=== PATIENT | female | born 1940 | race Caucasian/White ===

== ENCOUNTER 2019-11-23 10:54 | Outpatient (REF) | payer MEDICARE, SELFPAY ==
--- NOTE | 2019-11-23 | MM_ITS ---
EXAMINATION: MM SCREENING DIGITAL BREAST TOMOSYNTHESIS, BILATERAL CLINICAL INFORMATION: Screening. Asymptomatic. The lifetime risk of breast cancer based on the Tyrer-Cuzick Model is 2%. COMPARISON: Mammography: 02/26/2018, 12/31/2016, 11/07/2015 TECHNIQUE: Digital breast tomosynthesis is performed in both the craniocaudal and mediolateral oblique views along with computer-aided detection (CAD). Synthesized 2D images are generated from the tomosynthesis. Additional exaggerated right CC view is provided. FINDINGS: There are scattered areas of fibroglandular density (ACR BI-RADS breast composition Category b). There are no significant masses, abnormal calcifications, or other abnormalities. Parenchymal pattern is similar to prior studies. No developing density. The axilla and skin contours are unremarkable. IMPRESSION: No significant changes from prior studies. ASSESSMENT: BI-RADS 1: Negative RECOMMENDATION: Routine annual mammography screening. This patient's information was entered into a reminder system with a target due date for their next mammogram.
== END 2019-11-23 10:55 | disposition home or self-care (01) ==
LOC: HO.MAMMO 10:54
PROVIDERS: PCP Internal Medicine; Visit Provider Internal Medicine
DX: Z12.31 Encounter for screening mammogram for malignant neoplasm of breast (principal)
CPT/HCPCS: 77063; 77067

== ENCOUNTER 2020-03-23 12:46 | Outpatient (REF) | payer MEDICARE, SELFPAY ==
--- NOTE | ~2020-03-23 | XR_ITS ---
EXAMINATION: XR ANKLE, LEFT CLINICAL INFORMATION: Left ankle pain. COMPARISON: None TECHNIQUE: AP, lateral, and mortise views of the left ankle. FINDINGS: There is a nondisplaced medial malleolar fracture with sclerotic margin extending to the articular surface suggestive of subacute or old fracture. There is moderate medial malleolar soft tissue swelling. There is minimal lateral malleolar soft tissue swelling but no fracture seen laterally. There is a small calcaneal heel and retrocalcaneal enthesophyte. XR/XR ankle LT min 3V IMPRESSION: 1. Nondisplaced medial malleolar fracture with sclerotic margins extending to the articular surface suggestive of old fracture. 2. There is bimalleolar soft tissue swelling slightly greater on the medial side.
[2020-03-23 13:23] LABS: MANUAL DIFF FLAG NO
[2020-03-23 13:28] LABS: Basophils Percent Auto 0.5 % (0-2); Eosinophils Absolute Auto 0.3 X10*3/uL (0.0-0.4); Eosinophils Percent Auto 3.9 % (0-4); Hematocrit 33.9 % (37-47); Hemoglobin 11.1 g/dl (12.0-16.0); Imm Gran Abs Auto 0.01 X10*3/uL (0.00-0.03); Imm Gran Pct Auto 0.2 % (0.0-0.4); Lymphocytes Absolute Auto 2.6 X10*3/uL (1.2-4.9); Lymphocytes Percent Auto 40.5 % (20-40); Mean Corpuscular HGB Conc 32.7 g/dl (31.0-35.0); Mean Corpuscular Hemoglobin 29.3 pg (27.0-33.0); Mean Corpuscular Volume 89.4 fL (80-98); Mean Platelet Volume 10.7 fL (9.4-12.3); Monocytes Absolute Auto 0.8 X10*3/uL (0.1-1.2); Monocytes Percent Auto 12.2 % (2-11); Neutrophils Absolute Auto 2.7 X10*3/uL (2.0-8.3); Neutrophils Percent Auto 42.7 % (45-73); Platelet Count 232 X10*3/uL (160-400); Red Blood Count 3.79 X10*6/uL (4.20-5.50); Red Cell Distribution Width 13.1 % (11.0-16.0); White Blood Count 6.4 X10*3/uL (4.8-10.8)
[2020-03-23 13:53] LABS: Alanine Aminotransferase 8 U/L (0-31); Albumin Level 3.9 g/dL (3.5-5.0); Alkaline Phosphatase 68 U/L (39-117); Anion Gap 11 (12-20); Aspartate Amino Transferase 22 U/L (5-31); Bilirubin Total 0.4 mg/dL (0.0-1.0); Blood Urea Nitrogen 19 mg/dL (9-16); Calcium 9.3 mg/dL (8.4-10.2); Carbon Dioxide 30 mmol/L (22-29); Chloride 99 mmol/L (96-108); Estimated Glomerular Filt Rate 44; Glucose Random 146 mg/dL (60-115); Potassium 4.3 mmol/L (3.3-5.1); Sodium 136 mmol/L (135-145); Total Protein 6.9 g/dL (6.5-8.0)
[2020-03-23 14:15] LABS: Free T4 (Free Thyroxine) 1.22 ng/dL (0.71-1.85); Thyroid Stimulating Hormone 1.12 uIU/mL (0.32-4.0); Vitamin D 25-OH Total 29.8 ng/mL (>30)
== END 2020-03-23 12:47 | disposition home or self-care (01) ==
LOC: HO.LAB 12:46
PROVIDERS: PCP Internal Medicine; Visit Provider Internal Medicine
DX: I12.9 Hypertensive chronic kidney disease with stage 1 through stage 4 chronic kidney disease, or unspecified chronic kidney disease (principal); N18.9 Chronic kidney disease, unspecified; E03.9 Hypothyroidism, unspecified; M25.572 Pain in left ankle and joints of left foot
CPT/HCPCS: 36415; 73610; 80053; 82306; 84439; 84443; 85025

== ENCOUNTER 2020-04-19 14:02 | Outpatient (REF) | payer MEDICARE, SELFPAY ==
--- NOTE | ~2020-04-19 | XR_ITS ---
EXAMINATION: XR ANKLE, LEFT CLINICAL INFORMATION: Ankle pain. Possible osteomyelitis. COMPARISON: Radiographs left ankle 03/23/2020 TECHNIQUE: AP, lateral, and mortise views of the left ankle. FINDINGS: Medial soft tissue swelling is decreased from prior study 03/23/2020. There is no acute fracture or destructive process. No periostitis. No focal osseous lucency. There is no gas tracking in the soft tissues. Again, there is an oblique faint fracture line with osseous union base medial malleolus. The medial and posterior malleoli are unremarkable. The talar dome shows no osteochondral lesion. There is no joint narrowing. Subtalar joint unremarkable. Again, there are posterior and plantar calcaneal spurs and scattered dystrophic mineralization mid Achilles. XR/XR ankle LT min 3V IMPRESSION: 1. Medial soft tissue swelling decreased from prior exam 03/23/2020. No gas tracking in soft tissues. No bony destructive process or osteomyelitis. 2. Old versus subacute injury base medial malleolus, osseous union. 3. Posterior and plantar calcaneal spurs. Dystrophic mineralization Achilles stable.
[2020-04-19 14:50] LABS: MANUAL DIFF FLAG NO
[2020-04-19 14:56] LABS: Basophils Percent Auto 0.3 % (0-2); Eosinophils Absolute Auto 0.1 X10*3/uL (0.0-0.4); Eosinophils Percent Auto 0.8 % (0-4); Hematocrit 35.9 % (37-47); Hemoglobin 11.5 g/dl (12.0-16.0); Imm Gran Abs Auto 0.01 X10*3/uL (0.00-0.03); Imm Gran Pct Auto 0.2 % (0.0-0.4); Lymphocytes Absolute Auto 2.6 X10*3/uL (1.2-4.9); Lymphocytes Percent Auto 39.8 % (20-40); Mean Corpuscular Hemoglobin 28.4 pg (27.0-33.0); Mean Corpuscular Volume 88.6 fL (80-98); Mean Platelet Volume 10.4 fL (9.4-12.3); Monocytes Absolute Auto 0.7 X10*3/uL (0.1-1.2); Monocytes Percent Auto 10.7 % (2-11); Neutrophils Absolute Auto 3.2 X10*3/uL (2.0-8.3); Neutrophils Percent Auto 48.2 % (45-73); Platelet Count 219 X10*3/uL (160-400); Red Blood Count 4.05 X10*6/uL (4.20-5.50); Red Cell Distribution Width 14.2 % (11.0-16.0); White Blood Count 6.6 X10*3/uL (4.8-10.8)
[2020-04-19 15:22] LABS: C Reactive Protein 0.43 mg/dL (< or = 0.50)
== END 2020-04-19 14:03 | disposition home or self-care (01) ==
LOC: HO.LAB 14:02
PROVIDERS: PCP Internal Medicine; Visit Provider Internal Medicine
DX: S82.892A Other fracture of left lower leg, initial encounter for closed fracture (principal); X58.XXXA Exposure to other specified factors, initial encounter; Y93.9 Activity, unspecified; Y92.9 Unspecified place or not applicable; Y99.8 Other external cause status
CPT/HCPCS: 36415; 73610; 85025; 86140

== ENCOUNTER 2020-08-30 09:21 | Outpatient (REF) | payer MEDICARE, SELFPAY ==
[2020-08-30 10:14] LABS: MANUAL DIFF FLAG NO
[2020-08-30 10:23] LABS: Basophils Percent Auto 0.3 % (0-2); Eosinophils Absolute Auto 0.2 X10*3/uL (0.0-0.4); Hematocrit 34.3 % (37-47); Imm Gran Abs Auto 0.01 X10*3/uL (0.00-0.03); Imm Gran Pct Auto 0.2 % (0.0-0.4); Lymphocytes Absolute Auto 2.9 X10*3/uL (1.2-4.9); Lymphocytes Percent Auto 48.1 % (20-40); Mean Corpuscular HGB Conc 32.1 g/dl (31.0-35.0); Mean Corpuscular Hemoglobin 28.5 pg (27.0-33.0); Mean Corpuscular Volume 88.9 fL (80-98); Mean Platelet Volume 10.6 fL (9.4-12.3); Monocytes Absolute Auto 0.8 X10*3/uL (0.1-1.2); Monocytes Percent Auto 12.8 % (2-11); Neutrophils Absolute Auto 2.1 X10*3/uL (2.0-8.3); Neutrophils Percent Auto 34.6 % (45-73); Platelet Count 231 X10*3/uL (160-400); Red Blood Count 3.86 X10*6/uL (4.20-5.50); Red Cell Distribution Width 13.7 % (11.0-16.0); White Blood Count 5.9 X10*3/uL (4.8-10.8)
[2020-08-30 10:33] LABS: Estimated Average Glucose 123 mg/dL; Hemoglobin A1c % 5.9 %
[2020-08-30 10:34] LABS: Alanine Aminotransferase 7 U/L (0-31); Albumin Level 3.8 g/dL (3.5-5.0); Alkaline Phosphatase 51 U/L (39-117); Anion Gap 10 (12-20); Aspartate Amino Transferase 21 U/L (5-31); Bilirubin Total 0.7 mg/dL (0.0-1.0); Blood Urea Nitrogen 19 mg/dL (9-16); Calcium 9.5 mg/dL (8.4-10.2); Carbon Dioxide 28 mmol/L (22-29); Chloride 101 mmol/L (96-108); Estimated Glomerular Filt Rate 43; Glucose Random 128 mg/dL (60-115); Iron 78 mcg/dL (30-160); Percent Iron Saturation 27 % (15-50); Potassium 4.4 mmol/L (3.3-5.1); Sodium 135 mmol/L (135-145); Total Iron Binding Capacity 293 mcg/dL (228-428); Total Protein 6.6 g/dL (6.5-8.0); Unsaturated Iron Binding 215 ug/dL
[2020-08-30 10:55] LABS: Free T4 (Free Thyroxine) 1.23 ng/dL (0.71-1.85); Thyroid Stimulating Hormone 1.25 uIU/mL (0.32-4.0)
== END 2020-08-30 09:22 | disposition home or self-care (01) ==
LOC: HO.10HDL 09:21
PROVIDERS: Visit Provider Internal Medicine
DX: I12.9 Hypertensive chronic kidney disease with stage 1 through stage 4 chronic kidney disease, or unspecified chronic kidney disease (principal); N18.9 Chronic kidney disease, unspecified; E03.9 Hypothyroidism, unspecified; R73.03 Prediabetes; D64.9 Anemia, unspecified
CPT/HCPCS: 36415; 80053; 83036; 83540; 84439; 84443; 85025

== ENCOUNTER → 2020-11-30 12:41 | Outpatient (REF) | payer MEDICARE, SELFPAY ==
--- NOTE | 2020-11-30 13:00 | CA_ITS ---
Transthoracic Echocardiogram Patient (Last, First, Middle): Celsa Rios, Gender: Female Date of : 1940 Age: 80 Procedure Date: 11/30/2020 Procedure Type: Transthoracic Echocardiogram Location: OP Height: 160.02 cm Weight: 63.5 kg BSA: 1.66 m2 Heart Rate: bpm BP: 125 / 64 mmHg Ski Instructor: VH/CP Referring MD: Shiva Fierro MD Symptoms: MURMUR Study Quality: Fair ECG Rhythm: Sinus Conclusions: - The left ventricular systolic function is normal. The visually estimated ejection fraction is between 65-70%. - Evidence suggests grade II (moderate) diastolic dysfunction. - The left atrium is moderately dilated. - There is severe calcification of the aortic valve. There is moderate aortic valve stenosis. Findings Left Ventricle Normal left ventricular cavity size. There is normal left ventricular wall thickness. The left ventricular systolic function is normal. The visually estimated ejection fraction is between 65-70%. E/E prime ratio is >15, consistent with elevated filling pressures. Evidence suggests grade II (moderate) diastolic dysfunction. Right Ventricle Normal right ventricular cavity size. There is normal right ventricular systolic function. Atria The left atrium is moderately dilated. The right atrium is mildly dilated. Aortic Valve There is severe calcification of the aortic valve. There is moderate aortic valve stenosis. The peak aortic velocity is 3.05 m/s with a calculated peak gradient of 37 mmHg. The mean gradient is 21 mmHg. The aortic valve area is 1.18 cm2. There is mild aortic valve regurgitation. Mitral Valve There is mild anterior mitral leaflet thickening. There is mild mitral annular calcification. There is trace mitral valve regurgitation. There is no mitral valve stenosis. Pulmonic Valve The pulmonic valve was not well visualized. There is trace to mild pulmonic valve regurgitation. Tricuspid Valve Normal tricuspid valve structure. There is trace tricuspid valve regurgitation. The pulmonary artery systolic pressure is normal. Great Vessels The asc aorta is normal in size. Venous The inferior vena cava is normal in size and collapses greater than 50% with inspiration. Pericardium/Pleural There is no evidence of pericardial effusion. Prior Study Comparison Changes noted compared to prior study dated: 03/04/2019. Progression of aortic valve stenosis. Measurements 2D Linear Measurements IVSd: 1.07 0.6-0.9/0.6-1.0 cm LVIDd: 4.27 3.9-5.3/4.2-5.9 cm LVIDd Index: 2.57 2.4-3.2/2.2-3.1 cm/m2 LVIDs: 3.10 2.0-3.6 cm LVPWd: 0.94 0.7-1.1 cm Ao Root: 3.50 2.1-3.5 cm LA Diam: 3.70 2.7-3.8/3.0-4.0 cm LAIDs Index: 2.23 1.5-2.3 cm/m2 LV Mass: 176.00 67-162/88-224 g LV Mass Index: 106.02 43-95/49-115 g/m2 LVOT Diam: 2.00 3.0+(-)1.3 cm Mitral Valve MV Pk E: 1.30 MV PK A: 1.08 MV Decel Time: 263.00 E/A: 1.20 E'Lateral: 7.40 E'Medial: 5.00 E/E' Med: 26.00 E/E' Lat: 17.60 PHT: 77.00 MVA PHT: 2.86 Decel [place]: 4.96 Aortic Valve AoV Pk Luis: 3.05 AoV Mn Luis: 2.19 AoV VTI: 0.74 AoV Pk Grad: 37.00 Aov Mn Grad: 21.00 RITO Cont.VTI: 1.18 LVOT LVOT Pk Luis: 1.04 LVOT Mn Luis: 0.64 LVOT VTI: 0.28 LVOT Pk Grad: 4.00 LVOT Mn Grad: 2.00 LVOT Diam: 2.00 LVOT Area: 3.14 Diastolic Function MV Pk E: 1.30 MV Pk A: 1.08 E/A: 1.20 E'Medial: 5.00 E/E' Med: 26.00 E' Laterial: 7.40 E/E' Lat: 17.60 Right Ventricle TAPSE (mm): 26.00 TVS' Luis: 17.00 Tricuspid Valve TR Pk Luis: 1.83 TR Pk Grad: 13.00 Great Vessels Aorta Ao Root-2D: 3.50 2.0-3.7 cm Ao Asc: 3.20 2.1-3.4 cm Updated in Other Vendor System with Status of Final Fabian Osullivan MD electronically signed on 12/02/2020 12:13:46 PM with status of Final
== END ==
LOC: HO.CARD 12:41
PROVIDERS: Visit Provider Internal Medicine
DX: R01.1 Cardiac murmur, unspecified (principal)
CPT/HCPCS: 93306

== ENCOUNTER 2020-12-05 15:01 | Outpatient (REF) | payer MEDICARE, SELFPAY ==
--- NOTE | ~2020-12-05 | MM_ITS ---
EXAMINATION: MM SCREENING DIGITAL BREAST TOMOSYNTHESIS, BILATERAL CLINICAL INFORMATION: Screening. Asymptomatic. The lifetime risk of breast cancer based on the Tyrer-Cuzick Model is 2%. COMPARISON: Mammography: 11/23/2019, 02/26/2018, 12/31/2016, 11/07/2015 TECHNIQUE: Digital breast tomosynthesis is performed in both the craniocaudal and mediolateral oblique views along with computer-aided detection (CAD). Synthesized 2D images are generated from the tomosynthesis. Additional exaggerated right CC and right MLO views are provided. FINDINGS: There are scattered areas of fibroglandular density (ACR BI-RADS breast composition Category b). Parenchymal pattern is similar to prior exams. There are scattered stable minor benign asymmetries without developing density or interval mass or architectural abnormality. No abnormal calcifications. The skin contours are smooth. MM/MM tomosynthesis screening BI IMPRESSION: No mammographic evidence of malignancy. ASSESSMENT: BI-RADS 2: Benign RECOMMENDATION: Routine annual mammography screening. This patient's information was entered into a reminder system with a target due date for their next mammogram.
== END 2020-12-05 15:02 | disposition home or self-care (01) ==
LOC: HO.MAMMO 15:01
PROVIDERS: Visit Provider Internal Medicine
DX: Z12.31 Encounter for screening mammogram for malignant neoplasm of breast (principal)
CPT/HCPCS: 77063; 77067

== ENCOUNTER 2020-12-26 07:40 | Outpatient (REF) | payer MEDICARE, SELFPAY ==
[2020-12-26 10:21] LABS: MANUAL DIFF FLAG NO
[2020-12-26 10:25] LABS: Basophils Percent Auto 0.2 % (0-2); Eosinophils Percent Auto 0.2 % (0-4); Hematocrit 34.7 % (37.0-47.0); Hemoglobin 11.1 g/dl (12.0-16.0); Imm Gran Abs Auto 0.01 X10*3/uL (0.00-0.03); Imm Gran Pct Auto 0.2 % (0.0-0.4); Lymphocytes Absolute Auto 2.6 X10*3/uL (1.2-4.9); Lymphocytes Percent Auto 43.3 % (20-40); Mean Corpuscular Hemoglobin 28.1 pg (27.0-33.0); Mean Corpuscular Volume 87.8 fL (80.0-98.0); Monocytes Absolute Auto 0.5 X10*3/uL (0.1-1.2); Monocytes Percent Auto 7.6 % (2-11); Neutrophils Absolute Auto 2.9 x10*3/uL (2.0-8.3); Neutrophils Percent Auto 48.5 % (45-73); Platelet Count 242 X10*3/uL (160-400); Red Blood Count 3.95 X10*6/uL (4.20-5.50); Red Cell Distribution Width 14.2 % (11.0-16.0)
[2020-12-26 11:01] LABS: Estimated Average Glucose 120 mg/dL; Hemoglobin A1c % 5.8 %
[2020-12-26 11:23] LABS: Alanine Aminotransferase 9 U/L (0-31); Albumin Level 3.9 g/dL (3.5-5.0); Alkaline Phosphatase 56 U/L (39-117); Anion Gap 11 (12-20); Aspartate Amino Transferase 17 U/L (5-31); Bilirubin Total 0.5 mg/dL (0.0-1.0); Blood Urea Nitrogen 29 mg/dL (9-16); C Reactive Protein 0.11 mg/dL (< or = 0.50); Calcium 8.9 mg/dL (8.4-10.2); Carbon Dioxide 28 mmol/L (22-29); Chloride 105 mmol/L (96-108); Cholesterol 175 mg/dL; Estimated Glomerular Filt Rate 41; Glucose Fasting 91 mg/dL (60-99); HDL Cholesterol 63 mg/dL; LDL Cholesterol Calculated 95 mg/dl; Potassium 4.7 mmol/L (3.3-5.1); Sodium 139 mmol/L (135-145); Total Protein 6.8 g/dL (6.5-8.0); Triglycerides 88 mg/dL
[2020-12-28 13:22] LABS: Alpha Fetoprotein 7.2 ng/mL
== END 2020-12-26 07:41 | disposition home or self-care (01) ==
LOC: HO.10HDL 07:40
PROVIDERS: Visit Provider Internal Medicine
DX: I12.9 Hypertensive chronic kidney disease with stage 1 through stage 4 chronic kidney disease, or unspecified chronic kidney disease (principal); N18.9 Chronic kidney disease, unspecified; D64.9 Anemia, unspecified; R73.03 Prediabetes; D63.1 Anemia in chronic kidney disease
CPT/HCPCS: 36415; 80053; 80061; 82105; 83036; 85025; 86140

== ENCOUNTER → 2021-01-10 14:08 | Outpatient (BNVA) | payer MEDICARE, SELFPAY | PROVIDERS: PCP Internal Medicine; Referring Provider Internal Medicine; Visit Provider Internal Medicine | DX: I35.0 Nonrheumatic aortic (valve) stenosis (principal); I10 Essential (primary) hypertension; I51.89 Other ill-defined heart diseases | CPT/HCPCS: 93005; 99202 ==

== ENCOUNTER 2021-01-30 09:19 | Outpatient (REF) | payer MEDICARE, SELFPAY ==
[2021-01-30 11:28] LABS: Erythrocyte Sedimentation Rate 14 MM/HR (0-20)
== END 2021-01-30 09:20 | disposition home or self-care (01) ==
LOC: HO.10HDL 09:19
PROVIDERS: Visit Provider Specialist
DX: H53.2 Diplopia (principal)
CPT/HCPCS: 36415; 85652; 86140

== ENCOUNTER 2021-04-11 08:00 | Outpatient (REF) | payer MEDICARE, SELFPAY ==
[2021-04-11 10:04] LABS: MANUAL DIFF FLAG NO
[2021-04-11 10:14] LABS: Hematocrit 37.1 % (37.0-47.0); Imm Gran Abs Auto 0.02 X10*3/uL (0.00-0.03); Imm Gran Pct Auto 0.3 % (0.0-0.4); Lymphocytes Absolute Auto 1.9 X10*3/uL (1.2-4.9); Lymphocytes Percent Auto 32.3 % (20-40); Mean Corpuscular HGB Conc 32.3 g/dl (31.0-35.0); Mean Corpuscular Hemoglobin 28.7 pg (27.0-33.0); Mean Corpuscular Volume 88.8 fL (80.0-98.0); Mean Platelet Volume 11.1 fL (9.4-12.3); Monocytes Absolute Auto 0.2 X10*3/uL (0.1-1.2); Monocytes Percent Auto 4.1 % (2-11); Neutrophils Absolute Auto 3.7 x10*3/uL (2.0-8.3); Neutrophils Percent Auto 63.3 % (45-73); Platelet Count 252 X10*3/uL (160-400); Red Blood Count 4.18 X10*6/uL (4.20-5.50); Red Cell Distribution Width 14.6 % (11.0-16.0); White Blood Count 5.9 X10*3/uL (4.8-10.8)
[2021-04-11 10:24] LABS: Alanine Aminotransferase 6 U/L (0-31); Albumin Level 4.2 g/dL (3.5-5.0); Alkaline Phosphatase 60 U/L (39-117); Anion Gap 15 (12-20); Aspartate Amino Transferase 20 U/L (5-31); Bilirubin Total 0.5 mg/dL (0.0-1.0); Blood Urea Nitrogen 23 mg/dL (9-16); Calcium 10.3 mg/dL (8.4-10.2); Carbon Dioxide 26 mmol/L (22-29); Chloride 98 mmol/L (96-108); Estimated Glomerular Filt Rate 46; Glucose Fasting 137 mg/dL (60-99); Iron 55 mcg/dL (30-160); Potassium 4.8 mmol/L (3.3-5.1); Sodium 134 mmol/L (135-145); Total Protein 7.3 g/dL (6.5-8.0)
[2021-04-11 10:30] LABS: Percent Iron Saturation 17 % (15-50); Total Iron Binding Capacity 328 mcg/dL (228-428); Unsaturated Iron Binding 273 ug/dL
== END 2021-04-11 08:01 | disposition home or self-care (01) ==
LOC: HO.10HDL 08:00
PROVIDERS: Visit Provider Internal Medicine
DX: I12.9 Hypertensive chronic kidney disease with stage 1 through stage 4 chronic kidney disease, or unspecified chronic kidney disease (principal); N18.9 Chronic kidney disease, unspecified; D64.9 Anemia, unspecified; K21.9 Gastro-esophageal reflux disease without esophagitis
CPT/HCPCS: 36415; 80053; 83540; 85025; 86140

== ENCOUNTER 2021-06-05 14:22 | Outpatient (REF) | payer MEDICARE, SELFPAY ==
--- NOTE | ~2021-06-05 | US_ITS ---
EXAMINATION: US VENOUS ULTRASOUND WITH DOPPLER LOWER EXTREMITY, RIGHT CLINICAL INFORMATION: Pain COMPARISON: None TECHNIQUE: Ultrasound of the deep veins is performed from the hip to the calf with compression sonography and color and pulse Doppler assessment. Spectral analysis with color-flow imaging is performed. FINDINGS: There is normal venous compression and respiratory variation and augmented flow. The visualized common femoral vein, superficial femoral vein, profunda femoral vein, popliteal vein, and the trifurcation region shows no evidence of deep venous thrombosis. Loculated the fluid collection likely popliteal cysts 7.3 x 2.2 x 2.5 cm. If the patient's symptoms persist, followup ultrasound in 5 days 7 days might be of value to exclude proximal propagation from a non-visualized calf vein. US/US venous duplex LE RT IMPRESSION: No DVT demonstrated in the right lower extremity. Loculated fluid filled structure in the popliteal fossa probably Romero's cyst 7.3 cm.
== END 2021-06-05 14:23 | disposition home or self-care (01) ==
LOC: HO.US 14:22
PROVIDERS: PCP Internal Medicine; Visit Provider Internal Medicine
DX: R22.41 Localized swelling, mass and lump, right lower limb (principal)
CPT/HCPCS: 93971

== ENCOUNTER → 2021-06-28 13:47 | Outpatient (REF) | payer MEDICARE, SELFPAY ==
--- NOTE | 2021-06-28 13:51 | CA_ITS ---
Transthoracic Echocardiogram Patient (Last, First, Middle): Celsa Rios, Gender: Female Date of : 1940 Age: 81 Procedure Date: 06/28/2021 Procedure Type: Transthoracic Echocardiogram Location: OP Height: 157.48 cm Weight: 70.31 kg BSA: 1.72 m2 Heart Rate: 75 bpm BP: 180 / 70 mmHg Dormitory Supervisor: SB Referring MD: Fabian Osullivan MD Symptoms: I35.0 - Nonrheumatic aortic (valve) stenosis Study Quality: Technically Difficult due to patient co-operation ECG Rhythm: Sinus Conclusions: - The left ventricular systolic function is normal. The visually estimated ejection fraction is between 55-60%. - Evidence suggests grade II (moderate) diastolic dysfunction. - There is severe calcification of the aortic valve. There is moderate aortic valve stenosis. - There is moderate mitral annular calcification. There is mild mitral valve regurgitation. Findings Left Ventricle Normal left ventricular cavity size. There is normal left ventricular wall thickness. The left ventricular systolic function is normal. The visually estimated ejection fraction is between 55-60%. There is no evidence of regional wall motion abnormalities. E/E prime ratio is >15, consistent with elevated filling pressures. Evidence suggests grade II (moderate) diastolic dysfunction. Right Ventricle Normal right ventricular cavity size and systolic function. Atria Both atria are normal in size. Aortic Valve There is severe calcification of the aortic valve. There is moderate aortic valve stenosis. The mean gradient is 18 mmHg. The aortic valve area is 1.08 cm2. There is mild aortic valve regurgitation. Dimensionless index 0.38. Stroke volume index 44cc/m2. Mitral Valve There is moderate mitral annular calcification. There is mild mitral valve regurgitation. Mean gradient across the mitral valve 4 mm Hg at 71/Min; cannot exclude mild mitral stenosis. Pulmonic Valve The pulmonic valve is likely normal. Tricuspid Valve Normal tricuspid valve structure. There is trace tricuspid valve regurgitation. The pulmonary artery systolic pressure is normal. Great Vessels The aortic annulus, sinuses of valsalva, and asc aorta are normal in size. Venous The inferior vena cava was not well visualized. Pericardium/Pleural There is no evidence of pericardial effusion. Prior Study Comparison No significant change compared to prior study dated: 11/30/2020. Measurements 2D Linear Measurements IVSd: 0.94 0.6-0.9/0.6-1.0 cm LVIDd: 4.54 3.9-5.3/4.2-5.9 cm LVIDd Index: 2.64 2.4-3.2/2.2-3.1 cm/m2 LVIDs: 3.27 2.0-3.6 cm LVPWd: 0.77 0.7-1.1 cm LA Diam: 4.00 2.7-3.8/3.0-4.0 cm LAIDs Index: 2.33 1.5-2.3 cm/m2 LV Mass: 155.49 67-162/88-224 g LV Mass Index: 90.40 43-95/49-115 g/m2 LVOT Diam: 1.90 3.0+(-)1.3 cm 2D Systolic Function EF 4C: 47.10 >55% EF 2C: 47.50 >55% EF BiP: 46.20 >55% Mitral Valve MV VTI: 0.36 MV Pk Luis: 1.41 MV Mn Luis: 0.90 MV Pk Grad: 8.00 MV Mn Grad: 4.00 MV Pk E: 1.56 MV PK A: 1.04 MV Decel Time: 157.00 E/A: 1.50 E'Lateral: 7.62 E'Medial: 6.49 E/E' Med: 24.00 E/E' Lat: 20.50 PHT: 46.00 MVA PHT: 4.78 MVA Continuity: 2.09 Decel [place]: 9.92 Aortic Valve AoV Pk Luis: 2.72 AoV Mn Luis: 1.97 AoV VTI: 0.69 AoV Pk Grad: 30.00 Aov Mn Grad: 18.00 RITO Cont.VTI: 1.08 AI Pk Luis: 4.14 AI [place]: 3.10 LVOT LVOT Pk Luis: 1.01 LVOT Mn Luis: 0.69 LVOT VTI: 0.26 LVOT Pk Grad: 4.00 LVOT Mn Grad: 2.00 LVOT Diam: 1.90 LVOT Area: 2.84 Diastolic Function MV Pk E: 1.56 MV Pk A: 1.04 E/A: 1.50 E'Medial: 6.49 E/E' Med: 24.00 E' Laterial: 7.62 E/E' Lat: 20.50 Right Ventricle TAPSE (mm): 21.40 TVS' Luis: 13.10 Tricuspid Valve TR Pk Luis: 2.74 TR Pk Grad: 30.00 RA Press: 3.00 Great Vessels Aorta Sinus of Valsalva: 3.41 2.0-3.[address] [place]: 2.89 1.7-3.4 cm Ao Asc: 3.30 2.1-3.4 cm Pulmonary Valve PV Pk Luis: 0.90 Peak PV Grad: 3.00 Updated in Other Vendor System with Status of Final Fabian Osullivan MD electronically signed on 06/30/2021 12:26:01 PM with status of Final
== END ==
LOC: HO.CARD 13:47
PROVIDERS: PCP Internal Medicine; Visit Provider Internal Medicine
DX: I35.0 Nonrheumatic aortic (valve) stenosis (principal)
CPT/HCPCS: 93306

== ENCOUNTER → 2021-07-05 14:15 | Outpatient (BNVA) | payer MEDICARE, SELFPAY | PROVIDERS: PCP Internal Medicine; Referring Provider Internal Medicine; Visit Provider Internal Medicine | DX: I35.0 Nonrheumatic aortic (valve) stenosis (principal); I51.89 Other ill-defined heart diseases; I10 Essential (primary) hypertension | CPT/HCPCS: 99212 ==

== ENCOUNTER 2021-10-18 09:22 | Outpatient (REF) | payer MEDICARE, SELFPAY ==
[2021-10-18 10:19] LABS: MANUAL DIFF FLAG NO
[2021-10-18 10:27] LABS: Basophils Percent Auto 0.4 % (0-2); Eosinophils Absolute Auto 0.2 X10*3/uL (0.0-0.4); Eosinophils Percent Auto 4.8 % (0-4); Hematocrit 34.3 % (37.0-47.0); Hemoglobin 11.1 g/dl (12.0-16.0); Imm Gran Abs Auto 0.01 X10*3/uL (0.00-0.03); Imm Gran Pct Auto 0.2 % (0.0-0.4); Lymphocytes Absolute Auto 2.1 X10*3/uL (1.2-4.9); Mean Corpuscular HGB Conc 32.4 g/dl (31.0-35.0); Mean Corpuscular Hemoglobin 28.1 pg (27.0-33.0); Mean Corpuscular Volume 86.8 fL (80.0-98.0); Mean Platelet Volume 10.4 fL (9.4-12.3); Monocytes Absolute Auto 0.6 X10*3/uL (0.1-1.2); Monocytes Percent Auto 12.3 % (2-11); Neutrophils Absolute Auto 1.9 x10*3/uL (2.0-8.3); Neutrophils Percent Auto 39.3 % (45-73); Platelet Count 235 X10*3/uL (160-400); Red Blood Count 3.95 X10*6/uL (4.20-5.50); Red Cell Distribution Width 14.2 % (11.0-16.0); White Blood Count 4.8 X10*3/uL (4.8-10.8)
[2021-10-18 11:15] LABS: Anion Gap 14 (12-20); Blood Urea Nitrogen 20 mg/dL (9-16); C Reactive Protein 0.35 mg/dL (< or = 0.50); Calcium 9.3 mg/dL (8.4-10.2); Carbon Dioxide 28 mmol/L (22-29); Chloride 100 mmol/L (96-108); Estimated Glomerular Filt Rate 47; Glucose Random 83 mg/dL (60-115); Potassium 4.7 mmol/L (3.3-5.1); Sodium 137 mmol/L (135-145)
[2021-10-18 11:21] LABS: Free T4 (Free Thyroxine) 1.04 ng/dL (0.71-1.85); Thyroid Stimulating Hormone 3.87 uIU/mL (0.32-4.0)
[2021-10-18 11:31] LABS: Uric Acid 5.4 mg/dL (2.4-5.7)
[2021-10-18 12:22] LABS: Erythrocyte Sedimentation Rate 20 MM/HR (0-20)
== END 2021-10-18 09:23 | disposition home or self-care (01) ==
LOC: HO.10HDL 09:22
PROVIDERS: Visit Provider Internal Medicine
DX: E03.9 Hypothyroidism, unspecified (principal); R60.0 Localized edema; M54.2 Cervicalgia
CPT/HCPCS: 36415; 80048; 84439; 84443; 84550; 85025; 85652; 86140

== ENCOUNTER 2021-11-28 12:46 | Inpatient (IN) | payer MEDICARE, SELFPAY ==
--- NOTE | ~2021-11-28 | CT_ITS ---
EXAMINATION: NONCONTRAST HEAD CT NONCONTRAST CERVICAL SPINE CT INDICATION INFORMATION: Status post fall with pain COMPARISON: None TECHNIQUE: Separate noncontrast CT examinations of the head and cervical spine were performed. Coronal and sagittal images were created for each examination at the technologist workstation. This CT examination was performed using dose optimization techniques as appropriate, variously including the following: *Automated exposure control *Adjustment of mA and/or kV according to patient size (this includes techniques or standardized protocols for targeted exams where dose is matched to indication/reason for exam; i.e. extremities or head) *Use of iterative reconstruction technique DLP: 945 mGy-cm FINDINGS: HEAD: No intra or extra-axial fluid collection, hemorrhage, or mass. No ventriculomegaly. No midline shift or herniation. Basal cisterns are patent. Adams-white matter differentiation is maintained. No territorial encephalomalacia. Proportional prominence of the ventricles and sulcal spaces is consistent with mild volume loss. Patchy periventricular and deep white matter hypoattenuation is consistent with mild small vessel ischemic changes. No calvarial fracture or soft tissue abnormality. The mastoid air cells and visualized portions of the paranasal sinuses are well aerated. CERVICAL SPINE: Alignment: Normal. No subluxation. Vertebra: No acute fracture. No prevertebral soft tissue swelling. Degenerative disc disease: Mild to moderate diffuse multilevel cervical spondylosis with disc height loss, faint intervertebral disc calcifications, and small endplate osteophytes. Advanced multilevel bilateral facet arthrosis and bilateral uncovertebral spurring. Posterior disc protrusions/disc osteophyte complexes at several levels in the spine most pronounced at C3-C4. Other findings: Thyroid gland is atrophic or absent. Biapical pleural parenchymal thickening/scarring. No cervical lymphadenopathy. Carotid vascular calcifications. CT/CT cervical spine wo IV con IMPRESSION: 1. No intracranial hemorrhage or calvarial fracture. 2. No traumatic subluxation or acute cervical spine fracture.
--- NOTE | ~2021-11-28 | XR_ITS ---
EXAMINATION: XR HAND/WRIST, LEFT CLINICAL INFORMATION: Fall COMPARISON: None TECHNIQUE: 3 views of the left hand with additional focus view of the left wrist. FINDINGS: Osteopenia. There is an impacted, intra-articular distal radial metaphyseal fracture. Dorsal angulation and displacement of the distal fragment. The carpal rows remain aligned with degenerative changes at the first carpometacarpal joint. There appears to be disruption of the distal radioulnar joint with distal positioning of the ulna in relation to the radius. Suspect styloid fracture as well. Soft tissue swelling throughout. XR/XR hand wrist LT IMPRESSION: Impacted, intra-articular distal radial metaphyseal fracture with dorsal angulation and displacement of the distal fragment. Suspect ulnar styloid fracture with disruption of the distal radioulnar joint as well.
--- NOTE | ~2021-11-28 | CT_ITS ---
EXAMINATION: CT CHEST WITHOUT CONTRAST CT ABDOMEN AND PELVIS WITHOUT CONTRAST CLINICAL INFORMATION: Fall. Pain. COMPARISON: Pelvic radiograph 05/18/2021. TECHNIQUE: Multidetector volumetric imaging was performed through the chest, abdomen and pelvis without contrast. Sagittal and coronal reformatted images were obtained on the technologist's workstation. Axial MIP volume rendering provided. This CT examination was performed using dose optimization techniques as appropriate, variously including the following: *Automated exposure control *Adjustment of mA and/or kV according to patient size (this includes techniques or standardized protocols for targeted exams where dose is matched to indication/reason for exam; i.e. extremities or head) *Use of iterative reconstruction technique DLP: 501 mGy-cm. FINDINGS: CHEST: Lungs: The central airways are patent. No consolidation. Pleural thickening and subpleural reticulation at the lung bases. Minimal bibasilar atelectasis.. No pleural effusion or pneumothorax. There are no pulmonary parenchymal nodules. Mediastinum: The heart is of normal size. There is no pericardial effusion. Central vascular structures are unremarkable. No hilar or mediastinal lymphadenopathy. Coronary Artery Calcification: Present. Chest Wall/Axilla: No lymphadenopathy. No chest wall mass. ABDOMEN/PELVIS: Liver, Gallbladder, Biliary Tree: The liver is normal in size, shape, and attenuation. No focal hepatic lesion or biliary ductal dilatation is present. The gallbladder is unremarkable with no evidence of radiopaque gallstones, gallbladder wall thickening, or pericholecystic inflammatory changes. Pancreas: Unremarkable. Spleen: Unremarkable. Adrenal Glands: Unremarkable. Kidneys and Ureters: Low positioning of the right kidney likely secondary to crowding. No hydronephrosis or nephrolithiasis of either kidney. Bladder: Unremarkable. Gastrointestinal Tract: Moderate hiatal hernia. Normal caliber small bowel. No obstruction. Colonic diverticulosis without diverticulitis. No wall thickening. No free air. No significant free fluid. The appendix is not definitively seen. Abdominal Wall: No hernia is demonstrated. Lymphovascular Structures: Lymph nodes: Normal. Vascular: Normal caliber of the aorta with moderate to severe atherosclerotic calcifications. Pelvic Viscera: The uterus and adnexa are unremarkable. OSSEOUS STRUCTURES: Thoracic kyphosis with multilevel vertebral body mild height loss. This is not likely to be acute. There is also multilevel height loss throughout the lumbar spine with vacuum disc phenomenon. The posterior elements are intact with diffuse facet arthropathy. The sternum is intact. The ribs are intact. Diffuse osteopenia. There are fractures of the left superior and inferior pubic rami. Abnormal Contour of both femoral necks, likely associated with prior healed fractures. No definite acute femoral fracture. This configuration is unchanged from previous radiograph. CT/CT abdomen pelvis wo IV con IMPRESSION: 1. Fractures of the left superior and inferior pubic rami. 2. No additional acute traumatic finding of the chest, abdomen, or pelvis. 3. Moderate hiatal hernia. 4. Multilevel vertebral body compression deformities, likely chronic in nature.
--- NOTE | ~2021-11-28 | FL_ITS ---
EXAMINATION: XR FLUOROSCOPY WITH IMAGES CLINICAL INFORMATION: Left radius distal fracture COMPARISON: 11/28/2021 TECHNIQUE: Fluoroscopy performed by Dr. Josefina Torres. Fluoroscopy time: 34.96 seconds. Cumulative Dose: 0.8776 mGy. DAP: 0.0530 Gycm2. Images: 2. FINDINGS: There is K wire placement across the distal radial fracture with improved alignment from prior. There is impaction still noted. Ulnar styloid fracture noted. FL/FL guidance in OR IMPRESSION: K wire placement across the distal radial fracture with improved alignment. Please refer to operative report for further information.
--- NOTE | ~2021-11-28 | CT_ITS ---
EXAMINATION: CT ANGIOGRAM OF THE CHEST WITH AND WITHOUT CONTRAST (CT PULMONARY ANGIOGRAM FOR PE) CLINICAL INFORMATION: Reason for Exam hypoxia COMPARISON: Chest CT from 11/28/2021. TECHNIQUE: Prior to contrast administration, noncontrast localization images were obtained. Subsequently, multidetector volumetric imaging was performed from the thoracic inlet to below the diaphragms following the administration of 65 mL Omnipaque 350 intravenous contrast. No contrast reaction reported Sagittal, coronal, and MIP oblique sagittal reformatted images were obtained on the CT workstation, uploaded to PACS, and reviewed. This CT examination was performed using dose optimization techniques as appropriate, variously including the following: *Automated exposure control *Adjustment of mA and/or kV according to patient size (this includes techniques or standardized protocols for targeted exams where dose is matched to indication/reason for exam; i.e. extremities or head) *Use of iterative reconstruction technique Total exam dose-length product 375 mGy-cm FINDINGS: QUALITY OF STUDY/CONTRAST BOLUS: Satisfactory. PULMONARY ARTERIES: No central or segmental pulmonary emboli. THORACIC AORTA: No aneurysm or dissection. LUNG: The central airways are patent. Tiny right-sided pleural effusion is increased from prior. Bibasilar atelectasis. Bilateral apical pleural thickening. No pneumothorax. No new consolidation. MEDIASTINUM: Prominent heart size. No pericardial effusion. No hilar or mediastinal lymphadenopathy. No evidence of septal bowing or right heart strain. CHEST WALL/AXILLA: No axillary or internal mammary lymphadenopathy. OSSEOUS STRUCTURES: No acute or suspicious osseous abnormality. Thoracic kyphosis and scoliosis with multilevel degenerative change throughout the spine. Multilevel vertebral body height loss. UPPER ABDOMEN: Moderate hiatal hernia. Tortuous aorta. No acute abnormality. No reflux of contrast into the hepatic veins to suggest elevated right heart pressures. CT/CT angio chest PE protocol IMPRESSION: 1. No pulmonary embolism. 2. Tiny right-sided pleural effusion is increased from prior. Bibasilar atelectasis. No consolidation. VTE: negative.
--- NOTE | 2021-11-28 13:06 | ECG_ITS ---
Test Reason : fall Blood Pressure : / mmHG Vent. Rate : 077 BPM Atrial Rate : 077 BPM P-R Int : 152 ms QRS Dur : 074 ms QT Int : 384 ms P-R-T Axes : 079 -06 008 degrees QTc Int : 434 ms Normal sinus rhythm Nonspecific ST abnormality Possible RSR' or QR pattern in V1 suggests right ventricular conduction delay Abnormal ECG When compared with ECG of 20-FEB-2010 13:15, No significant change was found Referred By: Jessica Brannon Electronically Signed By:JAGDEEP KIMBROUGH MD
--- NOTE | 2021-11-28 13:08 | ED.FALL ---
HPI - Fall General Chief Complaint: Fall Stated Complaint: DIFF WALKING SINCE SATURDAY D/T LEG/BUTTOCK PAIN Time Seen by Provider: 11/28/21 13:00 Source: patient Mode of arrival: EMS Limitations: no limitations History of Present Illness HPI Narrative: 81 yo female with hx of dCHF, HTN, hypothyroidism, HTN, here with c/o fall on Saturday patient turned around too quick at home and fell landing on her buttocks/back and L wrist. Patient was on ground x 15 minutes, no head strike or LOC. Now states she is coming to get checked out because her buttocks hurt and she cannot walk at home. Not on thinners MD complaint: fall Onset (ago): day(s) (2) Fall from: standing Fall witnessed: yes, by family Place fall occurred: home Loss of consciousness: none Prolonged down time: no Symptoms prior to fall: other (turned too fast) Context: history of frequent falls Location of injury: other (L wrist, buttocks) Severity: moderate Quality: dull and aching Associated symptoms (after fall): other (L wrist pain, diff walking) Related Data Home Medications Medication Instructions Recorded Confirmed alendronate 70 mg tablet 70 mg PO QWEEK 01/10/21 07/05/21 atenolol 25 mg tablet 25 mg PO DAILY 01/10/21 07/05/21 levothyroxine 75 mcg tablet 75 mcg PO DAILY 01/10/21 07/05/21 lisinopril 5 mg tablet 5 mg PO DAILY 01/10/21 07/05/21 simvastatin 20 mg tablet 20 mg PO BEDTIME 01/10/21 07/05/21 Allergies Allergy/AdvReac Type Severity Reaction Status Date / Time No Known Allergies Allergy Verified 07/05/21 14:30 Review of Systems Review of Systems: Constitutional : No Fever, No Chills ENT/Mouth : No Ear Pain, No Hoarseness, No sore throat Eyes: No Eye Pain, No Swelling, No Redness, No Foreign Body Cardiovascular : No Chest Pain, No SOB, pos lower extremity edema Respiratory : No Cough, No Dyspnea Gastrointestinal : No Nausea, No Vomiting, No Diarrhea, No abdominal Pain Genitourinary : No Dysuria, No Hematuria Musculoskeletal : positive joint pain, No Myalgias, No Joint Swelling Skin : No Skin lacerations, No rash Neuro : No Weakness, No Numbness, No Loss of Consciousness, No Dizziness, No Headache, pos diff walking Psych : No Anxiety/Panic, No Depression Heme/Lymph: no easy bruising, no Lymphadenopathy Endocrine : No Polyuria, No Polydipsia All other systems reviewed and are negative FORMERLY [facility], [facility] Past Medical History Attestation statement: The following information was validated with the patient. Medical History Diastolic dysfunction Essential hypertension Hyperlipidemia Hypothyroidism Non-rheumatic aortic stenosis Surgical History No pertinent past surgical history Family History Family History Father No problems noted. Mother No problems noted. Social History Social History Alcohol intake: never Patient Tobacco Use Status: Never used Tobacco Use of substances other than those prescribed or required for medical reasons: No Advance Directives: No Physical Exam Vital Signs: Vital Signs: Last Vital Signs Temp 98.3 F 11/28/21 16:00 Pulse 83 11/28/21 16:00 Resp 16 11/28/21 16:00 BP 163/55 H 11/28/21 16:00 Pulse Ox 96 11/28/21 16:00 O2 Del Method 11/28/21 16:00 BMI result Body Mass Index 23.4 Appearance: Alert. Oriented X3. No acute distress. Eyes: Pupils equal, round and reactive to light. ENT: Pharynx normal. Neck: Normal inspection. Neck supple. CVS: Normal heart rate and rhythm. Pulses normal. Respiratory: No respiratory distress. Breath sounds normal. Chest wall: no ttp Back: no midline ttp Abdomen: Soft and non-tender. L buttock hematoma small noted Skin: Skin warm and dry. Normal skin color. Normal skin turgor. Extremities: 2+ bilateral pitting lower extremity edema. shiny erythematous bilateral venous stasis dermatitis, L wrist ttp and deformity NV intact, L little finger bruised and contused. Neuro: Oriented X 3. No motor deficit. No sensory deficit. Course Course Course Narrative: 48 hours post injury will splint did attempt to reduce, patient tolerated well distal NV intact orthopedics Dav aware - splint wrist as best you can will see in clinic this week, weight bearing as tolerated for pubic rami rash on legs has been present x months - CRP elevated but no fever no WBC count, BNP 600 leg edema which is chronic per patient, has nothing on CT chest is lung will refer to PT/CM Physician observation continued. Pending PT/CM. No indications for admission at this time. Patient resting comfortably, NAD, lungs clear, CV RRR, Abd nontender, Neuro intact Procedures Orthopedic Splinting/Casting Injury #1: Side: left Upper Extremity Injury Location: wrist Upper Extremity Immobilizer: sugar tong splint Additional Comments: distal NV intact MDM - Fall MDM Narrative Medical decision making narrative: 81 yo female with hx of dCHF, HTN, hypothyroidism, HTN, here with c/o fall on Saturday - patient describes a mechanical fall. At this time the pateint will need labs, CT scan of head/cspine/chest/abdomen/pelvis for trauma given age. She is NV intact distally can move legs and has sensation intact denies leg pain but states her buttocks hurt. Without back pain compressive myelopathy seems unlikely. Dispo per results and findings. Lab Data Result diagrams: 11/28/21 15:54 11/28/21 15:54 Labs: Lab Results 11/28/21 11/28/21 11/28/21 Range/Units 15:54 15:54 15:54 WBC 7.8 (4.8-10.8) X10*3/uL RBC 4.00 L (4.20-5.50) X10*6/uL Hgb 11.2 L (12.0-16.0) g/dl Hct 34.3 L (37.0-47.0) % MCV 85.8 (80.0-98.0) fL MCH 28.0 (27.0-33.0) pg MCHC 32.7 (31.0-35.0) g/dl RDW 14.6 (11.0-16.0) % Plt Count 348 D (160-400) X10*3/uL MPV 9.3 L (9.4-12.3) fL Immature Gran % (Auto) 0.5 H (0.0-0.4) % Neut % (Auto) 71.3 (45-73) % Lymph % (Auto) 17.1 L (20-40) % [place] % (Auto) 9.8 (2-11) % Eos % (Auto) 0.9 (0-4) % Baso % (Auto) 0.4 (0-2) % Lymph # (Auto) 1.3 (1.2-4.9) X10*3/uL [place] # (Auto) 0.8 (0.1-1.2) X10*3/uL Eos # (Auto) 0.1 (0.0-0.4) X10*3/uL Baso # (Auto) 0.0 (0.0-0.2) X10*3/uL Abs Immat Gran (auto) 0.04 H (0.00-0.03) X10*3/uL Absolute Neuts (auto) 5.5 (2.0-8.3) x10*3/uL Absolute Nucleated RBC 0.000 (0.0-0.012) X10*3/uL Nucleated RBC % (auto) 0.0 (0.0-0.2) /100WBC PT (10.0-13.1) SEC INR (0.9-1.1) Sodium 136 (135-145) mmol/L Potassium 4.9 (3.3-5.1) mmol/L Chloride 99 (96-108) mmol/L Carbon Dioxide 26 (22-29) mmol/L Anion Gap 16 (12-20) BUN 18 H (9-16) mg/dL Creatinine 1.05 (0.5-1.4) mg/dL Estim Creat Clear Calc 33.6 Estimated GFR 50 Random Glucose 100 (60-115) mg/dL Calcium 9.4 (8.4-10.2) mg/dL Magnesium 2.0 (1.6-2.6) mg/dL Total Bilirubin 1.0 (0.0-1.0) mg/dL Direct Bilirubin 0.4 (0.0-0.5) mg/dL AST 23 (5-31) U/L ALT 10 (0-31) U/L Alkaline Phosphatase 69 (39-117) U/L Total Creatine Kinase 113 (26-140) U/L Troponin I High Sens (<3.5-17.0) ng/L C-Reactive Protein 5.65 H (< or = 0.50) mg/dL B-Natriuretic Peptide 602 H (<100) pg/mL Total Protein 6.6 (6.5-8.0) g/dL Albumin 3.4 L (3.5-5.0) g/dL Lipase 9 (8-78) U/L Urine Color Urine Appearance Urine pH (5.0-9.0) Ur Specific [place] (1.005-1.025) Urine Protein (Neg-Trace) mg/dL Urine Glucose (UA) (Negative) mg/dL Urine Ketones (Negative) mg/dL Urine Blood (Negative) Urine Nitrite (Negative) Ur Leukocyte Esterase (Negative) COVID-19 (JENNIFER) (Negative) COVID-19 Clin Com 11/28/21 11/28/21 11/28/21 Range/Units 15:54 15:54 15:56 WBC (4.8-10.8) X10*3/uL RBC (4.20-5.50) X10*6/uL Hgb (12.0-16.0) g/dl Hct (37.0-47.0) % MCV (80.0-98.0) fL MCH (27.0-33.0) pg MCHC (31.0-35.0) g/dl RDW (11.0-16.0) % Plt Count (160-400) X10*3/uL MPV (9.4-12.3) fL Immature Gran % (Auto) (0.0-0.4) % Neut % (Auto) (45-73) % Lymph % (Auto) (20-40) % [place] % (Auto) (2-11) % Eos % (Auto) (0-4) % Baso % (Auto) (0-2) % Lymph # (Auto) (1.2-4.9) X10*3/uL [place] # (Auto) (0.1-1.2) X10*3/uL Eos # (Auto) (0.0-0.4) X10*3/uL Baso # (Auto) (0.0-0.2) X10*3/uL Abs Immat Gran (auto) (0.00-0.03) X10*3/uL Absolute Neuts (auto) (2.0-8.3) x10*3/uL Absolute Nucleated RBC (0.0-0.012) X10*3/uL Nucleated RBC % (auto) (0.0-0.2) /100WBC PT 11.9 (10.0-13.1) SEC INR 1.0 (0.9-1.1) Sodium (135-145) mmol/L Potassium (3.3-5.1) mmol/L Chloride (96-108) mmol/L Carbon Dioxide (22-29) mmol/L Anion Gap (12-20) BUN (9-16) mg/dL Creatinine (0.5-1.4) mg/dL Estim Creat Clear Calc Estimated GFR Random Glucose (60-115) mg/dL Calcium (8.4-10.2) mg/dL Magnesium (1.6-2.6) mg/dL Total Bilirubin (0.0-1.0) mg/dL Direct Bilirubin (0.0-0.5) mg/dL AST (5-31) U/L ALT (0-31) U/L Alkaline Phosphatase (39-117) U/L Total Creatine Kinase (26-140) U/L Troponin I High Sens 7.6 (<3.5-17.0) ng/L C-Reactive Protein (< or = 0.50) mg/dL B-Natriuretic Peptide (<100) pg/mL Total Protein (6.5-8.0) g/dL Albumin (3.5-5.0) g/dL Lipase (8-78) U/L Urine Color Urine Appearance Urine pH (5.0-9.0) Ur Specific [place] (1.005-1.025) Urine Protein (Neg-Trace) mg/dL Urine Glucose (UA) (Negative) mg/dL Urine Ketones (Negative) mg/dL Urine Blood (Negative) Urine Nitrite (Negative) Ur Leukocyte Esterase (Negative) COVID-19 (JENNIFER) Negative (Negative) COVID-19 Clin Com See Note 11/28/21 Range/Units 16:12 WBC (4.8-10.8) X10*3/uL RBC (4.20-5.50) X10*6/uL Hgb (12.0-16.0) g/dl Hct (37.0-47.0) % MCV (80.0-98.0) fL MCH (27.0-33.0) pg MCHC (31.0-35.0) g/dl RDW (11.0-16.0) % Plt Count (160-400) X10*3/uL MPV (9.4-12.3) fL Immature Gran % (Auto) (0.0-0.4) % Neut % (Auto) (45-73) % Lymph % (Auto) (20-40) % [place] % (Auto) (2-11) % Eos % (Auto) (0-4) % Baso % (Auto) (0-2) % Lymph # (Auto) (1.2-4.9) X10*3/uL [place] # (Auto) (0.1-1.2) X10*3/uL Eos # (Auto) (0.0-0.4) X10*3/uL Baso # (Auto) (0.0-0.2) X10*3/uL Abs Immat Gran (auto) (0.00-0.03) X10*3/uL Absolute Neuts (auto) (2.0-8.3) x10*3/uL Absolute Nucleated RBC (0.0-0.012) X10*3/uL Nucleated RBC % (auto) (0.0-0.2) /100WBC PT (10.0-13.1) SEC INR (0.9-1.1) Sodium (135-145) mmol/L Potassium (3.3-5.1) mmol/L Chloride (96-108) mmol/L Carbon Dioxide (22-29) mmol/L Anion Gap (12-20) BUN (9-16) mg/dL Creatinine (0.5-1.4) mg/dL Estim Creat Clear Calc Estimated GFR Random Glucose (60-115) mg/dL Calcium (8.4-10.2) mg/dL Magnesium (1.6-2.6) mg/dL Total Bilirubin (0.0-1.0) mg/dL Direct Bilirubin (0.0-0.5) mg/dL AST (5-31) U/L ALT (0-31) U/L Alkaline Phosphatase (39-117) U/L Total Creatine Kinase (26-140) U/L Troponin I High Sens (<3.5-17.0) ng/L C-Reactive Protein (< or = 0.50) mg/dL B-Natriuretic Peptide (<100) pg/mL Total Protein (6.5-8.0) g/dL Albumin (3.5-5.0) g/dL Lipase (8-78) U/L Urine Color Yellow Urine Appearance Clear Urine pH 7.5 (5.0-9.0) Ur Specific [place] <= 1.005 (1.005-1.025) Urine Protein Negative (Neg-Trace) mg/dL Urine Glucose (UA) Negative (Negative) mg/dL Urine Ketones Negative (Negative) mg/dL Urine Blood Negative (Negative) Urine Nitrite Negative (Negative) Ur Leukocyte Esterase Negative (Negative) COVID-19 (JENNIFER) (Negative) COVID-19 Clin Com ECG Data Attestation: I personally reviewed and interpreted this ECG as follows: ECG interpretation date: 11/28/21 ECG interpretation time: 14:04 Interpretation: Rate: 77 Rhythm: NSR [place]: left Normal P waves. Normal JESUS. Normal QRS complex. Poor R wave progression ST T wave : normal no YESI qTC: normal prior studies: no acute ischemia The study has been interpreted contemporaneously by me. . Discharge Plan Discharge Clinical Impression: Chronic venous stasis dermatitis Fracture of ulnar styloid Qualifiers: Encounter type: initial encounter Fracture type: closed Fracture alignment: displaced Laterality: left Qualified Code(s): S52.612A - Displaced fracture of left ulna styloid process, initial encounter for closed fracture Distal radial fracture Qualifiers: Encounter type: initial encounter Fracture type: closed Fracture morphology: unspecified fracture morphology Laterality: left Qualified Code(s): S52.502A - Unspecified fracture of the lower end of left radius, initial encounter for closed fracture Closed fracture of left inferior pubic ramus Qualifiers: Encounter type: initial encounter Qualified Code(s): S32.592A - Other specified fracture of left pubis, initial encounter for closed fracture Closed fracture of superior ramus of left pubis Qualifiers: Encounter type: initial encounter Qualified Code(s): S32.512A - Fracture of superior rim of left pubis, initial encounter for closed fracture Patient Disposition: Still a Patient Prescriptions: No Action levothyroxine 75 mcg tablet 75 mcg PO DAILY atenolol 25 mg tablet 25 mg PO DAILY lisinopril 5 mg tablet 5 mg PO DAILY simvastatin 20 mg tablet 20 mg PO BEDTIME alendronate 70 mg tablet 70 mg PO QWEEK
[2021-11-28 13:21] VITALS: BP 185/88; PULSE 91; O2SAT 98
[2021-11-28 13:23] VITALS: BP 185/72; PULSE 77; RESP 18; TEMP 36.7; O2SAT 98; BMI 23.4
--- NOTE | 2021-11-28 14:33 | PC.NURSE ---
per provider sugar tong splint was done for pt. provider approved and pt is comfortable
[2021-11-28 16:00] VITALS: BP 163/55; PULSE 83; RESP 16; TEMP 36.8; O2SAT 96
--- NOTE | 2021-11-28 16:04 | PC.NURSE ---
PATIENT WAS ASSISTED UNTO BEDPAN ,VOIDED A LARGE AMOUNT OF URINE ,KAVITHA CARE GIVEN ,PATIENT WAS CHANGE INTO HOSPITAL ATTIRE .
[2021-11-28 16:07] LABS: MANUAL DIFF FLAG NO
--- NOTE | 2021-11-28 16:07 | PC.NURSE ---
called pharmacy for missing med
[2021-11-28 16:11] LABS: Basophils Percent Auto 0.4 % (0-2); Eosinophils Absolute Auto 0.1 X10*3/uL (0.0-0.4); Eosinophils Percent Auto 0.9 % (0-4); Hematocrit 34.3 % (37.0-47.0); Hemoglobin 11.2 g/dl (12.0-16.0); Imm Gran Abs Auto 0.04 X10*3/uL (0.00-0.03); Imm Gran Pct Auto 0.5 % (0.0-0.4); Lymphocytes Absolute Auto 1.3 X10*3/uL (1.2-4.9); Lymphocytes Percent Auto 17.1 % (20-40); Mean Corpuscular HGB Conc 32.7 g/dl (31.0-35.0); Mean Corpuscular Volume 85.8 fL (80.0-98.0); Mean Platelet Volume 9.3 fL (9.4-12.3); Monocytes Absolute Auto 0.8 X10*3/uL (0.1-1.2); Monocytes Percent Auto 9.8 % (2-11); Neutrophils Absolute Auto 5.5 x10*3/uL (2.0-8.3); Neutrophils Percent Auto 71.3 % (45-73); Platelet Count 348 X10*3/uL (160-400); Red Cell Distribution Width 14.6 % (11.0-16.0); White Blood Count 7.8 X10*3/uL (4.8-10.8)
[2021-11-28 16:22] LABS: COVID-19 Test Negative (Negative)
[2021-11-28 16:22] LABS: Appearance Urine Clear; Color Urine Yellow; Glucose Urine UA Negative (Negative); Leukocyte Esterase Urine Negative (Negative); Nitrite Urine Negative (Negative); PH 7.5 (5.0-9.0); Specific Gravity - Urine <= 1.005 (1.005-1.025); Urine Blood Negative (Negative); Urine Ketones Negative (Negative); Urine Protein Negative (Neg-Trace)
[2021-11-28 16:23] LABS: Prothrombin Time 11.9 SEC (10.0-13.1)
[2021-11-28 16:24] LABS: Alanine Aminotransferase 10 U/L (0-31); Albumin Level 3.4 g/dL (3.5-5.0); Alkaline Phosphatase 69 U/L (39-117); Anion Gap 16 (12-20); Aspartate Amino Transferase 23 U/L (5-31); Bilirubin Direct 0.4 mg/dL (0.0-0.5); Blood Urea Nitrogen 18 mg/dL (9-16); C Reactive Protein 5.65 mg/dL (< or = 0.50); Calcium 9.4 mg/dL (8.4-10.2); Carbon Dioxide 26 mmol/L (22-29); Chloride 99 mmol/L (96-108); Creatinine Clr Calc Pharmacy 33.6; Estimated Glomerular Filt Rate 50; Glucose Random 100 mg/dL (60-115); Lipase 9 U/L (8-78); Potassium 4.9 mmol/L (3.3-5.1); Sodium 136 mmol/L (135-145); Total Protein 6.6 g/dL (6.5-8.0)
[2021-11-28 16:30] LABS: B Type Natriuretic Peptide 602 pg/mL (<100); Troponin-I High Sensitivity 7.6 ng/L (<3.5-17.0)
--- NOTE | 2021-11-28 16:46 | PC.NURSE ---
patient a&o, c/o ble pain 09/20, pt to be medicated with lotion when it arrives from pharmacy, vitals stable, call schaffer within reach, will continue to monitor
--- NOTE | 2021-11-28 17:27 | PC.NURSE ---
tori-son phone number [phone] son was updated and stated case management can call him anytime, they may leave a message and he will call back as soon as he can.
--- NOTE | 2021-11-28 18:03 | PHA.MEDREC ---
MED REC COMPLETE, NO ISSUES Pharmacy Consult ? Medication Reconciliation Pharmacy has completed the medication reconciliation.
--- NOTE | 2021-11-28 18:44 | PC.NURSE ---
PUREWICK IN PLACE ,PATIENT WANTED TO PUT HER NIGHTGOWN ON
--- NOTE | 2021-11-28 18:45 | PC.NURSE ---
called pharmacy again for missing lotion, they stated it will be promptly brought up.
--- NOTE | 2021-11-28 18:55 | PC.NURSE ---
pt wished to wait until she finished eating to have lotion applied to legs
--- NOTE | 2021-11-28 18:56 | MHC.CM.ED ---
CM met with patient at request of Dr. Brannon. Pt had fall on Saturday. Fx L wrist and L pubic ramus/inferior & Superior. Weight bearing allowed. Pt unable to. is currently hospitalized at [facility]. PT pending. Pt lives with . Uses a walker and has no services. Pt fully vax/boosted x1/Moderna. HCP reviewed, completed and signed. Copies given. Uploaded into [employer] and [facility] [employer]. HCP/, Dante ([phone]) and Jose (son) [phone]. Agreeable to STR. [facility] is first choice and Harry Kelli is second. 6 referrals placed in [place] only at patient request. Dr. Brannon enabled a face time phone call between patient and . Pt very appreciative to both Dr. Brannon and t/w for use of our phones. CM will follow for d/c needs.
[2021-11-28] MEDS: Betamethasone Dip Aug 0.05% Cr 15 GM TUBE 1 APPL TOPICAL (19:13)
--- NOTE | 2021-11-28 19:19 | PC.NURSE ---
lotion applied to patients legs, cast to lt arm + csm to LUE
--- NOTE | 2021-11-28 21:50 | PC.NURSE ---
PATIENT ATE 100 % OF DINNER ,DRANK 360 ML FLUIDS USE BEDPAN X2 VOIDED LARGE AMOUNT OF URINE BOTH TIMES ,PERWICK IN PLACE ,PATIENT WAS SET UP TO BRUSH HER TEETH .
[2021-11-28 21:58] VITALS: BP 126/56; PULSE 90; RESP 12; TEMP 37.4; O2SAT 90
[2021-11-28] MEDS: cephALEXin 500 MG CAPSULE PO (22:40)
[2021-11-28] MEDS: Melatonin 3 MG TABLET 6 MG PO (22:41)
--- NOTE | 2021-11-28 22:45 | PC.NURSE ---
pt a&ox3, vss, medicated per provider order, no new orders at this time.
[2021-11-29] VITALS (7 sets, daily range): BP systolic 103–148; BP diastolic 48–70; PULSE 72–122; RESP 14–19; TEMP 36.5–37.4; O2SAT 86–97
--- NOTE | 2021-11-29 00:28 | PC.NURSE ---
PT GIVEN KAVITHA CARE AND REPOSITIONED. A NEW PUREWICK WAS APPLIED AND WARM BLANKETS GIVEN TO PT. CALL SANTIAGO PLACED WITHIN REACH.
--- NOTE | 2021-11-29 05:48 | PC.NURSE ---
PT REPOSITIONED AND PUREWICK EMPTIED. KAVITHA CARE GIVEN AND NEW PUREWICK APPLIED. PT GIVEN WARM BLANKET AND CALL SANTIAGO
[2021-11-29 09:38] LABS: MANUAL DIFF FLAG NO
[2021-11-29 09:41] LABS: Basophils Percent Auto 0.3 % (0-2); Eosinophils Absolute Auto 0.1 X10*3/uL (0.0-0.4); Eosinophils Percent Auto 1.3 % (0-4); Hematocrit 29.7 % (37.0-47.0); Hemoglobin 9.6 g/dl (12.0-16.0); Imm Gran Abs Auto 0.05 X10*3/uL (0.00-0.03); Imm Gran Pct Auto 0.7 % (0.0-0.4); Lymphocytes Absolute Auto 1.1 X10*3/uL (1.2-4.9); Lymphocytes Percent Auto 14.2 % (20-40); Mean Corpuscular HGB Conc 32.3 g/dl (31.0-35.0); Mean Corpuscular Hemoglobin 28.1 pg (27.0-33.0); Mean Corpuscular Volume 86.8 fL (80.0-98.0); Mean Platelet Volume 9.3 fL (9.4-12.3); Monocytes Absolute Auto 0.7 X10*3/uL (0.1-1.2); Monocytes Percent Auto 9.7 % (2-11); Neutrophils Absolute Auto 5.5 x10*3/uL (2.0-8.3); Neutrophils Percent Auto 73.8 % (45-73); Platelet Count 296 X10*3/uL (160-400); Red Blood Count 3.42 X10*6/uL (4.20-5.50); Red Cell Distribution Width 14.9 % (11.0-16.0); White Blood Count 7.4 X10*3/uL (4.8-10.8)
[2021-11-29] MEDS: atenoloL 25 MG TABLET PO (09:47)
[2021-11-29] MEDS: cephALEXin 500 MG CAPSULE PO (09:47)
[2021-11-29] MEDS: Levothyroxine Sodium 75 MCG TABLET PO (09:47)
[2021-11-29] MEDS: Calcium + Vitamin D 250 MG TABLET 500 MG PO (09:47)
[2021-11-29] MEDS: lisinopriL 5 MG TABLET PO (09:47)
[2021-11-29 09:54] LABS: Lactic Acid 1.3 mmol/L (0.5-2.0)
[2021-11-29 10:02] LABS: B Type Natriuretic Peptide 848 pg/mL (<100)
[2021-11-29 10:10] LABS: Alanine Aminotransferase 8 U/L (0-31); Alkaline Phosphatase 63 U/L (39-117); Anion Gap 12 (12-20); Aspartate Amino Transferase 18 U/L (5-31); Bilirubin Total 0.8 mg/dL (0.0-1.0); Blood Urea Nitrogen 21 mg/dL (9-16); Calcium 8.5 mg/dL (8.4-10.2); Carbon Dioxide 28 mmol/L (22-29); Chloride 99 mmol/L (96-108); Creatinine Clr Calc Pharmacy 29.6; Estimated Glomerular Filt Rate 43; Glucose Random 167 mg/dL (60-115); Magnesium 1.8 mg/dL (1.6-2.6); Potassium 4.4 mmol/L (3.3-5.1); Sodium 135 mmol/L (135-145); Total Protein 5.8 g/dL (6.5-8.0)
[2021-11-29 10:11] LABS: Troponin-I High Sensitivity 60.4 ng/L (<3.5-17.0)
[2021-11-29 10:12] LABS: COVID-19 Test Negative (Negative); IDNOW Serial# 16C4AD1C
--- NOTE | 2021-11-29 10:13 | ECG_ITS ---
Test Reason : SOB Blood Pressure : / mmHG Vent. Rate : 077 BPM Atrial Rate : 077 BPM P-R Int : 152 ms QRS Dur : 076 ms QT Int : 378 ms P-R-T Axes : 065 002 010 degrees QTc Int : 427 ms Normal sinus rhythm Intra-ventricular conduction delay Otherwise normal ECG When compared with ECG of 28-NOV-2021 13:56, No significant change was found Referred By: Callie Pinon Electronically Signed By:JAGDEEP KIMBROUGH MD
--- NOTE | 2021-11-29 10:50 | MHC.CM.ED ---
Patient remains in ER. Per Callie RYAN, patient will be admitted due to hypoxia. [facility] is 1st choice and has been asked to follow patient. Continue to monitor for d/c needs.
[2021-11-29] MEDS: iohexoL 350 MG/ML 100 ML INFUS..BTL IV (10:52)
[2021-11-29] MEDS: Furosemide 40 MG/4 ML VIAL IVPUSH (12:31)
--- NOTE | 2021-11-29 14:18 | P.HPHOSP_ITS ---
History of Present Illness Date of Service: 11/29/21 <HUONG Townsend - Last Filed: 11/29/21 15:49> Attending physician on admission: Bon De Guzman <HUONG Townsend - Last Filed: 11/29/21 15:49> Chief Complaint: fall <HUONG Townsend - Last Filed: 11/29/21 15:49> 81-year-old female with history with history htn, hld, hypothyroidism, severe aortic stenosis, chronic venous stasis dermatitis, osteoporosis, and grade II diastolic dysfunction on echo 07/02 presented to the ED yesterday afternoon after sustaining an accidental fall after turning too quickly. She fell on her buttocks/back/left wrist. Denies head injury or LOC. Was on the ground for 15 minutes. She lives at home with her who has vascular dementia and Parkinsons and is currently admitted. She is not on any blood thinners. Head CT head cervical spine CT are without acute abnormality including hemorrhage, fracture, or subluxation. Chest CT shows chronic compression deformities, no acute abnormality. Abd/pelvis CT shows fractures of left superior and inferior pubic rami, no other acute intraabdominal abnormality. Xray hand/wrist showed impacted intra-articular distal radial metaphyseal fx with dorsal angulation and displacement distal fragment. She was placed in sugartong splint. BNP yesterday was 602, trop-I 7.6. EKG NSR no ST/T wave abnormality. Was also noted to have cellulitis LLE with purulent drainage. Started on doxy and keflex. Hematology studies unremarkable. Creat 1.05, BUN 18. This am developed hypoxia to 83% and was placed on 2L NC with improvement to 97% oximetry. CTA chest was negative for PE, but showed tiny right-sided pleural effusion. BNP increaesd to 848, trop-I 60.4. Denied sob, orthopnea, PND, palpitations, or chest pain. Given 40mg IV lasix. TO be admitted for CHF. <HUONG Townsend - Last Filed: 11/29/21 15:49> Review of Systems Review of Systems: General: No fevers, malaise, unintentional weight loss Cardiovascular: No chest pain, palpitations, or leg edema Respiratory: No shortness of breath, orthopnea, wheezing, cough GI: No abdominal pain, nausea, vomiting, diarrhea, constipation, melena, hemat ochezia : No dysuria, hematuria, increased frequency Neuro: No headaches, weakness, paresthesias Skin: +chronic venous stasis dermatitis with drainage <HUONG Townsend - Last Filed: 11/29/21 15:49> [facility] Medical History: Medical History Diastolic dysfunction Essential hypertension Hyperlipidemia Hypothyroidism Non-rheumatic aortic stenosis <HUONG Townsend - Last Filed: 11/29/21 15:49> Family History: Family History Father No problems noted. Mother No problems noted. <HUONG Townsend - Last Filed: 11/29/21 15:49> Surgical History: Surgical History No pertinent past surgical history <HUONG Townsend - Last Filed: 11/29/21 15:49> Social History: Social History Alcohol intake: never Patient Tobacco Use Status: Never used Tobacco Use of substances other than those prescribed or required for medical reasons: No Advance Directives: No <HUONG Townsend - Last Filed: 11/29/21 15:49> Meds Allergies/Adverse reactions: Allergies Allergy/AdvReac Type Severity Reaction Status Date / Time No Known Allergies Allergy Verified 07/05/21 14:30 <HUONG Townsend - Last Filed: 11/29/21 15:49> Active Medications: Current Medications Acetaminophen (Acetaminophen 325 Mg Tablet) 650 mg PO Q6H PRN PRN Reason: Pain, Mild (Pain Scale 1-3) Atenolol (Atenolol 25 Mg Tablet) 25 mg PO DAILY [facility]; Protocol Last Admin: 11/29/21 09:47 Dose: 25 mg Atorvastatin Calcium (Atorvastatin Calcium 10 Mg Tablet) 10 mg PO BEDTIME [facility] Calcium Carbonate/Cholecalciferol (Calcium + Vitamin D 250 Mg Tablet) 500 mg PO DAILY [facility] Last Admin: 11/29/21 09:47 Dose: 500 mg Cephalexin HCl (Cephalexin 500 Mg Capsule) 500 mg PO TID [facility] Last Admin: 11/29/21 09:47 Dose: 500 mg Levothyroxine Sodium (Levothyroxine Sodium 75 Mcg Tablet) 75 mcg PO DAILY@0600 [facility] Last Admin: 11/29/21 09:47 Dose: 75 mcg Lisinopril (Lisinopril 5 Mg Tablet) 5 mg PO DAILY [facility]; Protocol Last Admin: 11/29/21 09:47 Dose: 5 mg Melatonin (Melatonin 3 Mg Tablet) 6 mg PO BEDTIME [facility] Last Admin: 11/28/21 22:41 Dose: 6 mg Oxycodone HCl (Oxycodone Hcl Immed Release 5 Mg Tablet) 2.5 mg PO Q6H PRN PRN Reason: Pain, Moderate (Pain Scale 4-6 Pharmacy Consult (Consult Rx Perform Med Rec) 1 each MISCELLANE ONCE PRN PRN Reason: Consult order <HUONG Townsend - Last Filed: 11/29/21 15:49> Home medications: Home Medications Medication Instructions Recorded Confirmed Last Taken Type alendronate 70 mg tablet 70 mg PO PIÑA@0600 01/10/21 11/28/21 Unknown History atenolol 25 mg tablet 25 mg PO DAILY 01/10/21 11/28/21 11/28/21 History levothyroxine 75 mcg tablet 75 mcg PO DAILY 01/10/21 11/28/21 11/28/21 History lisinopril 5 mg tablet 5 mg PO DAILY 01/10/21 11/28/21 11/28/21 History simvastatin 20 mg tablet 20 mg PO BEDTIME 01/10/21 11/28/21 11/27/21 History calcium carbonate 500 mg-vitamin 2 tab PO DAILY 11/28/21 11/28/21 Unknown History D3 10 mcg (400 unit) tablet (Calcium 500 + D) <HUONG Townsend - Last Filed: 11/29/21 15:49> Physical Exam Vital Signs and Narrative: Vital Signs: Last Vital Signs Temp 98.6 F 11/29/21 05:45 Pulse 72 11/29/21 12:29 Resp 18 11/29/21 08:30 BP 132/58 L 11/29/21 12:29 Pulse Ox 95 11/29/21 08:37 O2 Del Method 11/29/21 08:37 O2 Flow Rate 2 11/29/21 08:37 BMI result Body Mass Index 23.4 <HUONG Townsend - Last Filed: 11/29/21 15:49> Constitutional - Awake and Alert, No apparent distress Eyes - PERRLA, EOMI Cardiovascular - S1S2, RRR, 1+ pitting edema BLE Respiratory - Bibasilar crackles. Normal lung expansion, Normal respiratory effort, No respiratory distress Gastrointestinal - NT / ND; +BS; No rebound or guarding Extremities - no calf tenderness bilaterally, 1+edema Skin - Warm/Dry. Erythematous thickened patches medial BLE, L>R. LLE with shallow skin ulcerations with scabbing and scant purulent drainage Neurological - Alert & oriented x3, CN II-XII in tact, 4/5 strength BUE and BLE Psychological - Appropriate affect <HUONG Townsend - Last Filed: 11/29/21 15:49> Results Labs CBC and Chem 7: : 11/29/21 09:27 11/29/21 09:27 <HUONG Townsend - Last Filed: 11/29/21 15:49> Labs: Laboratory Results - last 24 hr 11/28/21 11/28/21 11/28/21 15:54 15:54 15:54 MCV 85.8 MCH 28.0 MCHC 32.7 RDW 14.6 Plt Count 348 D MPV 9.3 L Immature Gran % (Auto) 0.5 H Neut % (Auto) 71.3 Lymph % (Auto) 17.1 L [place] % (Auto) 9.8 Eos % (Auto) 0.9 Baso % (Auto) 0.4 Lymph # (Auto) 1.3 [place] # (Auto) 0.8 Eos # (Auto) 0.1 Baso # (Auto) 0.0 Abs Immat Gran (auto) 0.04 H Absolute Neuts (auto) 5.5 Absolute Nucleated RBC 0.000 Nucleated RBC % (auto) 0.0 PT INR Anion Gap 16 Estim Creat Clear Calc 33.6 Estimated GFR 50 Random Glucose 100 Lactic Acid Calcium 9.4 Magnesium 2.0 Total Bilirubin 1.0 Direct Bilirubin 0.4 AST 23 ALT 10 Alkaline Phosphatase 69 Total Creatine Kinase 113 Troponin I High Sens C-Reactive Protein 5.65 H B-Natriuretic Peptide 602 H Total Protein 6.6 Albumin 3.4 L Lipase 9 Urine Color Urine Appearance Urine pH Ur Specific [place] Urine Protein Urine Glucose (UA) Urine Ketones Urine Blood Urine Nitrite Ur Leukocyte Esterase COVID-19 (JENNIFER) COVID-19 Clin Com Influenza Type A (FER) Influenza Type B (FER) Influenza A & B Note 11/28/21 11/28/21 11/28/21 15:54 15:54 15:56 MCV MCH MCHC RDW Plt Count MPV Immature Gran % (Auto) Neut % (Auto) Lymph % (Auto) [place] % (Auto) Eos % (Auto) Baso % (Auto) Lymph # (Auto) [place] # (Auto) Eos # (Auto) Baso # (Auto) Abs Immat Gran (auto) Absolute Neuts (auto) Absolute Nucleated RBC Nucleated RBC % (auto) PT 11.9 INR 1.0 Anion Gap Estim Creat Clear Calc Estimated GFR Random Glucose Lactic Acid Calcium Magnesium Total Bilirubin Direct Bilirubin AST ALT Alkaline Phosphatase Total Creatine Kinase Troponin I High Sens 7.6 C-Reactive Protein B-Natriuretic Peptide Total Protein Albumin Lipase Urine Color Urine Appearance Urine pH Ur Specific [place] Urine Protein Urine Glucose (UA) Urine Ketones Urine Blood Urine Nitrite Ur Leukocyte Esterase COVID-19 (JENNIFER) Negative COVID-19 Clin Com See Note Influenza Type A (FER) Influenza Type B (FER) Influenza A & B Note 11/28/21 11/29/21 11/29/21 16:12 09:27 09:27 MCV 86.8 MCH 28.1 MCHC 32.3 RDW 14.9 Plt Count 296 MPV 9.3 L Immature Gran % (Auto) 0.7 H Neut % (Auto) 73.8 H Lymph % (Auto) 14.2 L [place] % (Auto) 9.7 Eos % (Auto) 1.3 Baso % (Auto) 0.3 Lymph # (Auto) 1.1 L [place] # (Auto) 0.7 Eos # (Auto) 0.1 Baso # (Auto) 0.0 Abs Immat Gran (auto) 0.05 H Absolute Neuts (auto) 5.5 Absolute Nucleated RBC 0.000 Nucleated RBC % (auto) 0.0 PT INR Anion Gap 12 Estim Creat Clear Calc 29.6 Estimated GFR 43 Random Glucose 167 H Lactic Acid Calcium 8.5 D Magnesium 1.8 Total Bilirubin 0.8 Direct Bilirubin AST 18 ALT 8 Alkaline Phosphatase 63 Total Creatine Kinase Troponin I High Sens C-Reactive Protein B-Natriuretic Peptide Total Protein 5.8 L Albumin 3.0 L Lipase Urine Color Yellow Urine Appearance Clear Urine pH 7.5 Ur Specific [place] <= 1.005 Urine Protein Negative Urine Glucose (UA) Negative Urine Ketones Negative Urine Blood Negative Urine Nitrite Negative Ur Leukocyte Esterase Negative COVID-19 (JENNIFER) COVID-19 Clin Com Influenza Type A (FER) Influenza Type B (FER) Influenza A & B Note 11/29/21 11/29/21 11/29/21 09:27 09:27 09:27 MCV MCH MCHC RDW Plt Count MPV Immature Gran % (Auto) Neut % (Auto) Lymph % (Auto) [place] % (Auto) Eos % (Auto) Baso % (Auto) Lymph # (Auto) [place] # (Auto) Eos # (Auto) Baso # (Auto) Abs Immat Gran (auto) Absolute Neuts (auto) Absolute Nucleated RBC Nucleated RBC % (auto) PT INR Anion Gap Estim Creat Clear Calc Estimated GFR Random Glucose Lactic Acid 1.3 Calcium Magnesium Total Bilirubin Direct Bilirubin AST ALT Alkaline Phosphatase Total Creatine Kinase Troponin I High Sens C-Reactive Protein B-Natriuretic Peptide Total Protein Albumin Lipase Urine Color Urine Appearance Urine pH Ur Specific [place] Urine Protein Urine Glucose (UA) Urine Ketones Urine Blood Urine Nitrite Ur Leukocyte Esterase COVID-19 (JENNIFER) Negative COVID-19 Clin Com See Note Influenza Type A (FER) Cancelled Influenza Type B (FER) Cancelled Influenza A & B Note Cancelled 11/29/21 11/29/21 11/29/21 09:27 09:27 13:07 MCV MCH MCHC RDW Plt Count MPV Immature Gran % (Auto) Neut % (Auto) Lymph % (Auto) [place] % (Auto) Eos % (Auto) Baso % (Auto) Lymph # (Auto) [place] # (Auto) Eos # (Auto) Baso # (Auto) Abs Immat Gran (auto) Absolute Neuts (auto) Absolute Nucleated RBC Nucleated RBC % (auto) PT INR Anion Gap Estim Creat Clear Calc Estimated GFR Random Glucose Lactic Acid Calcium Magnesium Total Bilirubin Direct Bilirubin AST ALT Alkaline Phosphatase Total Creatine Kinase Troponin I High Sens 60.4 H* D 55.0 H* C-Reactive Protein B-Natriuretic Peptide 848 H Total Protein Albumin Lipase Urine Color Urine Appearance Urine pH Ur Specific [place] Urine Protein Urine Glucose (UA) Urine Ketones Urine Blood Urine Nitrite Ur Leukocyte Esterase COVID-19 (JENNIFER) COVID-19 Clin Com Influenza Type A (FER) Influenza Type B (FER) Influenza A & B Note <HUONG Townsend - Last Filed: 11/29/21 15:49> Imaging Radiologist's Impressions: Impressions Abdomen/Pelvis CT 11/28/21 15:06 IMPRESSION: 1. Fractures of the left superior and inferior pubic rami. 2. No additional acute traumatic finding of the chest, abdomen, or pelvis. 3. Moderate hiatal hernia. 4. Multilevel vertebral body compression deformities, likely chronic in nature. Cervical Spine CT 11/28/21 15:06 IMPRESSION: 1. No intracranial hemorrhage or calvarial fracture. 2. No traumatic subluxation or acute cervical spine fracture. Chest CT 11/28/21 15:06 IMPRESSION: 1. Fractures of the left superior and inferior pubic rami. 2. No additional acute traumatic finding of the chest, abdomen, or pelvis. 3. Moderate hiatal hernia. 4. Multilevel vertebral body compression deformities, likely chronic in nature. Head CT 11/28/21 15:06 IMPRESSION: 1. No intracranial hemorrhage or calvarial fracture. 2. No traumatic subluxation or acute cervical spine fracture. Chest CTA 11/29/21 10:50 IMPRESSION: 1. No pulmonary embolism. 2. Tiny right-sided pleural effusion is increased from prior. Bibasilar atelectasis. No consolidation. VTE: negative. <HUONG Townsend - Last Filed: 11/29/21 15:49> Assessment and Plan (1) Acute exacerbation of CHF (congestive heart failure): Status: Acute <HUONG Townsend Last Filed: 11/29/21 15:49> (2) Cellulitis: Status: Acute <HUONG Townsend Last Filed: 11/29/21 15:49> (3) Acute respiratory failure with hypoxia: Status: Acute <HUONG Townsend Last Filed: 11/29/21 15:49> (4) Fracture of ulnar styloid: Qualifiers: Encounter type: initial encounter Fracture alignment: displaced Fracture type: closed Laterality: left Qualified Code(s): S52.612A - Displaced fracture of left ulna styloid process, initial encounter for closed fracture <Ananya Tomer, PA - Last Filed: 11/29/21 15:49> Status: Acute <Ananya Tomer, PA - Last Filed: 11/29/21 15:49> (5) Distal radial fracture: Qualifiers: Encounter type: initial encounter Fracture morphology: unspecified fracture morphology Fracture type: closed Laterality: left Q ualified Code(s): S52.502A - Unspecified fracture of the lower end of left radius, initial encounter for closed fracture <Ananya Tomer, PA - Last Filed: 11/29/21 15:49> Status: Acute <Ananya Tomer, PA - Last Filed: 11/29/21 15:49> (6) Closed fracture of left inferior pubic ramus: Qualifiers: Encounter type: initial encounter Qualified Code(s): S32.592A - Other specified fracture of left pubis, initial encounter for closed fracture <Ananya Tomer, PA - Last Filed: 11/29/21 15:49> Status: Acute <Ananya Tomer, PA - Last Filed: 11/29/21 15:49> (7) Closed fracture of superior ramus of left pubis: Qualifiers: Encounter type: initial encounter Qualified Code(s): S32.512A - Fracture of superior rim of left pubis, initial encounter for closed fracture <Ananya Tomer, PA - Last Filed: 11/29/21 15:49> Status: Acute <Ananya Tomer, PA - Last Filed: 11/29/21 15:49> 81 year old female with history of htn, hld, grade II diastolic dysfunction, hypothyroidism, osteoporosis, osteoarthritis multiple sites, severe aortic stenosis, and chronic venous stasis dermatitis acute CHF with acute hypoxis repiratory failure. #Acute CHF- new onset -History grade II diastolic dysfunction echo 06/2021. -BNP 602 on arrival, increased to 848 today. CTA chest showed tiny righit-sided pleural effusion -Received 40mg lasix in ED. Continue 40mg IV lasix daily -Echocardiogram ordered -Cardiac diet -strict I&O -Daily weights -Follow BNP and BMP -Admit to telemetry #Acute hypoxemic respiratory failure secondary to acute CHF -Oxygen desat to 83% on RA this am -CTA chest negative for PE, shows tiny right sided pleural effusion -Oximetry stable at 97% on 2L O2 via NC. Cont supplemental O2 to maintain O2 sat >92% -Diuresis as above #elevated troponins- likely demand ischemia due to hypoxia/CHF. No anginal CP -Initial 7.0 yesterday, repeated today 60.4. Now trending down at 55 -EKG NSR without ST/Twave abnormality -ED discussed with cards who does not feel NSTEMI #Accidental fall with left distal radius, ulnar styloid, and left pubic ramus fractures -Stable fractures. Immobilization splint and sling in place LUE -Ortho consult placed -Pt eval -Pain management per pain scale #Cellulitis LLE with purulent drainage -Chronic venous stasis dermatitis bilaterally with shallow ulcerations LLE weeping purulent drainage -No leukocytosis. Hemodynamically stable. No sepsis -Blood cultures pending -Obtain wound culture if possible -Received keflex and doxy in ED. Iniate IV vanco d/t purulent drainage for MRSA coverage #HTN- controlled -Continue atenolol and lisinopril -Monitor BPs #HLD -Continue statin #Hypothyroidism -Continue levothyroxine #Osteoporosis -Takes alendronate on saturday. Administer if still admitted -Continue calcium/vit d #Severe aortic stenosis -asymptomatic -echo ordered DVT prophylaxis - dose adjusted lovenox Full code Pt requires inpt stay at least 2 midnights due to new onset CHF with acute hypoxic respiratory failure requiring supplemental O2, IV diuresis, and close monitoring of fluid status and vital signs to prevent further cardiopulmonary decompensation. <HUONG Townsend - Last Filed: 11/29/21 15:49> 81 year old female with history of htn, hld, grade II diastolic dysfunction, hypothyroidism, osteoporosis, osteoarthritis multiple sites, severe aortic stenosis, and chronic venous stasis dermatitis acute CHF with acute hypoxis repiratory failure. #Acute CHF- new onset -History grade II diastolic dysfunction echo 06/2021. -BNP 602 on arrival, increased to 848 today. CTA chest showed tiny righit-sided pleural effusion -Received 40mg lasix in ED. Continue 40mg IV lasix daily -Echocardiogram ordered -Cardiac diet -strict I&O -Daily weights -Follow BNP and BMP -Admit to telemetry #Acute hypoxemic respiratory failure secondary to acute CHF -Oxygen desat to 83% on RA this am -CTA chest negative for PE, shows tiny right sided pleural effusion -Oximetry stable at 97% on 2L O2 via NC. Cont supplemental O2 to maintain O2 sat >92% -Diuresis as above #elevated troponins- likely demand ischemia due to hypoxia/CHF. No anginal CP -Initial 7.0 yesterday, repeated today 60.4. Now trending down at 55 -EKG NSR without ST/Twave abnormality -ED discussed with cards who does not feel NSTEMI #Accidental fall with left distal radius, ulnar styloid, and left pubic ramus fractures -Stable fractures. Immobilization splint and sling in place LUE -Ortho consult placed -Pt eval -Pain management per pain scale #Cellulitis LLE with purulent drainage -Chronic venous stasis dermatitis bilaterally with shallow ulcerations LLE weeping purulent drainage -No leukocytosis. Hemodynamically stable. No sepsis -Blood cultures pending -Obtain wound culture if possible -Received keflex and doxy in ED. Iniate IV vanco d/t purulent drainage for MRSA coverage #HTN- controlled -Continue atenolol and lisinopril -Monitor BPs #HLD -Continue statin #Hypothyroidism -Continue levothyroxine #Osteoporosis -Takes alendronate on saturday. Administer if still admitted -Continue calcium/vit d #Severe aortic stenosis -asymptomatic -echo ordered DVT prophylaxis - dose adjusted lovenox Full code Pt requires inpt stay at least 2 midnights due to new onset CHF with acute hypoxic respiratory failure requiring supplemental O2, IV diuresis, and close monitoring of fluid status and vital signs to prevent further cardiopulmonary decompensation. Addendum to history and physical by mid-level provider, HUONG Jeff I interviewed and examined the patient. I discussed their presentation and management with the mid-level provider. I reviewed the history and physical and agree with the documentation, with the following additions and corrections: 81yo F with HTN, HLD, hypothyroidism, sev AoS, chronic venous stasis, chronic HFpEF who sustiained L superior + inferior pubic ramus fx's, distal L radius fx, and L ulnar styloid fx who was splinted and awaiting STR placement in the ED but developed hypoxia and found to be fluid overloaded; also had evidence of ce llulitis of LLE. L forearm splinted, distally neurovascularly intact. 1+ bilateral leg edema with erythema and warmth on LLE Plan admit to [facility], diuresis with IV furosemide, repeat TTE [hx gr 2 diastolic dysfunction 06/28/21], trend lytes + I/O Wean O2 as tolerate Low-grade Tn-I elevation peaked, likely due to CHF exac Ortho cosult/PT eval re fractures; will need STr Cellultis without sepsis. Give vancomycin for Gm+ coverage including MRSA. Not a diabetic and not immunosuppressed, so no Gm- or anearob coverage at this point. <Bon De Guzman MD - Last Filed: 11/29/21 17:07> Quality Stroke Does the patient have a stroke diagnosis?: No <HUONG Townsend - Last Filed: 11/29/21 15:49> VTE Prior VTE?: No <HUONG Townsend - Last Filed: 11/29/21 15:49> VTE Risk Level:: Medical - moderate - high <HUONG Townsend - Last Filed: 11/29/21 15:49> VTE Device Contraindication: Treatment Not Indicated <HUONG Townsend - Last Filed: 11/29/21 15:49> VTE Drug Contraindication: N/A - Med Ordered <HUONG Townsend - Last Filed: 11/29/21 15:49>
[2021-11-29] MEDS: Enoxaparin Sodium 30 MG/0.3 ML SYRINGE SUBCUT (15:15)
[2021-11-29] MEDS: 0.9 % Sodium Chloride Flush 3 ML SYRINGE IVFLUSH (15:15)
[2021-11-29] MEDS: oxyCODONE HCl Immed Release 5 MG TABLET 2.5 MG PO (18:42)
[2021-11-29] MEDS: Ampicillin Sodium/Sulbactam Na 3 GM in 0.9 % Sodium Chloride 100 ML IV (18:44)
[2021-11-29] MEDS: vancomycin HCL 1,250 MG in 0.9 % Sodium Chloride 250 ML 166.67 MG IV (19:53)
[2021-11-29] MEDS: Melatonin 3 MG TABLET 6 MG PO (21:59)
[2021-11-29] MEDS: Atorvastatin Calcium 10 MG TABLET PO (21:59)
[2021-11-30] VITALS (7 sets, daily range): BP systolic 107–138; BP diastolic 50–68; PULSE 69–88; RESP 17–20; TEMP 36.4–37; O2SAT 95–100
[2021-11-30] MEDS: Ampicillin Sodium/Sulbactam Na 3 GM in 0.9 % Sodium Chloride 100 ML IV ×2 (00:26→05:45)
[2021-11-30] MEDS: 0.9 % Sodium Chloride Flush 3 ML SYRINGE IVFLUSH ×4 (00:26→20:43)
[2021-11-30] MEDS: Levothyroxine Sodium 75 MCG TABLET PO (05:47)
[2021-11-30 06:34] LABS: Anion Gap 15 (12-20); Blood Urea Nitrogen 24 mg/dL (9-16); Calcium 8.5 mg/dL (8.4-10.2); Carbon Dioxide 30 mmol/L (22-29); Chloride 96 mmol/L (96-108); Creatinine Clr Calc Pharmacy 30.6; Estimated Glomerular Filt Rate 45; Glucose Random 93 mg/dL (60-115); Potassium 4.4 mmol/L (3.3-5.1); Sodium 137 mmol/L (135-145)
--- NOTE | 2021-11-30 07:00 | CA_ITS ---
Transthoracic Echocardiogram Patient (Last, First, Middle): Celsa Rios, Gender: Female Date of : 1940 Age: 81 Procedure Date: 11/30/2021 Procedure Type: Transthoracic Echocardiogram Location: [facility] [place] Height: 160.02 cm Weight: 59.88 kg BSA: 1.62 m2 Heart Rate: 77 bpm BP: 148 / 70 mmHg Help Desk Support: SB Referring MD: Ananya BORJA Symptoms: CHF Study Quality: Adequate ECG Rhythm: Sinus Conclusions: - Normal left ventricular cavity size. There is mildly increased left ventricular wall thickness. The left ventricular systolic function is hyperdynamic. The visually estimated ejection fraction is >70%. - Normal right ventricular cavity size and systolic function. - The left atrium is mildly dilated. The right atrium is normal in size. - There is moderate aortic valve stenosis. Findings Left Ventricle Normal left ventricular cavity size. There is mildly increased left ventricular wall thickness. The left ventricular systolic function is hyperdynamic. The visually estimated ejection fraction is >70%. There is no evidence of regional wall motion abnormalities. Diastolic function is indeterminate on the basis of available data. Right Ventricle Normal right ventricular cavity size and systolic function. Atria The left atrium is mildly dilated. The right atrium is normal in size. Aortic Valve There is a normal trileaflet aortic valve. There is severe calcification of the aortic valve. There is moderate thickening of the aortic valve. There is moderate aortic valve stenosis. There is mild aortic valve regurgitation. Mitral Valve There is severe mitral annular calcification. There is mild mitral valve regurgitation. There is no mitral valve stenosis. Pulmonic Valve The pulmonic valve is likely normal. Tricuspid Valve Normal tricuspid valve structure. There is mild to moderate tricuspid valve regurgitation. Indeterminate right atrial pressure. PASP = 42 + RAP Great Vessels The visualized portions of the pulmonary artery and branches are normal. Venous The inferior vena cava was not well visualized. Pericardium/Pleural There is no evidence of pericardial effusion. Prior Study Comparison Changes noted compared to prior study dated: 06/28/2021. LV function appears hyperdynamic. Measurements 2D Linear Measurements IVSd: 0.91 0.6-0.9/0.6-1.0 cm LVIDd: 4.35 3.9-5.3/4.2-5.9 cm LVIDd Index: 2.69 2.4-3.2/2.2-3.1 cm/m2 LVIDs: 3.04 2.0-3.6 cm LVPWd: 0.93 0.7-1.1 cm LA Diam: 3.80 2.7-3.8/3.0-4.0 cm LAIDs Index: 2.35 1.5-2.3 cm/m2 LV Mass: 160.46 67-162/88-224 g LV Mass Index: 99.05 43-95/49-115 g/m2 LVOT Diam: 1.90 3.0+(-)1.3 cm 2D Systolic Function EF 4C: 77.00 >55% EF 2C: 69.10 >55% EF BiP: 74.00 >55% Mitral Valve MV Pk E: 1.28 MV PK A: 1.28 MV Decel Time: 292.00 E/A: 1.00 E'Lateral: 6.31 E'Medial: 5.55 E/E' Med: 23.10 E/E' Lat: 20.30 PHT: 86.00 MVA PHT: 2.56 Decel [place]: 4.38 Aortic Valve AoV Pk Luis: 3.25 AoV Mn Luis: 2.34 AoV VTI: 0.68 AoV Pk Grad: 42.00 Aov Mn Grad: 25.00 RITO Cont.VTI: 1.03 LVOT LVOT Pk Luis: 1.23 LVOT Mn Luis: 0.93 LVOT VTI: 0.29 LVOT Pk Grad: 6.00 LVOT Mn Grad: 4.00 LVOT Diam: 1.90 LVOT Area: 2.84 Diastolic Function MV Pk E: 1.28 MV Pk A: 1.28 E/A: 1.00 E'Medial: 5.55 E/E' Med: 23.10 E' Laterial: 6.31 E/E' Lat: 20.30 Right Ventricle TAPSE (mm): 17.50 TVS' Luis: 17.20 Tricuspid Valve TR Pk Luis: 3.11 TR Pk Grad: 39.00 RA Press: 3.00 RVSP: 42.00 Great Vessels Aorta Sinus of Valsalva: 3.20 2.0-3.5 cm Ao Asc: 3.10 2.1-3.4 cm Pulmonary Valve PV Pk Luis: 0.98 Peak PV Grad: 4.00 Updated in Other Vendor System with Status of Final Hoang Pichardo MD electronically signed on 11/30/2021 8:57:46 PM with status of Final
[2021-11-30 07:39] LABS: B Type Natriuretic Peptide 675 pg/mL (<100)
--- NOTE | 2021-11-30 07:58 | HE.PHANOTE ---
AVIVA MOORE TODAY'S SCR WAS 1.15. CONTINUE THE CURRENT DOSING WHICH WILL YIELD SUSPECTED AUC 437 AND A TROUGH OF 13.9. TROUGH SCHEDULED FOR 12/01 @1600. YAZ
--- NOTE | 2021-11-30 08:41 | PM.CNOR ---
History of Present Illness HPI Consult date: 11/30/21 <Aarti Demarco PA-C - Last Filed: 11/30/21 09:05> Chief complaint: left distal radius fracture <Aarti Demarco PA-C - Last Filed: 11/30/21 09:05> Narrative: Ms. Rios is an 81 yo female with a PMH of CHF, HTN, hypothyroidism, HTN. She presented to the ED on 11/28/21 after sustaining a fall at home on 11/26/21. She lives at home with her husand whom she cares for. Walks without assistive devices. She was found to have a distal radius fracture and was placed in a sugartong splint. She was admitted to the medicine service for acute CHF exacerbation bilt LLE cellulitis with purulent discharge. Orthopedics was also consulted for futher evaluation and treatment of the fracture. <Aarti Demarco PA-C - Last Filed: 11/30/21 09:05> [facility] Past Medical History Medical History: Medical History Diastolic dysfunction Essential hypertension Hyperlipidemia Hypothyroidism Non-rheumatic aortic stenosis <Aarti Demarco PA-C - Last Filed: 11/30/21 09:05> Family History Family History: Family History Father No problems noted. Mother No problems noted. <Aarti Demarco PA-C - Last Filed: 11/30/21 09:05> Surgical History Surgical History: Surgical History No pertinent past surgical history <Aarti Demarco PA-C - Last Filed: 11/30/21 09:05> Social History Social History: Social History Household Members: Spouse Housing: House Do you presently have visiting nurse or other home services: No Alcohol intake: never Patient Tobacco Use Status: Never used Tobacco e-Cigarette/Vaping Use: Never Used <Aarti Demarco PA-C - Last Filed: 11/30/21 09:05> Meds Allergies/Adverse reactions: Allergies Allergy/AdvReac Type Severity Reaction Status Date / Time No Known Allergies Allergy Verified 07/05/21 14:30 <Aarti Demarco PA-C - Last Filed: 11/30/21 09:05> Active Medications: Current Medications Acetaminophen (Acetaminophen 325 Mg Tablet) 650 mg PO Q6H PRN PRN Reason: Pain, Mild (Pain Scale 1-3) Atenolol (Atenolol 25 Mg Tablet) 25 mg PO DAILY [facility]; Protocol Last Admin: 11/29/21 09:47 Dose: 25 mg Atorvastatin Calcium (Atorvastatin Calcium 10 Mg Tablet) 10 mg PO BEDTIME [facility] Last Admin: 11/29/21 21:59 Dose: 10 mg Calcium Carbonate/Cholecalciferol (Calcium + Vitamin D 250 Mg Tablet) 500 mg PO DAILY [facility] Last Admin: 11/29/21 09:47 Dose: 500 mg Docusate Sodium (Docusate Sodium 100 Mg Capsule) 100 mg PO DAILY PRN PRN Reason: Constipation Enoxaparin Sodium (Enoxaparin Sodium 30 Mg/0.3 Ml Syringe) 30 mg SUBCUT Q24H [facility] Last Admin: 11/29/21 15:15 Dose: 30 mg Furosemide (Furosemide 40 Mg/4 Ml Vial) 40 mg IVPUSH DAILY [facility]; Protocol Vancomycin HCl 750 mg/ Sodium (Chloride) 265 mls @ 265 mls/hr IV Q24H [facility] Levothyroxine Sodium (Levothyroxine Sodium 75 Mcg Tablet) 75 mcg PO DAILY@0600 [facility] Last Admin: 11/30/21 05:47 Dose: 75 mcg Lisinopril (Lisinopril 5 Mg Tablet) 5 mg PO DAILY [facility]; Protocol Last Admin: 11/29/21 09:47 Dose: 5 mg Melatonin (Melatonin 3 Mg Tablet) 6 mg PO BEDTIME [facility] Last Admin: 11/29/21 21:59 Dose: 6 mg Ondansetron HCl (Ondansetron Hcl 4 Mg/2 Ml Vial) 4 mg IVPUSH Q8H PRN PRN Reason: Nausea and Vomiting Oxycodone HCl (Oxycodone Hcl Immed Release 5 Mg Tablet) 2.5 mg PO Q6H PRN PRN Reason: Pain, Moderate (Pain Scale 4-6 Last Admin: 11/29/21 18:42 Dose: 2.5 mg Oxycodone HCl (Oxycodone Hcl Immed Release 5 Mg Tablet) 2.5 mg PO Q6H PRN PRN Reason: Pain, Moderate (Pain Scale 4-6 Oxycodone HCl (Oxycodone Hcl Immed Release 5 Mg Tablet) 5 mg PO Q6H PRN PRN Reason: Pain, Severe (Pain Scale 7-10) Pharmacy Consult (Consult Rx Perform Med Rec) 1 each MISCELLANE ONCE PRN PRN Reason: Consult order Pharmacy Consult (Consult Rx Vancomycin Dosing) 1 each MISCELLANE DAILY PRN PRN Reason: Consult order Sodium Chloride (0.9 % Sodium Chloride Flush 3 Ml Syringe) [facility] Last Admin: 11/30/21 00:26 Dose: 3 ml <Aarti Demarco PA-C - Last Filed: 11/30/21 09:05> Home medications: Home Medications Medication Instructions Recorded Confirmed Last Taken Type alendronate 70 mg tablet 70 mg PO PIÑA@0600 01/10/21 11/28/21 Unknown History atenolol 25 mg tablet 25 mg PO DAILY 01/10/21 11/28/21 11/28/21 History levothyroxine 75 mcg tablet 75 mcg PO DAILY 01/10/21 11/28/21 11/28/21 History lisinopril 5 mg tablet 5 mg PO DAILY 01/10/21 11/28/21 11/28/21 History simvastatin 20 mg tablet 20 mg PO BEDTIME 01/10/21 11/28/21 11/27/21 History calcium carbonate 500 mg-vitamin 2 tab PO DAILY 11/28/21 11/28/21 Unknown History D3 10 mcg (400 unit) tablet (Calcium 500 + D) <Aarti Demarco PA-C - Last Filed: 11/30/21 09:05> Physical Exam Vital Signs: Vital Signs: Last Vital Signs Temp 97.6 F 11/30/21 03:44 Pulse 69 11/30/21 07:49 Resp 20 11/30/21 07:49 BP 108/50 L 11/30/21 07:49 Pulse Ox 98 11/30/21 07:49 O2 Del Method 11/30/21 07:49 O2 Flow Rate 4 11/30/21 07:49 FiO2 99 11/29/21 19:12 BMI result Body Mass Index 23.4 <Aarti Chirinosreynaldo CLARA - Last Filed: 11/30/21 09:05> Const: General: cooperative and no acute distress <Aarti Chirinosreynaldo CLARA - Last Filed: 11/30/21 09:05> Orientation/consciousness: patient oriented x3 <Aarti Chirinoslburmariluz CLARA - Last Filed: 11/30/21 09:05> Resp: Effort & Inspection: normal respiratory effort and able to speak in complete sentences <Aarti Chirinoslburmariluz LCARA - Last Filed: 11/30/21 09:05> Cardio: Peripheral pulses: Peripheral pulses 2+ throughout <Aarti Chirinosreynaldo CLARA - Last Filed: 11/30/21 09:05> Skin: General skin exam: no rashes or lesions noted <Aarti Martines Dav CLARA - Last Filed: 11/30/21 09:05> Neuro: General: patient oriented x3 <Aarti Chirinoslburmariluz CLARA - Last Filed: 11/30/21 09:05> Extrem: Other: Left wrist skin intact. Able to fully flex and extend all digits with pain. Sensation intact. Capillary refill brisk. Radial pulse intact. <Aarti Chirinosreynaldo CLARA - Last Filed: 11/30/21 09:05> Results Labs Result Diagrams: : 12/04/21 06:48 12/05/21 05:24 <Aarti Martines Dav CLARA - Last Filed: 11/30/21 09:05> Labs: Abnormal lab results 11/29/21 11/29/21 11/29/21 Range/Units 09:27 09:27 09:27 RBC 3.42 L (4.20-5.50) X10*6/uL Hgb 9.6 L (12.0-16.0) g/dl Hct 29.7 L (37.0-47.0) % MPV 9.3 L (9.4-12.3) fL Immature Gran % (Auto) 0.7 H (0.0-0.4) % Neut % (Auto) 73.8 H (45-73) % Lymph % (Auto) 14.2 L (20-40) % Lymph # (Auto) 1.1 L (1.2-4.9) X10*3/uL Abs Immat Gran (auto) 0.05 H (0.00-0.03) X10*3/uL Carbon Dioxide (22-29) mmol/L BUN 21 H (9-16) mg/dL Random Glucose 167 H (60-115) mg/dL Troponin I High Sens 60.4 H* D (<3.5-17.0) ng/L B-Natriuretic Peptide (<100) pg/mL Total Protein 5.8 L (6.5-8.0) g/dL Albumin 3.0 L (3.5-5.0) g/dL 11/29/21 11/29/21 11/30/21 Range/Units 09:27 13:07 05:40 RBC (4.20-5.50) X10*6/uL Hgb (12.0-16.0) g/dl Hct (37.0-47.0) % MPV (9.4-12.3) fL Immature Gran % (Auto) (0.0-0.4) % Neut % (Auto) (45-73) % Lymph % (Auto) (20-40) % Lymph # (Auto) (1.2-4.9) X10*3/uL Abs Immat Gran (auto) (0.00-0.03) X10*3/uL Carbon Dioxide (22-29) mmol/L BUN (9-16) mg/dL Random Glucose (60-115) mg/dL Troponin I High Sens 55.0 H* (<3.5-17.0) ng/L B-Natriuretic Peptide 848 H 675 H (<100) pg/mL Total Protein (6.5-8.0) g/dL Albumin (3.5-5.0) g/dL 11/30/21 Range/Units 05:40 RBC (4.20-5.50) X10*6/uL Hgb (12.0-16.0) g/dl Hct (37.0-47.0) % MPV (9.4-12.3) fL Immature Gran % (Auto) (0.0-0.4) % Neut % (Auto) (45-73) % Lymph % (Auto) (20-40) % Lymph # (Auto) (1.2-4.9) X10*3/uL Abs Immat Gran (auto) (0.00-0.03) X10*3/uL Carbon Dioxide 30 H (22-29) mmol/L BUN 24 H (9-16) mg/dL Random Glucose (60-115) mg/dL Troponin I High Sens (<3.5-17.0) ng/L B-Natriuretic Peptide (<100) pg/mL Total Protein (6.5-8.0) g/dL Albumin (3.5-5.0) g/dL H & H 11/28/21 11/29/21 Range/Units 15:54 09:27 Hgb 11.2 L 9.6 L (12.0-16.0) g/dl Hct 34.3 L 29.7 L (37.0-47.0) % Coagulation 11/28/21 Range/Units 15:54 INR 1.0 (0.9-1.1) All other labs normal. <Aarti Demarco PA-C - Last Filed: 11/30/21 09:05> Assessment and Plan (1) Fracture of ulnar styloid: Qualifiers: Encounter type: initial encounter Fracture alignment: displaced Fracture type: closed Laterality: left Qualified Code(s): S52.612A - Displaced fracture of left ulna styloid process, initial encounter for closed fracture <Aarti Demarco PA-C - Last Filed: 11/30/21 09:05> Status: Acute <Aarti Demarco PA-C - Last Filed: 11/30/21 09:05> (2) Distal radial fracture: Qualifiers: Encounter type: initial encounter Fracture morphology: unspecified fracture morphology Fracture type: closed Laterality: left Qualified Code(s): S52.502A - Unspecified fracture of the lower end of left radius, initial encounter for closed fracture <Aarti Demarco PA-C - Last Filed: 11/30/21 09:05> Status: Acute <Aarti Demarco PA-C - Last Filed: 11/30/21 09:05> I discussed the case with Dr. Torres and explained the extent of the injury to the patient and options available which include surgical intervention. I explained the procedure in detail along with the length of recovery and rehab course. I explained the risk, benefits and alternatives. Risk including, but not limited to infection, blood clots, bleeding, non union or malunion and nerve/tissue damage to surrounding areas. I answered all their questions and with their understanding they have consented to move forward with Operative Fixation of left wrist for an open vs. closed reduction internal fixation. The patient will need cardiology clearance as well as medicine clearance. Consult placed to cardiology. <Aarti Demarco PA-C - Last Filed: 11/30/21 09:05> (3) Closed fracture of left inferior pubic ramus: Qualifiers: Encounter type: initial encounter Qualified Code(s): S32.592A - Other specified fracture of left pubis, initial encounter for closed fracture <Aarti Demarco PA-C - Last Filed: 11/30/21 09:05> Status: Acute <Aarti Demarco PA-C - Last Filed: 11/30/21 09:05> -WBAT with walker <Aarti Demarco PA-C - Last Filed: 11/30/21 09:05> Assessment and plan: 1. Left distal radius fracture I reviewed the x-rays and and discussed the patient with Aarti. I was involved in formulating the plan to take her to surgery for an open reduction internal fixation of her left distal radius fracture. <Josefina Torres MD - Last Filed: 12/05/21 10:04> Procedures Date of Service Date of Service: 11/30/21 <Aarti Demarco PA-C - Last Filed: 11/30/21 09:05>
[2021-11-30] MEDS: Calcium + Vitamin D 250 MG TABLET 500 MG PO (09:23)
[2021-11-30] MEDS: Furosemide 40 MG/4 ML VIAL IVPUSH (09:23)
[2021-11-30] MEDS: atenoloL 25 MG TABLET PO (09:23)
[2021-11-30] MEDS: lisinopriL 5 MG TABLET PO (09:23)
[2021-11-30] MEDS: oxyCODONE HCl Immed Release 5 MG TABLET PO (09:24)
--- NOTE | 2021-11-30 10:58 | HO.PM.IMPN ---
Subjective Subjective Date of Service: 11/30/21 Interval History: LLE redness improving dyspnea improving LUE splinted, pain controlled Review of Systems Review of Systems: Yes all other systems are reviewed and are negative Physical Exam Vital Signs: Vital Signs: Last Vital Signs Temp 97.6 F 11/30/21 03:44 Pulse 69 11/30/21 07:49 Resp 20 11/30/21 07:49 BP 108/50 L 11/30/21 07:49 Pulse Ox 98 11/30/21 07:49 O2 Del Method 11/30/21 07:49 O2 Flow Rate 4 11/30/21 07:49 FiO2 99 11/29/21 19:12 BMI result Body Mass Index 23.4 Gen: in no acute distress HEENT: sclera anicteric, moist mucus membranes Neck: supple Lungs: diminished bilaterally Heart: regular rate and rhythm, no murmurs Abd: soft, non-tender, non-distended Ext: no edema, redness and scabbing LLE improved, LUE splinted and distally N/V intact Skin: warm/well-perfused Neuro: alert and oriented x3, no focal findings Psych: appropriate affect Objective Data Active Medications Acetaminophen (Acetaminophen 325 Mg Tablet) 650 mg PO Q6H PRN PRN Reason: Pain, Mild (Pain Scale 1-3) Atenolol (Atenolol 25 Mg Tablet) 25 mg PO DAILY [facility]; Protocol Last Admin: 11/30/21 09:23 Dose: 25 mg Documented By: NAMITA Atorvastatin Calcium (Atorvastatin Calcium 10 Mg Tablet) 10 mg PO BEDTIME [facility] Last Admin: 11/29/21 21:59 Dose: 10 mg Documented By: GILBERT Calcium Carbonate/Cholecalciferol (Calcium + Vitamin D 250 Mg Tablet) 500 mg PO DAILY [facility] Last Admin: 11/30/21 09:23 Dose: 500 mg Documented By: NAMITA Docusate Sodium (Docusate Sodium 100 Mg Capsule) 100 mg PO DAILY PRN PRN Reason: Constipation Enoxaparin Sodium (Enoxaparin Sodium 30 Mg/0.3 Ml Syringe) 30 mg SUBCUT Q24H [facility] Last Admin: 11/29/21 15:15 Dose: 30 mg Documented By: JOSE ENRIQUE Furosemide (Furosemide 40 Mg/4 Ml Vial) 40 mg IVPUSH DAILY [facility]; Protocol Last Admin: 11/30/21 09:23 Dose: 40 mg Documented By: NAMITA Vancomycin HCl 750 mg/ Sodium (Chloride) 265 mls @ 265 mls/hr IV Q24H [facility] Levothyroxine Sodium (Levothyroxine Sodium 75 Mcg Tablet) 75 mcg PO DAILY@0600 [facility] Last Admin: 11/30/21 05:47 Dose: 75 mcg Documented By: CONCEPCIÓN Lisinopril (Lisinopril 5 Mg Tablet) 5 mg PO DAILY [facility]; Protocol Last Admin: 11/30/21 09:23 Dose: 5 mg Documented By: NAMITA Melatonin (Melatonin 3 Mg Tablet) 6 mg PO BEDTIME [facility] Last Admin: 11/29/21 21:59 Dose: 6 mg Documented By: GILBERT Ondansetron HCl (Ondansetron Hcl 4 Mg/2 Ml Vial) 4 mg IVPUSH Q8H PRN PRN Reason: Nausea and Vomiting Oxycodone HCl (Oxycodone Hcl Immed Release 5 Mg Tablet) 2.5 mg PO Q6H PRN PRN Reason: Pain, Moderate (Pain Scale 4-6 Last Admin: 11/29/21 18:42 Dose: 2.5 mg Documented By: LYNNE Oxycodone HCl (Oxycodone Hcl Immed Release 5 Mg Tablet) 2.5 mg PO Q6H PRN PRN Reason: Pain, Moderate (Pain Scale 4-6 Oxycodone HCl (Oxycodone Hcl Immed Release 5 Mg Tablet) 5 mg PO Q6H PRN PRN Reason: Pain, Severe (Pain Scale 7-10) Last Admin: 11/30/21 09:24 Dose: 5 mg Documented By: NAMITA Pharmacy Consult (Consult Rx Perform Med Rec) 1 each MISCELLANE ONCE PRN PRN Reason: Consult order Pharmacy Consult (Consult Rx Vancomycin Dosing) 1 each MISCELLANE DAILY PRN PRN Reason: Consult order Sodium Chloride (0.9 % Sodium Chloride Flush 3 Ml Syringe) 3 ml IVFLUSH QSHIFT [facility] Last Admin: 11/30/21 09:23 Dose: 3 ml Documented By: NAMITA Triamcinolone Acetonide (Triamcinolone Acet 0.1 % Oint 15 Gm Tube) 1 appl TOPICAL BID [facility] Labs CBC & Chem 7: 11/29/21 09:27 11/30/21 05:40 Labs: Laboratory Results - last 24 hr 11/29/21 11/30/21 11/30/21 13:07 05:40 05:40 Anion Gap 15 Estim Creat Clear Calc 30.6 Estimated GFR 45 Random Glucose 93 Calcium 8.5 Troponin I High Sens 55.0 H* B-Natriuretic Peptide 675 H Assessment and Plan (1) Acute exacerbation of CHF (congestive heart failure): Status: Acute (2) Acute respiratory failure with hypoxia: Status: Acute (3) Cellulitis: Status: Acute (4) Fracture of ulnar styloid: Status: Acute (5) Distal radial fracture: Status: Acute (6) Closed fracture of left inferior pubic ramus: Status: Acute (7) Closed fracture of superior ramus of left pubis: Status: Acute Plan d#2 81yo F with severe aortic stenosis, HFpEF [grade 2 diastolic dysfunction], HTN, HLD< hypothyroidism, osteoporosis, chronic venous stasis dermatitis presenting after mechanical fall and found to have left superior + inferior pubic rami fractures as well as fractures of left distal radius and ulnar styolid admitted with hypoxia due to CHF # acute/chronic HFpEF # sev aortic stenosis - continue IV diuresis, TTE ordered, monitor lytes + I/Os, consult Cardiology [also preop for ORIF] - Tn-I mild elevation, likely due to CHF, not ACS - continue atenolol + lisinopril # acute hypoxic respiratory failure - wean O2 as tolerated # cellulitis - vancomycin d#2 # left distal radius + ulnar styloid fracture - Ortho consulted, plan ORIF, needs preop Cardiology evaluation # HTN - atenolol + lisinopril # HLD - statin # hypothyroidism - LT4 # osteoporosis - Ca/vit D/bisphosphonate # VTE ppx: LMWH In my clinical judgment, the patient requires continued hospitalization for the following reasons: IV diuresis, oxygen, ORIF Quality Stroke Does the patient have a stroke diagnosis?: No VTE Prior VTE?: No VTE Risk Level:: Medical - moderate - high VTE Device Contraindication: Treatment Not Indicated VTE Drug Contraindication: N/A - Med Ordered
--- NOTE | 2021-11-30 11:34 | MHC.CM.PN ---
Female 81 DX s/p fall Ramus + wrist FX She lives w ( [place] [facility] 11/29) she is independent. PT rec STR. Referrals updated. [facility]. [facility] are following. DP STR via BLS.
--- NOTE | 2021-11-30 12:32 | P.CONCA_ITS ---
History of Present Illness History of Present Illness Date of Service: 11/30/21 Requesting physician: Bon De Guzman Chief complaint: Preop cardiovascular assessment, Narrative: 81-year-old female who is presenting with mechanical fall and ulnar fracture for which she will require surgery. There is also documentation that she had hypoxia and shortness of breath and was noticed to be in congestive heart failure. She was on IV Lasix. Currently she is feeling better. Denies any chest discomfort shortness of breath. She has history of moderate aortic valve stenosis by echocardiography in June 2021. She did not have syncope or dizziness. She said she turned and lost balance and fell. High sensitivity troponin levels were 60 and 55. BNP Levels were 848 and 675. [facility] Past Medical History Medical History Diastolic dysfunction Essential hypertension Hyperlipidemia Hypothyroidism Non-rheumatic aortic stenosis Family History Family History Father No problems noted. Mother No problems noted. Surgical History Surgical History No pertinent past surgical history Social History Social History Household Members: Spouse Housing: House Do you presently have visiting nurse or other home services: No Alcohol intake: never Patient Tobacco Use Status: Never used Tobacco e-Cigarette/Vaping Use: Never Used Use of substances other than those prescribed or required for medical reasons: No Currently Displaying Signs/Symptoms of Drug Intoxication Withdrawal: No Have you been hit, kicked, punched, or otherwise hurt by someone within the past year? If so, by whom?: No Do you feel safe in your current relationship?: Yes Is there a partner from a previous relationship who is making you feel unsafe now?: No Are you made to feel afraid or neglected: No [facility] Practices: Gnosticism Advance Directives: No Advance Directives Information Provided: Yes (Declined) Advance Directives on File: No Do you have thoughts of harming others: None Do you have a plan to hurt others: No Plan Recently lost weight without trying: No Eating poorly because of decreased appetite: No Nutrition Risks: No Nutritional Risk Patient : No : No Poor oral hygiene: No Meds Allergies Allergy/AdvReac Type Severity Reaction Status Date / Time No Known Allergies Allergy Verified 07/05/21 14:30 Active Medications: Current Medications Acetaminophen (Acetaminophen 325 Mg Tablet) 650 mg PO Q6H PRN PRN Reason: Pain, Mild (Pain Scale 1-3) Atenolol (Atenolol 25 Mg Tablet) 25 mg PO DAILY [facility]; Protocol Last Admin: 11/30/21 09:23 Dose: 25 mg Atorvastatin Calcium (Atorvastatin Calcium 10 Mg Tablet) 10 mg PO BEDTIME [facility] Last Admin: 11/29/21 21:59 Dose: 10 mg Calcium Carbonate/Cholecalciferol (Calcium + Vitamin D 250 Mg Tablet) 500 mg PO DAILY [facility] Last Admin: 11/30/21 09:23 Dose: 500 mg Docusate Sodium (Docusate Sodium 100 Mg Capsule) 100 mg PO DAILY PRN PRN Reason: Constipation Enoxaparin Sodium (Enoxaparin Sodium 30 Mg/0.3 Ml Syringe) 30 mg SUBCUT Q24H [facility] Last Admin: 11/29/21 15:15 Dose: 30 mg Furosemide (Furosemide 40 Mg/4 Ml Vial) 40 mg IVPUSH DAILY [facility]; Protocol Last Admin: 11/30/21 09:23 Dose: 40 mg Vancomycin HCl 750 mg/ Sodium (Chloride) 265 mls @ 265 mls/hr IV Q24H [facility] Levothyroxine Sodium (Levothyroxine Sodium 75 Mcg Tablet) 75 mcg PO DAILY@0600 [facility] Last Admin: 11/30/21 05:47 Dose: 75 mcg Lisinopril (Lisinopril 5 Mg Tablet) 5 mg PO DAILY [facility]; Protocol Last Admin: 11/30/21 09:23 Dose: 5 mg Melatonin (Melatonin 3 Mg Tablet) 6 mg PO BEDTIME [facility] Last Admin: 11/29/21 21:59 Dose: 6 mg Ondansetron HCl (Ondansetron Hcl 4 Mg/2 Ml Vial) 4 mg IVPUSH Q8H PRN PRN Reason: Nausea and Vomiting Oxycodone HCl (Oxycodone Hcl Immed Release 5 Mg Tablet) 2.5 mg PO Q6H PRN PRN Reason: Pain, Moderate (Pain Scale 4-6 Last Admin: 11/29/21 18:42 Dose: 2.5 mg Oxycodone HCl (Oxycodone Hcl Immed Release 5 Mg Tablet) 2.5 mg PO Q6H PRN PRN Reason: Pain, Moderate (Pain Scale 4-6 Oxycodone HCl (Oxycodone Hcl Immed Release 5 Mg Tablet) 5 mg PO Q6H PRN PRN Reason: Pain, Severe (Pain Scale 7-10) Last Admin: 11/30/21 09:24 Dose: 5 mg Pharmacy Consult (Consult Rx Perform Med Rec) 1 each MISCELLANE ONCE PRN PRN Reason: Consult order Pharmacy Consult (Consult Rx Vancomycin Dosing) 1 each MISCELLANE DAILY PRN PRN Reason: Consult order Sodium Chloride (0.9 % Sodium Chloride Flush 3 Ml Syringe) 3 ml IVFLUSH QSHIFT [facility] Last Admin: 11/30/21 09:23 Dose: 3 ml Triamcinolone Acetonide (Triamcinolone Acet 0.1 % Oint 15 Gm Tube) 1 appl TOPICAL BID [facility] Home Medications Medication Instructions Recorded Confirmed Last Taken Type alendronate 70 mg tablet 70 mg PO PIÑA@0600 01/10/21 11/28/21 Unknown History atenolol 25 mg tablet 25 mg PO DAILY 01/10/21 11/28/21 11/28/21 History levothyroxine 75 mcg tablet 75 mcg PO DAILY 01/10/21 11/28/21 11/28/21 History lisinopril 5 mg tablet 5 mg PO DAILY 01/10/21 11/28/21 11/28/21 History simvastatin 20 mg tablet 20 mg PO BEDTIME 01/10/21 11/28/21 11/27/21 History calcium carbonate 500 mg-vitamin 2 tab PO DAILY 11/28/21 11/28/21 Unknown History D3 10 mcg (400 unit) tablet (Calcium 500 + D) Physical Exam Vital Signs: Vital Signs: Last Vital Signs Temp 97.7 F 11/30/21 11:29 Pulse 72 11/30/21 11:29 Resp 20 11/30/21 11:29 BP 107/54 L 11/30/21 11:29 Pulse Ox 98 11/30/21 11:29 O2 Del Method 11/30/21 11:29 O2 Flow Rate 4 11/30/21 11:29 FiO2 99 11/29/21 19:12 BMI result Body Mass Index 23.4 GENERAL APPEARANCE: in no acute distress, pleasant. NECK: no carotid bruit, no obvious jugular venous distention. SKIN: no suspicious lesions, warm and dry. HEART: ejection systolic murmur aortic area with feeble 2nd heart sound, regular rate and rhythm. LUNGS: clear to auscultation bilaterally. ABDOMEN: soft, nontender. EXTREMITIES: no edema. left hand currently in crepe bandage. PERIPHERAL PULSES: equal. NEUROLOGIC: No gross deficits, AAO X 3 Objective Labs and Meds Result diagrams: 11/29/21 09:27 11/30/21 05:40 Lab results: Laboratory Results - last 24 hr 11/29/21 11/30/21 11/30/21 13:07 05:40 05:40 Sodium 137 Potassium 4.4 Chloride 96 Carbon Dioxide 30 H Anion Gap 15 BUN 24 H Creatinine 1.15 Estim Creat Clear Calc 30.6 Estimated GFR 45 Random Glucose 93 Calcium 8.5 Troponin I High Sens 55.0 H* B-Natriuretic Peptide 675 H Assessment and Plan (1) Acute exacerbation of CHF (congestive heart failure): Status: Acute (2) Fracture of ulnar styloid: Qualifiers: Encounter type: initial encounter Fracture alignment: displaced Fracture type: closed Laterality: left Qualified Code(s): S52.612A - Displaced fracture of left ulna styloid process, initial encounter for closed fracture Status: Acute (3) Preop cardiovascular exam: Status: Acute Plan 81-year-old female with background of moderate aortic valve stenosis and hypertension presenting with mechanical fall and ulnar styloid fracture. She will need surgery for that. She will also noticed to be hypoxic and clinically in heart failure. She was given for same I would. She is currently on 40 mg IV Lasix. Clinically looks euvolemic to me. can potentially be changed to oral diuretics. Denies chest pain or any significant shortness of breath currently. She had repeat echocardiography which he will review. Overall she appears intermediate risk for perioperative complications. We will follow along with you. Thank you for allowing me to participate in the care of your patient. Please feel free to contact me if you have any questions. Procedures Date of Service Date of Service: 11/30/21
[2021-11-30] MEDS: Enoxaparin Sodium 30 MG/0.3 ML SYRINGE SUBCUT (13:40)
[2021-11-30] MEDS: vancomycin HCL 750 MG in 0.9 % Sodium Chloride 250 ML 265 MG IV (17:24)
[2021-11-30] MEDS: Melatonin 3 MG TABLET 6 MG PO (20:42)
[2021-11-30] MEDS: Triamcinolone Acet 0.1 % Oint 15 GM TUBE 1 APPL TOPICAL (20:42)
[2021-11-30] MEDS: Atorvastatin Calcium 10 MG TABLET PO (20:42)
[2021-11-30] MEDS: Acetaminophen 325 MG TABLET 650 MG PO (20:42)
[2021-12-01 04:00] VITALS: BP 111/67; PULSE 68; RESP 20; TEMP 36.8; O2SAT 98
[2021-12-01] MEDS: Levothyroxine Sodium 75 MCG TABLET PO (05:27)
[2021-12-01] MEDS: oxyCODONE HCl Immed Release 5 MG TABLET PO (05:27)
[2021-12-01 06:55] LABS: Hematocrit 29.2 % (37.0-47.0); Hemoglobin 9.6 g/dl (12.0-16.0); Mean Corpuscular HGB Conc 32.9 g/dl (31.0-35.0); Mean Corpuscular Hemoglobin 28.4 pg (27.0-33.0); Mean Corpuscular Volume 86.4 fL (80.0-98.0); Platelet Count 307 X10*3/uL (160-400); Red Blood Count 3.38 X10*6/uL (4.20-5.50); Red Cell Distribution Width 14.4 % (11.0-16.0); White Blood Count 6.4 X10*3/uL (4.8-10.8)
[2021-12-01 07:11] LABS: B Type Natriuretic Peptide 486 pg/mL (<100)
[2021-12-01 07:29] LABS: Anion Gap 14 (12-20); Blood Urea Nitrogen 20 mg/dL (9-16); Calcium 8.4 mg/dL (8.4-10.2); Carbon Dioxide 31 mmol/L (22-29); Chloride 92 mmol/L (96-108); Creatinine Clr Calc Pharmacy 32.6; Estimated Glomerular Filt Rate 48; Glucose Random 89 mg/dL (60-115); Magnesium 1.8 mg/dL (1.6-2.6); Potassium 4.1 mmol/L (3.3-5.1); Sodium 133 mmol/L (135-145)
--- NOTE | 2021-12-01 07:39 | HE.PHANOTE ---
RE Vanco SCr stable. Continue current dose. Level due 12/01 @1600. [place]
[2021-12-01 07:42] VITALS: BP 125/75; PULSE 75; RESP 18; TEMP 36.9; O2SAT 97
[2021-12-01] MEDS: 0.9 % Sodium Chloride Flush 3 ML SYRINGE IVFLUSH ×3 (09:00→21:22)
[2021-12-01] MEDS: lisinopriL 5 MG TABLET PO (09:01)
[2021-12-01] MEDS: Triamcinolone Acet 0.1 % Oint 15 GM TUBE 1 APPL TOPICAL ×2 (09:01→21:29)
[2021-12-01] MEDS: atenoloL 25 MG TABLET PO (09:01)
[2021-12-01] MEDS: Calcium + Vitamin D 250 MG TABLET 500 MG PO (09:01)
[2021-12-01] MEDS: Furosemide 40 MG/4 ML VIAL IVPUSH (09:02)
[2021-12-01] MEDS: Docusate Sodium 100 MG CAPSULE PO (09:14)
[2021-12-01 11:55] VITALS: BP 125/75; PULSE 75; O2SAT 97
[2021-12-01 12:00] VITALS: BP 130/65; PULSE 70; RESP 16; TEMP 35.9; O2SAT 97
--- NOTE | 2021-12-01 12:03 | HO.PM.IMPN ---
Subjective Subjective Date of Service: 12/01/21 Interval History: LLE redness improving Denies dyspnea LUE splinted, pain controlled Review of Systems Review of Systems: Yes all other systems are reviewed and are negative Physical Exam Vital Signs: Vital Signs: Last Vital Signs Temp 98.5 F 12/01/21 07:42 Pulse 75 12/01/21 11:55 Resp 18 12/01/21 07:42 BP 125/75 12/01/21 11:55 Pulse Ox 97 12/01/21 11:55 O2 Del Method 12/01/21 07:42 O2 Flow Rate 4 12/01/21 07:42 FiO2 99 11/29/21 19:12 BMI result Body Mass Index 23.4 Constitutional - Awake and Alert, No apparent distress Eyes - PERRLA, EOMI Cardiovascular - S1S2, RRR, No edema Respiratory - Normal lung expansion, Normal respiratory effort, No respiratory distress, CTA bilaterally Gastrointestinal - NT / ND; +BS; No rebound or guarding Extremities - no calf tenderness bilaterally, no swelling. LUE in splint Skin - Warm/Dry. Scant erythema b/l medial lower legs shallow scabbed ulcerations without drainage Neurological - Alert & oriented x3, No focal deficit Psychological - Appropriate affect Objective Data Active Medications Acetaminophen (Acetaminophen 325 Mg Tablet) 650 mg PO Q6H PRN PRN Reason: Pain, Mild (Pain Scale 1-3) Last Admin: 11/30/21 20:42 Dose: 650 mg Documented By: ANGE Atenolol (Atenolol 25 Mg Tablet) 25 mg PO DAILY [facility]; Protocol Last Admin: 12/01/21 09:01 Dose: 25 mg Documented By: BARB Atorvastatin Calcium (Atorvastatin Calcium 10 Mg Tablet) 10 mg PO BEDTIME [facility] Last Admin: 11/30/21 20:42 Dose: 10 mg Documented By: ANGE Calcium Carbonate/Cholecalciferol (Calcium + Vitamin D 250 Mg Tablet) 500 mg PO DAILY [facility] Last Admin: 12/01/21 09:01 Dose: 500 mg Documented By: BARB Docusate Sodium (Docusate Sodium 100 Mg Capsule) 100 mg PO DAILY PRN PRN Reason: Constipation Last Admin: 12/01/21 09:14 Dose: 100 mg Documented By: BARB Enoxaparin Sodium (Enoxaparin Sodium 30 Mg/0.3 Ml Syringe) 30 mg SUBCUT Q24H [facility] Last Admin: 11/30/21 13:40 Dose: 30 mg Documented By: NAMITA Furosemide (Furosemide 40 Mg/4 Ml Vial) 40 mg IVPUSH DAILY [facility]; Protocol Last Admin: 12/01/21 09:02 Dose: 40 mg Documented By: BARB Vancomycin HCl 750 mg/ Sodium (Chloride) 265 mls @ 265 mls/hr IV Q24H [facility] Last Infusion: 11/30/21 18:43 Dose: 0 mls/hr Documented By: NAMITA Levothyroxine Sodium (Levothyroxine Sodium 75 Mcg Tablet) 75 mcg PO DAILY@0600 [facility] Last Admin: 12/01/21 05:27 Dose: 75 mcg Documented By: TONA Lisinopril (Lisinopril 5 Mg Tablet) 5 mg PO DAILY [facility]; Protocol Last Admin: 12/01/21 09:01 Dose: 5 mg Documented By: BARB Melatonin (Melatonin 3 Mg Tablet) 6 mg PO BEDTIME [facility] Last Admin: 11/30/21 20:42 Dose: 6 mg Documented By: ANGE Ondansetron HCl (Ondansetron Hcl 4 Mg/2 Ml Vial) 4 mg IVPUSH Q8H PRN PRN Reason: Nausea and Vomiting Oxycodone HCl (Oxycodone Hcl Immed Release 5 Mg Tablet) 2.5 mg PO Q6H PRN PRN Reason: Pain, Moderate (Pain Scale 4-6 Last Admin: 11/29/21 18:42 Dose: 2.5 mg Documented By: LYNNE Oxycodone HCl (Oxycodone Hcl Immed Release 5 Mg Tablet) 2.5 mg PO Q6H PRN PRN Reason: Pain, Moderate (Pain Scale 4-6 Oxycodone HCl (Oxycodone Hcl Immed Release 5 Mg Tablet) 5 mg PO Q6H PRN PRN Reason: Pain, Severe (Pain Scale 7-10) Last Admin: 12/01/21 05:27 Dose: 5 mg Documented By: TONA Pharmacy Consult (Consult Rx Perform Med Rec) 1 each MISCELLANE ONCE PRN PRN Reason: Consult order Pharmacy Consult (Consult Rx Vancomycin Dosing) 1 each MISCELLANE DAILY PRN PRN Reason: Consult order Sodium Chloride (0.9 % Sodium Chloride Flush 3 Ml Syringe) 3 ml IVFLUSH QSHIFT [facility] Last Admin: 12/01/21 09:00 Dose: 3 ml Documented By: BARB Triamcinolone Acetonide (Triamcinolone Acet 0.1 % Oint 15 Gm Tube) 1 appl TOPICAL BID [facility] Last Admin: 12/01/21 09:01 Dose: 1 appl Documented By: BARB Labs CBC & Chem 7: 12/01/21 05:39 12/01/21 05:39 Labs: Laboratory Results - last 24 hr 12/01/21 12/01/21 12/01/21 05:39 05:39 05:39 MCV 86.4 MCH 28.4 MCHC 32.9 RDW 14.4 Plt Count 307 MPV 10.0 Absolute Nucleated RBC 0.000 Nucleated RBC % (auto) 0.0 Anion Gap 14 Estim Creat Clear Calc 32.6 Estimated GFR 48 Random Glucose 89 Calcium 8.4 Magnesium 1.8 B-Natriuretic Peptide 486 H Microbiology Microbiology Results: Microbiology 11/29/21 09:27 Blood Culture - Preliminary Blood - Venous No growth after 48 hours. 11/29/21 09:27 Blood Culture - Preliminary Blood - Venous No growth after 48 hours. Assessment and Plan (1) Acute exacerbation of CHF (congestive heart failure): Status: Acute (2) Acute respiratory failure with hypoxia: Status: Acute (3) Cellulitis: Status: Acute (4) Fracture of ulnar styloid: Status: Acute (5) Distal radial fracture: Status: Acute (6) Closed fracture of left inferior pubic ramus: Status: Acute (7) Closed fracture of superior ramus of left pubis: Status: Acute Plan 81yo F with severe aortic stenosis, HFpEF [grade 2 diastolic dysfunction], HTN, HLD< hypothyroidism, osteoporosis, chronic venous stasis dermatitis presenting after mechanical fall and found to have left superior + inferior pubic rami fractures as well as fractures of left distal radius and ulnar styolid admitted with hypoxia due to CHF # acute/chronic HFpEF- improving # sev aortic stenosis - continue IV diuresis, monitor lytes + I/Os -Cardiology will continue following with plan to change to PO diuretics -Echo 11/30 showing hyperdynamic systolic fx with EF >70%, moderate aortic stenosis, diastolic fx indeterminate, no regional wall abnormality. - Tn-I mild elevation, likely due to CHF, not ACS - continue atenolol + lisinopril -I&O -735 in 24 hr # acute hypoxic respiratory failure secondary to CHF - wean O2 as tolerated # cellulitis- improving - vancomycin d#3 # left distal radius + ulnar styloid fracture - Ortho consulted, plan ORIF, needs preop Cardiology evaluation -ORIF scheduled for Saturday # HTN - atenolol + lisinopril # HLD - statin # hypothyroidism - LT4 # osteoporosis - Ca/vit D/bisphosphonate # VTE ppx: LMWH In my clinical judgment, the patient requires continued hospitalization for the following reasons: IV diuresis, oxygen, ORIF Quality Stroke Does the patient have a stroke diagnosis?: No VTE Prior VTE?: No VTE Risk Level:: Medical - moderate - high VTE Device Contraindication: Treatment Not Indicated VTE Drug Contraindication: N/A - Med Ordered
--- NOTE | 2021-12-01 13:33 | MHC.CM.PN ---
per rounds pt going to or today and is not ready for dc
[2021-12-01] MEDS: Enoxaparin Sodium 30 MG/0.3 ML SYRINGE SUBCUT (15:19)
[2021-12-01 16:00] VITALS: BP 135/66; PULSE 65; RESP 18; TEMP 35.6; O2SAT 100
[2021-12-01 16:50] LABS: Vancomycin Random 13.1 mcg/mL (15-20)
[2021-12-01] MEDS: vancomycin HCL 750 MG in 0.9 % Sodium Chloride 250 ML 265 MG IV (17:32)
[2021-12-01 19:14] VITALS: BP 122/56; PULSE 71; RESP 17; TEMP 37; O2SAT 99
[2021-12-01] MEDS: Melatonin 3 MG TABLET 6 MG PO (21:22)
[2021-12-01] MEDS: Atorvastatin Calcium 10 MG TABLET PO (21:22)
[2021-12-02] VITALS (7 sets, daily range): BP systolic 108–132; BP diastolic 49–63; PULSE 66–72; RESP 13–20; TEMP 36.6–37.9; O2SAT 94–99
[2021-12-02] MEDS: Levothyroxine Sodium 75 MCG TABLET PO (05:16)
[2021-12-02 08:03] LABS: Creatinine Clr Calc Pharmacy 31.5; Estimated Glomerular Filt Rate 46
--- NOTE | 2021-12-02 09:00 | P.PNIM_ITS ---
Subjective Subjective Date of Service: 12/02/21 Interval History: Seen in follow-up for CHF exacerbation and left wrist fracture and cellulitis of the left lower extremity Redness improving left lower extremity, left upper extremity splinted and reports pain is controlled but does report tightness from the splint. She is reporting left-sided chest pain which she states has been present for several days and has not worsened that is exacerbated by blowing her nose or taking a deep breath. Denies any chest pressure, shortness of breath, orthopnea. Physical Exam Vital Signs: Vital Signs: Last Vital Signs Temp 99.6 F 12/02/21 08:00 Pulse 68 12/02/21 08:00 Resp 20 12/02/21 08:00 BP 112/57 L 12/02/21 08:00 Pulse Ox 97 12/02/21 08:00 O2 Del Method 12/02/21 08:00 O2 Flow Rate 4 12/02/21 05:23 FiO2 99 11/29/21 19:12 BMI result Body Mass Index 23.4 Constitutional - Awake and Alert, No apparent distress Eyes - PERRLA, EOMI Cardiovascular - S1S2, RRR, No edema Respiratory - Normal lung expansion, Normal respiratory effort, No respiratory distress, CTA bilaterally Chest: No reproducible tenderness to palpation or visible ecchymosis Gastrointestinal - NT / ND; +BS; No rebound or guarding Extremities - no calf tenderness bilaterally, no swelling Skin - Warm/Dry, Scant erythema b/l medial lower legs shallow scabbed ulcerations without drainage Neurological - Alert & oriented x3, No motor or sensory defecate Psychological - Appropriate affect Objective Data Active Medications Acetaminophen (Acetaminophen 325 Mg Tablet) 650 mg PO Q6H PRN PRN Reason: Pain, Mild (Pain Scale 1-3) Last Admin: 11/30/21 20:42 Dose: 650 mg Documented By: ANGE Atenolol (Atenolol 25 Mg Tablet) 25 mg PO DAILY [facility]; Protocol Last Admin: 12/01/21 09:01 Dose: 25 mg Documented By: BARB Atorvastatin Calcium (Atorvastatin Calcium 10 Mg Tablet) 10 mg PO BEDTIME [facility] Last Admin: 12/01/21 21:22 Dose: 10 mg Documented By: MEEK Calcium Carbonate/Cholecalciferol (Calcium + Vitamin D 250 Mg Tablet) 500 mg PO DAILY [facility] Last Admin: 12/01/21 09:01 Dose: 500 mg Documented By: BARB Docusate Sodium (Docusate Sodium 100 Mg Capsule) 100 mg PO DAILY PRN PRN Reason: Constipation Last Admin: 12/01/21 09:14 Dose: 100 mg Documented By: BARB Enoxaparin Sodium (Enoxaparin Sodium 30 Mg/0.3 Ml Syringe) 30 mg SUBCUT Q24H [facility] Last Admin: 12/01/21 15:19 Dose: 30 mg Documented By: BARB Furosemide (Furosemide 40 Mg/4 Ml Vial) 40 mg IVPUSH DAILY [facility]; Protocol Last Admin: 12/01/21 09:02 Dose: 40 mg Documented By: BARB Vancomycin HCl 750 mg/ Sodium (Chloride) 265 mls @ 265 mls/hr IV Q24H [facility] Last Infusion: 12/01/21 18:44 Dose: 0 mls/hr Documented By: BARB Levothyroxine Sodium (Levothyroxine Sodium 75 Mcg Tablet) 75 mcg PO DAILY@0600 [facility] Last Admin: 12/02/21 05:16 Dose: 75 mcg Documented By: MEEK Lisinopril (Lisinopril 5 Mg Tablet) 5 mg PO DAILY [facility]; Protocol Last Admin: 12/01/21 09:01 Dose: 5 mg Documented By: BARB Melatonin (Melatonin 3 Mg Tablet) 6 mg PO BEDTIME [facility] Last Admin: 12/01/21 21:22 Dose: 6 mg Documented By: MEEK Ondansetron HCl (Ondansetron Hcl 4 Mg/2 Ml Vial) 4 mg IVPUSH Q8H PRN PRN Reason: Nausea and Vomiting Oxycodone HCl (Oxycodone Hcl Immed Release 5 Mg Tablet) 2.5 mg PO Q6H PRN PRN Reason: Pain, Moderate (Pain Scale 4-6 Last Admin: 11/29/21 18:42 Dose: 2.5 mg Documented By: LYNNE Oxycodone HCl (Oxycodone Hcl Immed Release 5 Mg Tablet) 2.5 mg PO Q6H PRN PRN Reason: Pain, Moderate (Pain Scale 4-6 Oxycodone HCl (Oxycodone Hcl Immed Release 5 Mg Tablet) 5 mg PO Q6H PRN PRN Reason: Pain, Severe (Pain Scale 7-10) Last Admin: 12/01/21 05:27 Dose: 5 mg Documented By: TONA Pharmacy Consult (Consult Rx Perform Med Rec) 1 each MISCELLANE ONCE PRN PRN Reason: Consult order Pharmacy Consult (Consult Rx Vancomycin Dosing) 1 each MISCELLANE DAILY PRN PRN Reason: Consult order Sodium Chloride (0.9 % Sodium Chloride Flush 3 Ml Syringe) 3 ml IVFLUSH QSHIFT [facility] Last Admin: 12/01/21 21:22 Dose: 3 ml Documented By: MEEK Triamcinolone Acetonide (Triamcinolone Acet 0.1 % Oint 15 Gm Tube) 1 appl TOPICAL BID [facility] Last Admin: 12/01/21 21:29 Dose: 1 appl Documented By: MEEK Labs CBC & Chem 7: 12/01/21 05:39 12/02/21 06:05 Labs: Laboratory Results - last 24 hr 12/01/21 12/02/21 15:46 06:05 Estim Creat Clear Calc 31.5 Estimated GFR 46 Random Vancomycin 13.1 L Microbiology Microbiology Results: Microbiology 11/29/21 09:27 Blood Culture - Preliminary Blood - Venous No growth after 48 hours. 11/29/21 09:27 Blood Culture - Preliminary Blood - Venous No growth after 48 hours. Assessment and Plan (1) Acute exacerbation of CHF (congestive heart failure): Status: Acute (2) Acute respiratory failure with hypoxia: Status: Acute (3) Cellulitis: Status: Acute (4) Fracture of ulnar styloid: Status: Acute (5) Distal radial fracture: Status: Acute (6) Closed fracture of left inferior pubic ramus: Status: Acute (7) Closed fracture of superior ramus of left pubis: Status: Acute Plan 81yo F with severe aortic stenosis, HFpEF [grade 2 diastolic dysfunction], HTN, HLD< hypothyroidism, osteoporosis, chronic venous stasis dermatitis presenting after mechanical fall and found to have left superior + inferior pubic rami fractures as well as fractures of left distal radius and ulnar styolid admitted with hypoxia due to CHF # acute/chronic HFpEF- appears euvolemic, clinically resolved # moderate aortic stenosis-no lightheadedness - continue IV diuresis, monitor lytes + I/Os -Cardiology will continue following with plan to change to PO diuretics -Echo 11/30 showing hyperdynamic systolic fx with EF >70%, moderate aortic stenosis, diastolic fx indeterminate, no regional wall abnormality. - Tn-I mild elevation, likely due to CHF, not ACS - continue atenolol + lisinopril -I&O -1415 in 24 hr # atypical chest pain -reporting left-sided chest pain which seems pleuritic in nature but is not reproducible to palpation -EKG and troponin ordered. Low suspicion for ACS -likely musculoskeletal secondary to fall # acute hypoxic respiratory failure secondary to CHF - wean O2 as tolerated # cellulitis- improving - vancomycin d#4 # left distal radius + ulnar styloid fracture - Ortho consulted, plan ORIF, needs preop Cardiology evaluation -ORIF scheduled for Saturday # HTN - atenolol + lisinopril # HLD - statin # hypothyroidism - LT4 # osteoporosis - Ca/vit D/bisphosphonate # VTE ppx: LMWH In my clinical judgment, the patient requires continued hospitalization for the following reasons: IV diuresis, oxygen, ORIF Quality Stroke Does the patient have a stroke diagnosis?: No VTE Prior VTE?: No VTE Risk Level:: Medical - moderate - high VTE Device Contraindication: Treatment Not Indicated VTE Drug Contraindication: N/A - Med Ordered
--- NOTE | 2021-12-02 09:22 | ECG_ITS ---
Test Reason : chest pain Blood Pressure : / mmHG Vent. Rate : 072 BPM Atrial Rate : 072 BPM P-R Int : 162 ms QRS Dur : 080 ms QT Int : 396 ms P-R-T Axes : 044 -07 -09 degrees QTc Int : 433 ms Normal sinus rhythm Nonspecific ST abnormality Abnormal ECG When compared with ECG of 29-NOV-2021 10:18, No significant change was found Referred By: Ananya Jeff Electronically Signed By:JAGDEEP KIMBROUGH MD
[2021-12-02] MEDS: atenoloL 25 MG TABLET PO (09:45)
[2021-12-02] MEDS: lisinopriL 5 MG TABLET PO (09:45)
[2021-12-02] MEDS: Triamcinolone Acet 0.1 % Oint 15 GM TUBE 1 APPL TOPICAL ×2 (09:45→23:12)
[2021-12-02] MEDS: Calcium + Vitamin D 250 MG TABLET 500 MG PO (09:45)
[2021-12-02] MEDS: Furosemide 40 MG/4 ML VIAL IVPUSH (09:45)
[2021-12-02] MEDS: 0.9 % Sodium Chloride Flush 3 ML SYRINGE IVFLUSH ×3 (09:45→23:12)
[2021-12-02 10:45] LABS: Troponin-I High Sensitivity 10.5 ng/L (<3.5-17.0)
[2021-12-02] MEDS: Enoxaparin Sodium 30 MG/0.3 ML SYRINGE SUBCUT (15:57)
[2021-12-02 16:28] LABS: Vancomycin Trough 15.8 mcg/mL (10.0-20.0)
[2021-12-02] MEDS: vancomycin HCL 500 MG in 0.9 % Sodium Chloride 100 ML 110 MG IV (18:50)
[2021-12-02] MEDS: Atorvastatin Calcium 10 MG TABLET PO (23:11)
[2021-12-02] MEDS: Melatonin 3 MG TABLET 6 MG PO (23:11)
[2021-12-03 04:00] VITALS: BP 115/67; PULSE 65; RESP 14; TEMP 36.9; O2SAT 94
[2021-12-03] MEDS: Levothyroxine Sodium 75 MCG TABLET PO (06:45)
[2021-12-03 07:45] LABS: Creatinine Clr Calc Pharmacy 33.8; Estimated Glomerular Filt Rate 51
[2021-12-03 08:00] VITALS: BP 143/48; PULSE 62; RESP 18; TEMP 36.9; O2SAT 96
[2021-12-03] MEDS: lisinopriL 5 MG TABLET PO (09:19)
[2021-12-03] MEDS: Calcium + Vitamin D 250 MG TABLET 500 MG PO (09:19)
[2021-12-03] MEDS: 0.9 % Sodium Chloride Flush 3 ML SYRINGE IVFLUSH ×3 (09:19→21:32)
[2021-12-03] MEDS: Triamcinolone Acet 0.1 % Oint 15 GM TUBE 1 APPL TOPICAL ×2 (09:20→21:37)
[2021-12-03] MEDS: Furosemide 40 MG/4 ML VIAL IVPUSH (09:20)
[2021-12-03] MEDS: atenoloL 25 MG TABLET PO (09:20)
--- NOTE | 2021-12-03 11:14 | P.PNIM_ITS ---
Subjective Subjective Date of Service: 12/03/21 Interval History: No significant nursing events overnight. Patient maintaining normal oxygen saturation on room air. Not in respiratory distress. Left lower extremity cellulitis improving. Review of Systems All 13 review of systems are negative except as noted in HPI Physical Exam Vital Signs: Vital Signs: Last Vital Signs Temp 98.4 F 12/03/21 08:00 Pulse 62 12/03/21 08:00 Resp 18 12/03/21 08:00 BP 143/48 H 12/03/21 08:00 Pulse Ox 96 12/03/21 08:00 O2 Del Method 12/03/21 08:00 O2 Flow Rate 2 12/03/21 04:00 FiO2 95 12/02/21 19:27 BMI result Body Mass Index 23.4 Elderly female lying in bed in no distress Neck supple, no JVD Regular rate and rhythm, S1-S2 heard Regular breath sounds bilaterally, no wheezing or crackles appreciated Abdomen soft nontender, no guarding, no rigidity Patient is awake, alert and oriented to self, place, time and person ; no focal motor deficit Skin: Left foot with shallow scabbed ulceration without drainage, scant erythema Psych: Normal mood No pedal edema Objective Data Active Medications Acetaminophen (Acetaminophen 325 Mg Tablet) 650 mg PO Q6H PRN PRN Reason: Pain, Mild (Pain Scale 1-3) Last Admin: 11/30/21 20:42 Dose: 650 mg Documented By: ANGE Atenolol (Atenolol 25 Mg Tablet) 25 mg PO DAILY COUNT INCLUDES THE [facility]; Protocol Last Admin: 12/03/21 09:20 Dose: 25 mg Documented By: NELLIE Atorvastatin Calcium (Atorvastatin Calcium 10 Mg Tablet) 10 mg PO BEDTIME COUNT INCLUDES THE [facility] Last Admin: 12/02/21 23:11 Dose: 10 mg Documented By: ELIZABETH Calcium Carbonate/Cholecalciferol (Calcium + Vitamin D 250 Mg Tablet) 500 mg PO DAILY COUNT INCLUDES THE [facility] Last Admin: 12/03/21 09:19 Dose: 500 mg Documented By: NELLIE Docusate Sodium (Docusate Sodium 100 Mg Capsule) 100 mg PO DAILY PRN PRN Reason: Constipation Last Admin: 12/01/21 09:14 Dose: 100 mg Documented By: BARB Enoxaparin Sodium (Enoxaparin Sodium 30 Mg/0.3 Ml Syringe) 30 mg SUBCUT Q24H COUNT INCLUDES THE [facility] Last Admin: 12/02/21 15:57 Dose: 30 mg Documented By: CK Furosemide (Furosemide 40 Mg/4 Ml Vial) 40 mg IVPUSH DAILY COUNT INCLUDES THE [facility]; Protocol Last Admin: 12/03/21 09:20 Dose: 40 mg Documented By: NELLIE Vancomycin HCl 500 mg/ Sodium (Chloride) 110 mls @ 110 mls/hr IV Q24H COUNT INCLUDES THE [facility] Last Infusion: 12/02/21 20:07 Dose: 0 mls/hr Documented By: DEE Levothyroxine Sodium (Levothyroxine Sodium 75 Mcg Tablet) 75 mcg PO DAILY@0600 COUNT INCLUDES THE [facility] Last Admin: 12/03/21 06:45 Dose: 75 mcg Documented By: LAURA Lisinopril (Lisinopril 5 Mg Tablet) 5 mg PO DAILY COUNT INCLUDES THE [facility]; Protocol Last Admin: 12/03/21 09:19 Dose: 5 mg Documented By: NELLIE Melatonin (Melatonin 3 Mg Tablet) 6 mg PO BEDTIME COUNT INCLUDES THE [facility] Last Admin: 12/02/21 23:11 Dose: 6 mg Documented By: ELIZABETH Ondansetron HCl (Ondansetron Hcl 4 Mg/2 Ml Vial) 4 mg IVPUSH Q8H PRN PRN Reason: Nausea and Vomiting Oxycodone HCl (Oxycodone Hcl Immed Release 5 Mg Tablet) 2.5 mg PO Q6H PRN PRN Reason: Pain, Moderate (Pain Scale 4-6 Last Admin: 11/29/21 18:42 Dose: 2.5 mg Documented By: LYNNE Oxycodone HCl (Oxycodone Hcl Immed Release 5 Mg Tablet) 2.5 mg PO Q6H PRN PRN Reason: Pain, Moderate (Pain Scale 4-6 Oxycodone HCl (Oxycodone Hcl Immed Release 5 Mg Tablet) 5 mg PO Q6H PRN PRN Reason: Pain, Severe (Pain Scale 7-10) Last Admin: 12/01/21 05:27 Dose: 5 mg Documented By: TONA Pharmacy Consult (Consult Rx Perform Med Rec) 1 each MISCELLANE ONCE PRN PRN Reason: Consult order Pharmacy Consult (Consult Rx Vancomycin Dosing) 1 each MISCELLANE DAILY PRN PRN Reason: Consult order Sodium Chloride (0.9 % Sodium Chloride Flush 3 Ml Syringe) 3 ml IVFLUSH QSHIFT COUNT INCLUDES THE [facility] Last Admin: 12/03/21 09:19 Dose: 3 ml Documented By: NELLIE Triamcinolone Acetonide (Triamcinolone Acet 0.1 % Oint 15 Gm Tube) 1 appl TOPICAL BID COUNT INCLUDES THE [facility] Last Admin: 12/03/21 09:20 Dose: 1 appl Documented By: NLELIE Labs CBC & Chem 7: 12/01/21 05:39 12/03/21 06:54 Labs: Laboratory Results - last 24 hr 12/02/21 12/03/21 15:57 06:54 Estim Creat Clear Calc 33.8 Estimated GFR 51 Vancomycin Trough 15.8 Assessment and Plan (1) Acute exacerbation of CHF (congestive heart failure): Status: Acute (2) Acute respiratory failure with hypoxia: Status: Acute (3) Distal radial fracture: Status: Acute (4) Essential hypertension: Status: Acute Plan 81yo F with severe aortic stenosis, HFpEF [grade 2 diastolic dysfunction], HTN, HLD< hypothyroidism, osteoporosis, chronic venous stasis dermatitis presenting after mechanical fall and found to have left superior + inferior pubic rami fractures as well as fractures of left distal radius and ulnar styolid admitted with hypoxia due to CHF # acute on chronic HFpEF- clinically resolved # moderate aortic stenosis-no lightheadedness - Will switch IV to PO lasix -Echo 11/30 showing hyperdynamic systolic fx with EF >70%, moderate aortic stenosis, diastolic fx indeterminate, no regional wall abnormality. - Tn-I mild elevation, likely demand, no concern for ACS - continue atenolol + lisinopril # acute hypoxic respiratory failure secondary to CHF - wean O2 as tolerated # cellulitis- improving - vancomycin d#5 # left distal radius + ulnar styloid fracture - Ortho consulted, plan ORIF, needs preop Cardiology evaluation -ORIF scheduled for Saturday,12/04 # HTN - atenolol + lisinopril # HLD - statin # hypothyroidism - LT4 # osteoporosis - Ca/vit D/bisphosphonate # VTE ppx: Hold LMWH in anticipation of surgery tomorrow In my clinical judgment, the patient requires continued hospitalization for the following reasons: ORIF Quality Stroke Does the patient have a stroke diagnosis?: No VTE Prior VTE?: No VTE Risk Level:: Medical - moderate - high VTE Device Contraindication: Treatment Not Indicated VTE Drug Contraindication: Treatment Not Indicated
[2021-12-03 11:21] VITALS: BP 134/57; PULSE 63; RESP 20; TEMP 37.5; O2SAT 97
--- NOTE | 2021-12-03 12:59 | PM.PNCARD ---
Subjective Subjective Date of Service: 12/03/21 Interval history: Seen and examined at bedside. Clinically stable. Waiting for surgery tomorrow. Physical Exam Vital Signs: Last Vital Signs Temp 99.5 F 12/03/21 11:21 Pulse 63 12/03/21 11:21 Resp 20 12/03/21 11:21 BP 134/57 L 12/03/21 11:21 Pulse Ox 97 12/03/21 11:21 O2 Del Method 12/03/21 11:21 O2 Flow Rate 2 12/03/21 04:00 FiO2 95 12/02/21 19:27 BMI result Body Mass Index 23.4 GENERAL APPEARANCE: in no acute distress, pleasant. NECK: no carotid bruit, no obvious jugular venous distention. SKIN: no suspicious lesions, warm and dry. HEART: ejection systolic murmur aortic area with feeble 2nd heart sound, regular rate and rhythm. LUNGS: clear to auscultation bilaterally. ABDOMEN: soft, nontender. EXTREMITIES: no edema. left hand currently in crepe bandage. PERIPHERAL PULSES: equal. NEUROLOGIC: No gross deficits, AAO X 3 Objective Labs and Meds Result diagrams: 12/01/21 05:39 12/03/21 06:54 Lab results: Laboratory Results - last 24 hr 12/02/21 12/03/21 15:57 06:54 Creatinine 1.04 Estim Creat Clear Calc 33.8 Estimated GFR 51 Vancomycin Trough 15.8 Progress Note: A&P Assessment and plan (1) Preop cardiovascular exam: Status: Acute (2) Acute exacerbation of CHF (congestive heart failure): Status: Acute Plan 81-year-old female with fracture of the ulnar styloid and distal radius. She needs surgery. She has moderate aortic valve stenosis. She had clinical heart failure on which in and has improved and is euvolemic right now. Has been transitioned to p.o. diuretics. Can proceed with surgery with intermediate risk for perioperative cardiovascular complications. If there is any changes status then please reach out to us. Signing off for now. Thank you for allowing me to participate in the care of your patient. Please feel free to contact me if you have any questions. Time Spent With Patient Time: Total time spent is greater than 50% in coordination of care (as documented) at patient's floor/unit and/or counseling patient: Progress Note: Quality Stroke Does the patient have a stroke diagnosis?: No Procedures Date of Service Date of Service: 12/03/21
[2021-12-03 15:30] VITALS: BP 142/66; PULSE 65; RESP 19; TEMP 37.4
[2021-12-03] MEDS: vancomycin HCL 500 MG in 0.9 % Sodium Chloride 100 ML 110 MG IV (17:53)
[2021-12-03] MEDS: oxyCODONE HCl Immed Release 5 MG TABLET PO (21:32)
[2021-12-03] MEDS: Atorvastatin Calcium 10 MG TABLET PO (21:32)
[2021-12-03] MEDS: Melatonin 3 MG TABLET 6 MG PO (21:32)
[2021-12-04] VITALS (13 sets, daily range): BP systolic 101–154; BP diastolic 41–65; PULSE 61–77; RESP 16–20; TEMP 35.8–37.3; O2SAT 93–99
[2021-12-04 07:07] LABS: MANUAL DIFF FLAG NO
[2021-12-04 07:24] LABS: Basophils Percent Auto 0.4 % (0-2); Eosinophils Absolute Auto 0.3 X10*3/uL (0.0-0.4); Hematocrit 33.5 % (37.0-47.0); Hemoglobin 10.8 g/dl (12.0-16.0); Imm Gran Abs Auto 0.04 X10*3/uL (0.00-0.03); Imm Gran Pct Auto 0.6 % (0.0-0.4); Lymphocytes Absolute Auto 2.8 X10*3/uL (1.2-4.9); Lymphocytes Percent Auto 39.3 % (20-40); Mean Corpuscular HGB Conc 32.2 g/dl (31.0-35.0); Mean Corpuscular Hemoglobin 27.8 pg (27.0-33.0); Mean Corpuscular Volume 86.3 fL (80.0-98.0); Mean Platelet Volume 9.7 fL (9.4-12.3); Neutrophils Absolute Auto 2.9 x10*3/uL (2.0-8.3); Neutrophils Percent Auto 41.7 % (45-73); Platelet Count 369 X10*3/uL (160-400); Red Blood Count 3.88 X10*6/uL (4.20-5.50); Red Cell Distribution Width 14.4 % (11.0-16.0)
[2021-12-04 07:46] LABS: Anion Gap 16 (12-20); Blood Urea Nitrogen 27 mg/dL (9-16); Calcium 8.9 mg/dL (8.4-10.2); Carbon Dioxide 30 mmol/L (22-29); Chloride 90 mmol/L (96-108); Estimated Glomerular Filt Rate 41; Glucose Random 89 mg/dL (60-115); Potassium 4.3 mmol/L (3.3-5.1); Sodium 132 mmol/L (135-145)
[2021-12-04] MEDS: 0.9 % Sodium Chloride Flush 3 ML SYRINGE IVFLUSH ×3 (07:49→21:52)
[2021-12-04] MEDS: Triamcinolone Acet 0.1 % Oint 15 GM TUBE 1 APPL TOPICAL (07:49)
[2021-12-04 07:50] LABS: Creatinine Clr Calc Pharmacy 28.9; Estimated Glomerular Filt Rate 42
--- NOTE | 2021-12-04 11:02 | P.PNIM_ITS ---
Subjective Subjective Date of Service: 12/04/21 Interval History: Seen in follow-up for left distal radius No pain. She is planned for surgery today. no signs or symptoms of heart failu re Review of Systems no hip pain no sob Physical Exam Vital Signs: Vital Signs: Last Vital Signs Temp 97.6 F 12/04/21 08:00 Pulse 66 12/04/21 08:00 Resp 18 12/04/21 08:00 BP 104/52 L 12/04/21 08:00 Pulse Ox 96 12/04/21 08:00 O2 Del Method 12/04/21 08:00 O2 Flow Rate 2 12/03/21 04:00 FiO2 94 12/03/21 15:30 BMI result Body Mass Index 23.4 Objective Data Active Medications Acetaminophen (Acetaminophen 325 Mg Tablet) 650 mg PO Q6H PRN PRN Reason: Pain, Mild (Pain Scale 1-3) Last Admin: 11/30/21 20:42 Dose: 650 mg Documented By: ANGE Atenolol (Atenolol 25 Mg Tablet) 25 mg PO DAILY [facility]; Protocol Last Admin: 12/04/21 09:01 Dose: Not Given Documented By: MOE Non-Admin Reason: NPO Atorvastatin Calcium (Atorvastatin Calcium 10 Mg Tablet) 10 mg PO BEDTIME DELMAR Last Admin: 12/03/21 21:32 Dose: 10 mg Documented By: ANGE Calcium Carbonate/Cholecalciferol (Calcium + Vitamin D 250 Mg Tablet) 500 mg PO DAILY DELMAR Last Admin: 12/04/21 09:01 Dose: Not Given Documented By: MOE Non-Admin Reason: NPO Docusate Sodium (Docusate Sodium 100 Mg Capsule) 100 mg PO DAILY PRN PRN Reason: Constipation Last Admin: 12/01/21 09:14 Dose: 100 mg Documented By: BARB Furosemide (Furosemide 40 Mg Tablet) 40 mg PO DAILY [facility]; Protocol Last Admin: 12/04/21 09:01 Dose: Not Given Documented By: MOE Non-Admin Reason: NPO Vancomycin HCl 500 mg/ Sodium (Chloride) 110 mls @ 110 mls/hr IV Q24H [facility] Last Infusion: 12/03/21 20:10 Dose: 0 mls/hr Documented By: ANGE Levothyroxine Sodium (Levothyroxine Sodium 75 Mcg Tablet) 75 mcg PO DAILY@0600 [facility] Last Admin: 12/04/21 05:55 Dose: Not Given Documented By: ANGE Non-Admin Reason: NPO Lisinopril (Lisinopril 5 Mg Tablet) 5 mg PO DAILY [facility]; Protocol Last Admin: 12/04/21 09:01 Dose: Not Given Documented By: MOE Non-Admin Reason: NPO Melatonin (Melatonin 3 Mg Tablet) 6 mg PO BEDTIME [facility] Last Admin: 12/03/21 21:32 Dose: 6 mg Documented By: ANGE Ondansetron HCl (Ondansetron Hcl 4 Mg/2 Ml Vial) 4 mg IVPUSH Q8H PRN PRN Reason: Nausea and Vomiting Oxycodone HCl (Oxycodone Hcl Immed Release 5 Mg Tablet) 2.5 mg PO Q6H PRN PRN Reason: Pain, Moderate (Pain Scale 4-6 Oxycodone HCl (Oxycodone Hcl Immed Release 5 Mg Tablet) 5 mg PO Q6H PRN PRN Reason: Pain, Severe (Pain Scale 7-10) Last Admin: 12/03/21 21:32 Dose: 5 mg Documented By: ANGE Pharmacy Consult (Consult Rx Perform Med Rec) 1 each MISCELLANE ONCE PRN PRN Reason: Consult order Pharmacy Consult (Consult Rx Vancomycin Dosing) 1 each MISCELLANE DAILY PRN PRN Reason: Consult order Sodium Chloride (0.9 % Sodium Chloride Flush 3 Ml Syringe) 3 ml IVFLUSH QSHIFT [facility] Last Admin: 12/04/21 07:49 Dose: 3 ml Documented By: MOE Triamcinolone Acetonide (Triamcinolone Acet 0.1 % Oint 15 Gm Tube) 1 appl TOPICAL BID [facility] Last Admin: 12/04/21 07:49 Dose: 1 appl Documented By: MOE Labs CBC & Chem 7: 12/04/21 06:48 12/04/21 06:48 Labs: Laboratory Results - last 24 hr 12/04/21 12/04/21 12/04/21 06:48 06:48 06:48 MCV 86.3 MCH 27.8 MCHC 32.2 RDW 14.4 Plt Count 369 MPV 9.7 Immature Gran % (Auto) 0.6 H Neut % (Auto) 41.7 L Lymph % (Auto) 39.3 [place] % (Auto) 14.0 H Eos % (Auto) 4.0 Baso % (Auto) 0.4 Lymph # (Auto) 2.8 [place] # (Auto) 1.0 Eos # (Auto) 0.3 Baso # (Auto) 0.0 Abs Immat Gran (auto) 0.04 H Absolute Neuts (auto) 2.9 Absolute Nucleated RBC 0.000 Nucleated RBC % (auto) 0.0 Anion Gap 16 Estim Creat Clear Calc 28.9 28.0 Estimated GFR 42 41 Random Glucose 89 Calcium 8.9 Assessment and Plan (1) Acute exacerbation of CHF (congestive heart failure): Status: Acute (2) Acute respiratory failure with hypoxia: Status: Acute (3) Distal radial fracture: Status: Acute (4) Essential hypertension: Status: Acute Plan 81yo F with severe aortic stenosis, HFpEF [grade 2 diastolic dysfunction], HTN, HLD< hypothyroidism, osteoporosis, chronic venous stasis dermatitis presenting after mechanical fall and found to have left superior + inferior pubic rami fractures as well as fractures of left distal radius and ulnar styolid admitted with hypoxia due to CHF # acute on chronic HFpEF- clinically resolved # moderate aortic stenosis-no lightheadedness - PO lasix -Echo 11/30 showing hyperdynamic systolic fx with EF >70%, moderate aortic stenosis, diastolic fx indeterminate, no regional wall abnormality. - Tn-I mild elevation, likely demand, no concern for ACS - continue atenolol + lisinopril -Can proceed with surgery with intermediate risk for perioperative cardiovascular complications.? # acute hypoxic respiratory failure secondary to CHF--euvolemic -off o2 # cellulitis- improving - vancomycin d#6, DC Vanco # left distal radius + ulnar styloid fracture - Ortho consulted, plan ORIF, needs preop Cardiology evaluation -ORIF scheduled for Saturday,12/04 # HTN - atenolol + lisinopril # HLD - statin # hypothyroidism - LT4 # osteoporosis - Ca/vit D/bisphosphonate # VTE ppx: Hold LMWH in anticipation of surgery today In my clinical judgment, the patient requires continued hospitalization for the following reasons: ORIF Quality Stroke Does the patient have a stroke diagnosis?: No VTE Prior VTE?: No VTE Risk Level:: Medical - moderate - high VTE Device Contraindication: Treatment Not Indicated VTE Drug Contraindication: Treatment Not Indicated
[2021-12-04 16:44] LABS: Vancomycin Random 14.3 mcg/mL (15-20)
--- NOTE | 2021-12-04 17:44 | P.OP_ITS ---
Operative Note Operative Note Date of Service: 12/04/21 Narrative: Operative Note Narrative: Preop diagnosis: 1. Left Distal radius fracture Postop diagnosis: Same Procedure: 1. Left Distal radius fracture open reduction internal fixation Surgeon: Josefina Torres MD Anesthesia: General anesthesia plus regional block Findings: Very distal distal radius fracture Implants: 0.062 K-wires x3 Tourniquet time: 44 minutes EBL: 5.0 ml Specimen: None Drains: None Complications: None Disposition: Brought to the recovery room in stable condition Plan: admit back to floor. Nonweightbearing left upper extremity Follow-up in 10-14 days for wound check, suture removal and postop radiographs The patient will be placed in either a short-arm cast Encouraged no lifting of anything heavier than a cell phone. Please encourage active and passive range of motion of the digits. Follow-up at 4-5 weeks postop for repeat radiographs. anticipate K-wire removal at this time. Indications: The patient is a 81 year old woman with a displaced left distal radius fracture . The risks and benefits of operative treatment, including but not limited to risk of damage to blood vessels, nerves, tendons, infection, recurrence, persistent pain or numbness, incomplete resolution of preoperative symptoms, or need for further surgery were discussed with the patient and they wished to proceed with surgery. Procedure: Once consent was obtained patient was brought back to the operating suite and placed in the operating table in a supine position. A regional block was performed by the anesthesia team. Perioperative antibiotics and anesthesia was administered by the anesthesia team. A tourniquet was applied to the proximal aspect of the left upper extremity and the limb was prepped and draped in a standard surgical fashion. The limb was elevated exsanguinated with Esmarch bandage and the tourniquet inflated to 250 mm of mercury for a total tourniquet time of [ ] minutes. The FluoroScan was used throughout the case to assess our reduction, and facilitate implant placement. A gentle closed reduction was 1st performed on the patient's left distal radius fracture. Was assessed radiographically before proceeding with the reduction internal fixation. I then made an 8 cm longitudinal incision over the distal aspect of the flexor carpi radialis tendon. The incision was made through the skin to the subcutaneous tissue using a 15. Blade. Then carefully dissected down to flexor carpi radialis tendon she tenotomy scissors. The FCR tendon sheath was then incised longitudinally using tenotomy scissors under direct visualization. The FCR tendon was then retracted ulnarly. I then made a longitudinal incision in the volar forearm fascia through the floor of FCR tendon sheath using tenotomy scissors under direct visualization. I identified the interval between the radial artery and the flexor tendons. This interval was developed further with my index finger, releasing some of the muscular fibers of the flexor pollicis longus. A dull weatlander retractor was then placed. I then created an ulnarly based flap of the pronator quadratus by releasing the radial and distal edges using a 15. Blade. A Martinez elevator was used to elevate the pronator quadratus from the volar surface of the distal radius. This then revealed to us our distal radius fracture. An open reduction was then performed on our distal radius fracture. At this point I felt that the fracture line was so distal, that a volar locking plate would likely not be the best choice. I then placed 20.062 K-wires through the radial styloid advancing retrograde and obliquely across the fracture site and into the ulnar cortex of the radial shaft. I then placed a 3rd 0.062 K-wire through the dorsal ulnar aspect of the distal radius at the lunate facet angling obliquely and retrograde across the fracture site and exiting at the volar radial aspect of the radial shaft. I was satisfied with our reduction and placement of these implants. Final radiographs were then obtained. The DRUJ was assessed and found to be stable on exam. I was satisfied with our reduction and placement of all implants. At this point the wound was irrigated with normal saline. The tourniquet was then deflated and hemostasis was obtained with a brief period of local pressure and bipolar monopolar electrocautery. The subcutaneous layer was then r eapproximated using some 4-0 Vicryl suture, and the skin edges were reapproximated using some 5 0 Prolene suture. The wound was then infiltrated with some 1% lidocaine with epinephrine postop pain control. A sterile dressing and a short Volar splint allowing for active flexion and extension of the digits was applied. The patient appears to have tolerated the procedure well and with no complications. All digits were well vascularized conclusion of the case.
--- NOTE | 2021-12-04 17:48 | HE.PHANOTE ---
VANCOMYCIN DOSING Patients level came back this afternoon at 14.3 mg/L. Patient is shy of goal. Patients Scr is up today at 1.26 from 1.04 yesterday. Patients Crcl is 28 ml/min, using caution with frequency of doses due to poor clearance. Patients predicted AUC if dose was left at Q24h would be 384 mg/L/hr, dose must be changed to reach goal. Changed frequency from 24H to 18H. Predicted AUC now 499 mg/L/hr. Pharmacy will monitor renal function daily. PAtients next level will be drawn at 12/06 @0600. Dosing was pushed back by 2 hours today to allow level to be drawn during pharmacy hours.
--- NOTE | 2021-12-04 17:58 | MHC.SHP ---
Pre-Procedural Eval Section A Date of Service: 12/04/21 The patient is an INPATIENT: Yes Changes since office visit: No Cold of Flu in the past 2 weeks, No New Medical Problems, No Changes in Medication and No Patient answered all questions The History & Physical has been completed within 30 days and I have reviewed it.: No Section B Chief Complaint: left distal radius fracture Allergies: Allergies Allergy/AdvReac Type Severity Reaction Status Date / Time No Known Allergies Allergy Verified 07/05/21 14:30 Exam Exam Comment: the patient is in a left sugar-tong splint. Sensation intact to the tips of all digits on the left and she is rather easily bring her fingers closed towards a fist and back into extension she is comfortable at the bedside. Cap refill brisk radiographs three views of the left wrist show a left distal radius fracture with about 50 degrees of dorsal tilt on the lateral view, as well as significant shortening Plan assessment and plan: 1. Left displaced distal radius fracture The risks and benefits of operative treatment were discussed with the patient and the patient wishes to proceed with surgery. These risks include, but are not limited to risk of damage to blood vessels, nerves, tendons, infection, recurrence, incomplete relief of preoperative symptoms, persistent pain, possible need for further surgery and the risks associated with regional blocks and anesthesia. The plan is to take the patient to the operating room today for the following procedures: 1. left distal radius fracture open reduction internal fixation All of the preoperative paperwork including the consent was filled out today. All the patient's questions were answered. I have reviewed the history and physical and performed a pertinent physical examination on my patient. No changes have occurred unless specified.
--- NOTE | 2021-12-04 18:08 | HO.ANESPROP2 ---
HPI - Anesthesia Eval Consult details Narrative: left radius fracture PMFSH Active Problems Active Problems: All Active Problems (Updated 12/01/21 @ 12:05 by HUONG Townsend) Preop cardiovascular exam (Acute) Acute exacerbation of CHF (congestive heart failure) (Acute) Acute respiratory failure with hypoxia (Acute Unknown) Cellulitis (Acute) Fracture of ulnar styloid (Acute) Distal radial fracture (Acute) Closed fracture of left inferior pubic ramus (Acute) Closed fracture of superior ramus of left pubis (Acute) Chronic venous stasis dermatitis (Acute) Essential hypertension (Acute) Past Medical History Medical History Diastolic dysfunction Essential hypertension Hyperlipidemia Hypothyroidism Non-rheumatic aortic stenosis Family History Family History Father No problems noted. Mother No problems noted. Family history of problems with anesthesia: No Surgical History Surgical History No pertinent past surgical history History of Problems with Anesthesia: No Social History Social History Household Members: Spouse Housing: House Do you presently have visiting nurse or other home services: No Alcohol intake: never Patient Tobacco Use Status: Never used Tobacco e-Cigarette/Vaping Use: Never Used Meds Allergies Allergy/AdvReac Type Severity Reaction Status Date / Time No Known Allergies Allergy Verified 07/05/21 14:30 Active Medications: Current Medications Acetaminophen (Acetaminophen 325 Mg Tablet) 650 mg PO Q6H PRN PRN Reason: Pain, Mild (Pain Scale 1-3) Last Admin: 11/30/21 20:42 Dose: 650 mg Atenolol (Atenolol 25 Mg Tablet) 25 mg PO DAILY [facility]; Protocol Last Admin: 12/04/21 09:01 Dose: Not Given Atorvastatin Calcium (Atorvastatin Calcium 10 Mg Tablet) 10 mg PO BEDTIME [facility] Last Admin: 12/03/21 21:32 Dose: 10 mg Calcium Carbonate/Cholecalciferol (Calcium + Vitamin D 250 Mg Tablet) 500 mg PO DAILY [facility] Last Admin: 12/04/21 09:01 Dose: Not Given Docusate Sodium (Docusate Sodium 100 Mg Capsule) 100 mg PO DAILY PRN PRN Reason: Constipation Last Admin: 12/01/21 09:14 Dose: 100 mg Furosemide (Furosemide 40 Mg Tablet) 40 mg PO DAILY [facility]; Protocol Last Admin: 12/04/21 09:01 Dose: Not Given Vancomycin HCl 500 mg/ Sodium (Chloride) 110 mls @ 110 mls/hr IV Q18H [facility] Levothyroxine Sodium (Levothyroxine Sodium 75 Mcg Tablet) 75 mcg PO DAILY@0600 [facility] Last Admin: 12/04/21 05:55 Dose: Not Given Lisinopril (Lisinopril 5 Mg Tablet) 5 mg PO DAILY [facility]; Protocol Last Admin: 12/04/21 09:01 Dose: Not Given Melatonin (Melatonin 3 Mg Tablet) 6 mg PO BEDTIME [facility] Last Admin: 12/03/21 21:32 Dose: 6 mg Ondansetron HCl (Ondansetron Hcl 4 Mg/2 Ml Vial) 4 mg IVPUSH Q8H PRN PRN Reason: Nausea and Vomiting Pharmacy Consult (Consult Rx Perform Med Rec) 1 each MISCELLANE ONCE PRN PRN Reason: Consult order Pharmacy Consult (Consult Rx Vancomycin Dosing) 1 each MISCELLANE DAILY PRN PRN Reason: Consult order Sodium Chloride (0.9 % Sodium Chloride Flush 3 Ml Syringe) 3 ml IVFLUSH QSHIFT [facility] Last Admin: 12/04/21 17:29 Dose: 3 ml Triamcinolone Acetonide (Triamcinolone Acet 0.1 % Oint 15 Gm Tube) 1 appl TOPICAL BID [facility] Last Admin: 12/04/21 07:49 Dose: 1 appl Home Medications Medication Instructions Recorded Confirmed Last Taken Type alendronate 70 mg tablet 70 mg PO PIÑA@0600 01/10/21 11/28/21 Unknown History atenolol 25 mg tablet 25 mg PO DAILY 01/10/21 11/28/21 11/28/21 History levothyroxine 75 mcg tablet 75 mcg PO DAILY 01/10/21 11/28/21 11/28/21 History lisinopril 5 mg tablet 5 mg PO DAILY 01/10/21 11/28/21 11/28/21 History simvastatin 20 mg tablet 20 mg PO BEDTIME 01/10/21 11/28/21 11/27/21 History calcium carbonate 500 mg-vitamin 2 tab PO DAILY 11/28/21 11/28/21 Unknown History D3 10 mcg (400 unit) tablet (Calcium 500 + D) Exam Exam Date and Time: December 04, 2021 180 Height,Weight and Vital Signs: Height 5 ft 3 in Weight 60 kg Last Vital Signs Temp 97.7 F 12/04/21 18:04 Pulse 77 12/04/21 18:04 Resp 20 12/04/21 18:04 BP 153/54 H 12/04/21 18:04 Pulse Ox 99 12/04/21 18:04 O2 Del Method 12/04/21 18:04 O2 Flow Rate 2 12/03/21 04:00 FiO2 94 12/03/21 15:30 Pertinent Lab Results Pertinent Lab Results: Laboratory Tests 11/28/21 11/28/21 11/28/21 15:54 15:54 15:54 WBC 7.8 RBC 4.00 L Hgb 11.2 L Hct 34.3 L MCV 85.8 MCH 28.0 MCHC 32.7 RDW 14.6 Plt Count 348 D MPV 9.3 L Immature Gran % (Auto) 0.5 H Neut % (Auto) 71.3 Lymph % (Auto) 17.1 L [place] % (Auto) 9.8 Eos % (Auto) 0.9 Baso % (Auto) 0.4 Lymph # (Auto) 1.3 [place] # (Auto) 0.8 Eos # (Auto) 0.1 Baso # (Auto) 0.0 Abs Immat Gran (auto) 0.04 H Absolute Neuts (auto) 5.5 Absolute Nucleated RBC 0.000 Nucleated RBC % (auto) 0.0 PT INR Sodium 136 Potassium 4.9 Chloride 99 Carbon Dioxide 26 Anion Gap 16 BUN 18 H Creatinine 1.05 Estim Creat Clear Calc 33.6 Estimated GFR 50 Random Glucose 100 Lactic Acid Calcium 9.4 Magnesium 2.0 Total Bilirubin 1.0 Direct Bilirubin 0.4 AST 23 ALT 10 Alkaline Phosphatase 69 Total Creatine Kinase 113 Troponin I High Sens C-Reactive Protein 5.65 H B-Natriuretic Peptide 602 H Total Protein 6.6 Albumin 3.4 L Lipase 9 Urine Color Urine Appearance Urine pH Ur Specific [place] Urine Protein Urine Glucose (UA) Urine Ketones Urine Blood Urine Nitrite Ur Leukocyte Esterase Vancomycin Trough Random Vancomycin COVID-19 (JENNIFER) COVID-19 Clin Com Influenza Type A (FER) Influenza Type B (FER) Influenza A & B Note 11/28/21 11/28/2111/28/22 15:54 15:54 15:56 WBC RBC Hgb Hct MCV MCH MCHC RDW Plt Count MPV Immature Gran % (Auto) Neut % (Auto) Lymph % (Auto) [place] % (Auto) Eos % (Auto) Baso % (Auto) Lymph # (Auto) [place] # (Auto) Eos # (Auto) Baso # (Auto) Abs Immat Gran (auto) Absolute Neuts (auto) Absolute Nucleated RBC Nucleated RBC % (auto) PT 11.9 INR 1.0 Sodium Potassium Chloride Carbon Dioxide Anion Gap BUN Creatinine Estim Creat Clear Calc Estimated GFR Random Glucose Lactic Acid Calcium Magnesium Total Bilirubin Direct Bilirubin AST ALT Alkaline Phosphatase Total Creatine Kinase Troponin I High Sens 7.6 C-Reactive Protein B-Natriuretic Peptide Total Protein Albumin Lipase Urine Color Urine Appearance Urine pH Ur Specific [place] Urine Protein Urine Glucose (UA) Urine Ketones Urine Blood Urine Nitrite Ur Leukocyte Esterase Vancomycin Trough Random Vancomycin COVID-19 (JENNIFER) Negative COVID-19 Clin Com See Note Influenza Type A (FER) Influenza Type B (FER) Influenza A & B Note 11/28/21 11/29/21 11/29/21 16:12 09:27 09:27 WBC 7.4 RBC 3.42 L Hgb 9.6 L Hct 29.7 L MCV 86.8 MCH 28.1 MCHC 32.3 RDW 14.9 Plt Count 296 MPV 9.3 L Immature Gran % (Auto) 0.7 H Neut % (Auto) 73.8 H Lymph % (Auto) 14.2 L [place] % (Auto) 9.7 Eos % (Auto) 1.3 Baso % (Auto) 0.3 Lymph # (Auto) 1.1 L [place] # (Auto) 0.7 Eos # (Auto) 0.1 Baso # (Auto) 0.0 Abs Immat Gran (auto) 0.05 H Absolute Neuts (auto) 5.5 Absolute Nucleated RBC 0.000 Nucleated RBC % (auto) 0.0 PT INR Sodium 135 Potassium 4.4 Chloride 99 Carbon Dioxide 28 Anion Gap 12 BUN 21 H Creatinine 1.19 Estim Creat Clear Calc 29.6 Estimated GFR 43 Random Glucose 167 H Lactic Acid Calcium 8.5 D Magnesium 1.8 Total Bilirubin 0.8 Direct Bilirubin AST 18 ALT 8 Alkaline Phosphatase 63 Total Creatine Kinase Troponin I High Sens C-Reactive Protein B-Natriuretic Peptide Total Protein 5.8 L Albumin 3.0 L Lipase Urine Color Yellow Urine Appearance Clear Urine pH 7.5 Ur Specific [place] <= 1.005 Urine Protein Negative Urine Glucose (UA) Negative Urine Ketones Negative Urine Blood Negative Urine Nitrite Negative Ur Leukocyte Esterase Negative Vancomycin Trough Random Vancomycin COVID-19 (JENNIFER) COVID-19 Clin Com Influenza Type A (FER) Influenza Type B (FER) Influenza A & B Note 11/29/21 11/29/21 11/29/21 09:27 09:27 09:27 WBC RBC Hgb Hct MCV MCH MCHC RDW Plt Count MPV Immature Gran % (Auto) Neut % (Auto) Lymph % (Auto) [place] % (Auto) Eos % (Auto) Baso % (Auto) Lymph # (Auto) [place] # (Auto) Eos # (Auto) Baso # (Auto) Abs Immat Gran (auto) Absolute Neuts (auto) Absolute Nucleated RBC Nucleated RBC % (auto) PT INR Sodium Potassium Chloride Carbon Dioxide Anion Gap BUN Creatinine Estim Creat Clear Calc Estimated GFR Random Glucose Lactic Acid 1.3 Calcium Magnesium Total Bilirubin Direct Bilirubin AST ALT Alkaline Phosphatase Total Creatine Kinase Troponin I High Sens C-Reactive Protein B-Natriuretic Peptide Total Protein Albumin Lipase Urine Color Urine Appearance Urine pH Ur Specific [place] Urine Protein Urine Glucose (UA) Urine Ketones Urine Blood Urine Nitrite Ur Leukocyte Esterase Vancomycin Trough Random Vancomycin COVID-19 (JENNIFER) Negative COVID-19 Clin Com See Note Influenza Type A (FER) Cancelled Influenza Type B (FER) Cancelled Influenza A & B Note Cancelled 11/29/21 11/29/21 11/29/21 09:27 09:27 13:07 WBC RBC Hgb Hct MCV MCH MCHC RDW Plt Count MPV Immature Gran % (Auto) Neut % (Auto) Lymph % (Auto) [place] % (Auto) Eos % (Auto) Baso % (Auto) Lymph # (Auto) [place] # (Auto) Eos # (Auto) Baso # (Auto) Abs Immat Gran (auto) Absolute Neuts (auto) Absolute Nucleated RBC Nucleated RBC % (auto) PT INR Sodium Potassium Chloride Carbon Dioxide Anion Gap BUN Creatinine Estim Creat Clear Calc Estimated GFR Random Glucose Lactic Acid Calcium Magnesium Total Bilirubin Direct Bilirubin AST ALT Alkaline Phosphatase Total Creatine Kinase Troponin I High Sens 60.4 H* D 55.0 H* C-Reactive Protein B-Natriuretic Peptide 848 H Total Protein Albumin Lipase Urine Color Urine Appearance Urine pH Ur Specific [place] Urine Protein Urine Glucose (UA) Urine Ketones Urine Blood Urine Nitrite Ur Leukocyte Esterase Vancomycin Trough Random Vancomycin COVID-19 (JENNIFER) COVID-19 Clin Com Influenza Type A (FER) Influenza Type B (FER) Influenza A & B Note 11/30/21 11/30/21 12/01/21 05:40 05:40 05:39 WBC 6.4 RBC 3.38 L Hgb 9.6 L Hct 29.2 L MCV 86.4 MCH 28.4 MCHC 32.9 RDW 14.4 Plt Count 307 MPV 10.0 Immature Gran % (Auto) Neut % (Auto) Lymph % (Auto) [place] % (Auto) Eos % (Auto) Baso % (Auto) Lymph # (Auto) [place] # (Auto) Eos # (Auto) Baso # (Auto) Abs Immat Gran (auto) Absolute Neuts (auto) Absolute Nucleated RBC 0.000 Nucleated RBC % (auto) 0.0 PT INR Sodium 137 Potassium 4.4 Chloride 96 Carbon Dioxide 30 H Anion Gap 15 BUN 24 H Creatinine 1.15 Estim Creat Clear Calc 30.6 Estimated GFR 45 Random Glucose 93 Lactic Acid Calcium 8.5 Magnesium Total Bilirubin Direct Bilirubin AST ALT Alkaline Phosphatase Total Creatine Kinase Troponin I High Sens C-Reactive Protein B-Natriuretic Peptide 675 H Total Protein Albumin Lipase Urine Color Urine Appearance Urine pH Ur Specific [place] Urine Protein Urine Glucose (UA) Urine Ketones Urine Blood Urine Nitrite Ur Leukocyte Esterase Vancomycin Trough Random Vancomycin COVID-19 (JENNIFER) COVID-19 Clin Com Influenza Type A (FER) Influenza Type B (FER) Influenza A & B Note 12/01/21 12/01/21 12/01/21 05:39 05:39 15:46 WBC RBC Hgb Hct MCV MCH MCHC RDW Plt Count MPV Immature Gran % (Auto) Neut % (Auto) Lymph % (Auto) [place] % (Auto) Eos % (Auto) Baso % (Auto) Lymph # (Auto) [place] # (Auto) Eos # (Auto) Baso # (Auto) Abs Immat Gran (auto) Absolute Neuts (auto) Absolute Nucleated RBC Nucleated RBC % (auto) PT INR Sodium 133 L Potassium 4.1 Chloride 92 L Carbon Dioxide 31 H Anion Gap 14 BUN 20 H Creatinine 1.08 Estim Creat Clear Calc 32.6 Estimated GFR 48 Random Glucose 89 Lactic Acid Calcium 8.4 Magnesium 1.8 Total Bilirubin Direct Bilirubin AST ALT Alkaline Phosphatase Total Creatine Kinase Troponin I High Sens C-Reactive Protein B-Natriuretic Peptide 486 H Total Protein Albumin Lipase Urine Color Urine Appearance Urine pH Ur Specific [place] Urine Protein Urine Glucose (UA) Urine Ketones Urine Blood Urine Nitrite Ur Leukocyte Esterase Vancomycin Trough Random Vancomycin 13.1 L COVID-19 (JENNIFER) COVID-19 Clin Com Influenza Type A (FER) Influenza Type B (FER) Influenza A & B Note 12/02/21 12/02/21 12/02/21 06:05 09:31 15:57 WBC RBC Hgb Hct MCV MCH MCHC RDW Plt Count MPV Immature Gran % (Auto) Neut % (Auto) Lymph % (Auto) [place] % (Auto) Eos % (Auto) Baso % (Auto) Lymph # (Auto) [place] # (Auto) Eos # (Auto) Baso # (Auto) Abs Immat Gran (auto) Absolute Neuts (auto) Absolute Nucleated RBC Nucleated RBC % (auto) PT INR Sodium Potassium Chloride Carbon Dioxide Anion Gap BUN Creatinine 1.12 Estim Creat Clear Calc 31.5 Estimated GFR 46 Random Glucose Lactic Acid Calcium Magnesium Total Bilirubin Direct Bilirubin AST ALT Alkaline Phosphatase Total Creatine Kinase Troponin I High Sens 10.5 D C-Reactive Protein B-Natriuretic Peptide Total Protein Albumin Lipase Urine Color Urine Appearance Urine pH Ur Specific [place] Urine Protein Urine Glucose (UA) Urine Ketones Urine Blood Urine Nitrite Ur Leukocyte Esterase Vancomycin Trough 15.8 Random Vancomycin COVID-19 (JENNIFER) COVID-19 Clin Com Influenza Type A (FER) Influenza Type B (FER) Influenza A & B Note 12/03/21 12/04/21 12/04/21 06:54 06:48 06:48 WBC 7.0 RBC 3.88 L Hgb 10.8 L Hct 33.5 L MCV 86.3 MCH 27.8 MCHC 32.2 RDW 14.4 Plt Count 369 MPV 9.7 Immature Gran % (Auto) 0.6 H Neut % (Auto) 41.7 L Lymph % (Auto) 39.3 [place] % (Auto) 14.0 H Eos % (Auto) 4.0 Baso % (Auto) 0.4 Lymph # (Auto) 2.8 [place] # (Auto) 1.0 Eos # (Auto) 0.3 Baso # (Auto) 0.0 Abs Immat Gran (auto) 0.04 H Absolute Neuts (auto) 2.9 Absolute Nucleated RBC 0.000 Nucleated RBC % (auto) 0.0 PT INR Sodium Potassium Chloride Carbon Dioxide Anion Gap BUN Creatinine 1.04 1.22 Estim Creat Clear Calc 33.8 28.9 Estimated GFR 51 42 Random Glucose Lactic Acid Calcium Magnesium Total Bilirubin Direct Bilirubin AST ALT Alkaline Phosphatase Total Creatine Kinase Troponin I High Sens C-Reactive Protein B-Natriuretic Peptide Total Protein Albumin Lipase Urine Color Urine Appearance Urine pH Ur Specific [place] Urine Protein Urine Glucose (UA) Urine Ketones Urine Blood Urine Nitrite Ur Leukocyte Esterase Vancomycin Trough Random Vancomycin COVID-19 (JENNIFER) COVID-19 Clin Com Influenza Type A (FER) Influenza Type B (FER) Influenza A & B Note 12/04/21 12/04/21 06:48 16:05 WBC RBC Hgb Hct MCV MCH MCHC RDW Plt Count MPV Immature Gran % (Auto) Neut % (Auto) Lymph % (Auto) [place] % (Auto) Eos % (Auto) Baso % (Auto) Lymph # (Auto) [place] # (Auto) Eos # (Auto) Baso # (Auto) Abs Immat Gran (auto) Absolute Neuts (auto) Absolute Nucleated RBC Nucleated RBC % (auto) PT INR Sodium 132 L Potassium 4.3 Chloride 90 L Carbon Dioxide 30 H Anion Gap 16 BUN 27 H Creatinine 1.26 Estim Creat Clear Calc 28.0 Estimated GFR 41 Random Glucose 89 Lactic Acid Calcium 8.9 Magnesium Total Bilirubin Direct Bilirubin AST ALT Alkaline Phosphatase Total Creatine Kinase Troponin I High Sens C-Reactive Protein B-Natriuretic Peptide Total Protein Albumin Lipase Urine Color Urine Appearance Urine pH Ur Specific [place] Urine Protein Urine Glucose (UA) Urine Ketones Urine Blood Urine Nitrite Ur Leukocyte Esterase Vancomycin Trough Random Vancomycin 14.3 L COVID-19 (JENNIFER) COVID-19 Clin Com Influenza Type A (FER) Influenza Type B (FER) Influenza A & B Note Airway Mallampati Class: II TM Dist: >3cm Loose/Missing/Broken Teeth: No Heart: RRR Lungs: CTA Assessment and Plan Assessment Anesthesia Assessment: Anesthesia Plan Discussed and Chart Reviewed Final Anesthetic Review Family History of Problems with Anesthesia: No History of Problems with Anesthesia: No NPO: Yes ASA Class: III Final Preanesthetic Review: No Changes in Pt Med Stat, Meds/Allgs Chart Reviewed, Consent Obtained/Reviewed and Anes Risks/Benef Reviewed Patient Risk: Intermediate Procedure Risk: Intermediate Anesthetic Plan Anesthetic Plan: MAC: and Regional Block Disposition: Standard PACU
[2021-12-04] MEDS: ceFAZolin Sodium/Dextrose,Iso 2 GM/50 ML PIGGYBACK IV (19:17)
[2021-12-04] MEDS: vancomycin HCL 500 MG in 0.9 % Sodium Chloride 100 ML 110 MG IV (21:51)
[2021-12-04] MEDS: Atorvastatin Calcium 10 MG TABLET PO (21:52)
[2021-12-04] MEDS: Melatonin 3 MG TABLET 6 MG PO (21:52)
--- NOTE | 2021-12-04 23:42 | PC.NURSE ---
Received patient from [facility] at approx 2114. Patient in good spirits. Vitals stable. Denies pain. Patient left hand warm, dressing intact on left arm, arm in sling. Patient reports not being able to feel anything in left arm - from nerve block (per [facility]). Patient repositioned in bed, linens changed. Purewick put back in place.
[2021-12-05] MEDS: HYDROcodone Bit/Acetam 5/325 TABLET 2 TAB PO ×3 (00:57→22:12)
[2021-12-05 03:50] VITALS: BP 141/52; PULSE 74; RESP 16; TEMP 37.2; O2SAT 96
[2021-12-05] MEDS: Levothyroxine Sodium 75 MCG TABLET PO (06:12)
[2021-12-05 06:20] LABS: Creatinine Clr Calc Pharmacy 31.5; Estimated Glomerular Filt Rate 46
[2021-12-05 07:15] VITALS: BP 105/49; PULSE 69; RESP 18; TEMP 36.6; O2SAT 98
[2021-12-05] MEDS: lisinopriL 5 MG TABLET PO (08:18)
[2021-12-05] MEDS: atenoloL 25 MG TABLET PO (08:19)
[2021-12-05] MEDS: Furosemide 40 MG TABLET PO (08:19)
[2021-12-05] MEDS: Calcium + Vitamin D 250 MG TABLET 500 MG PO (08:19)
[2021-12-05] MEDS: Docusate Sodium 100 MG CAPSULE PO (10:32)
[2021-12-05] MEDS: 0.9 % Sodium Chloride Flush 3 ML SYRINGE IVFLUSH ×3 (10:34→23:49)
[2021-12-05] MEDS: Triamcinolone Acet 0.1 % Oint 15 GM TUBE 1 APPL TOPICAL ×2 (10:34→22:14)
--- NOTE | 2021-12-05 11:18 | HO.PM.IMPN ---
Subjective Subjective Date of Service: 12/05/21 Interval History: Seen in follow-up for left distal radius No pain. had surgery yesterday, has some pain but control with med Review of Systems no hip pain no sob Physical Exam Vital Signs: Vital Signs: Last Vital Signs Temp 98 F 12/05/21 07:15 Pulse 69 12/05/21 07:15 Resp 18 12/05/21 07:15 BP 105/49 L 12/05/21 07:15 Pulse Ox 98 12/05/21 07:15 O2 Del Method 12/05/21 07:15 O2 Flow Rate 2 12/03/21 04:00 FiO2 94 12/03/21 15:30 BMI result Body Mass Index 23.4 Objective Data Active Medications Acetaminophen (Acetaminophen 325 Mg Tablet) 650 mg PO Q6H PRN PRN Reason: Pain, Mild (Pain Scale 1-3) Last Admin: 11/30/21 20:42 Dose: 650 mg Documented By: ANGE Hydrocodone Bitart/Acetaminophen (Hydrocodone Bit/Acetam 5/325 Tablet) 2 tab PO Q6H PRN PRN Reason: Pain, Moderate (Pain Scale 4-6 Last Admin: 12/05/21 10:32 Dose: 2 tab Documented By: RICHELLE Atenolol (Atenolol 25 Mg Tablet) 25 mg PO DAILY [facility]; Protocol Last Admin: 12/05/21 08:19 Dose: 25 mg Documented By: REBECCA Atorvastatin Calcium (Atorvastatin Calcium 10 Mg Tablet) 10 mg PO BEDTIME [facility] Last Admin: 12/04/21 21:52 Dose: 10 mg Documented By: BRYON Calcium Carbonate/Cholecalciferol (Calcium + Vitamin D 250 Mg Tablet) 500 mg PO DAILY [facility] Last Admin: 12/05/21 08:19 Dose: 500 mg Documented By: REBECCA Docusate Sodium (Docusate Sodium 100 Mg Capsule) 100 mg PO DAILY PRN PRN Reason: Constipation Last Admin: 12/05/21 10:32 Dose: 100 mg Documented By: RICHELLE Furosemide (Furosemide 40 Mg Tablet) 40 mg PO DAILY [facility]; Protocol Last Admin: 12/05/21 08:19 Dose: 40 mg Documented By: REBECCA Vancomycin HCl 500 mg/ Sodium (Chloride) 110 mls @ 110 mls/hr IV Q18H [facility] Last Infusion: 12/04/21 23:09 Dose: 0 mls/hr Documented By: BRYON Levothyroxine Sodium (Levothyroxine Sodium 75 Mcg Tablet) 75 mcg PO DAILY@0600 [facility] Last Admin: 12/05/21 06:12 Dose: 75 mcg Documented By: KOTA Lisinopril (Lisinopril 5 Mg Tablet) 5 mg PO DAILY [facility]; Protocol Last Admin: 12/05/21 08:18 Dose: 5 mg Documented By: REBECCA Magnesium Hydroxide (Milk Of Magnesia 30 Ml Oral.Susp) 30 ml PO DAILY PRN PRN Reason: Constipation Melatonin (Melatonin 3 Mg Tablet) 6 mg PO BEDTIME [facility] Last Admin: 12/04/21 21:52 Dose: 6 mg Documented By: BRYON Ondansetron HCl (Ondansetron Hcl 4 Mg/2 Ml Vial) 4 mg IVPUSH Q8H PRN PRN Reason: Nausea and Vomiting Pharmacy Consult (Consult Rx Perform Med Rec) 1 each MISCELLANE ONCE PRN PRN Reason: Consult order Pharmacy Consult (Consult Rx Vancomycin Dosing) 1 each MISCELLANE DAILY PRN PRN Reason: Consult order Polyethylene Glycol (Polyethylene Glycol 3350 17 Gm Powd.Pack) 17 gm PO DAILY PRN PRN Reason: Constipation Sodium Biphosphate/Sodium Phosphate (Sodium Phosphate,[place]-Dibasic 133 Ml Enema) 133 ml VT ONCE PRN PRN Reason: Constipation Sodium Chloride (0.9 % Sodium Chloride Flush 3 Ml Syringe) 3 ml IVFLUSH QSHIFT [facility] Last Admin: 12/05/21 10:34 Dose: 3 ml Documented By: RICHELLE Triamcinolone Acetonide (Triamcinolone Acet 0.1 % Oint 15 Gm Tube) 1 appl TOPICAL BID [facility] Last Admin: 12/05/21 10:34 Dose: 1 appl Documented By: RICHELLE Labs CBC & Chem 7: 12/04/21 06:48 12/05/21 05:24 Labs: Laboratory Results - last 24 hr 12/04/21 12/05/21 16:05 05:24 Estim Creat Clear Calc 31.5 Estimated GFR 46 Random Vancomycin 14.3 L Microbiology Microbiology Results: Microbiology 11/29/21 09:27 Blood Culture - Final Blood - Venous No growth after 5 days. 11/29/21 09:27 Blood Culture - Final Blood - Venous No growth after 5 days. Assessment and Plan (1) Acute exacerbation of CHF (congestive heart failure): Status: Acute (2) Acute respiratory failure with hypoxia: Status: Acute (3) Distal radial fracture: Status: Acute (4) Essential hypertension: Status: Acute Plan 81yo F with severe aortic stenosis, HFpEF [grade 2 diastolic dysfunction], HTN, HLD< hypothyroidism, osteoporosis, chronic venous stasis dermatitis presenting after mechanical fall and found to have left superior + inferior pubic rami fractures as well as fractures of left distal radius and ulnar styolid admitted with hypoxia due to CHF # acute on chronic HFpEF- clinically resolved # moderate aortic stenosis-no lightheadedness - PO lasix -Echo 11/30 showing hyperdynamic systolic fx with EF >70%, moderate aortic stenosis, diastolic fx indeterminate, no regional wall abnormality. - Tn-I mild elevation, likely demand, no concern for ACS - continue atenolol + lisinopril # acute hypoxic respiratory failure secondary to CHF--euvolemic -off o2 # cellulitis- improving - vancomycin d#6, DC Vanco # left distal radius + ulnar styloid fracture - Ortho consulted, s/p ORIF on 12/04 -post op instruction by surgery # HTN - atenolol + lisinopril # HLD - statin # hypothyroidism - LT4 # osteoporosis - Ca/vit D/bisphosphonate # VTE ppx: Hold LMWH in anticipation of surgery today need for admission: post op care Quality Stroke Does the patient have a stroke diagnosis?: No VTE Prior VTE?: No VTE Risk Level:: Medical - moderate - high VTE Device Contraindication: Treatment Not Indicated VTE Drug Contraindication: Treatment Not Indicated
[2021-12-05 11:20] VITALS: BP 111/52; PULSE 72; RESP 17; TEMP 36.6; O2SAT 97
[2021-12-05] MEDS: polyethylene glycoL 3350 17 GM POWD.PACK PO (13:59)
[2021-12-05] MEDS: vancomycin HCL 500 MG in 0.9 % Sodium Chloride 100 ML 110 MG IV (13:59)
[2021-12-05 15:54] VITALS: BP 129/59; PULSE 64; RESP 17; TEMP 36.1; O2SAT 97
[2021-12-05 18:44] VITALS: BP 115/58; PULSE 73; RESP 17; TEMP 36.2; O2SAT 96
[2021-12-05] MEDS: Melatonin 3 MG TABLET 6 MG PO (22:13)
[2021-12-05] MEDS: Atorvastatin Calcium 10 MG TABLET PO (22:13)
[2021-12-05 23:44] VITALS: BP 94/50; PULSE 66; RESP 18; TEMP 36.5; O2SAT 96
[2021-12-06 03:45] VITALS: BP 106/53; PULSE 67; RESP 20; TEMP 37.1; O2SAT 93
[2021-12-06] MEDS: Levothyroxine Sodium 75 MCG TABLET PO (06:13)
[2021-12-06 06:15] LABS: Creatinine Clr Calc Pharmacy 31.7; Estimated Glomerular Filt Rate 47
--- NOTE | 2021-12-06 06:49 | HE.PHANOTE ---
RE: vanco Changing dose to 750 mg Q24H with predicted AUC 497mg/L; next level to be drawn after two doses 12/08/21 @1200. Will continue to monitor renal and adjust as necessary
[2021-12-06 07:27] VITALS: BP 116/60; PULSE 64; RESP 20; TEMP 36.8; O2SAT 96
[2021-12-06] MEDS: atenoloL 25 MG TABLET PO (08:45)
[2021-12-06] MEDS: Furosemide 40 MG TABLET PO (08:45)
[2021-12-06] MEDS: Calcium + Vitamin D 250 MG TABLET 500 MG PO (08:45)
[2021-12-06] MEDS: Acetaminophen 325 MG TABLET 650 MG PO (08:45)
[2021-12-06] MEDS: Milk of Magnesia 30 ML ORAL.SUSP PO (08:53)
[2021-12-06] MEDS: 0.9 % Sodium Chloride Flush 3 ML SYRINGE IVFLUSH (10:04)
[2021-12-06] MEDS: lisinopriL 5 MG TABLET PO (10:04)
[2021-12-06 11:16] VITALS: BP 109/52; PULSE 68; RESP 18; TEMP 36.8; O2SAT 94
--- NOTE | 2021-12-06 11:50 | P.DS_ITS ---
DS: Providers Provider Date of Service: 12/06/21 Date of admission: 11/29/21 14:09 Primary care physician: Shiva Fierro MD Consults: 11/29/21 15:07 Consult to Orthopedics Routine Consulting Provider: Juli Thakur Reason for consultation: distal radius and ulnar styloid fx, left pubic rami fx 11/30/21 09:05 Consult to Cardiology Stat Consulting Provider: [facility] Cardiovascular Services Reason for consultation: CHF, grade II diastolic dysfunction, severe . Pending planning wrist surg DS: Diagnosis Discharge Diagnosis (1) Acute exacerbation of CHF (congestive heart failure): Status: Acute (2) Acute respiratory failure with hypoxia: Status: Acute (3) Distal radial fracture: Status: Acute (4) Essential hypertension: Status: Acute DS: Summary Hospital Course Hospital Course: Admission HPI 81-year-old female with history with history htn, hld, hypothyroidism, severe aortic stenosis, chronic venous stasis dermatitis, osteoporosis, and grade II diastolic dysfunction on echo 07/02 presented to the ED yesterday afternoon after sustaining an accidental fall after turning too quickly. She fell on her buttocks/back/left wrist. Denies head injury or LOC. Was on the ground for 15 minutes. She lives at home with her who has vascular dementia and Parkinsons and is currently admitted. She is not on any blood thinners. Head CT head cervical spine CT are without acute abnormality including hemorrhage, fracture, or subluxation. Chest CT shows chronic compression deformities, no acute abnormality. Abd/pelvis CT shows fractures of left superior and inferior pubic rami, no other acute intraabdominal abnormality. Xray hand/wrist showed impacted intra-articular distal radial metaphyseal fx with dorsal angulation and displacement distal fragment. She was placed in sugartong splint. BNP yesterday was 602, trop-I 7.6. EKG NSR no ST/T wave abnormality. Was also noted to have cellulitis LLE with purulent drainage. Started on doxy and keflex. Hematology studies unremarkable. Creat 1.05, BUN 18. This am developed hypoxia to 83% and was placed on 2L NC with improvement to 97% oximetry. CTA chest was negative for PE, but showed tiny right-sided pleural effusion. BNP increaesd to 848, trop-I 60.4. Denied sob, orthopnea, PND, palpitations, or chest pain. Given 40mg IV lasix. TO be admitted for CHF.? Hospital course: She presented with an accidental fall and found to have acute hypoxic respiratory failure due to Heart failure, pelvic fracture and, left distal radius + ulnar styloid fracture, and Cellulitis of LLE with purulent drainage Problems: # Acute on chronic HFpEF- Initially treated with IV Lasix and is clinically resolved and patient is maintainace oral Lasix -Echo 11/30 showing hyperdynamic systolic fx with EF >70%, moderate aortic stenosis, diastolic fx indeterminate, no regional wall abnormality. - Tn-I mild elevation, likely demand, no concern for ACS - continue atenolol + lisinopril # moderate aortic stenosis-Stable -Chronic venous stasis dermatitis bilaterally with shallow ulcerations LLE weeping purulent drainage -No leukocytosis. Hemodynamically stable. No sepsis. Blood cultures have been negative. -Received keflex and doxy in ED.Treated in the hospital with IV vanco due to purulent drainage for MRSA coverage and has been treated for total of 7 days, will treat with Oral Doxy for 3 more days # acute hypoxic respiratory failure secondary to CHF--resolved once once heart failure was treated # left distal radius + ulnar styloid fracture - Ortho consulted,? s/p ORIF on 12/04 -post op instruction by surgery # HTN - atenolol + lisinopril # HLD - statin # hypothyroidism - LT4 # osteoporosis - Ca/vit D/bisphosphonate #constipation--given bowel regimen Time Spent with Patient Time attestation: Total time spent providing and/or coordinating discharge services: Discharge coordination time: Greater than 30 minutes Quality: Safe Use of Opioids Does Pt have an Active Cancer Diagnosis on the Problem List?: No Quality: Stroke Does the patient have a stroke diagnosis?: No Physical Exam Vital Signs: Vital Signs: Last Vital Signs Temp 98.3 F 12/06/21 11:16 Pulse 68 12/06/21 11:16 Resp 18 12/06/21 11:16 BP 109/52 L 12/06/21 11:16 Pulse Ox 94 12/06/21 11:16 O2 Del Method 12/06/21 11:16 O2 Flow Rate 2 12/03/21 04:00 FiO2 94 12/03/21 15:30 BMI result Body Mass Index 23.4 DS: Data Data Completed and Pending Labs on day of discharge: Laboratory Results - last 24 hr 12/06/21 12/06/21 05:30 05:30 Creatinine 1.11 Estim Creat Clear Calc 31.7 Estimated GFR 47 Random Vancomycin 14.0 L Discharge Plan Discharge Anticipated Discharge Date/Time: 12/06/21 13:39 Patient Disposition: Xfer SNF Discharge Diagnosis: CHF, radial fracture, pelvic fracture Referrals: Shiva Fierro MD [Primary Care Provider] - 1 Week Josefina Torres MD [Physician] - 1 Week (12/19/21 12:15 [facility] Josefina Torres MD PO LT distal Radius Fc ORIFvs.CRIF 12/04AR) Discharge Medications: New furosemide 40 mg Tablet 40 mg PO DAILY Qty: 30 0RF Protocol: Hold for SBP< HOLD for SBP < : 90 polyethylene glycol 3350 17 gram Powder In Packet 17 g PO DAILY PRN (Reason: Constipation) Qty: 30 0RF hydrocodone-acetaminophen 5-325 mg Tablet 2 tab PO Q6H PRN (Reason: Pain, Moderate (Pain Scale 4-6) Qty: 16 0RF Rx Instructions: Partial Fill upon patient request. melatonin 3 mg Tablet 6 mg PO BEDTIME PRN (Reason: sleep) Qty: 30 0RF magnesium hydroxide [Milk of Magnesia] 400 mg/5 mL Suspension 30 ml PO DAILY PRN (Reason: Constipation) Qty: 100 0RF docusate sodium 100 mg Capsule 100 mg PO DAILY PRN (Reason: Constipation) Qty: 30 0RF doxycycline hyclate 100 mg tablet 100 mg PO BID 3 Days Qty: 6 0RF Continued calcium carbonate-vitamin D3 [Calcium 500 + D] 500 mg-10 mcg (400 unit) Tablet 2 tab PO DAILY levothyroxine 75 mcg tablet 75 mcg PO DAILY atenolol 25 mg tablet 25 mg PO DAILY lisinopril 5 mg tablet 5 mg PO DAILY simvastatin 20 mg tablet 20 mg PO BEDTIME alendronate 70 mg tablet 70 mg PO PIÑA@0600 Discharge Orders: Discharge Order (Routine); Ordered 12/06/21 Ordered By: Hardeep Wallis Diet: Advance to usual diet Activity on Discharge: As tolerated Stand Alone Forms: Patient Portal Discharge page Care Plan Goals: Full recovery from broken bones Health Concerns: chf Plan of Treatment: Keep left wrist splint clean dry and intact No weight bearing or lifting with left wrist F/u with ORthoepdics 12/19 @ 12:15 Assessment: See above
--- NOTE | 2021-12-06 12:13 | PM.PNORT ---
Subjective Subjective Date of Service: 12/06/21 Interval history: POD 2 Percutaneus pinning left distal radius no overnight events resting in bed with splint on Physical Exam Vital Signs: Vital Signs: Last Vital Signs Temp 98.3 F 12/06/21 11:16 Pulse 68 12/06/21 11:16 Resp 18 12/06/21 11:16 BP 109/52 L 12/06/21 11:16 Pulse Ox 94 12/06/21 11:16 O2 Del Method 12/06/21 11:16 O2 Flow Rate 2 12/03/21 04:00 FiO2 94 12/03/21 15:30 BMI result Body Mass Index 23.4 Extrem: Other: .Left wrist splint clean dry and intact, she is able to move all digits, pulses and sensation intact. Procedures Date of Service Date of Service: 12/06/21 Progress Note: A&P Assessment and plan (1) Distal radial fracture: Status: Acute (2) Fracture of ulnar styloid: Status: Acute Assessment and Plan: continue splint -elevate and no lifting with left arm. f/u 12/[address] Lopez at 12:15 Time Spent With Patient Time: Total time spent is greater than 50% in coordination of care (as documented) at patient's floor/unit and/or counseling patient: Quality Stroke Does the patient have a stroke diagnosis?: No VTE Prior VTE?: No VTE Risk Level:: Medical - moderate - high VTE Device Contraindication: Treatment Not Indicated VTE Drug Contraindication: Treatment Not Indicated
[2021-12-06 13:04] LABS: COVID-19 Test Negative (Negative); IDNOW Serial# 16C4AD1C
--- NOTE | 2021-12-06 14:09 | MHC.CM.PN ---
Addendum entered by Christina Fontenot 12/06/21 14:49: PT MEDICALLY CLEARED FOR DC TO [facility] Original Note: IMM DELIVERED PER MD ROUNDS, PT TO DC TODAY TO [facility] FOR [facility]. PT IS IN AGREEMENT WITH THE PLAN. BLS BOOKED FOR 3: 30 PM WITH DEL. RN AWARE.
== END 2021-12-06 15:43 | disposition skilled nursing facility (03) | DRG 981 ==
LOC: HO.ED 11-29 12:11 → HO.EDOVER 11-29 14:23 → HO.IMC 11-29 15:37
PROVIDERS: Family Medicine; Nurse Practitioner Family; Orthopaedic Surgery; Student in an Organized Health Care Education/Training Program; Admitting Provider Physician Assistant; Emergency Provider Emergency Medicine; PCP Internal Medicine; Visit Provider Internal Medicine
PROC: 0PSJ04Z Reposition Left Radius with Internal Fixation Device, Open Approach (ICD-10-PCS; principal; 2021-12-04 16:30)
DX: I11.0 Hypertensive heart disease with heart failure (principal); I50.33 Acute on chronic diastolic (congestive) heart failure; J96.01 Acute respiratory failure with hypoxia; S52.612A Displaced fracture of left ulna styloid process, initial encounter for closed fracture; S32.512A Fracture of superior rim of left pubis, initial encounter for closed fracture; L03.116 Cellulitis of left lower limb; I87.332 Chronic venous hypertension (idiopathic) with ulcer and inflammation of left lower extremity; S52.502A Unspecified fracture of the lower end of left radius, initial encounter for closed fracture; E03.9 Hypothyroidism, unspecified; M81.0 Age-related osteoporosis without current pathological fracture; I35.0 Nonrheumatic aortic (valve) stenosis; L97.529 Non-pressure chronic ulcer of other part of left foot with unspecified severity; W19.XXXA Unspecified fall, initial encounter; E78.5 Hyperlipidemia, unspecified; Z20.822 Contact with and (suspected) exposure to COVID-19; Z79.83 Long term (current) use of bisphosphonates; Z79.899 Other long term (current) drug therapy
CPT/HCPCS: 36415; 70450; 71250; 71275; 72125; 73110; 73130; 74176; 80048; 80053; 80076; 80202; 81003; 82550; 82565; 83605; 83690; 83735; 83880; 84484; 85025; 85027; 85610; 86140; 87040; 87635; 93005; 93306; 97110; 97162; 97530; 99285; J0295; J0690; J1650; J1940; J2795; J3370; Q9967

== ENCOUNTER 2021-12-18 10:48 | Outpatient (REF) | payer OTHER, MEDICARE, SELFPAY ==
--- NOTE | ~2021-12-18 | XR_ITS ---
EXAMINATION: XR WRIST, LEFT CLINICAL INFORMATION: Left wrist pain. COMPARISON: Left wrist radiographs dated 11/28/2021. TECHNIQUE: PA, lateral, and oblique views of the left wrist. FINDINGS: The patient is status post distal radial ORIF with [address] showing overall good anatomic alignment without hardware abnormality. There is mild positive ulnar variance with widening of the distal radial ulnar joint. Mildly displaced ulnar styloid fracture. Mild widening of the scapholunate joint space. The carpal bones are otherwise normally aligned. Moderate first carpal metacarpal degenerative joint changes. Mild soft tissue swelling. XR/XR wrist LT min 3V IMPRESSION: 1. Overall good anatomic alignment without hardware abnormality. 2. Mildly displaced ulnar styloid fracture. 3. Mild widening of the distal radial ulnar joint and scapholunate joint space likely sequelae of this injury. 4. Moderate first carpometacarpal osteoarthritis.
== END 2021-12-18 10:49 | disposition home or self-care (01) ==
LOC: HO.HOSX 10:48
PROVIDERS: Visit Provider Orthopaedic Surgery
DX: M25.532 Pain in left wrist (principal)
CPT/HCPCS: 73110

== ENCOUNTER → 2021-12-19 12:20 | Outpatient (BNVA) | payer MEDICARE, SELFPAY | PROVIDERS: PCP Internal Medicine; Visit Provider Orthopaedic Surgery | DX: S52.502D Unspecified fracture of the lower end of left radius, subsequent encounter for closed fracture with routine healing (principal) | CPT/HCPCS: 99212 ==

== ENCOUNTER 2022-01-08 11:13 | Outpatient (REF) | payer MEDICARE, SELFPAY ==
--- NOTE | ~2022-01-08 | XR_ITS ---
EXAMINATION: XR WRIST, LEFT CLINICAL INFORMATION: Pain in left wrist COMPARISON: 12/19/2021 TECHNIQUE: PA, lateral, and oblique views of the left wrist. FINDINGS: There is stable alignment in the 3 K wires across the comminuted, displaced and impacted distal radius fracture. There is evidence of bony healing. Stable alignment in the ulnar styloid fracture. There is mild positive ulnar variance again noted at the distal radial ulnar joint. Similar widening of the scapholunate interval. Moderate to severe degenerative change at the first carpometacarpal joint. XR/XR wrist LT min 3V IMPRESSION: 1. Stable alignment of the comminuted, impacted and displaced distal radius fracture. There is evidence of bony healing. 2. Stable alignment of the ulnar styloid fracture. 3. Stable widening of the scapholunate interval.
== END 2022-01-08 11:14 | disposition home or self-care (01) ==
LOC: HO.HOSX 11:13
PROVIDERS: Visit Provider Orthopaedic Surgery
DX: M25.532 Pain in left wrist (principal)
CPT/HCPCS: 73110; 99212

== ENCOUNTER → 2022-01-09 14:34 | Outpatient (BNVA) | payer MEDICARE, SELFPAY | PROVIDERS: PCP Internal Medicine; Visit Provider Orthopaedic Surgery | DX: S52.502D Unspecified fracture of the lower end of left radius, subsequent encounter for closed fracture with routine healing (principal) | CPT/HCPCS: 99212 ==

== ENCOUNTER 2022-02-07 14:15 | Outpatient (REF) | payer MEDICARE, SELFPAY ==
[2022-02-07 16:04] LABS: MANUAL DIFF FLAG NO
[2022-02-07 17:02] LABS: Basophils Percent Auto 0.4 % (0-2); Eosinophils Absolute Auto 0.2 X10*3/uL (0.0-0.4); Eosinophils Percent Auto 2.4 % (0-4); Hematocrit 31.9 % (37.0-47.0); Hemoglobin 10.4 g/dl (12.0-16.0); Imm Gran Abs Auto 0.01 X10*3/uL (0.00-0.03); Imm Gran Pct Auto 0.1 % (0.0-0.4); Lymphocytes Absolute Auto 3.4 X10*3/uL (1.2-4.9); Lymphocytes Percent Auto 51.3 % (20-40); Mean Corpuscular HGB Conc 32.6 g/dl (31.0-35.0); Mean Corpuscular Hemoglobin 28.4 pg (27.0-33.0); Mean Corpuscular Volume 87.2 fL (80.0-98.0); Mean Platelet Volume 10.2 fL (9.4-12.3); Monocytes Absolute Auto 0.7 X10*3/uL (0.1-1.2); Monocytes Percent Auto 10.6 % (2-11); Neutrophils Absolute Auto 2.3 x10*3/uL (2.0-8.3); Neutrophils Percent Auto 35.2 % (45-73); Platelet Count 253 X10*3/uL (160-400); Red Blood Count 3.66 X10*6/uL (4.20-5.50); Red Cell Distribution Width 14.8 % (11.0-16.0); White Blood Count 6.7 X10*3/uL (4.8-10.8)
[2022-02-07 17:57] LABS: Alanine Aminotransferase 6 U/L (0-31); Albumin Level 3.8 g/dL (3.5-5.0); Alkaline Phosphatase 88 U/L (39-117); Anion Gap 12 (12-20); Aspartate Amino Transferase 20 U/L (5-31); Bilirubin Total 0.4 mg/dL (0.0-1.0); Blood Urea Nitrogen 20 mg/dL (9-16); Calcium 9.2 mg/dL (8.4-10.2); Carbon Dioxide 30 mmol/L (22-29); Chloride 96 mmol/L (96-108); Estimated Glomerular Filt Rate 48; Glucose Random 81 mg/dL (60-115); Iron 52 mcg/dL (30-160); Percent Iron Saturation 20 % (15-50); Potassium 4.8 mmol/L (3.3-5.1); Sodium 133 mmol/L (135-145); Thyroid Stimulating Hormone 1.79 uIU/mL (0.32-4.0); Total Iron Binding Capacity 256 mcg/dL (228-428); Total Protein 7.1 g/dL (6.5-8.0); Unsaturated Iron Binding 204 ug/dL; Vitamin D 25-OH Total 28.9 ng/mL (>30)
== END 2022-02-07 14:16 | disposition home or self-care (01) ==
LOC: HO.LAB 14:15
PROVIDERS: PCP Internal Medicine; Visit Provider Internal Medicine
DX: I13.0 Hypertensive heart and chronic kidney disease with heart failure and stage 1 through stage 4 chronic kidney disease, or unspecified chronic kidney disease (principal); I50.9 Heart failure, unspecified; N18.9 Chronic kidney disease, unspecified; D64.9 Anemia, unspecified; E03.9 Hypothyroidism, unspecified; S52.502D Unspecified fracture of the lower end of left radius, subsequent encounter for closed fracture with routine healing; R20.0 Anesthesia of skin
CPT/HCPCS: 36415; 80053; 82306; 83540; 84439; 84443; 85025; 99212

== ENCOUNTER → 2022-05-21 14:00 | Outpatient (REF) | payer MEDICARE, SELFPAY ==
--- NOTE | 2022-05-21 14:04 | CA_ITS ---
Transthoracic Echocardiogram Patient (Last, First, Middle): Celsa Rios, Gender: Female Date of : 1940 Age: 82 Procedure Date: 05/21/2022 Procedure Type: Transthoracic Echocardiogram Location: OP Height: 160.02 cm Weight: 58.97 kg BSA: 1.61 m2 Heart Rate: 69 bpm BP: 180 / 78 mmHg Bosom Presser: SB Referring MD: Fabian Osullivan MD Transport Coordinator: Guille Pereira MD Symptoms: I35.0 - Nonrheumatic aortic (valve) stenosis Study Quality: Adequate ECG Rhythm: Sinus Conclusions: - 1. Normal LV systolic function with pseudonormal filling pattern 2. Mildly dilated left atrium 3. Moderate to severe aortic stenosis been mean gradient of 24 mm of Hg 4. Moderate mitral calcification with mild mitral regurgitation 5. Normal RV systolic pressure 6. No gross pericardial effusion Findings Left Ventricle Normal left ventricular size, thickness, and systolic function. The visually estimated ejection fraction is between 65-70%. Spectral Doppler is indicative of a pseudonormal filling pattern. There is mild septal asymmetric hypertrophy. Right Ventricle Normal right ventricular cavity size and systolic function. Atria The left atrium is mildly dilated. There is no evidence of interatrial shunt. The right atrium is normal in size. Aortic Valve There is moderate calcification of the aortic valve. There is moderate thickening of the aortic valve. There is moderate to severe aortic valve stenosis. The peak aortic gradient is 38 mmHg.The mean gradient is 24 mmHg. The aortic valve area is 0.89 cm2. There is no aortic valve regurgitation. Mitral Valve There is moderate anterior and posterior mitral leaflet thickening. There is moderate mitral annular calcification. There is mild mitral valve regurgitation. There is no mitral valve stenosis. Pulmonic Valve The pulmonic valve was not well visualized. Tricuspid Valve Likely normal tricuspid valve structure and function. There is mild tricuspid valve regurgitation. The right ventricular systolic pressure is normal. The right ventricular systolic pressure is 25 mmHg. Normal right atrial pressure. There is no evidence of pulmonary hypertension. Great Vessels All visible segments of the aorta are normal in size. The pulmonary artery was not well visualized. Venous The inferior vena cava is normal in size and collapses greater than 50% with inspiration. Pericardium/Pleural There is no evidence of pericardial effusion. Prior Study Comparison Changes noted compared to prior study dated: 11/30/2021. aortic stenosis is worse Measurements 2D Linear Measurements IVSd: 1.23 0.6-0.9/0.6-1.0 cm LVIDd: 4.72 3.9-5.3/4.2-5.9 cm LVIDd Index: 2.93 2.4-3.2/2.2-3.1 cm/m2 LVIDs: 3.33 2.0-3.6 cm LVPWd: 0.81 0.7-1.1 cm LA Diam: 4.10 2.7-3.8/3.0-4.0 cm LAIDs Index: 2.55 1.5-2.3 cm/m2 LV Mass: 211.77 67-162/88-224 g LV Mass Index: 131.53 43-95/49-115 g/m2 LVOT Diam: 2.00 3.0+(-)1.3 cm 2D Systolic Function EF 4C: 61.50 >55% EF 2C: 75.50 >55% EF BiP: 68.80 >55% Mitral Valve MV Pk E: 1.24 MV PK A: 1.00 MV Decel Time: 203.00 E/A: 1.20 E'Lateral: 6.39 E'Medial: 6.25 E/E' Med: 19.80 E/E' Lat: 19.40 PHT: 59.00 MVA PHT: 3.73 Decel [place]: 6.13 Aortic Valve AoV Pk Luis: 3.10 AoV Mn Luis: 2.31 AoV VTI: 0.81 AoV Pk Grad: 38.00 Aov Mn Grad: 24.00 RITO Cont.VTI: 0.89 AI Pk Luis: 4.05 AI [place]: 3.40 LVOT LVOT Pk Luis: 0.89 LVOT Mn Luis: 0.63 LVOT VTI: 0.23 LVOT Pk Grad: 3.00 LVOT Mn Grad: 2.00 LVOT Diam: 2.00 LVOT Area: 3.14 Diastolic Function MV Pk E: 1.24 MV Pk A: 1.00 E/A: 1.20 E'Medial: 6.25 E/E' Med: 19.80 E' Laterial: 6.39 E/E' Lat: 19.40 Right Ventricle TAPSE (mm): 21.70 TVS' Luis: 17.00 Tricuspid Valve TR Pk Luis: 2.33 TR Pk Grad: 22.00 RA Press: 3.00 RVSP: 25.00 Great Vessels Aorta Sinus of Valsalva: 3.20 2.0-3.5 cm Ao Asc: 3.40 2.1-3.4 cm Pulmonary Valve PV Pk Luis: 1.12 Peak PV Grad: 5.00 Updated in Other Vendor System with Status of Final Guille Pereira MD electronically signed on 05/22/2022 12:21:14 PM with status of Final
== END ==
LOC: HO.CARD 14:00
PROVIDERS: PCP Internal Medicine; Visit Provider Internal Medicine
DX: I35.0 Nonrheumatic aortic (valve) stenosis (principal)
CPT/HCPCS: 93306

== ENCOUNTER 2022-06-05 09:04 | Outpatient (REF) | payer MEDICARE, SELFPAY ==
[2022-06-05 10:42] LABS: MANUAL DIFF FLAG NO
[2022-06-05 10:49] LABS: Basophils Percent Auto 0.5 % (0-2); Eosinophils Absolute Auto 0.1 X10*3/uL (0.0-0.4); Eosinophils Percent Auto 2.3 % (0-4); Hematocrit 34.9 % (37.0-47.0); Hemoglobin 11.4 g/dl (12.0-16.0); Imm Gran Abs Auto 0.01 X10*3/uL (0.00-0.03); Imm Gran Pct Auto 0.2 % (0.0-0.4); Lymphocytes Absolute Auto 3.1 X10*3/uL (1.2-4.9); Lymphocytes Percent Auto 50.7 % (20-40); Mean Corpuscular HGB Conc 32.7 g/dl (31.0-35.0); Mean Corpuscular Hemoglobin 28.6 pg (27.0-33.0); Mean Corpuscular Volume 87.7 fL (80.0-98.0); Mean Platelet Volume 10.3 fL (9.4-12.3); Monocytes Absolute Auto 0.7 X10*3/uL (0.1-1.2); Monocytes Percent Auto 11.5 % (2-11); Neutrophils Absolute Auto 2.1 x10*3/uL (2.0-8.3); Neutrophils Percent Auto 34.8 % (45-73); Platelet Count 214 X10*3/uL (160-400); Red Blood Count 3.98 X10*6/uL (4.20-5.50); Red Cell Distribution Width 15.6 % (11.0-16.0); White Blood Count 6.1 X10*3/uL (4.8-10.8)
[2022-06-05 12:27] LABS: Alanine Aminotransferase 9 U/L (0-31); Albumin Level 3.8 g/dL (3.5-5.0); Alkaline Phosphatase 61 U/L (39-117); Anion Gap 12 (12-20); Aspartate Amino Transferase 21 U/L (5-31); Bilirubin Total 0.7 mg/dL (0.0-1.0); Blood Urea Nitrogen 24 mg/dL (9-16); Calcium 9.5 mg/dL (8.4-10.2); Carbon Dioxide 30 mmol/L (22-29); Chloride 98 mmol/L (96-108); Estimated Glomerular Filt Rate 53; Glucose Random 85 mg/dL (60-115); Sodium 135 mmol/L (135-145); Total Protein 6.3 g/dL (6.5-8.0)
[2022-06-05 12:53] LABS: Free T4 (Free Thyroxine) 1.27 ng/dL (0.71-1.85); Thyroid Stimulating Hormone 1.55 uIU/mL (0.32-4.0)
== END 2022-06-05 09:05 | disposition home or self-care (01) ==
LOC: HO.10HDL 09:04
PROVIDERS: Visit Provider Internal Medicine
DX: D64.9 Anemia, unspecified (principal); I12.9 Hypertensive chronic kidney disease with stage 1 through stage 4 chronic kidney disease, or unspecified chronic kidney disease; N18.9 Chronic kidney disease, unspecified; E03.9 Hypothyroidism, unspecified
CPT/HCPCS: 36415; 80053; 84439; 84443; 85025

== ENCOUNTER → 2022-06-13 13:23 | Outpatient (BNVA) | payer MEDICARE, SELFPAY | PROVIDERS: PCP Internal Medicine; Referring Provider Internal Medicine; Visit Provider Internal Medicine | DX: I35.0 Nonrheumatic aortic (valve) stenosis (principal); I10 Essential (primary) hypertension; I51.89 Other ill-defined heart diseases | CPT/HCPCS: 99212 ==

== ENCOUNTER 2022-10-02 08:02 | Outpatient (REF) | payer MEDICARE, SELFPAY ==
[2022-10-02 10:44] LABS: MANUAL DIFF FLAG NO
[2022-10-02 10:50] LABS: Basophils Percent Auto 0.4 % (0-2); Eosinophils Absolute Auto 0.3 X10*3/uL (0.0-0.4); Hematocrit 33.5 % (37.0-47.0); Imm Gran Abs Auto 0.01 X10*3/uL (0.00-0.03); Imm Gran Pct Auto 0.1 % (0.0-0.4); Lymphocytes Absolute Auto 3.3 X10*3/uL (1.2-4.9); Mean Corpuscular HGB Conc 32.8 g/dl (31.0-35.0); Mean Corpuscular Hemoglobin 28.8 pg (27.0-33.0); Mean Corpuscular Volume 87.7 fL (80.0-98.0); Mean Platelet Volume 10.5 fL (9.4-12.3); Monocytes Absolute Auto 0.9 X10*3/uL (0.1-1.2); Neutrophils Absolute Auto 3.2 x10*3/uL (2.0-8.3); Neutrophils Percent Auto 41.5 % (45-73); Platelet Count 227 X10*3/uL (160-400); Red Blood Count 3.82 X10*6/uL (4.20-5.50); Red Cell Distribution Width 14.5 % (11.0-16.0); White Blood Count 7.8 X10*3/uL (4.8-10.8)
[2022-10-02 11:14] LABS: Alanine Aminotransferase 8 U/L (0-31); Albumin Level 3.9 g/dL (3.5-5.0); Alkaline Phosphatase 58 U/L (39-117); Anion Gap 11 (12-20); Aspartate Amino Transferase 21 U/L (5-31); Bilirubin Total 0.5 mg/dL (0.0-1.0); Blood Urea Nitrogen 17 mg/dL (9-16); Calcium 9.7 mg/dL (8.4-10.2); Carbon Dioxide 28 mmol/L (22-29); Chloride 98 mmol/L (96-108); Cholesterol 155 mg/dL (<200); Estimated Glomerular Filt Rate 53; Glucose Random 89 mg/dL (60-115); Potassium 4.1 mmol/L (3.3-5.1); Sodium 133 mmol/L (135-145); Total Protein 7.2 g/dL (6.5-8.0)
[2022-10-02 11:21] LABS: Free T4 (Free Thyroxine) 1.06 ng/dL (0.71-1.85); Thyroid Stimulating Hormone 2.59 uIU/mL (0.32-4.0)
== END 2022-10-02 08:03 | disposition home or self-care (01) ==
LOC: HO.10HDL 08:02
PROVIDERS: Visit Provider Internal Medicine
DX: E03.9 Hypothyroidism, unspecified (principal); I48.91 Unspecified atrial fibrillation; D64.9 Anemia, unspecified; I13.0 Hypertensive heart and chronic kidney disease with heart failure and stage 1 through stage 4 chronic kidney disease, or unspecified chronic kidney disease; N18.9 Chronic kidney disease, unspecified; I50.9 Heart failure, unspecified
CPT/HCPCS: 36415; 80053; 82465; 84439; 84443; 85025

== ENCOUNTER → 2022-12-12 13:54 | Outpatient (REF) | payer MEDICARE, SELFPAY ==
--- NOTE | 2022-12-12 13:58 | CA_ITS ---
Transthoracic Echocardiogram Patient (Last, First, Middle): Cesla Rios, Gender: Female Date of : 1940 Age: 82 Procedure Date: 12/12/2022 Procedure Type: Transthoracic Echocardiogram Location: OP Height: 160.02 cm Weight: 58.06 kg BSA: 1.60 m2 Heart Rate: 74 bpm BP: 182 / 78 mmHg Drug Abuse Counselor: KATHLEEN Referring MD: Fabian Osullivan MD Horticultural Agent: Guille Pereira MD Symptoms: I35.0 - Nonrheumatic aortic (valve) stenosis Study Quality: Adequate ECG Rhythm: Sinus Conclusions: - 1. Normal LV ejection fraction of 60-65% with grade 2 diastolic dysfunction 2. Mildly dilated left atrium 3. Moderate to severe aortic stenosis next 4. No gross pericardial effusion Findings Procedure Information The study quality is limited by the patients inability to tolerate the test. Left Ventricle Normal left ventricular size, thickness, and systolic function. The visually estimated ejection fraction is between 60-65%. Spectral Doppler is indicative of a pseudonormal filling pattern. E/E prime ratio is >15, consistent with elevated filling pressures. Evidence suggests grade II (moderate) diastolic dysfunction. Right Ventricle Normal right ventricular cavity size and systolic function. Atria The left atrium is mildly dilated. There is no evidence of interatrial shunt. The right atrium is likely dilated. Aortic Valve There is moderate calcification of the aortic valve. There is moderate thickening of the aortic valve. There is moderate to severe aortic valve stenosis. The peak aortic gradient is 36 mmHg.The mean gradient is 20 mmHg. There is trace (trivial) aortic valve regurgitation. Mitral Valve There is mild anterior and severe posterior mitral leaflet thickening. There is severe mitral annular calcification. Pulmonic Valve The pulmonic valve is likely normal. There is trace pulmonic valve regurgitation. Tricuspid Valve Likely normal tricuspid valve structure and function. Tricuspid regurgitation envelope is inadequate for calculation of right ventricular systolic pressure. Normal right atrial pressure. Great Vessels The pulmonary artery was not well visualized. There is no dilatation of the ascending aorta. Venous The inferior vena cava is normal in size and collapses greater than 50% with inspiration. Pericardium/Pleural There is no evidence of pericardial effusion. Prior Study Comparison No significant change compared to prior study dated: 05/21/2022. Measurements 2D Linear Measurements IVSd: 1.14 0.6-0.9/0.6-1.0 cm LVIDd: 4.49 3.9-5.3/4.2-5.9 cm LVIDd Index: 2.81 2.4-3.2/2.2-3.1 cm/m2 LVIDs: 3.16 2.0-3.6 cm LVPWd: 0.65 0.7-1.1 cm LA Diam: 4.00 2.7-3.8/3.0-4.0 cm LAIDs Index: 2.50 1.5-2.3 cm/m2 LV Mass: 163.44 67-162/88-224 g LV Mass Index: 102.15 43-95/49-115 g/m2 LVOT Diam: 2.00 3.0+(-)1.3 cm 2D Systolic Function EF 4C: 62.40 >55% EF 2C: 58.10 >55% EF BiP: 61.50 >55% Mitral Valve MV VTI: 0.38 MV Pk Luis: 1.29 MV Mn Luis: 0.86 MV Pk Grad: 7.00 MV Mn Grad: 3.00 MV Pk E: 1.40 MV PK A: 1.02 MV Decel Time: 163.00 E/A: 1.40 E'Lateral: 7.94 E'Medial: 6.96 E/E' Med: 20.10 E/E' Lat: 17.60 PHT: 48.00 MVA PHT: 4.58 MVA Continuity: 1.98 Decel [place]: 8.56 Aortic Valve AoV Pk Luis: 3.00 AoV Mn Luis: 2.11 AoV VTI: 0.67 AoV Pk Grad: 36.00 Aov Mn Grad: 20.00 RITO Cont.VTI: 0.99 AI Pk Luis: 4.04 AI [place]: 2.42 LVOT LVOT Pk Luis: 0.95 LVOT Mn Luis: 0.70 LVOT VTI: 0.24 LVOT Pk Grad: 4.00 LVOT Mn Grad: 2.00 LVOT Diam: 2.00 LVOT Area: 3.14 Diastolic Function MV Pk E: 1.40 MV Pk A: 1.02 E/A: 1.40 E'Medial: 6.96 E/E' Med: 20.10 E' Laterial: 7.94 E/E' Lat: 17.60 Right Ventricle TAPSE (mm): 18.40 TVS' Luis: 16.50 Tricuspid Valve RA Press: 3.00 Great Vessels Aorta Sinus of Valsalva: 3.10 2.0-3.5 cm Ao Asc: 3.40 2.1-3.4 cm Pulmonary Valve PV Pk Luis: 0.96 Peak PV Grad: 4.00 Updated in Other Vendor System with Status of Final Guille Pereira MD electronically signed on 12/12/2022 3:41:43 PM with status of Final
== END ==
LOC: HO.CARD 13:54
PROVIDERS: PCP Internal Medicine; Visit Provider Internal Medicine
DX: I35.0 Nonrheumatic aortic (valve) stenosis (principal)
CPT/HCPCS: 93306

== ENCOUNTER → 2022-12-12 13:58 | Outpatient (BNV) | payer MEDICARE, SELFPAY | PROVIDERS: PCP Internal Medicine; Visit Provider Internal Medicine Cardiovascular Disease | DX: I35.0 Nonrheumatic aortic (valve) stenosis (principal) | CPT/HCPCS: 93306 ==

== ENCOUNTER 2022-12-25 14:06 | Outpatient (AMB) | payer MEDICARE, SELFPAY ==
[2022-12-25 14:14] VITALS: BP 180/70; PULSE 78; BMI 22.5
--- NOTE | 2022-12-25 14:14 | A.OFFVIS_ITS ---
Intake Vital Signs 12/25/22 14:14 Height 5 ft 3 in Weight 126 lb 15.78 oz BMI 22.5 BP 180/70 H Blood Pressure Location Lt brachial Position Sitting Pulse 78 Pulse Source Pulse Oximeter Intake Visit Reasons: 6 mth f/up s/p echo Intake Note: 6 month follow up Strapping Machine Tender Required: No Accompanied by: Self / Same As Patient Allergies No Known Allergies Allergy (Verified 12/25/22 14:18) Medication List - Last Reconciled 12/25/22 by Fabian Osullivan MD alendronate 70 mg PO PIÑA@0600 atenolol 25 mg PO DAILY calcium carbonate-vitamin D3 500 mg-10 mcg (400 unit) (Calcium 500 + D) 2 tabs PO DAILY doxycycline hyclate 100 mg PO BID furosemide 20 mg PO DAILY levothyroxine 75 mcg PO DAILY simvastatin 20 mg PO BEDTIME HPI HPI Comments History of Present Illness Details Celsa returns for follow-up regarding aortic stenosis. No clear complaints like angina or shortness of breath or syncopal episodes. Blood pressure seems to be on the higher side today as well as last visit. However, when I questioned her she states that she gets very anxious coming here and that is the reason. Apparently when she goes to her PCP's office it is much lower and hence she states it is all from anxiety only. [facility] Medical History (Updated 12/25/22 @ 14:57 by Fabian Osullivan MD) Essential hypertension Preop cardiovascular exam Chronic venous stasis dermatitis Closed fracture of left inferior pubic ramus Hypothyroidism Hyperlipidemia Diastolic dysfunction Non-rheumatic aortic stenosis Surgical History History of surgery on left wrist Family History Father No problems noted. Mother No problems noted. Social History Household Members: Spouse Housing: House Do you presently have visiting nurse or other home services: No Alcohol intake: never Patient Tobacco Use Status: Never used Tobacco e-Cigarette/Vaping Use: Never Used Current occupational status: retired Current occupation: right hand dominant Review of Systems Const Denies weakness ENT Denies dizziness Card Denies chest pain, Denies chest pain with activity, Denies syncope, Denies rapid heart rate, Denies pedal edema, Denies edema, Denies leg edema, Denies lightheadedness, Denies palpitations, Denies dyspnea, Denies dyspnea on exertion and Denies orthopnea Resp Denies cough, Denies dyspnea and Denies dyspnea on exertion GI Denies hematochezia and Denies change in stool character Musc Denies abnormal gait, Denies muscle cramps, Denies muscle weakness, Denies numbness, Denies radiating pain into limb and Denies tingling Neuro Denies abnormal gait, Denies dizziness, Denies syncope, Denies numbness, Denies tingling and Denies weakness Endo Denies palpitations Physical Exam Vital Signs: Last Vital Signs Pulse 78 12/25/22 14:14 BP 180/70 H 12/25/22 14:14 BMI result Body Mass Index 22.5 Const General: comfortable and no acute distress Orientation/consciousness: patient oriented x3 HEENT Other: Unremarkable Head: Yes normal to inspection Neck Neck: Yes normal visual inspection Chest Chest palpation & inspection: normal inspection of the chest Resp Auscultation: clear to auscultation bilaterally Cardio Palpation: normal PMI Heart sounds: S1 normal heart sound present, S2 normal heart sound present, no gallops, Murmur heart sound present systolic III/ and at the right sternal border and no rubs GI Palpation (GI): Soft to palpation Back/Spine/Pelvis Other: unremarkable Skin General skin exam: no rashes or lesions noted Neuro General: patient oriented x3 Extrem General: Yes normal to inspection Psych Mental Status: mental status grossly normal Assessment & Plan Assessment & Plan (1) Non-rheumatic aortic stenosis: Code(s): I35.0 - Nonrheumatic aortic (valve) stenosis Plan: Most recent echocardiogram report as well as images reviewed. Preserved LVEF. Reported to have moderate to severe aortic stenosis but upon my review seems to be rather moderate. Any case, no indication for intervention at this time. Will continue to follow. (2) Essential hypertension: Code(s): I10 - Essential (primary) hypertension Plan: Blood pressure is high today as well as from last time. However, patient strongly believes that resolved because of anxiety coming to our office. She states she has an upcoming PCP appointment. Will request them to follow-up. Listed to be on atenolol. Plan Total time spent including review of data, counseling, documentation, coordination of care-32 minutes. Orders: Orders CA echo transthoracic complete 6 Months I35.0 - Nonrheumatic aortic (valve) stenosis Medications: Changed From doxycycline hyclate 100 mg PO BID 3 days 6 tabs 0RF To doxycycline hyclate 100 mg PO BID Coding Level of Care Code Est Pt Level 4 (11298) Diagnoses Non-rheumatic aortic stenosis I35.0 Essential hypertension I10
== END 2022-12-25 14:29 | disposition home or self-care (01) ==
PROVIDERS: Visit Provider Internal Medicine
DX: I35.0 Nonrheumatic aortic (valve) stenosis (principal); I10 Essential (primary) hypertension
CPT/HCPCS: 99214

== ENCOUNTER → 2022-12-25 14:06 | Outpatient (BNVA) | payer MEDICARE, SELFPAY | PROVIDERS: Visit Provider Internal Medicine | DX: I35.0 Nonrheumatic aortic (valve) stenosis (principal); I10 Essential (primary) hypertension | CPT/HCPCS: 99212 ==

== ENCOUNTER 2023-04-02 08:05 | Outpatient (REF) | payer MEDICARE, SELFPAY ==
[2023-04-02 10:51] LABS: MANUAL DIFF FLAG NO
[2023-04-02 11:03] LABS: Basophils Percent Auto 0.4 % (0-2); Eosinophils Absolute Auto 0.2 X10*3/uL (0.0-0.4); Eosinophils Percent Auto 2.5 % (0-4); Hematocrit 34.3 % (37.0-47.0); Hemoglobin 11.2 g/dl (12.0-16.0); Imm Gran Abs Auto 0.02 X10*3/uL (0.00-0.03); Imm Gran Pct Auto 0.3 % (0.0-0.4); Lymphocytes Absolute Auto 3.3 X10*3/uL (1.2-4.9); Mean Corpuscular HGB Conc 32.7 g/dl (31.0-35.0); Mean Corpuscular Hemoglobin 28.9 pg (27.0-33.0); Mean Corpuscular Volume 88.4 fL (80.0-98.0); Mean Platelet Volume 10.1 fL (9.4-12.3); Monocytes Absolute Auto 0.9 X10*3/uL (0.1-1.2); Monocytes Percent Auto 12.3 % (2-11); Neutrophils Absolute Auto 2.8 x10*3/uL (2.0-8.3); Neutrophils Percent Auto 38.5 % (45-73); Platelet Count 237 X10*3/uL (160-400); Red Blood Count 3.88 X10*6/uL (4.20-5.50); Red Cell Distribution Width 14.3 % (11.0-16.0); White Blood Count 7.2 X10*3/uL (4.8-10.8)
[2023-04-02 11:14] LABS: Alanine Aminotransferase 7 U/L (0-31); Albumin Level 3.7 g/dL (3.5-5.0); Alkaline Phosphatase 49 U/L (39-117); Anion Gap 11 (12-20); Aspartate Amino Transferase 20 U/L (5-31); Bilirubin Total 0.5 mg/dL (0.0-1.0); Blood Urea Nitrogen 16 mg/dL (9-16); Calcium 9.3 mg/dL (8.4-10.2); Carbon Dioxide 30 mmol/L (22-29); Chloride 98 mmol/L (96-108); Estimated Glomerular Filt Rate 53; Glucose Random 87 mg/dL (60-115); Iron 75 mcg/dL (30-160); Percent Iron Saturation 30 % (15-50); Potassium 4.4 mmol/L (3.3-5.1); Sodium 135 mmol/L (135-145); Total Iron Binding Capacity 251 mcg/dL (228-428); Total Protein 6.7 g/dL (6.5-8.0); Unsaturated Iron Binding 176 ug/dL
[2023-04-02 11:29] LABS: Thyroid Stimulating Hormone 1.19 uIU/mL (0.32-4.0); Vitamin D 25-OH Total 26.9 ng/mL (>30)
== END 2023-04-02 08:06 | disposition home or self-care (01) ==
LOC: HO.10HDL 08:05
PROVIDERS: Visit Provider Internal Medicine
DX: E03.9 Hypothyroidism, unspecified (principal); I12.9 Hypertensive chronic kidney disease with stage 1 through stage 4 chronic kidney disease, or unspecified chronic kidney disease; N18.9 Chronic kidney disease, unspecified; D64.9 Anemia, unspecified; E55.9 Vitamin D deficiency, unspecified
CPT/HCPCS: 36415; 80053; 82306; 83540; 84439; 84443; 85025

== ENCOUNTER 2023-04-22 | Outpatient (REF) | payer MEDICARE, SELFPAY ==
--- NOTE | ~2023-04-22 | US_ITS ---
EXAMINATION: US VENOUS ULTRASOUND WITH DOPPLER LOWER EXTREMITY, LEFT CLINICAL INFORMATION: Edema. Pain. COMPARISON: None available. TECHNIQUE: Ultrasound of the deep veins is performed from the hip to the calf with compression sonography and color and pulse Doppler assessment. Spectral analysis with color-flow imaging is performed. FINDINGS: There is normal venous compression and respiratory variation and augmented flow. The visualized common femoral vein, superficial femoral vein, profunda femoral vein, popliteal vein, and the trifurcation region shows no evidence of deep venous thrombosis. The peroneal vein is not visualized. There is no significant popliteal fossa cyst. If the patient's symptoms persist, followup ultrasound in 5 days 7 days might be of value to exclude proximal propagation from a non-visualized calf vein. US/US venous duplex LE IMPRESSION: No DVT demonstrated in the left lower extremity. Please note, the left peroneal vein is not visualized.
== END 2023-04-22 00:01 | disposition home or self-care (01) ==
LOC: HO.US
PROVIDERS: PCP Internal Medicine; Visit Provider Internal Medicine
DX: R22.42 Localized swelling, mass and lump, left lower limb (principal)
CPT/HCPCS: 93971

== ENCOUNTER 2023-06-26 10:26 | Outpatient (AMB) | payer MEDICARE, SELFPAY ==
--- NOTE | 2023-06-26 10:28 | MHC.OFFVIS ---
Vital Signs 06/26/23 10:36 Height 5 ft 3 in Weight 128 lb BMI 22.7 BP 176/76 H Blood Pressure Location Rt brachial Position Sitting Pulse 72 Intake Visit Reasons: (L) Leg Cellulitis Intake Note: Patient referred by PCP Dr. Fierro for non healing ulcer on lt lower ant leg. Patient c/o: ulcer started with 3dark spots. Abx just faxed. They are due to pick rx after appointment. 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 Patient is not the best historian and is unclear how long she has had these symptoms. She was evaluated by her medical doctor who referred her to surgical clinic as well as prescribed antibiotics which were not picked up yet by the patient nor her son. Chart was reviewed and patient evaluated [facility] Medical History Essential hypertension Preop cardiovascular exam Chronic venous stasis dermatitis Closed fracture of left inferior pubic ramus Hypothyroidism Hyperlipidemia Diastolic dysfunction Non-rheumatic aortic stenosis Surgical History History of surgery on left wrist Family History Father No problems noted. Mother No problems noted. Social History Household Members: Spouse Housing: House Do you presently have visiting nurse or other home services: No Alcohol intake: never Patient Tobacco Use Status: Never used Tobacco e-Cigarette/Vaping Use: Never Used Current occupational status: retired Current occupation: right hand dominant Physical Exam Vital Signs: Last Vital Signs Pulse 72 06/26/23 10:36 BP 176/76 H 06/26/23 10:36 BMI result Body Mass Index 22.7 Skin Other: Patient has moderate edema and cellulitic changes involving the left lower extremity. She has a longitudinal wound measuring approximately 5 cm by 1/2 cm along the anterior lateral distal bass area. No evidence of any fluctuance or abscess. Wound was re-dressed Assessment & Plan Assessment & Plan (1) Cellulitis of left leg: Code(s): L03.116 - Cellulitis of left lower limb Category: Surgical Plan The patient and her son have been strongly encouraged to have the patient elevate her extremities much as possible. 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 Patient will be referred to the wound care center for further interventions. All questions answered. Patient otherwise follow-up with me p.r.n... Orders: Referrals Wound Care Referral [id number] - Unspecified open wound, left lower leg, initial encounter Coding Level of Care Code New Pt Level 4 (87554) Diagnoses Cellulitis of left leg L03.116
[2023-06-26 10:36] VITALS: BP 176/76; PULSE 72; BMI 22.7
== END 2023-06-26 11:02 | disposition home or self-care (01) ==
PROVIDERS: PCP Internal Medicine; Referring Provider Internal Medicine; Visit Provider Surgery
DX: L03.116 Cellulitis of left lower limb (principal)
CPT/HCPCS: 99204

== ENCOUNTER → 2023-06-26 10:26 | Outpatient (BNVA) | payer MEDICARE, SELFPAY | PROVIDERS: PCP Internal Medicine; Referring Provider Internal Medicine; Visit Provider Surgery | DX: L03.116 Cellulitis of left lower limb (principal) | CPT/HCPCS: 99202 ==

== ENCOUNTER 2023-06-28 09:36 | Outpatient (REF) | payer MEDICARE, SELFPAY ==
[2023-06-28 10:56] LABS: MANUAL DIFF FLAG NO
[2023-06-28 11:13] LABS: Basophils Percent Auto 0.5 % (0-2); Eosinophils Absolute Auto 0.3 X10*3/uL (0.0-0.4); Hematocrit 29.9 % (37.0-47.0); Hemoglobin 9.9 g/dl (12.0-16.0); Imm Gran Abs Auto 0.11 X10*3/uL (0.00-0.03); Imm Gran Pct Auto 1.8 % (0.0-0.4); Lymphocytes Absolute Auto 2.4 X10*3/uL (1.2-4.9); Lymphocytes Percent Auto 37.8 % (20-40); Mean Corpuscular HGB Conc 33.1 g/dl (31.0-35.0); Mean Corpuscular Hemoglobin 28.4 pg (27.0-33.0); Mean Corpuscular Volume 85.9 fL (80.0-98.0); Mean Platelet Volume 9.3 fL (9.4-12.3); Monocytes Absolute Auto 0.8 X10*3/uL (0.1-1.2); Monocytes Percent Auto 13.3 % (2-11); Neutrophils Absolute Auto 2.7 x10*3/uL (2.0-8.3); Neutrophils Percent Auto 42.6 % (45-73); Platelet Count 392 X10*3/uL (160-400); Red Blood Count 3.48 X10*6/uL (4.20-5.50); Red Cell Distribution Width 14.4 % (11.0-16.0); White Blood Count 6.3 X10*3/uL (4.8-10.8)
[2023-06-28 11:29] LABS: Anion Gap 15 (12-20); Blood Urea Nitrogen 20 mg/dL (9-16); Calcium 9.8 mg/dL (8.4-10.2); Carbon Dioxide 27 mmol/L (22-29); Chloride 95 mmol/L (96-108); Estimated Glomerular Filt Rate 44; Glucose Random 93 mg/dL (60-115); Potassium 4.3 mmol/L (3.3-5.1); Sodium 133 mmol/L (135-145)
== END 2023-06-28 09:37 | disposition home or self-care (01) ==
LOC: HO.10HDL 09:36
PROVIDERS: Visit Provider Internal Medicine
DX: I12.9 Hypertensive chronic kidney disease with stage 1 through stage 4 chronic kidney disease, or unspecified chronic kidney disease (principal); N18.9 Chronic kidney disease, unspecified; D63.1 Anemia in chronic kidney disease; R60.9 Edema, unspecified
CPT/HCPCS: 36415; 80048; 85025

== ENCOUNTER → 2023-08-07 13:57 | Outpatient (REF) | payer MEDICARE, SELFPAY ==
--- NOTE | 2023-08-07 14:03 | CA_ITS ---
Transthoracic Echocardiogram Patient (Last, First, Middle): Celsa Rios, Gender: Female Date of : 1940 Age: 83 Procedure Date: 08/07/2023 Procedure Type: Transthoracic Echocardiogram Location: OP Height: 160.02 cm Weight: 58.51 kg BSA: 1.61 m2 Heart Rate: bpm BP: 134 / 80 mmHg Enrober Tender: BANDAR Referring MD: Fabian Osullivan MD Test Engine Evaluator: Guille Pereira MD Symptoms: I35.0 - Nonrheumatic aortic (valve) stenosis Study Quality: Adequate ECG Rhythm: Sinus Conclusions: - 1. Normal LV ejection fraction 60 65% with pseudonormal filling pattern 2. Moderately dilated left atrium 3. Moderate to severe aortic stenosis with valve area in the severe range with dimensionless index of 0.32 4. No gross pericardial effusion Findings Left Ventricle Normal left ventricular size, thickness, and systolic function. The visually estimated ejection fraction is between 60-65%. Spectral Doppler is indicative of a pseudonormal filling pattern. There is mild septal asymmetric hypertrophy. Right Ventricle Normal right ventricular cavity size and systolic function. Atria The left atrium is moderately dilated. Interatrial shunt cannot be excluded. The right atrium is likely dilated. Aortic Valve There is moderate calcification of the aortic valve. There is moderate thickening of the aortic valve. There is moderate to severe aortic valve stenosis. The peak aortic gradient is 39 mmHg.The mean gradient is 22 mmHg. The aortic valve area is 0.91 cm2. There is mild aortic valve regurgitation. Dimensionless index is 0.32, suggestive of more moderate aortic stenosis. Mitral Valve There is mild anterior and severe posterior mitral leaflet thickening. There is severe mitral annular calcification. There is mild mitral valve regurgitation. There is no mitral valve stenosis. Pulmonic Valve The pulmonic valve was not well visualized. Tricuspid Valve Likely normal tricuspid valve structure and function. Tricuspid regurgitation envelope is inadequate for calculation of right ventricular systolic pressure. Normal right atrial pressure. Great Vessels The aorta was not well visualized. The pulmonary artery was not well visualized. Venous The inferior vena cava is normal in size and collapses greater than 50% with inspiration. Pericardium/Pleural There is no evidence of pericardial effusion. Prior Study Comparison No significant change compared to prior study dated: 12/12/2022. Measurements 2D Linear Measurements IVSd: 1.33 0.6-0.9/0.6-1.0 cm LVIDd: 4.32 3.9-5.3/4.2-5.9 cm LVIDd Index: 2.68 2.4-3.2/2.2-3.1 cm/m2 LVIDs: 3.02 2.0-3.6 cm LVPWd: 1.03 0.7-1.1 cm LA Diam: 3.80 2.7-3.8/3.0-4.0 cm LAIDs Index: 2.36 1.5-2.3 cm/m2 LV Mass: 226.15 67-162/88-224 g LV Mass Index: 140.47 43-95/49-115 g/m2 LVOT Diam: 1.90 3.0+(-)1.3 cm 2D Systolic Function EF 4C: 62.40 >55% EF 2C: 65.80 >55% EF BiP: 64.60 >55% Mitral Valve MV VTI: 0.48 MV Pk Luis: 1.26 MV Mn Luis: 0.84 MV Pk Grad: 6.00 MV Mn Grad: 3.00 MV Pk E: 1.21 MV PK A: 1.00 MV Decel Time: 315.00 E/A: 1.20 E'Lateral: 7.07 E'Medial: 5.22 E/E' Med: 23.20 E/E' Lat: 17.10 PHT: 92.00 MVA PHT: 2.39 MVA Continuity: 1.58 Decel [place]: 3.82 Aortic Valve AoV Pk Luis: 3.11 AoV Mn Luis: 2.18 AoV VTI: 0.83 AoV Pk Grad: 39.00 Aov Mn Grad: 22.00 RITO Cont.VTI: 0.91 LVOT LVOT Pk Luis: 1.00 LVOT Mn Luis: 0.68 LVOT VTI: 0.27 LVOT Pk Grad: 4.00 LVOT Mn Grad: 2.00 LVOT Diam: 1.90 LVOT Area: 2.84 Diastolic Function MV Pk E: 1.21 MV Pk A: 1.00 E/A: 1.20 E'Medial: 5.22 E/E' Med: 23.20 E' Laterial: 7.07 E/E' Lat: 17.10 Right Ventricle TAPSE (mm): 21.70 TVS' Luis: 16.30 Tricuspid Valve RA Press: 3.00 Great Vessels Aorta Sinus of Valsalva: 3.77 2.0-3.[address] [place]: 2.43 1.7-3.4 cm Updated in Other Vendor System with Status of Final Guille Pereira MD electronically signed on 08/07/2023 4:48:56 PM with status of Final
== END ==
LOC: HO.CARD 13:57
PROVIDERS: PCP Internal Medicine; Visit Provider Internal Medicine
DX: I35.0 Nonrheumatic aortic (valve) stenosis (principal)
CPT/HCPCS: 93306

== ENCOUNTER → 2023-08-07 14:03 | Outpatient (BNV) | payer MEDICARE, SELFPAY | PROVIDERS: PCP Internal Medicine; Visit Provider Internal Medicine Cardiovascular Disease | DX: I35.2 Nonrheumatic aortic (valve) stenosis with insufficiency (principal); I34.81 Nonrheumatic mitral (valve) annulus calcification; I34.0 Nonrheumatic mitral (valve) insufficiency | CPT/HCPCS: 93306 ==

== ENCOUNTER 2023-08-28 13:56 | Outpatient (AMB) | payer MEDICARE, SELFPAY ==
[2023-08-28 14:01] VITALS: BP 140/60; PULSE 72; BMI 22.8
--- NOTE | 2023-08-28 14:01 | MHC.OFFVIS ---
Vital Signs 08/28/23 14:01 08/28/23 14:26 Height 5 ft 3 in Weight 129 lb BMI 22.8 BP 140/60 H 130/58 L Blood Pressure Location Lt brachial Lt brachial Position Sitting Sitting Pulse 72 Pulse Source Monitor Intake Visit Reasons: 6 mth f/up BP Allergies No Known Allergies Allergy (Verified 06/26/23 10:34) HPI Comments Details: 83-year-old female presents today for a follow-up with her son. On last visit an echocardiogram was ordered and her blood pressure was elevated. She reports she has been doing well overall. She is grieving the loss of her . She keeps busy with a lot of house work and going to the wound clinic for a leg wound. [facility] Medical History Essential hypertension Preop cardiovascular exam Chronic venous stasis dermatitis Closed fracture of left inferior pubic ramus Hypothyroidism Hyperlipidemia Diastolic dysfunction Non-rheumatic aortic stenosis Surgical History History of surgery on left wrist Family History Father No problems noted. Mother No problems noted. Social History Household Members: Spouse Housing: House Do you presently have visiting nurse or other home services: No Alcohol intake: never Patient Tobacco Use Status: Never used Tobacco e-Cigarette/Vaping Use: Never Used Current occupational status: retired Current occupation: right hand dominant Review of Systems Const Denies weakness ENT Denies dizziness Card Denies chest pain, Denies chest pain with activity, Denies syncope, Denies rapid heart rate, Denies pedal edema, Denies edema, Denies leg edema, Denies lightheadedness, Denies palpitations, Denies dyspnea, Denies dyspnea on exertion and Denies orthopnea Resp Denies cough, Denies dyspnea and Denies dyspnea on exertion GI Denies hematochezia and Denies change in stool character Musc Denies abnormal gait, Denies muscle cramps, Denies muscle weakness, Denies numbness, Denies radiating pain into limb and Denies tingling Neuro Denies abnormal gait, Denies dizziness, Denies syncope, Denies numbness, Denies tingling and Denies weakness Endo Denies palpitations Physical Exam Vital Signs: Last Vital Signs Pulse 72 08/28/23 14:01 BP 130/58 L 08/28/23 14:26 BMI result Body Mass Index 22.8 Office Procedures EKG Details: EKG today. Normal Sinus Rhythm. Rate 71 bpm. [place] 176 ms. QRS 78 ms. QTc 430ms. [id number], Complete Results Reviewed Results Reviewed: Conclusions: - 1. Normal LV ejection fraction 60 65% with pseudonormal filling pattern 2. Moderately dilated left atrium 3. Moderate to severe aortic stenosis with valve area in the severe range with dimensionless index of 0.32 4. No gross pericardial effusion Assessment & Plan Assessment & Plan (1) Essential hypertension: Code(s): I10 - Essential (primary) hypertension Category: Medical Plan: Blood pressure much improved since last visit. Monitor blood pressures at home. On atenolol. (2) Non-rheumatic aortic stenosis: Code(s): I35.0 - Nonrheumatic aortic (valve) stenosis Category: Medical Plan: Moderate to severe aortic stenosis. Reviewed cardinal signs of . Report if any occur. No current symptoms. Orders: Orders CA Echo Limited 5 Months I35.0 - Nonrheumatic aortic (valve) stenosis Coding Level of Care Code Est Pt Level 3 (53860) Diagnoses Essential hypertension I10 Non-rheumatic aortic stenosis I35.0 CPT Codes EKG - CPT: 71199-[id number], Complete ([id number])
[2023-08-28 14:26] VITALS: BP 130/58
== END 2023-08-28 14:49 | disposition home or self-care (01) ==
PROVIDERS: PCP Internal Medicine; Visit Provider Nurse Practitioner
DX: I10 Essential (primary) hypertension (principal)
CPT/HCPCS: 93010; 99213

== ENCOUNTER → 2023-08-28 13:56 | Outpatient (BNVA) | payer MEDICARE, SELFPAY | PROVIDERS: PCP Internal Medicine; Visit Provider Nurse Practitioner | DX: I10 Essential (primary) hypertension (principal); I35.0 Nonrheumatic aortic (valve) stenosis | CPT/HCPCS: 93005; 99212 ==

== ENCOUNTER 2023-12-25 10:14 | Outpatient (REF) | payer MEDICARE, SELFPAY ==
[2023-12-25 10:46] LABS: MANUAL DIFF FLAG NO
[2023-12-25 11:01] LABS: Basophils Percent Auto 0.5 % (0-2); Eosinophils Absolute Auto 0.6 X10*3/uL (0.0-0.4); Hematocrit 33.2 % (37.0-47.0); Hemoglobin 10.6 g/dl (12.0-16.0); Imm Gran Abs Auto 0.03 X10*3/uL (0.00-0.03); Imm Gran Pct Auto 0.4 % (0.0-0.4); Lymphocytes Absolute Auto 2.8 X10*3/uL (1.2-4.9); Lymphocytes Percent Auto 35.4 % (20-40); Mean Corpuscular HGB Conc 31.9 g/dl (31.0-35.0); Mean Corpuscular Hemoglobin 27.7 pg (27.0-33.0); Mean Corpuscular Volume 86.7 fL (80.0-98.0); Monocytes Absolute Auto 0.9 X10*3/uL (0.1-1.2); Monocytes Percent Auto 11.5 % (2-11); Neutrophils Absolute Auto 3.5 x10*3/uL (2.0-8.3); Neutrophils Percent Auto 44.2 % (45-73); Platelet Count 273 X10*3/uL (160-400); Red Blood Count 3.83 X10*6/uL (4.20-5.50); Red Cell Distribution Width 14.4 % (11.0-16.0); White Blood Count 7.9 X10*3/uL (4.8-10.8)
[2023-12-25 11:43] LABS: Alanine Aminotransferase 10 U/L (0-31); Albumin Level 3.6 g/dL (3.5-5.0); Alkaline Phosphatase 56 U/L (39-117); Anion Gap 14 (12-20); Aspartate Amino Transferase 31 U/L (5-31); Bilirubin Total 0.5 mg/dL (0.0-1.0); Blood Urea Nitrogen 38 mg/dL (9-16); C Reactive Protein 1.76 mg/dL (< or = 0.50); Calcium 9.3 mg/dL (8.4-10.2); Carbon Dioxide 27 mmol/L (22-29); Chloride 99 mmol/L (96-108); Estimated Glomerular Filt Rate 26; Glucose Random 91 mg/dL (60-115); Potassium 4.4 mmol/L (3.3-5.1); Sodium 136 mmol/L (135-145); Total Protein 8.1 g/dL (6.5-8.0)
[2023-12-25 12:04] LABS: Free T4 (Free Thyroxine) 1.16 ng/dL (0.71-1.85); Thyroid Stimulating Hormone 9.05 uIU/mL (0.32-4.0)
== END 2023-12-25 10:15 | disposition home or self-care (01) ==
LOC: HO.10HDL 10:14
PROVIDERS: Visit Provider Internal Medicine
DX: I10 Essential (primary) hypertension (principal); D64.9 Anemia, unspecified; E03.9 Hypothyroidism, unspecified; R21 Rash and other nonspecific skin eruption; N18.9 Chronic kidney disease, unspecified; M81.0 Age-related osteoporosis without current pathological fracture
CPT/HCPCS: 36415; 80053; 82306; 84439; 84443; 85025; 86140

== ENCOUNTER → 2024-02-25 12:56 | Outpatient (REF) | payer MEDICARE, SELFPAY ==
--- NOTE | 2024-02-25 13:01 | CA_ITS ---
Transthoracic Echocardiogram Patient (Last, First, Middle): Celsa Rios, Gender: Female Date of : 1940 Age: 84 Procedure Date: 02/25/2024 Procedure Type: Transthoracic Echocardiogram Location: OP Height: 160.02 cm Weight: 56.7 kg BSA: 1.58 m2 Heart Rate: bpm BP: 130 / 70 mmHg Commercial Lending Assistant: TO Referring MD: Tari Harkins SANDBLASTER STONEMaisha Symptoms: I35.0 - Nonrheumatic aortic (valve) stenosis Study Quality: Adequate ECG Rhythm: Sinus Conclusions: - The left ventricular systolic function is normal. The calculated ejection fraction is 59% by biplane method. - Evidence suggests grade II (moderate) diastolic dysfunction. - There is moderate to severe aortic valve stenosis (vs early severe). - There is moderate mitral annular calcification. Findings Left Ventricle Normal left ventricular cavity size. The left ventricular systolic function is normal. The calculated ejection fraction is 59% by biplane method. There is no evidence of regional wall motion abnormalities. Evidence suggests grade II (moderate) diastolic dysfunction. There is mild septal asymmetric hypertrophy. Right Ventricle Normal right ventricular cavity size and systolic function. Atria Moderate biatrial enlargement. Aortic Valve There is moderate calcification of the aortic valve. There is moderate to severe aortic valve stenosis. The peak aortic velocity is 3.14 m/s with a calculated peak gradient of 39 mmHg. The mean gradient is 26 mmHg. The aortic valve area is 0.77 cm2. There is mild aortic valve regurgitation. Dimensionless index 0.24. Stroke volume index 44ml/m2. Mitral Valve There is moderate mitral annular calcification. There is mild mitral valve regurgitation. Possible mild calcific mitral stenosis. Pulmonic Valve There is trace pulmonic valve regurgitation. Tricuspid Valve There is trace tricuspid valve regurgitation. There is no evidence of pulmonary hypertension. Great Vessels The asc aorta is normal in size. Venous The inferior vena cava is mildly dilated and collapses greater than 50% with inspiration. Pericardium/Pleural There is no evidence of pericardial effusion. Prior Study Comparison Changes noted compared to prior study dated: 08/07/2023. Slight progression of aortic stenosis. Measurements 2D Linear Measurements IVSd: 1.22 0.6-0.9/0.6-1.0 cm LVIDd: 4.26 3.9-5.3/4.2-5.9 cm LVIDd Index: 2.70 2.4-3.2/2.2-3.1 cm/m2 LVIDs: 3.17 2.0-3.6 cm LVPWd: 0.82 0.7-1.1 cm LA Diam: 3.70 2.7-3.8/3.0-4.0 cm LAIDs Index: 2.34 1.5-2.3 cm/m2 LV Mass: 180.02 67-162/88-224 g LV Mass Index: 113.94 43-95/49-115 g/m2 LVOT Diam: 1.90 3.0+(-)1.3 cm 2D Systolic Function EF 4C: 60.70 >55% EF 2C: 56.70 >55% EF BiP: 59.10 >55% Mitral Valve MV VTI: 0.37 MV Pk Luis: 1.42 MV Mn Luis: 0.76 MV Pk Grad: 8.00 MV Mn Grad: 3.00 MV Pk E: 1.14 MV PK A: 0.96 MV Decel Time: 272.00 E/A: 1.20 E'Lateral: 4.90 E'Medial: 4.13 E/E' Med: 27.60 E/E' Lat: 23.30 PHT: 80.00 MVA PHT: 2.75 MVA Continuity: 1.86 Decel [place]: 4.20 Aortic Valve AoV Pk Luis: 3.14 AoV Mn Luis: 2.43 AoV VTI: 0.89 AoV Pk Grad: 39.00 Aov Mn Grad: 26.00 RITO Cont.VTI: 0.77 AI Pk Luis: 3.90 AI [place]: 2.18 LVOT LVOT Pk Luis: 0.74 LVOT Mn Luis: 0.53 LVOT VTI: 0.24 LVOT Pk Grad: 2.00 LVOT Mn Grad: 1.00 LVOT Diam: 1.90 LVOT Area: 2.84 Diastolic Function MV Pk E: 1.14 MV Pk A: 0.96 E/A: 1.20 E'Medial: 4.13 E/E' Med: 27.60 E' Laterial: 4.90 E/E' Lat: 23.30 Right Ventricle TAPSE (mm): 21.10 TVS' Luis: 11.40 Tricuspid Valve RA Press: 8.00 Great Vessels Aorta Sinus of Valsalva: 3.57 2.0-3.5 cm Ao Asc: 3.30 2.1-3.4 cm Updated in Other Vendor System with Status of Final Fabian Osullivan MD electronically signed on 02/25/2024 4:21:12 PM with status of Final
--- OUTSIDE RECORDS SUMMARY | 2024-02-25 15:13 | XMS_ITS ---
Author Organization [facility] Address [address] [place] [address] Care Team Providers Care Pharmacist Apprentice Name Role Phone Shiva Fierro MD Primary Care Provider Shannan Hyatt Unavailable [phone] REASON FOR VISIT Looking for a sooner apt Encounters Encounter Location Date Provider Diagnosis [facility] [address] [place] [address] 09/24/2023 Shannan Morales Plan Of Treatment No Information Progress Notes * Sixto GUOB:1940 (83 yo F)Acc No.[id number]:09/24/2023 Patient:?Celsa Guo :1940???Age:83 Y???Sex:Female Address:[address] [place] [address] * true * Date:? Generated for Eh jimenez/[facility]inai/eTransmitting on:?02/25/2024 03:12 PM EST
--- OUTSIDE RECORDS SUMMARY | 2024-02-25 15:13 | XMS_ITS ---
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 Medications Medication SIG (Take, Route, Frequency, Duration) Notes Start Date End Date Status Calcium 02/14/2023 Active Simvastatin 20 MG TAKE 1 TABLET BY PETE TH EVERY DAY Oral for 90 Days Active Furosemide 20 MG TAKE 1 TABLET BY PETE TH EVERY DAY Oral for 90 Days Active Alendronate Sodium 70 MG TAKE 1 TABLET B Y MOUTH ONE TIME PER WEEK Oral for 84 Days Active Levothyroxine Sodium 75 MCG Oral for 90 Days Active Atenolol 25 MG TAKE 1 TABLET BY PETE TH EVERY DAY Oral for 90 Days Active Social History Tobacco Use: Social History Observation Description Date Details (start date - stop date) Never Smoker NA - NA Tobacco Use/Smoking Question Answer Notes Are you a: nonsmoker Additional Findings: Tobacco Non-User Current no n-smoker Tobacco use other than smoking: Question Answer Notes Are you an other tobacco user? No Problems Problem Type SNOMED Code ICD Code Onset Dates Problem Status W/U Status Risk Notes Problem 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[place] arteries of extremities, bilateral legs (I70.203) Active confirmed Vital Signs Height 5 ft 3 in in 09/25/2023 Weight 129 lbs 09/25/2023 BMI 22.85 kg/m2 09/25/2023 Blood pressure systolic 136 mm Hg 09/25/19 24 Blood pressure diastolic 70 mm Hg 024 Procedures Procedure Date Ordered Date Performed Result Body Sit e 78446-JHPY SKIN LESIONS, 2 TO 4 09/25/2023 N/A Encounters Encounter Location Date Provider Diagnosis [facility] [place] [address] [place] [address] 09/25/2023 Pj Chowdary Tinea unguium B35.1 ; Pain in right toe(s) M79.674 ; Pain in left toe(s) M79.675 ; Ingrown nail L60.0 and 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[place] arteries of extremities, bilateral legs I70.203 Assessments Encounter Date Diagnosis (ICD Code) Assessment Notes Treatment Notes Treatment Clinical Notes Section Notes 09/25/2023 Tinea unguium (ICD-10 - B35.1) 09/25/2023 Pain in right toe(s) (ICD-10 - M79.674) 09/25/2023 Pain in left toe(s) (ICD-10 - M79.675) 09/25/2023 Ingrown nail (ICD-10 - L60.0) 09/25/2023 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[place] arteries of extremities, bilateral legs (ICD-10 - I70.203) Plan Of Treatment Pending Test Test Name Order Date 48317-WLLI SKIN LESIONS, 2 TO 4 09/25/19 24 Next Appt Details Follow Up: prn, Reason: Procedure Notes * Category Sub-Category Detail Notes Debride Nail 6-10 Nail debridement Nail debridem ent performed extensively to reduce/remove overall nail length and girth, subungual debris, and necrotic tissue, by manual and electrical means with use of a nail nipper and/or dremel, to more viable healthy nail plate or bed tissue 6-10. Silver nitrate used for any petechial bleeding as necessary. Patient chooses, no pharmaceutical tx (99294) Keratoma Treatment Parring or Cutting o f Benign Hyperkeratotic Lesion(s) 82770 ( 2-4 Lesions ) - The Benign hyperkeratotic lesions, as described above were pared, and/or cut utilizing a sterile 15 blade, tissue nippers, and/or dremel, Q8 Progress Notes * Aram GUO:1940 (83 yo F)Acc No.[id number]:09/25/2023 Progress Note Patient:?Celsa Guo Provider:?Pj Chowdary DPM :1940???Age:83 Y???Sex:Female D ate:09/25/2023 Address:[address] [place], [place] [address]Annette [facility] Pcp:Shiva Fierro MD Subjective: * Chief Complaints: * ???Pcp-08/04 Painful nail(s) aggrevated by shoes and causing difficulty standing/walking. * HPI: ???Painful Nails:?Pt States Last PCP Visit:?Date:?07/26/2023 ?Misc:?pt being seen weekly at [facility] for left leg ulcer.?Ingrown toenail:?Location:?Great toe , Right foot.?Duration:?worse since saturday--4 days.?Onset/Cause:?unknown.?Course:?intermittent, worse.?Aggravated by:?any pressure.?Treatments:?self treatment.? * ROS:?General/Constitutional:?Nausea?denies.?Vomiting?denies.?Hunger Thirst?denies.?Loss appetite?denies.?Chills?denies.?Fatigue?denies.?Fever?denies.?Night Sweats?denies.?Unexplained weight loss?denies.?Unexplained weight gain?denies.?HEENTM:?Dentures?denies.?Dizziness?denies.?Glasses/contacts?admits.?Retinopathy?de nies.?Blurred/double vision?denies.?TMJ?denies.?Discharge/drainage?denies.?Implants?denies.?Sore throat?denies.?Dental implants?denies.?Hard of hearing ?denies.?Difficulty chewing/swallowing/speaking?denies.?Nose bleeds?denies.?Sore mouth?denies.?Respiratory:?On Oxygen?denies.?Pneumonia/pleurisy?denies.?Bronchitis?denies.?Emphysema?denies.?C oughing?denies.?Cough blood?denies.?Shortness of breath?denies.?Wheezing?denies.?Cardiovascular:?Pacemaker?denies.?MVP?denies.?WPW?denies.?CHF?denies.?Heart attack?denies.?Septal defect?denies.?Rapid beat?denies.?Chest pain ?denies.?Atrial Fib.?denies.?Murmur/Palpitations?denies.?Gastrointestinal:?Hemorrhoids?denies.?Stomach/Abdominal pain?denies.?Dark blood stool?denies.?Irritable bowel ?denies.?Constipation?denies.?Diarrhea?denies.?Hematology:?Swelling?denies.?Clots?denies.?Varicose Veins?admits.?Bruising?denies.?Bleeding problem?denies.?Genitourinary:?Blood urine?denies.?Frequent/Painfu/urination/bladder control?denies.?Kidney stones?denies.?Infection (UTI)?denies.?Nephropathy?denies.?sex trans dis (STD)?denies.?Prostate?denies.?Musculoskeletal:?Hammertoes?denies.?Bunions?denies.?Back Pain?denies.?Muscle Cramps/ Resting?denies.?Muscle cramps / walking?denies.?Generalized aches and pains?admits.?Weakness?denies.?Integ.:?Douglas?denies.?Scars?denies.?Corns/calluses?denies.?Ingrown nails?admits.?Painful nails?denies.?Open Sores?denies.?Rashes?denies.?Neurologic:?Difficulty sleeping?denies.?Brain disorder?denies.?Numbness?denies.?Balance trouble?denies.?Confusion?denies.?Fainting/blackouts?denies.?Tingling?denies.?Tr emors?denies.? * Medical History:? * Surgical History:?broken wri st left hand 11/2021 * Hospitalization/Major Diagno stic Procedure:?Denies Past Hospitalization * Family History:?Mother: dece ased.?Father: .? * Social History:?Tobacco Use:?Tobacco Use/Smoking?Are you a:?nonsmoker ?Additional Findings: Tobacco Non-User?Current non-smoker ?Tobacco use other than smoking?Are you an other tobacco user??No ???Miscellaneous:?Caffeine: yes. ?Children: yes, 2. ?Marital status: . * Medications:?TakingLevothyro xine Sodium 75 MCG Tablet Oral Atenolol 25 MG Tablet TAKE 1 TABLET BY MOUTH EVERY DAY Oral Calcium Simvastatin 20 MG Tablet TAKE 1 TABLET BY MOUTH EVERY DAY Oral Furosemide 20 MG Tablet TAKE 1 TABLET BY MOUTH EVERY DAY Oral Alendronate Sodium 70 MG Tablet TAKE 1 TABLET BY MOUTH ONE TIME PER WEEK Oral Medication List reviewed and reconciled with the patientTaking Levothyroxine Sodium 75 MCG Tablet Oral Taking Atenolol 25 MG Tablet TAKE 1 TABLET BY MOUTH EVERY DAY Oral Taking Calcium Taking Simvastatin 20 MG Tablet TAKE 1 TABLET BY MOUTH EVERY DAY Oral Taking Furosemide 20 MG Tablet TAKE 1 TABLET BY MOUTH EVERY DAY Oral Taking Alendronate Sodium 70 MG Tablet TAKE 1 TABLET BY MOUTH ONE TIME PER WEEK Oral Medication List reviewed and reconciled with the patient * Allergies:?N.K.D.A.yes[Aller gies Verified] Objective: * Vitals:?Ht: 5 ft 3 in, Wt: 1 29, BMI: 22.85, Shoe size: 10W, BP: 136/70 mm Hg, Ht-cm: 160.02 cm, Wt-k.51 kg. * Examination: ???Nails: ?NAILS are:?Elongated, overgrown, dystrophic, lytic, greater than 3mm thick, discolored and friable with crumbly malodorous subungual debris, with pain on palpation , 1-5 B/L.?General Examination: ?GENERAL APPEARANCE:?Reveals a pleasant, alert, well-nourished, well- developed, well hydrated individual, who demonstrates proper attention to hygiene/body habitus, and is in no acute distress, Pt serves as own?historian for office visit today.?ORIENTED:?person, place, and time.?Neurological: ?SENSORY:?Neurological exam reveals intact sensorium, pain sensation normal, vibration sensation intact, pinprick sensation is normal in the lower extremities, Pt denies, anesthesia, burning, paresthesia, tingling, B/L.?DEEP TENDON REFLEXES:?Achilles, 2/4, B/L.?Vascular: ?DP PULSES:? 0/4, LEFT, 1/4, RIGHT.?PT PULSES:? 0/4, B/L.?HAIR GROWTH/TEXTURE/ELASTICITY/TURGOR:? decreased, B/L.?EDEMA:? 2/4, B/L, Foot, Ankle(s), Leg(s).?Dermatologic: ?SKIN FINDINGS:? Skin exam reveals Keratotic lesion(s) located at, Dorsal, T2, T3.?Orthopedic: ?MUSCLE STRENGTH:?5/5 all groups in a symmetrical fashion , B/L.?Ingrown Nail: ?INSPECTION:?Reveals nail incurvation, pain on palpation, groove hypertrophy , Lateral nail border , T5, Medial nail border, T5.? Assessment: * Assessment: 1.?Tinea unguium - B35.1 (Pr imary)?2.?Pain in right toe(s) - M79.674?3.?Pain in left toe(s) - M79.675?4.?Ingrown nail - L60.0, Chronic problem, Stable (1=3,2=4) 5.?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[place] arteries of extremities, bilateral legs - I70.203? Plan: * Treatment: * Procedures:?Debride Nail 6-10:?Nail debridement?Nail debridement performed extensively to reduce/remove overall nail length and girth, subungual debris, and necrotic tissue, by manual and electrical means with use of a nail nipper and/or dremel, to more viable healthy nail plate or bed tissue 6-10. Silver nitrate used for any petechial bleeding as necessary. Patient chooses, no pharmaceutical tx (97234).?Keratoma Treatment:?Parring or Cutting of Benign Hyperkeratotic Lesion(s)?94459 ( 2-4 Lesions ) - The Benign hyperkeratotic lesions, as described above were pared, and/or cut utilizing a sterile 15 blade, tissue nippers, and/or dremel, Q8.? * Procedure Codes:?94465 DEBRI DE NAIL, 6 OR MORE, Modifiers: XS 00172 TRIM SKIN LESIONS, 2 TO 4, Modifiers: Q8 * Preventive Medicine:? ??Counseling:?Discussion:?-13: Office or other outpatient visit for the evaluation and management of an established patient, which required a medically appropriate history and/or examination and LOW level of DECISION MAKING for: 1 STABLE ACUTE UNCOMPLICATED PROBLEM, 2 OR MORE MINOR PROBLEMS, OR 1 STABLE CHRONIC PROBLEM, THAT POSE(S) A LOW RISK FOR MORBIDITY/MORTALITY. The visit on the day of the encounter encompassed interpreting the data and educating the patient as to the nature of their condition, treatment options available according to their individual PMH, meds, allergies, and overall health/living conditions, as well as any potential risks or complications that may occur from a failure to adhere to, and participate in, the recommended course of therapy. The discussion included a complete verbal, and/or written explanation of the examination results, any x-rays taken, the proposed diagnosis, and outline of the treatment plan. A schedule for future care needs was also explained. The patient verbalized an understanding of the instructions at this time and agreed to be an active participant in their treatment. If the patient should think of any questions or concerns after the visit, I have encouraged the patient to call the office--pt to apply abx ointment t5 nail daily and call prn na.? * Follow Up:?prn * Images: * Sign off status: Completed true * Provider:?Pj Chowdary DPM Date:? 024 Generated for Eh jimenez/Sinai/eTransmitting on:?02/25/2024 03:12 PM EST History and Physical Notes * HPI (History of Present Illness) Category Sub-Category Detail Notes Category Not es Ingrown toenail Duration: worse since saturday--4 day s Location: Great toe , Right fo ot Treatments: self treatment Aggravated by: any pressure Onset/Cause: unknown Course: intermittent, worse Painful Nails Misc: pt being seen weekly at [facility] for left leg ulcer Pt States Last PCP Visit: Date:: 07/26/2023 Examination Category Sub-Category Detail Notes Category Not es Ingrown Nail INSPECTION: Reveals nail inc urvation, pain on palpation, groove hypertrophy , Lateral nail border , T5, Medial nail border, T5 Neurological SENSORY: Neurological exa m reveals intact sensorium, pain sensation normal, vibration sensation intact, pinprick sensation is normal in the lower extremities, Pt denies, anesthesia, burning, paresthesia, tingling, B/L DEEP TENDON REFLEXES: Achilles, 2/4, B/L Dermatologic SKIN FINDINGS: Skin exam reveal s Keratotic lesion(s) located at, Dorsal, T2, T3 Orthopedic MUSCLE STRENGTH: 5/5 all groups in a symm etrical fashion , B/L General Examination GENERAL APPEARANCE: Reveals a pleasant, alert, well- nourished, well-developed, well hydrated individual, who demonstrates proper attention to hygiene/body habitus, and is in no acute distress, Pt serves as own historian for office visit today ORIENTED: person, place, and t dena Vascular DP PULSES (B): 0/4, LEFT, 1/4, RIGHT PT PULSES (B): 0/4, B/L TROPHIC CONDITION-TEXTURE/EL ASTICITY/TURGOR/HAIR GROWTH (B): decreased, B/L EDEMA (C): 2/4, B/L, Foot, Ankl e(s), Leg(s) Nails NAILS are: Elongated, overg rown, dystrophic, lytic, greater than 3mm thick, discolored and friable with crumbly malodorous subungual debris, with pain on palpation , 1-5 B/L
--- OUTSIDE RECORDS SUMMARY | 2024-02-25 15:13 | XMS_ITS | Patient Health Record ---
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 Name Role Phone Shiva Fierro MD Primary Care Provider Shannan Hyatt Unavailable [phone] ChowdaryPj Unavailable [phone] Allergies No Known Allergies Reason For Referral No Information Medications Medication SIG (Take, Route, Frequency, Duration) Notes Start Date End Date Status Atenolol 25 MG TAKE 1 TABLET BY PETE TH EVERY DAY Oral for 90 Days Active Calcium 02/14/2023 Active Simvastatin 20 MG TAKE 1 TABLET BY PETE TH EVERY DAY Oral for 90 Days Active Furosemide 20 MG TAKE 1 TABLET BY PETE TH EVERY DAY Oral for 90 Days Active Alendronate Sodium 70 MG TAKE 1 TABLET B Y MOUTH ONE TIME PER WEEK Oral for 84 Days Active Levothyroxine Sodium 75 MCG Oral for 90 Days Active Social History Tobacco Use: Social History Observation Description Date Details (start date - stop date) Never Smoker NA - NA Tobacco Use/Smoking Question Answer Notes Are you a: nonsmoker Additional Findings: Tobacco Non-User Current no n-smoker Alcohol Screen Question Answer Notes Did you have a drink containing alcohol in the p ast year? No Points 0 Interpretation Negative Tobacco use other than smoking: Question Answer Notes Are you an other tobacco user? No Problems Problem Type SNOMED Code ICD Code Onset Dates Problem Status W/U Status Risk Notes Problem 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[place] arteries of extremities, bilateral legs (I70.203) Active confirmed Vital Signs Blood pressure diastolic 70 mm Hg 09/25/2023 Height 5 ft 3 in in 09/25/2023 Blood pressure systolic 136 mm Hg 09/25/2023 Weight 129 lbs 09/25/2023 BMI 22.85 kg/m2 09/25/2023 Procedures Procedure Date Ordered Date Performed Result Body Sit e 03289-UPTE SKIN LESIONS, 2 TO 4 09/25/2023 N/A Encounters Encounter Location Date Provider Diagnosis [address] [address] 03/20/2023 Shannan Morales Tinea unguium B35.1 ; Pain in right toe(s) M79.674 ; Pain in left toe(s) M79.675 and Ingrown nail L60.[address] [address] 09/25/2023 Pj Chowdary Tinea unguium B35.1 ; Pain in right toe(s) M79.674 ; Pain in left toe(s) M79.675 ; Ingrown nail L60.0 and 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[place] arteries of extremities, bilateral legs I70.[address] [address] 06/05/2023 Shannan Morales [address] [address] 09/24/2023 Shannan Morales Assessments Encounter Date Diagnosis (ICD Code) Assessment Notes Treatment Notes Treatment Clinical Notes Section Notes 03/20/2023 Tinea unguium (ICD-10 - B35.1) 03/20/2023 Pain in right toe(s) (ICD-10 - M79.674) 09/25/2023 Tinea unguium (ICD-10 - B35.1) 09/25/2023 Pain in right toe(s) (ICD-10 - M79.674) 03/20/2023 Pain in left toe(s) (ICD-10 - M79.675) 09/25/2023 Pain in left toe(s) (ICD-10 - M79.675) 03/20/2023 Ingrown nail (ICD-10 - L60.0) 09/25/2023 Ingrown nail (ICD-10 - L60.0) 09/25/2023 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[place] arteries of extremities, bilateral legs (ICD-10 - I70.203) Plan Of Treatment Pending Test Test Name Order Date 92672-GOEO SKIN LESIONS, 2 TO 4 09/25/19 24 Insurance Providers Payer Name Payer Address Payer Phone Subscriber Number Group Number Insured Name Patient Relationship to Insured Coverage Start Date Coverage End Date Medicare National [employer] [address] [place] [address] [id number] Celsa Rios Self - patient is the insured [employer] [address] [place] [address] [id number] Celsa Rios Self - patient is the insured Medical (General) History Medical History History ICD Code Arthritis Back,Hip,and Knee pain Broken bones Cataracts Heart disease High blood pressure Osteoporosis thyroid Joint implants/screws Surgical History Surgery Date(Month/Year) broken wrist left hand 11/2021
--- OUTSIDE RECORDS SUMMARY | 2024-02-25 15:13 | XMS_ITS ---
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 * Medical History:? Objective: * Vitals:? Assessment: Plan: * Treatment: * Images: * The named appointment provid er may or may not be the originator of this progress note, and it is not deemed complete until electronically signed by the appointment provider. Sign off status: Pending * Provider:?Shannan Morales DPM Date:? Generated for Eh jimenez/Sinai/eTransmitting on:?02/25/2024 03:12 PM EST
== END ==
LOC: HO.CARD 12:56
PROVIDERS: PCP Internal Medicine; Visit Provider Internal Medicine
DX: I35.0 Nonrheumatic aortic (valve) stenosis (principal)
CPT/HCPCS: 93306

== ENCOUNTER → 2024-02-25 13:01 | Outpatient (BNV) | payer MEDICARE, SELFPAY | PROVIDERS: PCP Internal Medicine; Visit Provider Internal Medicine | DX: I42.2 Other hypertrophic cardiomyopathy (principal); I35.2 Nonrheumatic aortic (valve) stenosis with insufficiency; I34.2 Nonrheumatic mitral (valve) stenosis; I34.1 Nonrheumatic mitral (valve) prolapse | CPT/HCPCS: 93306 ==

== ENCOUNTER 2024-02-26 14:26 | Outpatient (AMB) | payer MEDICARE, SELFPAY ==
[2024-02-26 14:28] VITALS: BP 196/64; PULSE 78
--- NOTE | 2024-02-26 14:28 | MHC.OFFVIS ---
Vital Signs 02/26/24 14:28 Height 5 ft 3 in BMI Reason not done Patient refused/unable BP 196/64 H Blood Pressure Location Rt brachial Position Sitting Pulse 78 Pulse Source Pulse Oximeter Intake Visit Reasons: 6m follow up Allergies No Known Allergies Allergy (Verified 06/26/23 10:34) Medication List - Last Reconciled 02/26/24 by Fabian Osullivan MD alendronate 70 mg PO PIÑA@0600 atenolol 25 mg PO DAILY calcium carbonate-vitamin D3 500 mg-10 mcg (400 unit) (Calcium 500 + D) 2 tabs PO DAILY doxycycline hyclate 100 mg PO BID furosemide 20 mg PO DAILY levothyroxine 75 mcg PO DAILY simvastatin 20 mg PO BEDTIME HPI Comments Details: Celsa returns for follow-up regarding aortic stenosis. Overall, she states she feels fine. No cardiac symptoms. Blood pressure is running high but she blames it on coming here. Apparently when the visiting nurse checks her blood pressure at home it is much lower. [facility] Medical History Essential hypertension Preop cardiovascular exam Chronic venous stasis dermatitis Closed fracture of left inferior pubic ramus Hypothyroidism Hyperlipidemia Diastolic dysfunction Non-rheumatic aortic stenosis Surgical History History of surgery on left wrist Family History Father No problems noted. Mother No problems noted. Social History Household Members: Spouse Housing: House Do you presently have visiting nurse or other home services: No Alcohol intake: never Patient Tobacco Use Status: Never used Tobacco e-Cigarette/Vaping Use: Never Used Current occupational status: retired Current occupation: right hand dominant Review of Systems Const Denies weakness ENT Denies dizziness Card Denies chest pain, Denies chest pain with activity, Denies syncope, Denies rapid heart rate, Denies pedal edema, Denies edema, Denies leg edema, Denies lightheadedness, Denies palpitations, Denies dyspnea, Denies dyspnea on exertion and Denies orthopnea Resp Denies cough, Denies dyspnea and Denies dyspnea on exertion GI Denies hematochezia and Denies change in stool character Musc Denies abnormal gait, Denies muscle cramps, Denies muscle weakness, Denies numbness, Denies radiating pain into limb and Denies tingling Neuro Denies abnormal gait, Denies dizziness, Denies syncope, Denies numbness, Denies tingling and Denies weakness Endo Denies palpitations Physical Exam Vital Signs: Last Vital Signs Pulse 78 02/26/24 14:28 BP 196/64 H 02/26/24 14:28 Const General: comfortable and no acute distress Orientation/consciousness: patient oriented x3 HEENT Other: Unremarkable Head: Yes normal to inspection Neck Neck: Yes normal visual inspection Chest Chest palpation & inspection: normal inspection of the chest Resp Auscultation: clear to auscultation bilaterally Cardio Palpation: normal PMI Heart sounds: S1 normal heart sound present, S2 normal heart sound present, no gallops, Murmur heart sound present systolic III/ and at the right sternal border and no rubs GI Palpation (GI): Soft to palpation Back/Spine/Pelvis Other: unremarkable Skin General skin exam: no rashes or lesions noted Neuro General: patient oriented x3 Extrem General: Yes normal to inspection Psych Mental Status: mental status grossly normal Assessment & Plan Assessment & Plan (1) Non-rheumatic aortic stenosis: Code(s): I35.0 - Nonrheumatic aortic (valve) stenosis Category: Medical Plan: In the recent echocardiogram, thought to be moderate to severe versus early severe aortic stenosis. Findings discussed with patient. Also discussed with son. Essentially patient states that she does not care anymore and she would rather . Not entirely clear if she means what she states. We will recheck in about 6 months' time. In the interim, advised her to contact us with any concerns like chest pain or shortness of breath. (2) Essential hypertension: Code(s): I10 - Essential (primary) hypertension Category: Medical Plan: Blood pressure is high. We checked this twice today and it is still high. Patient's son states that she received a script for amlodipine from her PCP but never opened it. I strongly advised him to start that and also get the visiting nurse to recheck the blood pressure next few days and contact us. Again patient states that she just does not care about her blood pressure or her life. Orders: Orders CA echo transthoracic complete 6 Months I35.0 - Nonrheumatic aortic (valve) stenosis Coding Level of Care Code Est Pt Level 4 (75844) Diagnoses Non-rheumatic aortic stenosis I35.0 Essential hypertension I10
--- OUTSIDE RECORDS SUMMARY | 2024-02-26 17:05 | XMS_ITS | Clinical Summary ---
Author Organization Unknown Care Team Providers Care Senior Sales Operations Manager Name Role Phone KAYLAN DUTTON, NAM Unavailable Unavailable RAJAN PT, ORI Unavailable Unavailable KAITLYN WHEEL ASSEMBLER, CHI Unavailable Unavailable SHAWN RN, NORBERTO Unavailable Unavailab ana HENRIQUEZ LPN, KOBE Unavailable Unavail able Payers Payer Name Policy Type Policy Number Effective Date Expira tion Date MEDICARE.NGS.PDGM [id number] Problems Condition Name Condition Details Condition Category Status Onset Date Resolution Date Last Treatment Date Treating Clinician Comments VENOUS INSUFFICIENC Y (CHRONIC) (PERIPHERAL) Active 08-20 00:00: 00 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 Active 2023-02 00:00: 00 CELLULITIS OF LEFT LOWER LIMB Active 2023-02 00:00: 00 HYPERTENSIVE CHRONIC KIDNEY DISEASE W STG 1-4/UNSP CHR KDNY Active 06-25 00:00: 00 CHRONIC KIDNEY DISEASE, STAGE 3A Active 06-25 00:00: 00 ANEMIA IN CHRONIC KIDNEY DISEASE Active 06-25 00:00: 00 NONRHEUMATIC AORTIC (VALVE) STENOSIS Active 06-25 00:00: 00 PURE HYPERCHOLEST EROLEMIA, UNSPECIFIED Active 06-25 00:00: 00 AGE-RELATED OSTEOPOROSIS W/O CURRENT PATHOLOGICAL FRACTURE Active 06-25 00:00: 00 CORRECTION (CURRENT) USE OF BISPHOSPHONA ISHA Active 06-26 00:00: 00 Allergies, Adverse Reactions, Alerts Allergy Name Allergy Type Status Severity Reaction(s) Onset Date Inactive Date Treating Clinician Comments NO KNOWN ALLERGIES Propensity to adverse reactions Active 06-26 07:52: 05 Medications Ordered Medication Name Filled Medication Name Start Date Stop Date Current Medication? Ordering Clinician Indication Dosage Frequency Signature (SIG) Comments Components doxycycline hyclate 100 mg capsule 06-23 00:00: 00 07-03 23:59 :00 No [id number] CELLULITIS LEFT LOWER LEG 1 capsule 2 TIMES DAILY 1 capsule 2 TIMES DAILY (route: oral) Med Classific ation: Anti-Infe ctive Agents simvastatin 20 mg tablet 06-21 00:00: 00 Yes [id number] HIGH CHOLESTEROL 1 tablet BEDTIME 1 tablet BEDTIME (route: oral) Med Classific ation: Cardiovas cular Therapy Agents meloxicam 7.5 mg tablet 17 00:00: 00 06-25 00:00 :00 No [id number] Per instruc tions EVERY DAY Per instructio ns EVERY DAY (route: oral) Med Classific ation: Analgesic , Anti-infl ammatory or Antipyret ic alendronate 70 mg tablet 06-25 00:00: 00 Yes [id number] OSTEOPOROSI S 1 tablet WEEKLY 1 tablet WEEKLY (route: oral) Med Classific ation: Endocrine atenolol 25 mg tablet 06-25 00:00: 00 Yes [id number] HIGH BLOOD PRESSURE 1 tablet DAILY 1 tablet DAILY (route: oral) Med Classific ation: Cardiovas cular Therapy Agents cefuroxime axetil 250 mg tablet 06-25 00:00: 00 08-20 23:59 :00 No [id number] INFECTION 1 tablet 2 TIMES DAILY 1 tablet 2 TIMES DAILY (route: oral) Med Classific ation: Anti-Infe ctive Agents furosemide 20 mg tablet 06-25 00:00: 00 Yes [id number] EDEMA/LEG SWELLING 1 tablet DAILY 1 tablet DAILY (route: oral) Med Classific ation: Cardiovas cular Therapy Agents levothyroxi ne 75 mcg tablet 06-25 00:00: 00 Yes [id number] LOW THYROID 1 tablet DAILY 1 tablet DAILY (route: oral) Med Classific ation: Endocrine doxycycline hyclate 100 mg capsule 14 00:00: 00 08-30 23:59 :00 No [id number] RIGHT LOWER LEG CELLULITUS 1 capsule 2 TIMES DAILY 1 capsule 2 TIMES DAILY (route: oral) Med Classific ation: Anti-Infe ctive Agents cefuroxime axetil 250 mg tablet 09-04 00:00: 00 09-14 23:59 :00 No [id number] wound infection 1 tablet 2 TIMES DAILY 1 tablet 2 TIMES DAILY (route: oral) Med Classific ation: Anti-Infe ctive Agents ammonium lactate 12 % lotion 2023-02 1- 00:00: 00 Yes [id number] WEEPING SKIN Per instruc tions 2 TIMES DAILY Per instructio ns 2 TIMES DAILY (route: topical) Med Classific ation: Dermatolo gical doxycycline hyclate 100 mg capsule 2023-02 2 00:00: 00 02-16 23:59 :00 No [id number] CELLULITIS 100 mg 2 TIMES DAILY 100 mg 2 TIMES DAILY (route: oral) Med Classific ation: Anti-Infe ctive Agents Vital Signs Vital Name Observation Time Observation Value Commen ts Temperature 2024-02-24 14:50:00.000 97.7 [degF] Pulse 2024-02-24 14:50:00.000 67 /min O2 Saturation (%) 2024-02-24 14:50:00.000 99 % Respirations 2024-02-24 14:50:00.000 16 /min Systolic Blood Pressure 2024-02-24 14:50:00.000 142 mm [Hg] Diastolic Blood Pressure 2024-02-24 14:50:00.000 68 mm [Hg] Plan of Treatment Planned Activity Planned Date Details Comments Future Scheduled Test RN TO OBSE RVE, ASSESS, EVALUATE, AND DEVELOP AN INDIVIDUALIZED PLAN OF CARE. AGENCY MAY ACCEPT ORDERS FROM CONSULTING PHYSICIANS . RN TO OBSERVE AND ASSESS, EDGE TRIMMING MACHINE OPERATOR/PLANT AND MAINTENANCE TECHNICIAN TO OBSERVE FOR RISK FOR FALLS AND INSTRUCT IN FALL PREVENTION, HOME SAFETY, MEDICATION MANAGEMENT, INFECTION PREVENTION, AND NUTRITION MANAGEMENT. RN/EDGE TRIMMING MACHINE OPERATOR/PLANT AND MAINTENANCE TECHNICIAN NURSE MAY PERFORM O2 SATURATION LEVEL ON ADMISSION AND PRN FOR RN TO ASSESS/EDGE TRIMMING MACHINE OPERATOR TO OBSERVE PATIENT, WITH NOTIFICATION TO THE PHYSICIAN IF SATURATION IS 90% IN THE ABSENCE OF MORE SPECIFIC PARAMETERS FROM THE PHYSICIAN. AGENCY MAY PERFORM A RESUMPTION OF CARE VISIT FOLLOWING ANY HOSPITAL ADMISSION. RN/EDGE TRIMMING MACHINE OPERATOR/PLANT AND MAINTENANCE TECHNICIAN TO MONITOR CO-MORBID CONDITIONS LISTED ON THE PLAN OF CARE AND ANY NEW CONDITIONS THAT PRESENT THEMSELVES DURING THIS EPISODE TO IDENTIFY CHANGES AND INTERVENE TO MINIMIZE COMPLICATIONS. [code = RN TO OBSERVE, ASSESS, EVALUATE, AND DEVELOP AN INDIVIDUALIZED PLAN OF CARE. AGENCY MAY ACCEPT ORDERS FROM CONSULTING PHYSICIANS . RN TO OBSERVE AND ASSESS, EDGE TRIMMING MACHINE OPERATOR/PLANT AND MAINTENANCE TECHNICIAN TO OBSERVE FOR RISK FOR FALLS AND INSTRUCT IN FALL PREVENTION, HOME SAFETY, MEDICATION MANAGEMENT, INFECTION PREVENTION, AND NUTRITION MANAGEMENT. RN/EDGE TRIMMING MACHINE OPERATOR/PLANT AND MAINTENANCE TECHNICIAN NURSE MAY PERFORM O2 SATURATION LEVEL ON ADMISSION AND PRN FOR RN TO ASSESS/EDGE TRIMMING MACHINE OPERATOR TO OBSERVE PATIENT, WITH NOTIFICATION TO THE PHYSICIAN IF SATURATION IS 90% IN THE ABSENCE OF MORE SPECIFIC PARAMETERS FROM THE PHYSICIAN. AGENCY MAY PERFORM A RESUMPTION OF CARE VISIT FOLLOWING ANY HOSPITAL ADMISSION. RN/EDGE TRIMMING MACHINE OPERATOR/PLANT AND MAINTENANCE TECHNICIAN TO MONITOR CO-MORBID CONDITIONS LISTED ON THE PLAN OF CARE AND ANY NEW CONDITIONS THAT PRESENT THEMSELVES DURING THIS EPISODE TO IDENTIFY CHANGES AND INTERVENE TO MINIMIZE COMPLICATIONS.] Future Scheduled Test RISK FOR H OSPITALIZATION; RN TO ASSESS/TEACH, PLANT AND MAINTENANCE TECHNICIAN/EDGE TRIMMING MACHINE OPERATOR TO OBSERVE/TEACH PATIENT/CAREGIVER ON RISK FOR HOSPITALIZATION/EMERGENCY ROOM VISITS, TEACH SIGNS AND SYMPTOMS THAT PUT PATIENT AT RISK, WHEN TO NOTIFY NURSE/PHYSICIAN OF COMPLICATIONS/DECLINE, AND WHEN TO CALL 911. [code = RISK FOR HOSPITALIZATION; RN TO ASSESS/TEACH, PLANT AND MAINTENANCE TECHNICIAN/EDGE TRIMMING MACHINE OPERATOR TO OBSERVE/TEACH PATIENT/CAREGIVER ON RISK FOR HOSPITALIZATION/EMERGENCY ROOM VISITS, TEACH SIGNS AND SYMPTOMS THAT PUT PATIENT AT RISK, WHEN TO NOTIFY NURSE/PHYSICIAN OF COMPLICATIONS/DECLINE, AND WHEN TO CALL 911.] Future Scheduled Test MEDICATION MANAGEMENT; RN/EDGE TRIMMING MACHINE OPERATOR/PLANT AND MAINTENANCE TECHNICIAN TO REVIEW MEDICATIONS FOR INTERACTIONS, EFFECTIVENESS OF DRUG THERAPY, AND SIGNS/SYMPTOMS OF ADVERSE REACTIONS. MAY INSTRUCT AND REINFORCE MEDICATION TEACHING RELATED TO THE USE OF MEDICATIONS, DOSAGE, FREQUENCY, PURPOSE, SIDE EFFECTS, AND TO REPORT COMPLICATIONS. [code = MEDICATION MANAGEMENT; RN/EDGE TRIMMING MACHINE OPERATOR/PLANT AND MAINTENANCE TECHNICIAN TO REVIEW MEDICATIONS FOR INTERACTIONS, EFFECTIVENESS OF DRUG THERAPY, AND SIGNS/SYMPTOMS OF ADVERSE REACTIONS. MAY INSTRUCT AND REINFORCE MEDICATION TEACHING RELATED TO THE USE OF MEDICATIONS, DOSAGE, FREQUENCY, PURPOSE, SIDE EFFECTS, AND TO REPORT COMPLICATIONS.] Future Scheduled Test CARDIOVASC ULAR SYSTEM; RN TO ASSESS/TEACH, EDGE TRIMMING MACHINE OPERATOR/PLANT AND MAINTENANCE TECHNICIAN TO OBSERVE/TEACH RELATED TO ALTERED CARDIOVASCULAR STATUS TO MINIMIZE COMPLICATIONS AND REDUCE HOSPITALIZATION. [code = CARDIOVASCULAR SYSTEM; RN TO ASSESS/TEACH, EDGE TRIMMING MACHINE OPERATOR/PLANT AND MAINTENANCE TECHNICIAN TO OBSERVE/TEACH RELATED TO ALTERED CARDIOVASCULAR STATUS TO MINIMIZE COMPLICATIONS AND REDUCE HOSPITALIZATION.] Future Scheduled Test HYPERTENSI ON MANAGEMENT; RN TO ASSESS AND TEACH, EDGE TRIMMING MACHINE OPERATOR/PLANT AND MAINTENANCE TECHNICIAN TO OBSERVE AND TEACH WARNING SIGNS AND SYMPTOMS TO AVOID HOSPITALIZATION. [code = HYPERTENSION MANAGEMENT; RN TO ASSESS AND TEACH, EDGE TRIMMING MACHINE OPERATOR/PLANT AND MAINTENANCE TECHNICIAN TO OBSERVE AND TEACH WARNING SIGNS AND SYMPTOMS TO AVOID HOSPITALIZATION.] Future Scheduled Test SKIN INTEG RITY RN TO ASSESS AND TEACH, EDGE TRIMMING MACHINE OPERATOR/PLANT AND MAINTENANCE TECHNICIAN TO OBSERVE AND TEACH INTEGUMENTARY STATUS TO IDENTIFY CHANGES AND INTERVENE TO MINIMIZE COMPLICATIONS. PROVIDE SKILLED TEACHING OF GENERAL WOUND AND SKIN CARE AND PREVENTION RELATED TO ACTUAL ALTERED SKIN INTEGRITY [code = SKIN INTEGRITY RN TO ASSESS AND TEACH, EDGE TRIMMING MACHINE OPERATOR/PLANT AND MAINTENANCE TECHNICIAN TO OBSERVE AND TEACH INTEGUMENTARY STATUS TO IDENTIFY CHANGES AND INTERVENE TO MINIMIZE COMPLICATIONS. PROVIDE SKILLED TEACHING OF GENERAL WOUND AND SKIN CARE AND PREVENTION RELATED TO ACTUAL ALTERED SKIN INTEGRITY ] Future Scheduled Test RN TO ASSE SS, EDGE TRIMMING MACHINE OPERATOR/PLANT AND MAINTENANCE TECHNICIAN TO OBSERVE LOWER EXTREMITY VENOUS STASIS ULCER(S) AND INTERVENE TO MINIMIZE COMPLICATIONS. PROVIDE SKILLED TEACHING TO PATIENT/CAREGIVER RELATED TO ALTERED SKIN INTEGRITY. REPORT SIGNIFICANT CHANGES IN STATUS TO PHYSICIAN FOR EARLY INTERVENTION [code = RN TO ASSESS, EDGE TRIMMING MACHINE OPERATOR/PLANT AND MAINTENANCE TECHNICIAN TO OBSERVE LOWER EXTREMITY VENOUS STASIS ULCER(S) AND INTERVENE TO MINIMIZE COMPLICATIONS. PROVIDE SKILLED TEACHING TO PATIENT/CAREGIVER RELATED TO ALTERED SKIN INTEGRITY. REPORT SIGNIFICANT CHANGES IN STATUS TO PHYSICIAN FOR EARLY INTERVENTION] Future Scheduled Test RN TO ASSE SS AND TEACH, EDGE TRIMMING MACHINE OPERATOR/PLANT AND MAINTENANCE TECHNICIAN TO OBSERVE AND TEACH, TREAT AND EDUCATE ON CELLULITIS SIGNS, SYMPTOMS, AND SELF-CARE MANAGEMENT. [code = RN TO ASSESS AND TEACH, EDGE TRIMMING MACHINE OPERATOR/PLANT AND MAINTENANCE TECHNICIAN TO OBSERVE AND TEACH, TREAT AND EDUCATE ON CELLULITIS SIGNS, SYMPTOMS, AND SELF-CARE MANAGEMENT.] Future Scheduled Test RN/EDGE TRIMMING MACHINE OPERATOR/PLANT AND MAINTENANCE TECHNICIAN TO PERFORM/TEACH VENOUS STASIS ULCER CARE TO LEFT LOWER LEG AREA: CLEANSE WITH NORMAL SALINE, APPLY XEROFORM, COVER WITH ACEWRAP CHANGE DRESSING 3X WEEKLY AND PRN FOR SOILAGE OR DISPLACEMENT SON/DAUGHTER TO PERFORM DRESSING CHANGE IN NURSING ABSENCE RN/EDGE TRIMMING MACHINE OPERATOR/PLANT AND MAINTENANCE TECHNICIAN TO PERFORM/TEACH VENOUS STASIS ULCER CARE TO RIGHT ANKLE AND FOOT AREA: CLEANSE WITH NORMAL SALINE, APPLY XEROFORM, COVER WITH DONALD WRAP CHANGE DRESSING 3X WEEKLY AND PRN FOR SOILAGE OR DISPLACEMENT SON/DAUGHTER TO PERFORM DRESSING CHANGE IN NURSING ABSENCE [code = RN/EDGE TRIMMING MACHINE OPERATOR/PLANT AND MAINTENANCE TECHNICIAN TO PERFORM/TEACH VENOUS STASIS ULCER CARE TO LEFT LOWER LEG AREA: CLEANSE WITH NORMAL SALINE, APPLY XEROFORM, COVER WITH ACEWRAP CHANGE DRESSING 3X WEEKLY AND PRN FOR SOILAGE OR DISPLACEMENT SON/DAUGHTER TO PERFORM DRESSING CHANGE IN NURSING ABSENCE RN/EDGE TRIMMING MACHINE OPERATOR/PLANT AND MAINTENANCE TECHNICIAN TO PERFORM/TEACH VENOUS STASIS ULCER CARE TO RIGHT ANKLE AND FOOT AREA: CLEANSE WITH NORMAL SALINE, APPLY XEROFORM, COVER WITH DONALD WRAP CHANGE DRESSING 3X WEEKLY AND PRN FOR SOILAGE OR DISPLACEMENT SON/DAUGHTER TO PERFORM DRESSING CHANGE IN NURSING ABSENCE] Future Scheduled Test PAIN MANAG EMENT; RN TO ASSESS AND TEACH, PLANT AND MAINTENANCE TECHNICIAN/EDGE TRIMMING MACHINE OPERATOR TO OBSERVE AND TEACH AND PROVIDE EDUCATION ON PAIN MANAGEMENT TECHNIQUES. [code = PAIN MANAGEMENT; RN TO ASSESS AND TEACH, PLANT AND MAINTENANCE TECHNICIAN/EDGE TRIMMING MACHINE OPERATOR TO OBSERVE AND TEACH AND PROVIDE EDUCATION ON PAIN MANAGEMENT TECHNIQUES.] Future Scheduled Test GENITOURIN VICTOR M MANAGEMENT; RN TO ASSESS AND TEACH, EDGE TRIMMING MACHINE OPERATOR/PLANT AND MAINTENANCE TECHNICIAN TO OBSERVE AND TEACH RELATED TO ALTERED GENITOURINARY STATUS TO MINIMIZE COMPLICATIONS AND REDUCE HOSPITALIZATION. [code = GENITOURINARY MANAGEMENT; RN TO ASSESS AND TEACH, EDGE TRIMMING MACHINE OPERATOR/PLANT AND MAINTENANCE TECHNICIAN TO OBSERVE AND TEACH RELATED TO ALTERED GENITOURINARY STATUS TO MINIMIZE COMPLICATIONS AND REDUCE HOSPITALIZATION.] Future Scheduled Test URINARY IN CONTINENCE MANAGEMENT; RN TO ASSESS AND TEACH, EDGE TRIMMING MACHINE OPERATOR/LVNTO OBSERVE AND TEACH MANAGEMENT OF URINARY INCONTINENCE. TEACH/INSTRUCT ON PREVENTING INFECTION AND SKIN BREAKDOWN. RN/EDGE TRIMMING MACHINE OPERATOR/PLANT AND MAINTENANCE TECHNICIAN MAY INSTRUCT IN BLADDER TRAINING PROGRAM INDICATED. [code = URINARY INCONTINENCE MANAGEMENT; RN TO ASSESS AND TEACH, EDGE TRIMMING MACHINE OPERATOR/LVNTO OBSERVE AND TEACH MANAGEMENT OF URINARY INCONTINENCE. TEACH/INSTRUCT ON PREVENTING INFECTION AND SKIN BREAKDOWN. RN/EDGE TRIMMING MACHINE OPERATOR/PLANT AND MAINTENANCE TECHNICIAN MAY INSTRUCT IN BLADDER TRAINING PROGRAM INDICATED.] Future Scheduled Test FALL REDUC TION MANAGEMENT; RN TO ASSESS AND OBSERVE, EDGE TRIMMING MACHINE OPERATOR/PLANT AND MAINTENANCE TECHNICIAN TO OBSERVE FALL RISK FACTORS AND EDUCATE PATIENT/CAREGIVER ON STRATEGIES TO MINIMIZE THE RISK OF FALLING. [code = FALL REDUCTION MANAGEMENT; RN TO ASSESS AND OBSERVE, EDGE TRIMMING MACHINE OPERATOR/PLANT AND MAINTENANCE TECHNICIAN TO OBSERVE FALL RISK FACTORS AND EDUCATE PATIENT/CAREGIVER ON STRATEGIES TO MINIMIZE THE RISK OF FALLING.] Goal 2023-12-19 Patient Goal - HEAL MY LEG Goal 2023-08-21 Patient Goal - HEAL MY LEG Goal 2023-10-21 Patient Goal - HEAL MY LEG Goal 2024-02-20 Patient Goal - HEAL MY LEG Goal Patient Goal - HEAL MY LEG Goal Provider Goal - A PLAN OF CARE WILL BE ESTABLISHED THAT MEETS THE PATIENTS NEEDS. PATIENT WILL DEMONSTRATE OXYGEN SATURATION WITHIN NORMAL LIMITS OR PATIENTS OPTIMAL LEVEL ESTABLISHED BY THE PHYSICIAN THROUGHOUT CARE. CHANGES TO CO-MORBID CONDITIONS AND ANY NEW CONDITIONS WILL BE IDENTIFIED AND REPORTED TO THE PHYSICIAN. Goal Provider Goal - PATIENT/CAREGIVER WILL VERBALIZE UNDERSTANDING OF SIGNS AND SYMPTOMS THAT PUT THE PATIENT AT RISK FOR HOSPITALIZATION /EMERGENCY ROOM VISITS, WHEN TO NOTIFY NURSE/PHYSICIAN OF COMPLICATIONS/DECLINE AND WHEN TO CALL 911. Goal Provider Goal - PATIENT/CAREGIVER TO VERBALIZE, AND CONSISTENTLY DEMONSTRATE EFFECTIVE, SAFE MANAGEMENT OF MEDICATION INCLUDING KNOWLEDGE OF EFFECTIVENESS, POTENTIAL SIDE EFFECTS AND DRUG REACTIONS AND WHEN TO CONTACT THE APPROPRIATE CARE PROVIDER. PATIENT/CAREGIVER WILL BE ABLE TO VERBALIZE UNDERSTANDING OF MEDICATION REGIMEN AND ACCURATELY TAKE MEDICATIONS PRESCRIBED WITHOUT ADVERSE EFFECTS BY EOE Goal Provider Goal - PATIENT / CAREGIVER WILL VERBALIZE/DEMONSTRATE UNDERSTANDING OF MEASURES TO MANAGE ALTERED CARDIOVASCULAR STATUS BY EOE Goal Provider Goal - PATIENT / CAREGIVER WILL VERBALIZE/DEMONSTRATE AN ABILITY TO ADHERE TO SELF-MANAGEMENT OF HTN TO MINIMIZE COMPLICATIONS AND AVOID HOSPITALIZATION BY END OF EPISODE. Goal Provider Goal - CHANGES IN SKIN INTEGRITY STATUS WILL BE IDENTIFIED AND REPORTED TO THE PHYSICIAN FOR PROMPT INTERVENTION. PATIENT / CAREGIVER WILL VERBALIZE/DEMONSTRATE ADEQUATE KNOWLEDGE OF INTEGUMENTARY STATUS AND APPROPRIATE MEASURES TO PROMOTE SKIN INTEGRITY AND PREVENT INJURY BY EOE Goal Provider Goal - CHANGES IN SKIN INTEGRITY STATUS WILL BE IDENTIFIED AND REPORTED TO THE PHYSICIAN FOR PROMPT INTERVENTION. PATIENT / CAREGIVER WILL VERBALIZE/DEMONSTRATE ADEQUATE KNOWLEDGE OF INTEGUMENTARY STATUS AND APPROPRIATE MEASURES TO PROMOTE SKIN INTEGRITY AND PREVENT INJURY BY EOE Goal Provider Goal - PATIENT/ CAREGIVER WILL BE ABLE TO VERBALIZE/DEMONSTRATE CARE TO MANAGE AND RESOLVE CELLULITIS TO MINIMIZE COMPLICATIONS AND AVOID HOSPITALIZATION BY THE END OF EPISODE. Goal Provider Goal - PATIENT / CAREGIVER WILL VERBALIZE UNDERSTANDING OF VENOUS STASIS ULCER INCLUDING BUT NOT LIMITED TO DEFINITION, SIGNS AND SYMPTOMS OF COMPLICATIONS AND PRESCRIBED TREATMENT REGIME BY EOE Goal Provider Goal - PATIENT / CAREGIVER WILL VERBALIZE / DEMONSTRATE UNDERSTANDING OF PAIN CONTROL MEASURES BY EOE Goal Provider Goal - PATIENT / CAREGIVER WILL VERBALIZE/DEMONSTRATE UNDERSTANDING OF MEASURES TO MANAGE ALTERED GENITOURINARY STATUS BY END OF EPISODE. Goal Provider Goal - PATIENT/CAREGIVER WILL VERBALIZE/DEMONSTRATE UNDERSTANDING OF CARE AND MANAGEMENT OF URINARY INCONTINENCE BY EOE . Goal Provider Goal - PATIENT/CAREGIVER WILL VERBALIZE/DEMONSTRATE UNDERSTANDING OF FALL RISK FACTORS AND IMPLEMENT STRATEGIES TO MINIMIZE FALL RISK. PATIENT/CAREGIVER WILL VERBALIZE/DEMONSTRATE AN ABILITY TO ADHERE TO FALL REDUCTION SELF-MANAGEMENT AND LIFE-STYLE CHANGES BY EOE Encounters Start Date/Time End Date/Time Encounter Type Admission Type Attending [facility] Facility Care Department Encounter ID Discharge Date Discharge Status Discharge Condition Discharge Reason Percent Goals Met 2023-06-26 00:00:00 2024-04-20 00:00:00 Outpatient [facility]ERTIFIC [facility] [id number]
== END 2024-02-26 14:56 | disposition home or self-care (01) ==
PROVIDERS: PCP Internal Medicine; Visit Provider Internal Medicine
DX: I35.0 Nonrheumatic aortic (valve) stenosis (principal); I10 Essential (primary) hypertension
CPT/HCPCS: 99214

== ENCOUNTER → 2024-02-26 14:26 | Outpatient (BNVA) | payer MEDICARE, SELFPAY | PROVIDERS: PCP Internal Medicine; Visit Provider Internal Medicine | DX: I35.0 Nonrheumatic aortic (valve) stenosis (principal); I10 Essential (primary) hypertension | CPT/HCPCS: 99212 ==

== ENCOUNTER 2024-04-22 12:56 | Outpatient (AMB) | payer MEDICARE, SELFPAY ==
[2024-04-22 12:57] VITALS: BP 122/80; PULSE 68; RESP 18; TEMP 36.1; O2SAT 95; BMI 21.4
--- NOTE | 2024-04-22 12:57 | MHC.PC.OV ---
Vital Signs 04/22/24 12:57 Height 5 ft 3 in Weight 121 lb BMI 21.4 BP 122/80 Respiration 18 Pulse 68 Pulse Source Pulse Oximeter Temp 97.0 F Temp Source Temporal Artery Scan Pulse Oximetry (%) 95 Oxygen Delivery Method Room Air Intake Visit Reasons: Routine Obstetrics And Gynecology Professor Required: No Accompanied by: Son Allergies No Known Allergies Allergy (Verified 04/22/24 13:04) Tobacco use date assessed: 04/22/24 Fall risk assessment: No Falls in past year Last assessed Fall Risk: 04/22/24 Dental Screening Dental Screen Date: 04/22/24 Did you have a dental visit in the last 12 months?: Yes Did you have a dental problem in the last 6 months where you did not have access to dental care?: No [facility] Medical History (Updated 04/22/24 @ 13:07 by Wes Navas MD) Chronic kidney disease Essential hypertension Preop cardiovascular exam Chronic venous stasis dermatitis Closed fracture of left inferior pubic ramus Hypothyroidism Hyperlipidemia Diastolic dysfunction Non-rheumatic aortic stenosis Surgical History History of surgery on left wrist Family History Father No problems noted. Mother No problems noted. Social History Household Members: Spouse Housing: House Do you presently have visiting nurse or other home services: No Alcohol intake: never Patient Tobacco Use Status: Never used Tobacco e-Cigarette/Vaping Use: Never Used Current occupational status: retired Current occupation: right hand dominant Cognitive needs: Yes (walker) Hearing needs: No Vision needs: Yes (reading glasses) Questionnaire PHQ-9 Over the last 2 weeks, how often have you been bothered by any of the following problems? 1. Little interest or pleasure in doing things: not at all 2. Feeling down, depressed, or hopeless: not at all 3. Trouble falling or staying asleep, or sleeping too much: not at all 4. Feeling tired or having little energy: not at all 5. Poor appetite or overeating: not at all 6. Feeling bad about yourself - or that you are a failure or have let yourself or your family down: not at all 7. Trouble concentrating on things, such as reading the newspaper or watching television: not at all 8. Moving or speaking so slowly that other people could have noticed. Or the opposite - being so fidgety or restless that you have been moving around a lot more than usual: not at all 9. Thoughts that you would be better off or of hurting yourself in some way: not at all Total score: 0 Source: Developed by Drs. Irving Shipman, Ping Tay, Christoph Peters and colleagues, with an educational tobi from [employer]. Thrive Questionnaire Date Thrive assessed: 04/22/24 I am a: Patient What is your living situation today?: I have a steady place to live Within the past 12 months, did the food you bought not last and you didn't have the money to get more?: Never true Within the past 12 months, did you worry whether your food would run out before you got money to buy more?: Never true Do you have trouble paying for medicines?: No Do you have trouble getting transportation to medical appointments?: No Do you have trouble paying your heating and electricity bill?: No Do you have trouble taking care of your child, family member or friend?: No Do you have trouble with day-to-day activities such as bathing, preparing meals, shopping, managing finances, etc.?: No Are you currently unemployed and looking for a job?: No Are you interested in more education?: No THRIVE Score: 0 AUDIT C Alcohol Use Questionnaire (AUDIT-C) 1. How often do you have a drink containing alcohol?: Never 3. How often do you have six or more drinks on one occasion?: Never Total Score: 0 ROSE-7 AMB Questionnaire ROSE-7 Date ROSE - 7 assessed: 04/22/24 Feeling nervous, anxious, or on edge: 0 = Not at all Not being able to stop or control worryin = Not at all Worrying too much about different things: 0 = Not at all Trouble relaxin = Not at all Being so restless that it is hard to sit still: 0 = Not at all Becoming easily annoyed or irritable: 0 = Not at all Feeling afraid as if something awful might happen: 0 = Not at all Total ROSE-7 score (0-4 normal; 5-9 mild; 10-14 moderate; 15-21 severe): 0 Source: Developed by Drs. Irving Shipman, Ping Tay, Christoph Peters and colleagues, with an educational tobi from [employer]. Physical exam (Primary Care) Vital Signs: Last Vital Signs Temp 97.0 F 04/22/24 12:57 Pulse 68 04/22/24 12:57 Resp 18 04/22/24 12:57 BP 122/80 04/22/24 12:57 Pulse Ox 95 04/22/24 12:57 Oxygen Delivery Method Room Air 04/22/24 12:57 BMI result Body Mass Index 21.4 Tobacco/Smoking Status: Tobacco use Status Tobacco use date assessed 04/22/24 04/22/24 13:06 Patient Tobacco Use Status Never used Tobacco 04/22/24 13:06 e-Cigarette/Vaping Use Never Used 04/22/24 13:06 PHQ-9: PHQ-9 Score PHQ-9: Total score 0 04/22/24 13:06 Thrive Assessment: Date of Thrive Assessment Date Thrive assessed 04/22/24 04/22/24 13:06 Coding Level of Care Code New Pt Level 4 (31079) Complex EM visit Add On G2211 Diagnoses Essential hypertension I10 Hypothyroidism E03.9 Chronic kidney disease N18.9 Non-rheumatic aortic stenosis I35.0 Cellulitis of left leg L03.116 Assessment & Plan Assessment & Plan (1) Essential hypertension: Code(s): I10 - Essential (primary) hypertension Category: Medical Plan: BP is in range. Continue medications at same dosage. (2) Hypothyroidism: Code(s): E03.9 - Hypothyroidism, unspecified Category: Medical Plan: TSH is elevated. Son could not tell me if Synthroid dosage was adjusted (3) Chronic kidney disease: Code(s): N18.9 - Chronic kidney disease, unspecified Category: Medical Plan: Rpt BUN/ CR (4) Non-rheumatic aortic stenosis: Code(s): I35.0 - Nonrheumatic aortic (valve) stenosis Category: Medical Plan: Condition is stable. She is being considered for TAVR (5) Cellulitis of left leg: Code(s): L03.116 - Cellulitis of left lower limb Category: Surgical Plan: Antibiotic called in. Doxycycline was discontinued and switched to cephalexin. Orders: Orders Basic Metabolic Panel Today E03.9 - Hypothyroidism, unspecified, I10 - Essential (primary) hypertension, N18.9 - Chronic kidney disease, unspecified Complete Blood Count no Diff Today E03.9 - Hypothyroidism, unspecified, I10 - Essential (primary) hypertension, N18.9 - Chronic kidney disease, unspecified Lipid Panel Today E03.9 - Hypothyroidism, unspecified, I10 - Essential (primary) hypertension, N18.9 - Chronic kidney disease, unspecified Liver Panel Today E03.9 - Hypothyroidism, unspecified, I10 - Essential (primary) hypertension, N18.9 - Chronic kidney disease, unspecified Thyroid Stimulating Hormone Today E03.9 - Hypothyroidism, unspecified, I10 - Essential (primary) hypertension, N18.9 - Chronic kidney disease, unspecified UA and rflx microscopic Today E03.9 - Hypothyroidism, unspecified, I10 - Essential (primary) hypertension, N18.9 - Chronic kidney disease, unspecified Medications: New cephalexin 250 mg PO BID 30 caps 0RF
--- OUTSIDE RECORDS SUMMARY | 2024-04-22 15:04 | XMS_ITS | Patient Health Record ---
[facility] Address [address] [place] [address] Care Team Providers Care Draw Off Worker Name Role Phone Shiva Fierro MD Primary Care Provider Shannan Hyatt Unavailable [phone] Pj Chowdary Unavailable [phone] Allergies No Known Allergies Reason For Referral [...] Problem Status W/U Status Risk Notes Problem Bilateral atherosclerosis of arteries of lower limbs (disorder) ([id number] ) 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[place] arteries of extremities, bilateral legs (I70.203) Active confirmed Vital Signs Blood pressure diastolic 70 mm Hg 09/25/2023 Height 5 ft 3 in in 09/25/2023 Blood pressure systolic 136 mm Hg 09/25/2023 Weight 129 lbs 09/25/2023 BMI 22.85 kg/m2 09/25/2023 Procedures Procedure Date Ordered Date Performed Result Body Sit e 30475-HZAF SKIN LESIONS, 2 TO 4 09/25/2023 N/A Encounters Encounter Location Date Provider Diagnosis [facility] [address] [place] [address] 09/25/2023 Pj Chowdary Tinea unguium B35.1 ; Pain in right toe(s) M79.674 ; Pain in left toe(s) M79.675 ; Ingrown nail L60.0 and 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[place] arteries of extremities, bilateral legs I70.[address] [facility] [address] 06/05/2023 Shannan Morales [facility] [address] 09/24/2023 Shannan Morales Assessments Encounter Date Diagnosis (ICD Code) Assessment Notes Treatment Notes Treatment Clinical Notes Section Notes 09/25/2023 Tinea unguium (ICD-10 - B35.1) 09/25/2023 Pain in right toe(s) (ICD-10 - M79.674) 09/25/2023 Pain in left toe(s) (ICD-10 - M79.675) 09/25/2023 Ingrown nail (ICD-10 - L60.0) 09/25/2023 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[place] arteries of extremities, bilateral legs (ICD-10 - I70.203) Plan Of Treatment Pending Test Test Name Order Date 41629-NJRD SKIN LESIONS, 2 TO 4 09/25/19 Next Appt Details Provider Name:Shannan myers, 05/05/2024 03:30:00 PM, [address] [place], [address], Insurance Providers Payer Name Payer Address Payer Phone Subscriber Number Group Number Insured Name Patient Relationship to Insured Coverage Start Date Coverage End Date Medicare [employer] [address] [facility] [address] [id number] Celsa Rios Self - patient is the insured [employer] [facility] [address] [place] [address] [id number] Celsa Rios Self - patient is the insured Medical (General) History Medical History History ICD Code Arthritis Back,Hip,and Knee pain Broken bones Cataracts Heart disease High blood pressure Osteoporosis thyroid Joint implants/screws Surgical History Surgery Date(Month/Year) broken wrist left hand 11/2021
--- OUTSIDE RECORDS SUMMARY | 2024-04-22 15:04 | XMS_ITS | Clinical Summary ---
Author Organization Unknown Care Team Providers Care Wildlife Control Agent Name Role Phone KAYLAN DUTTON, NAM Unavailable Unavailable RAJAN PT, ORI Unavailable Unavailable KAITLYN [employer] PROFESSOR, CHI Unavailable Unavailable SHAWN RN, NORBERTO Unavailable Unavailab ana HENRIQUEZ LPN, KOBE Unavailable Unavail able Payers Payer Name Policy Type Policy Number Effective Date Expira tion Date MEDICARE.NGS.PDGM [id number] Problems Condition Name Condition Details Condition Category [...] CURRENT PATHOLOGICAL FRACTURE Active 06-25 00:00: 00 ALF (CURRENT) USE OF BISPHOSPHONA ISHA Active 06-26 [...] 06-23 00:00: 00 07-03 23:59 :00 No [id number] CELLULITIS LEFT LOWER LEG 1 capsule 2 TIMES DAILY 1 capsule 2 TIMES DAILY (route: oral) Med Classific ation: Anti-Infe ctive Agents simvastatin 20 mg tablet 06-21 00:00: 00 Yes [id number] HIGH CHOLESTEROL 1 tablet BEDTIME 1 tablet BEDTIME (route: oral) Med Classific ation: Cardiovas cular Therapy Agents meloxicam 7.5 mg tablet 17 00:00: 00 06-25 00:00 :00 No [id number] Per instruc tions EVERY DAY Per instructio ns EVERY DAY (route: oral) Med Classific ation: Analgesic , Anti-infl ammatory or Antipyret ic alendronate 70 mg tablet 06-25 00:00: 00 Yes [id number] OSTEOPOROSI S 1 tablet WEEKLY 1 tablet WEEKLY (route: oral) Med Classific ation: Endocrine atenolol 25 mg tablet 06-25 00:00: 00 Yes [id number] HIGH BLOOD PRESSURE 1 tablet DAILY 1 tablet DAILY (route: oral) Med Classific ation: Cardiovas cular Therapy Agents cefuroxime axetil 250 mg tablet 06-25 00:00: 00 08-20 23:59 :00 No [id number] INFECTION 1 tablet 2 TIMES DAILY 1 tablet 2 TIMES DAILY (route: oral) Med Classific ation: Anti-Infe ctive Agents furosemide 20 mg tablet 06-25 00:00: 00 Yes [id number] EDEMA/LEG SWELLING 1 tablet DAILY 1 tablet DAILY (route: oral) Med Classific ation: Cardiovas cular Therapy Agents levothyroxi ne 75 mcg tablet 06-25 00:00: 00 Yes [id number] LOW THYROID 1 tablet DAILY 1 tablet DAILY (route: oral) Med Classific ation: Endocrine doxycycline hyclate 100 mg capsule 14 00:00: 00 08-30 23:59 :00 No [id number] RIGHT LOWER LEG CELLULITUS 1 capsule 2 TIMES DAILY 1 capsule 2 TIMES DAILY (route: oral) Med Classific ation: Anti-Infe ctive Agents cefuroxime axetil 250 mg tablet 7 00:00: 00 09-14 23:59 :00 No [id number] wound infection 1 tablet 2 TIMES DAILY 1 tablet 2 TIMES DAILY (route: oral) Med Classific ation: Anti-Infe ctive Agents ammonium lactate 12 % lotion 2023-02 1- 00:00: 00 Yes [id number] WEEPING SKIN Per instruc tions 2 TIMES DAILY Per instructio ns 2 TIMES DAILY (route: topical) Med Classific ation: Dermatolo gical doxycycline hyclate 100 mg capsule 2023-02 2 00:00: 00 02-16 23:59 :00 No [id number] CELLULITIS 100 mg 2 TIMES DAILY 100 mg 2 TIMES DAILY (route: oral) Med Classific ation: Anti-Infe ctive Agents doxycycline hyclate 100 mg capsule 03-16 00:00: 00 03-26 23:59 :00 No [id number] WOUND INFECTION 100 mg 2 TIMES DAILY 100 mg 2 TIMES DAILY (route: oral) Med Classific ation: Anti-Infe ctive Agents Vital Signs Vital Name Observation Time Observation Value Commen ts Temperature 2024-04-20 12:45:00.000 97.8 [degF] Temperature 2024-04-10 15:12:00.000 97 [degF] Temperature 2024-04-06 17:04:00.000 97.9 [degF] Temperature 2024-04-03 13:28:00.000 97 [degF] Temperature 2024-04-01 11:01:00.000 97.7 [degF] Temperature 2024-03-30 13:55:00.000 97.4 [degF] Temperature 2024-03-27 12:48:00.000 97.4 [degF] Temperature 2024-03-25 18:11:00.000 98.3 [degF] Temperature 2024-03-23 17:42:00.000 98.6 [degF] Temperature 2024-03-20 21:03:00.000 98.3 [degF] Temperature 2024-03-18 14:29:00.000 98.6 [degF] Temperature 2024-03-16 17:59:00.000 98.2 [degF] Temperature 2024-03-12 15:27:00.000 98.3 [degF] Temperature 2024-03-09 14:07:00.000 98.3 [degF] Temperature 2024-03-04 17:40:00.000 98.6 [degF] Temperature 2024-03-02 12:13:00.000 97.8 [degF] Temperature 2024-02-27 15:09:00.000 98.1 [degF] Temperature 2024-02-24 14:50:00.000 97.7 [degF] Pulse 2024-04-20 12:45:00.000 74 /min Pulse 2024-04-10 15:12:00.000 70 /min Pulse 2024-04-06 17:04:00.000 70 /min Pulse 2024-04-03 13:28:00.000 70 /min Pulse 2024-04-01 11:01:00.000 77 /min Pulse 2024-03-30 13:55:00.000 68 /min Pulse 2024-03-27 12:48:00.000 69 /min Pulse 2024-03-25 18:11:00.000 70 /min Pulse 2024-03-23 17:42:00.000 70 /min Pulse 2024-03-20 21:03:00.000 76 /min Pulse 2024-03-18 14:29:00.000 72 /min Pulse 2024-03-16 17:59:00.000 78 /min Pulse 2024-03-12 15:27:00.000 70 /min Pulse 2024-03-09 14:07:00.000 70 /min Pulse 2024-03-04 17:40:00.000 70 /min Pulse 2024-03-02 12:13:00.000 68 /min Pulse 2024-02-27 15:09:00.000 68 /min Pulse 2024-02-24 14:50:00.000 67 /min O2 Saturation (%) 2024-04-20 12:45:00.000 95 % O2 Saturation (%) 2024-04-06 17:04:00.000 97 % O2 Saturation (%) 2024-04-01 11:01:00.000 98 % O2 Saturation (%) 2024-03-30 13:55:00.000 98 % O2 Saturation (%) 2024-03-27 12:48:00.000 99 % O2 Saturation (%) 2024-03-23 17:42:00.000 98 % O2 Saturation (%) 2024-03-12 15:27:00.000 98 % O2 Saturation (%) 2024-02-27 15:09:00.000 97 % O2 Saturation (%) 2024-02-24 14:50:00.000 99 % Respirations 2024-04-20 12:45:00.000 18 /min Respirations 2024-04-10 15:12:00.000 18 /min Respirations 2024-04-06 17:04:00.000 18 /min Respirations 2024-04-03 13:28:00.000 18 /min Respirations 2024-04-01 11:01:00.000 18 /min Respirations 2024-03-30 13:55:00.000 18 /min Respirations 2024-03-27 12:48:00.000 18 /min Respirations 2024-03-25 18:11:00.000 18 /min Respirations 2024-03-23 17:42:00.000 18 /min Respirations 2024-03-20 21:03:00.000 16 /min Respirations 2024-03-18 14:29:00.000 18 /min Respirations 2024-03-16 17:59:00.000 18 /min Respirations 2024-03-12 15:27:00.000 18 /min Respirations 2024-03-09 14:07:00.000 18 /min Respirations 2024-03-04 17:40:00.000 18 /min Respirations 2024-03-02 12:13:00.000 18 /min Respirations 2024-02-27 15:09:00.000 18 /min Respirations 2024-02-24 14:50:00.000 16 /min Systolic Blood Pressure 2024-04-20 12:45:00.000 150 mm [Hg] Systolic Blood Pressure 2024-04-10 15:12:00.000 118 mm [Hg] Systolic Blood Pressure 2024-04-06 17:04:00.000 120 mm [Hg] Systolic Blood Pressure 2024-04-03 13:28:00.000 100 mm [Hg] Systolic Blood Pressure 2024-04-01 11:01:00.000 138 mm [Hg] Systolic Blood Pressure 2024-03-30 13:55:00.000 120 mm [Hg] Systolic Blood Pressure 2024-03-27 12:48:00.000 128 mm [Hg] Systolic Blood Pressure 2024-03-25 18:11:00.000 124 mm [Hg] Systolic Blood Pressure 2024-03-23 17:42:00.000 150 mm [Hg] Systolic Blood Pressure 2024-03-20 21:03:00.000 148 mm [Hg] Systolic Blood Pressure 2024-03-18 14:29:00.000 140 mm [Hg] Systolic Blood Pressure 2024-03-16 17:59:00.000 122 mm [Hg] Systolic Blood Pressure 2024-03-12 15:27:00.000 140 mm [Hg] Systolic Blood Pressure 2024-03-09 14:07:00.000 140 mm [Hg] Systolic Blood Pressure 2024-03-04 17:40:00.000 160 mm [Hg] Systolic Blood Pressure 2024-03-02 12:13:00.000 150 mm [Hg] Systolic Blood Pressure 2024-02-27 15:09:00.000 160 mm [Hg] Systolic Blood Pressure 2024-02-24 14:50:00.000 142 mm [Hg] Diastolic Blood Pressure 2024-04-20 12:45:00.000 60 mm [Hg] Diastolic Blood Pressure 2024-04-10 15:12:00.000 64 mm [Hg] Diastolic Blood Pressure 2024-04-06 17:04:00.000 60 mm [Hg] Diastolic Blood Pressure 2024-04-03 13:28:00.000 68 mm [Hg] Diastolic Blood Pressure 2024-04-01 11:01:00.000 62 mm [Hg] Diastolic Blood Pressure 2024-03-30 13:55:00.000 50 mm [Hg] Diastolic Blood Pressure 2024-03-27 12:48:00.000 50 mm [Hg] Diastolic Blood Pressure 2024-03-25 18:11:00.000 74 mm [Hg] Diastolic Blood Pressure 2024-03-23 17:42:00.000 80 mm [Hg] Diastolic Blood Pressure 2024-03-20 21:03:00.000 78 mm [Hg] Diastolic Blood Pressure 2024-03-18 14:29:00.000 70 mm [Hg] Diastolic Blood Pressure 2024-03-16 17:59:00.000 78 mm [Hg] Diastolic Blood Pressure 2024-03-12 15:27:00.000 70 mm [Hg] Diastolic Blood Pressure 2024-03-09 14:07:00.000 68 mm [Hg] Diastolic Blood Pressure 2024-03-04 17:40:00.000 70 mm [Hg] Diastolic Blood Pressure 2024-03-02 12:13:00.000 60 mm [Hg] Diastolic Blood Pressure 2024-02-27 15:09:00.000 70 mm [Hg] Diastolic Blood Pressure 2024-02-24 14:50:00.000 68 mm [Hg] Plan of Treatment Planned Activity Planned Date Details Comments Future Scheduled Test RN TO OBSE RVE, ASSESS, EVALUATE, AND DEVELOP AN INDIVIDUALIZED PLAN OF CARE. AGENCY MAY ACCEPT ORDERS FROM CONSULTING PHYSICIANS . RN TO OBSERVE AND ASSESS, OPHTHALMIC TECHNICIAN APPRENTICE/FILTER TANK OPERATOR TO OBSERVE FOR RISK FOR FALLS AND INSTRUCT IN FALL PREVENTION, HOME SAFETY, MEDICATION MANAGEMENT, INFECTION PREVENTION, AND NUTRITION MANAGEMENT. RN/OPHTHALMIC TECHNICIAN APPRENTICE/FILTER TANK OPERATOR NURSE MAY PERFORM O2 SATURATION LEVEL ON ADMISSION AND PRN FOR RN TO ASSESS/OPHTHALMIC TECHNICIAN APPRENTICE TO OBSERVE PATIENT, WITH NOTIFICATION TO THE PHYSICIAN IF SATURATION IS 90% IN THE ABSENCE OF MORE SPECIFIC PARAMETERS FROM THE PHYSICIAN. AGENCY MAY PERFORM A RESUMPTION OF CARE VISIT FOLLOWING ANY HOSPITAL ADMISSION. RN/OPHTHALMIC TECHNICIAN APPRENTICE/FILTER TANK OPERATOR TO MONITOR CO-MORBID CONDITIONS LISTED ON THE PLAN OF CARE AND ANY NEW CONDITIONS THAT PRESENT THEMSELVES DURING THIS EPISODE TO IDENTIFY CHANGES AND INTERVENE TO MINIMIZE COMPLICATIONS. [code = RN TO OBSERVE, ASSESS, EVALUATE, AND DEVELOP AN INDIVIDUALIZED PLAN OF CARE. AGENCY MAY ACCEPT ORDERS FROM CONSULTING PHYSICIANS . RN TO OBSERVE AND ASSESS, OPHTHALMIC TECHNICIAN APPRENTICE/FILTER TANK OPERATOR TO OBSERVE FOR RISK FOR FALLS AND INSTRUCT IN FALL PREVENTION, HOME SAFETY, MEDICATION MANAGEMENT, INFECTION PREVENTION, AND NUTRITION MANAGEMENT. RN/OPHTHALMIC TECHNICIAN APPRENTICE/FILTER TANK OPERATOR NURSE MAY PERFORM O2 SATURATION LEVEL ON ADMISSION AND PRN FOR RN TO ASSESS/OPHTHALMIC TECHNICIAN APPRENTICE TO OBSERVE PATIENT, WITH NOTIFICATION TO THE PHYSICIAN IF SATURATION IS 90% IN THE ABSENCE OF MORE SPECIFIC PARAMETERS FROM THE PHYSICIAN. AGENCY MAY PERFORM A RESUMPTION OF CARE VISIT FOLLOWING ANY HOSPITAL ADMISSION. RN/OPHTHALMIC TECHNICIAN APPRENTICE/FILTER TANK OPERATOR TO MONITOR CO-MORBID CONDITIONS LISTED ON THE PLAN OF CARE AND ANY NEW CONDITIONS THAT PRESENT THEMSELVES DURING THIS EPISODE TO IDENTIFY CHANGES AND INTERVENE TO MINIMIZE COMPLICATIONS.] Future Scheduled Test RISK FOR H OSPITALIZATION; RN TO ASSESS/TEACH, FILTER TANK OPERATOR/OPHTHALMIC TECHNICIAN APPRENTICE TO OBSERVE/TEACH PATIENT/CAREGIVER ON RISK FOR HOSPITALIZATION/EMERGENCY ROOM VISITS, TEACH SIGNS AND SYMPTOMS THAT PUT PATIENT AT RISK, WHEN TO NOTIFY NURSE/PHYSICIAN OF COMPLICATIONS/DECLINE, AND WHEN TO CALL 911. [code = RISK FOR HOSPITALIZATION; RN TO ASSESS/TEACH, FILTER TANK OPERATOR/OPHTHALMIC TECHNICIAN APPRENTICE TO OBSERVE/TEACH PATIENT/CAREGIVER ON RISK FOR HOSPITALIZATION/EMERGENCY ROOM VISITS, TEACH SIGNS AND SYMPTOMS THAT PUT PATIENT AT RISK, WHEN TO NOTIFY NURSE/PHYSICIAN OF COMPLICATIONS/DECLINE, AND WHEN TO CALL 911.] Future Scheduled Test MEDICATION MANAGEMENT; RN/OPHTHALMIC TECHNICIAN APPRENTICE/FILTER TANK OPERATOR TO REVIEW MEDICATIONS FOR INTERACTIONS, EFFECTIVENESS OF DRUG THERAPY, AND SIGNS/SYMPTOMS OF ADVERSE REACTIONS. MAY INSTRUCT AND REINFORCE MEDICATION TEACHING RELATED TO THE USE OF MEDICATIONS, DOSAGE, FREQUENCY, PURPOSE, SIDE EFFECTS, AND TO REPORT COMPLICATIONS. [code = MEDICATION MANAGEMENT; RN/OPHTHALMIC TECHNICIAN APPRENTICE/FILTER TANK OPERATOR TO REVIEW MEDICATIONS FOR INTERACTIONS, EFFECTIVENESS OF DRUG THERAPY, AND SIGNS/SYMPTOMS OF ADVERSE REACTIONS. MAY INSTRUCT AND REINFORCE MEDICATION TEACHING RELATED TO THE USE OF MEDICATIONS, DOSAGE, FREQUENCY, PURPOSE, SIDE EFFECTS, AND TO REPORT COMPLICATIONS.] Future Scheduled Test CARDIOVASC ULAR SYSTEM; RN TO ASSESS/TEACH, OPHTHALMIC TECHNICIAN APPRENTICE/FILTER TANK OPERATOR TO OBSERVE/TEACH RELATED TO ALTERED CARDIOVASCULAR STATUS TO MINIMIZE COMPLICATIONS AND REDUCE HOSPITALIZATION. [code = CARDIOVASCULAR SYSTEM; RN TO ASSESS/TEACH, OPHTHALMIC TECHNICIAN APPRENTICE/FILTER TANK OPERATOR TO OBSERVE/TEACH RELATED TO ALTERED CARDIOVASCULAR STATUS TO MINIMIZE COMPLICATIONS AND REDUCE HOSPITALIZATION.] Future Scheduled Test HYPERTENSI ON MANAGEMENT; RN TO ASSESS AND TEACH, OPHTHALMIC TECHNICIAN APPRENTICE/FILTER TANK OPERATOR TO OBSERVE AND TEACH WARNING SIGNS AND SYMPTOMS TO AVOID HOSPITALIZATION. [code = HYPERTENSION MANAGEMENT; RN TO ASSESS AND TEACH, OPHTHALMIC TECHNICIAN APPRENTICE/FILTER TANK OPERATOR TO OBSERVE AND TEACH WARNING SIGNS AND SYMPTOMS TO AVOID HOSPITALIZATION.] Future Scheduled Test SKIN INTEG RITY RN TO ASSESS AND TEACH, OPHTHALMIC TECHNICIAN APPRENTICE/FILTER TANK OPERATOR TO OBSERVE AND TEACH INTEGUMENTARY STATUS TO IDENTIFY CHANGES AND INTERVENE TO MINIMIZE COMPLICATIONS. PROVIDE SKILLED TEACHING OF GENERAL WOUND AND SKIN CARE AND PREVENTION RELATED TO ACTUAL ALTERED SKIN INTEGRITY [code = SKIN INTEGRITY RN TO ASSESS AND TEACH, OPHTHALMIC TECHNICIAN APPRENTICE/FILTER TANK OPERATOR TO OBSERVE AND TEACH INTEGUMENTARY STATUS TO IDENTIFY CHANGES AND INTERVENE TO MINIMIZE COMPLICATIONS. PROVIDE SKILLED TEACHING OF GENERAL WOUND AND SKIN CARE AND PREVENTION RELATED TO ACTUAL ALTERED SKIN INTEGRITY ] Future Scheduled Test RN TO ASSE SS, OPHTHALMIC TECHNICIAN APPRENTICE/FILTER TANK OPERATOR TO OBSERVE LOWER EXTREMITY VENOUS STASIS ULCER(S) AND INTERVENE TO MINIMIZE COMPLICATIONS. PROVIDE SKILLED TEACHING TO PATIENT/CAREGIVER RELATED TO ALTERED SKIN INTEGRITY. REPORT SIGNIFICANT CHANGES IN STATUS TO PHYSICIAN FOR EARLY INTERVENTION [code = RN TO ASSESS, OPHTHALMIC TECHNICIAN APPRENTICE/FILTER TANK OPERATOR TO OBSERVE LOWER EXTREMITY VENOUS STASIS ULCER(S) AND INTERVENE TO MINIMIZE COMPLICATIONS. PROVIDE SKILLED TEACHING TO PATIENT/CAREGIVER RELATED TO ALTERED SKIN INTEGRITY. REPORT SIGNIFICANT CHANGES IN STATUS TO PHYSICIAN FOR EARLY INTERVENTION] Future Scheduled Test RN TO ASSE SS AND TEACH, OPHTHALMIC TECHNICIAN APPRENTICE/FILTER TANK OPERATOR TO OBSERVE AND TEACH, TREAT AND EDUCATE ON CELLULITIS SIGNS, SYMPTOMS, AND SELF-CARE MANAGEMENT. [code = RN TO ASSESS AND TEACH, OPHTHALMIC TECHNICIAN APPRENTICE/FILTER TANK OPERATOR TO OBSERVE AND TEACH, TREAT AND EDUCATE ON CELLULITIS SIGNS, SYMPTOMS, AND SELF-CARE MANAGEMENT.] Future Scheduled Test RN/OPHTHALMIC TECHNICIAN APPRENTICE/FILTER TANK OPERATOR TO PERFORM/TEACH VENOUS STASIS ULCER CARE TO LEFT LOWER LEG AREA: CLEANSE WITH NORMAL SALINE, APPLY XEROFORM, COVER WITH ACEWRAP CHANGE DRESSING 3X WEEKLY AND PRN FOR SOILAGE OR DISPLACEMENT SON/DAUGHTER TO PERFORM DRESSING CHANGE IN NURSING ABSENCE RN/OPHTHALMIC TECHNICIAN APPRENTICE/FILTER TANK OPERATOR TO PERFORM/TEACH VENOUS STASIS ULCER CARE TO RIGHT ANKLE AND FOOT AREA: CLEANSE WITH NORMAL SALINE, APPLY XEROFORM, COVER WITH DONALD WRAP CHANGE DRESSING 3X WEEKLY AND PRN FOR SOILAGE OR DISPLACEMENT SON/DAUGHTER TO PERFORM DRESSING CHANGE IN NURSING ABSENCE [code = RN/OPHTHALMIC TECHNICIAN APPRENTICE/FILTER TANK OPERATOR TO PERFORM/TEACH VENOUS STASIS ULCER CARE TO LEFT LOWER LEG AREA: CLEANSE WITH NORMAL SALINE, APPLY XEROFORM, COVER WITH ACEWRAP CHANGE DRESSING 3X WEEKLY AND PRN FOR SOILAGE OR DISPLACEMENT SON/DAUGHTER TO PERFORM DRESSING CHANGE IN NURSING ABSENCE RN/OPHTHALMIC TECHNICIAN APPRENTICE/FILTER TANK OPERATOR TO PERFORM/TEACH VENOUS STASIS ULCER CARE TO RIGHT ANKLE AND FOOT AREA: CLEANSE WITH NORMAL SALINE, APPLY XEROFORM, COVER WITH DONALD WRAP CHANGE DRESSING 3X WEEKLY AND PRN FOR SOILAGE OR DISPLACEMENT SON/DAUGHTER TO PERFORM DRESSING CHANGE IN NURSING ABSENCE] Future Scheduled Test PAIN MANAG EMENT; RN TO ASSESS AND TEACH, FILTER TANK OPERATOR/OPHTHALMIC TECHNICIAN APPRENTICE TO OBSERVE AND TEACH AND PROVIDE EDUCATION ON PAIN MANAGEMENT TECHNIQUES. [code = PAIN MANAGEMENT; RN TO ASSESS AND TEACH, FILTER TANK OPERATOR/OPHTHALMIC TECHNICIAN APPRENTICE TO OBSERVE AND TEACH AND PROVIDE EDUCATION ON PAIN MANAGEMENT TECHNIQUES.] Future Scheduled Test GENITOURIN VICTOR M MANAGEMENT; RN TO ASSESS AND TEACH, OPHTHALMIC TECHNICIAN APPRENTICE/FILTER TANK OPERATOR TO OBSERVE AND TEACH RELATED TO ALTERED GENITOURINARY STATUS TO MINIMIZE COMPLICATIONS AND REDUCE HOSPITALIZATION. [code = GENITOURINARY MANAGEMENT; RN TO ASSESS AND TEACH, OPHTHALMIC TECHNICIAN APPRENTICE/FILTER TANK OPERATOR TO OBSERVE AND TEACH RELATED TO ALTERED GENITOURINARY STATUS TO MINIMIZE COMPLICATIONS AND REDUCE HOSPITALIZATION.] Future Scheduled Test URINARY IN CONTINENCE MANAGEMENT; RN TO ASSESS AND TEACH, OPHTHALMIC TECHNICIAN APPRENTICE/LVNTO OBSERVE AND TEACH MANAGEMENT OF URINARY INCONTINENCE. TEACH/INSTRUCT ON PREVENTING INFECTION AND SKIN BREAKDOWN. RN/OPHTHALMIC TECHNICIAN APPRENTICE/FILTER TANK OPERATOR MAY INSTRUCT IN BLADDER TRAINING PROGRAM INDICATED. [code = URINARY INCONTINENCE MANAGEMENT; RN TO ASSESS AND TEACH, OPHTHALMIC TECHNICIAN APPRENTICE/LVNTO OBSERVE AND TEACH MANAGEMENT OF URINARY INCONTINENCE. TEACH/INSTRUCT ON PREVENTING INFECTION AND SKIN BREAKDOWN. RN/OPHTHALMIC TECHNICIAN APPRENTICE/FILTER TANK OPERATOR MAY INSTRUCT IN BLADDER TRAINING PROGRAM INDICATED.] Future Scheduled Test FALL REDUC TION MANAGEMENT; RN TO ASSESS AND OBSERVE, OPHTHALMIC TECHNICIAN APPRENTICE/FILTER TANK OPERATOR TO OBSERVE FALL RISK FACTORS AND EDUCATE PATIENT/CAREGIVER ON STRATEGIES TO MINIMIZE THE RISK OF FALLING. [code = FALL REDUCTION MANAGEMENT; RN TO ASSESS AND OBSERVE, OPHTHALMIC TECHNICIAN APPRENTICE/FILTER TANK OPERATOR TO OBSERVE FALL RISK FACTORS AND EDUCATE PATIENT/CAREGIVER ON STRATEGIES TO MINIMIZE THE RISK OF FALLING.] Goal 2023-12-19 Patient Goal - HEAL MY LEG Goal Patient Goal - HEAL MY LEG Goal 2023-08-21 Patient Goal - HEAL MY LEG Goal 2023-10-21 Patient Goal - HEAL MY LEG Goal 2024-02-20 Patient Goal - HEAL MY LEG Goal 2024-04-20 Patient Goal - HEAL MY LEG Goal [...] End Date/Time Encounter Type Admission Type Attending Clinicians Care Facility Care Department Encounter ID Discharge Date Discharge Status Discharge Condition Discharge Reason Percent Goals Met 2023-06-26 00:00:00 2024-04-20 00:00:00 Outpatient RECERTIFIC ATKE NORBERTO ESCOBAR [facility] [id number] 88.24
--- OUTSIDE RECORDS SUMMARY | 2024-04-22 15:04 | XMS_ITS ---
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 Vital Signs Height 5 ft 3 in in 09/25/2023 Weight 129 lbs 09/25/2023 BMI 22.85 kg/m2 09/25/2023 Blood pressure systolic 136 mm Hg 09/25/19 24 Blood pressure diastolic 70 mm Hg 024 Procedures Procedure Date Ordered Date Performed Result Body Sit e 42162-AHLV SKIN LESIONS, 2 TO 4 09/25/2023 N/A Encounters Encounter Location Date Provider Diagnosis [facility] [address] [address] 09/25/2023 Pj Chowdary Tinea unguium B35.1 ; Pain in right toe(s) M79.674 ; Pain in left toe(s) M79.675 ; Ingrown nail L60.0 and 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[place] arteries of extremities, bilateral legs I70.203 Assessments Encounter Date Diagnosis (ICD Code) Assessment Notes Treatment Notes Treatment Clinical Notes Section Notes 09/25/2023 Tinea unguium (ICD-10 - B35.1) 09/25/2023 Pain in right toe(s) (ICD-10 - M79.674) 09/25/2023 Pain in left toe(s) (ICD-10 - M79.675) 09/25/2023 Ingrown nail (ICD-10 - L60.0) 09/25/2023 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[place] arteries of extremities, bilateral legs (ICD-10 - I70.203) Plan Of Treatment Pending Test Test Name Order Date 32837-XMZM SKIN LESIONS, 2 TO 4 09/25/19 24 Next Appt Details Follow Up: prn, Reason: Provider Name:Shannan myers, 05/05/2024 03:30:00 PM, [address] [place] [address], [id number], Procedure Notes * Category Sub-Category Detail Notes [...] as necessary. Patient chooses, no pharmaceutical tx (47005) Keratoma Treatment Parring or Cutting o f Benign Hyperkeratotic Lesion(s) 37310 ( 2-4 Lesions ) - The Benign hyperkeratotic lesions, as described above were pared, and/or cut utilizing a sterile 15 blade, tissue nippers, and/or dremel, Q8 Progress Notes * Azra GUOaDOB:1940 (83 yo F)Acc No.[id number]:09/25/2023 Progress Note Patient:?Celsa Guo Provider:?Pj Chowdary DPM :1940???Age:83 Y???Sex:Female D ate:09/25/2023 Address:[address] [place], [place] [id number] Pcp:Shiva Fierro MD Subjective: * Chief Complaints: * ???Pcp-08/04 Painful nail(s) aggrevated by shoes and causing difficulty standing/walking. * HPI: ???Painful Nails:?Pt States Last PCP Visit:?Date:?07/26/2023 ?Misc:?pt being seen weekly at [facility] for left leg ulcer.?Ingrown toenail:?Location:?Great [...] Cramps/ Resting?denies.?Muscle cramps / walking?denies.?Generalized aches and pains?admits.?Weakness?denies.?Integ.:?Douglsa?denies.?Scars?denies.?Corns/calluses?denies.?Ingrown nails?admits.?Painful nails?denies.?Open Sores?denies.?Rashes?denies.?Neurologic:?Difficulty sleeping?denies.?Brain disorder?denies.?Numbness?denies.?Balance trouble?denies.?Confusion?denies.?Fainting/blackouts?denies.?Tingling?denies.?Tr emors?denies.? [...] Chronic problem, Stable (1=3,2=4) 5.?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[place] arteries of extremities, bilateral legs - I70.203? [...] as necessary. Patient chooses, no pharmaceutical tx (00946).?Keratoma Treatment:?Parring or Cutting of Benign Hyperkeratotic Lesion(s)?56976 ( 2-4 Lesions ) - The Benign hyperkeratotic lesions, as described above were pared, and/or cut utilizing a sterile 15 blade, tissue nippers, and/or dremel, Q8.? * Procedure Codes:?52403 DEBRI DE NAIL, 6 OR MORE, Modifiers: XS 97417 TRIM SKIN LESIONS, 2 TO 4, Modifiers: [...] Chowdary DPM Date:? 024 Generated for Eh jimenez/[facility] on:?04/22/2024 03:04 PM EDT History and Physical Notes * HPI (History of Present Illness) Category Sub-Category Detail Notes Category Not es Ingrown toenail Duration: worse since saturday--4 day s Location: Great toe , Right fo ot Treatments: self treatment Aggravated by: any pressure Onset/Cause: unknown Course: intermittent, worse Painful Nails Misc: pt being seen weekly at [facility] for left leg ulcer Pt States Last [...]
--- OUTSIDE RECORDS SUMMARY | 2024-04-22 15:04 | XMS_ITS ---
Author Organization [facility] Address [address] [place] [address] Care Team Providers Care Putty And Patch Worker Name Role Phone Shiva Fierro MD Primary Care Provider Shannan Hyatt [phone] REASON FOR VISIT Looking for a sooner apt Encounters Encounter Location Date Provider Diagnosis [facility] [address] [place] [address] 09/24/2023 Shannan Morales Plan Of Treatment Next Appt Details Provider Name:Shannan myers, 05/05/2024 03:30:00 PM, [address] [place], [address], Progress Notes * Sixto GUOB:1940 (83 yo F)Acc No.[id number]:09/24/2023 Patient:?Celsa Guo :1940???Age:83 Y???Sex:Female Address:[address] [place] [address] * true * Date:? Generated for Printi ng/Fajamieg/eTransmitting on:?04/22/2024 03:03 PM EDT
--- OUTSIDE RECORDS SUMMARY | 2024-04-22 15:04 | XMS_ITS ---
Author Organization [facility] Address [address] [place] [id number] Care Team Providers Care Business Taxes Specialist Name Role Phone Shiva Fierro MD Primary Care Provider Shannan Hyatt Unavailable [phone] Encounters Encounter Location Date Provider Diagnosis [address] [id number] 06/05/2023 Shannan Morales Plan Of Treatment Next Appt Details Provider Name:Shannan myers, 05/05/2024 03:30:00 PM, [address] [place] [address], [phone], Progress Notes * Sixto GUOB:1940 (84 yo F)Acc No.[id number]:06/05/2023 Progress Note Patient:?Celsa GUO Provider:?Shannan Morales DPM :1940???Age:83 Y???Sex:Female D ate:06/05/2023 Address:[address] [place] [address] Pcp:Shiva Fierro MD Subjective: * Chief Complaints: * ??? * Medical History:? Objective: * Vitals:? Assessment: Plan: * Treatment: * Images: * The named appointment provid er may or may not be the originator of this progress note, and it is not deemed complete until electronically signed by the appointment provider. Sign off status: Pending * Provider:?Shannan Morales DPM Date:? Generated for Eh jimenez/Sinai/Mariselaitting on:?04/22/2024 03:04 PM EDT
== END 2024-04-22 14:48 | disposition home or self-care (01) ==
LOC: HO.HMCHD 12:56
PROVIDERS: PCP Internal Medicine; Visit Provider Internal Medicine
DX: I12.9 Hypertensive chronic kidney disease with stage 1 through stage 4 chronic kidney disease, or unspecified chronic kidney disease (principal); E03.9 Hypothyroidism, unspecified; N18.9 Chronic kidney disease, unspecified; I35.0 Nonrheumatic aortic (valve) stenosis; L03.116 Cellulitis of left lower limb

== ENCOUNTER → 2024-04-22 12:56 | Outpatient (BNVA) | payer MEDICARE, SELFPAY | PROVIDERS: PCP Internal Medicine; Visit Provider Internal Medicine | DX: E03.9 Hypothyroidism, unspecified (principal); I35.0 Nonrheumatic aortic (valve) stenosis; L03.116 Cellulitis of left lower limb; I12.9 Hypertensive chronic kidney disease with stage 1 through stage 4 chronic kidney disease, or unspecified chronic kidney disease; N18.9 Chronic kidney disease, unspecified | CPT/HCPCS: 99202 ==

== ENCOUNTER 2024-04-26 11:29 | Inpatient (IN) | payer MEDICARE, SELFPAY ==
[2024-04-26] VITALS (13 sets, daily range): BP systolic 144–203; BP diastolic 58–92; PULSE 66–78; RESP 17–24; TEMP -13.4–36.6; O2SAT 83–98; BMI 23.2
--- NOTE | ~2024-04-26 | US_ITS ---
CLINICAL HISTORY: swelling and erythema Venous duplex ultrasound right lower extremity Comparison: None Findings: The visualized deep veins are fully compressible with normal Doppler color flow and spectral tracings. No popliteal cyst. IMPRESSION: 1. Negative for right lower extremity deep vein thrombosis. This document has been electronically signed by: Fabian Zhong MD on 04/26/2024 14:21:44
--- NOTE | ~2024-04-26 | XR_ITS ---
CLINICAL HISTORY: hypoxic 1 view chest x-ray Comparison: CT - CT ANGIO CHEST PE PROTOCOL - 11/29/21 10:53 EDT Findings: There is enlargement of the cardiopericardial silhouette. There is increase of interstitial lung markings. Hyperinflation of the lungs. Small bilateral pleural effusion. No acute fracture. IMPRESSION: Cardiomegaly with pulmonary vascular congestion. Small bilateral pleural effusion. This document has been electronically signed by: Fabian Zhong MD on 04/26/2024 17:20:22
--- NOTE | ~2024-04-26 | XR_ITS ---
CLINICAL HISTORY: pain with ambulation 3 view left ankle Comparison: CR - XR ANKLE LT MIN 3V - 04/19/20 15:00 EST Findings: No acute fractures. Ankle mortise intact. No significant arthritic change or erosions. No ankle effusion. No radiopaque foreign body. Vascular calcifications noted. IMPRESSION: 1. No acute findings. This document has been electronically signed by: Alfred Mack MD on 04/26/2024 12:45:51
--- NOTE | 2024-04-26 11:35 | ED_ITS ---
HPI - General Adult General Chief complaint: Extremity Injury, Lower Stated complaint: LEG INFECTION DIFFICULTY AMBULATING Time Seen by Provider: 04/26/24 11:35 Source: patient, RN notes reviewed and old records reviewed Mode of arrival: EMS Limitations: no limitations History of Present Illness ED Provider: Ervin HPI narrative: Patient is an 84-year-old female with history of CKD, hypothyroidism, HTN, aortic stenosis, diastolic dysfunction presenting with complaint of left ankle pain, worse with ambulation. 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 Recently saw new PCP who did not remove her compression dressings during exam. Denies fevers/chills. Denies chest pain, shortness of breath, palpitations. MD complaint: ankle pain, lower leg erythema and swelling Onset (ago): day(s) Related Data Home Medications ?Medication ?Instructions ?Recorded ?Confirmed alendronate 70 mg tablet 70 mg PO PIÑA@0600 01/10/21 02/26/24 atenolol 25 mg tablet 25 mg PO DAILY 01/10/21 02/26/24 levothyroxine 75 mcg tablet 75 mcg PO DAILY 01/10/21 02/26/24 simvastatin 20 mg tablet 20 mg PO BEDTIME 01/10/21 02/26/24 calcium 500 mg (as 2 tab PO DAILY 11/28/21 02/26/24 carbonate)-vitamin D3 10 mcg (400 unit) tablet (Calcium 500 + D) furosemide 20 mg tablet 20 mg PO DAILY 06/13/22 02/26/24 Previous Rx's ?Medication ?Instructions ?Recorded cephalexin 250 mg capsule 250 mg PO BID #30 caps 04/22/24 doxycycline hyclate 100 mg capsule 100 mg PO BID #20 caps 04/26/24 Allergies Allergy/AdvReac Type Severity Reaction Status Date / Time No Known Allergies Allergy Verified 04/26/24 11:41 [facility] Past Medical History Medical History (Updated 04/26/24 @ 15:44 by Yanet Mueller NP) Chronic kidney disease Essential hypertension Preop cardiovascular exam Chronic venous stasis dermatitis Closed fracture of left inferior pubic ramus Hypothyroidism Hyperlipidemia Diastolic dysfunction Non-rheumatic aortic stenosis Surgical History History of surgery on left wrist Family History Family History Father No problems noted. Mother No problems noted. Social History Social History Household Members: Spouse Housing: House Do you presently have visiting nurse or other home services: No Alcohol intake: never Patient Tobacco Use Status: Never used Tobacco Smoked in Last 30 Days: No e-Cigarette/Vaping Use: Never Used Use of substances other than those prescribed or required for medical reasons: No Advance Directives: Yes Advance Directives on File: Yes Advance Directives Date on File: 11/28/21 Do you have a plan to hurt others: No Plan Current occupational status: retired Current occupation: right hand dominant Cognitive needs: Yes (walker) Hearing needs: No Vision needs: Yes (reading glasses) Physical Exam ED Vital Signs: Vital Signs - 24 hr 04/26/24 11:38 04/26/24 13:22 04/26/24 13:26 Temperature 98 F Pulse Rate 76 78 Respiratory Rate 18 20 Blood Pressure 177/84 H 203/92 H Pulse Oximetry 94 83 L 96 Oxygen Delivery Method Room Air Room Air Nasal Cannula Oxygen Flow Rate 96 04/26/24 13:29 04/26/24 14:08 04/26/24 14:35 Temperature 97.6 F Pulse Rate 73 72 Respiratory Rate 20 Blood Pressure 192/79 H 194/77 H 191/76 H Pulse Oximetry 98 Oxygen Delivery Method Nasal Cannula Oxygen Flow Rate 4 BMI result Body Mass Index 23.2 Medications Administered Discontinued Medications Generic Name Dose Route Start Last Admin Trade Name Freq PRN Reason Stop Dose Admin Atenolol 25 mg 04/26/24 14:31 04/26/24 14:35 Atenolol 25 Mg Tablet PO 04/26/24 14:32 25 mg ONCE ONE Administration Protocol Potassium Chloride 40 meq 04/26/24 13:41 04/26/24 14:34 Potassium Chloride Packet 20 Meq Packet PO 04/26/24 13:42 40 meq ONCE ONE Administration Medical Decision Making Medical Decision Making MDM Narrative: Patient is an 84-year-old female with history of CKD, hypothyroidism, HTN, aortic stenosis, diastolic dysfunction presenting with complaint of left ankle pain, worse with ambulation. On exam patient is awake, A+Ox3, BP elevated VS otherwise WNL, afebrile, normal neurological exam without focal deficits, physical exam findings as above. Given reported symptoms and physical exam findings, initial differential includes but is not limited to DVT, cellulitis, ankle sprain or fracture. Labs notable for no leukocytosis, mild hypokalemia, elevated BUN and creatinine. X-ray ankle notable for no evidence of fracture. U/S is without evidence of DVT. My interpretation is in agreement with the radiologist's interpretation. Patient saw new PCP on 04/22, was started on keflex for left lower leg cellulitis at that time. Patient also stating she did not take her BP medication this am, will give here. Patient denies headache, vision changes, chest pain or shortness of breath. BP improved slightly after medication. Will add doxycycline and advise patient to follow up with PCP this week. Return precautions discussed. Patient verbalized understanding of and agreement with plan. Differential Diagnosis Differential Diagnoses: The differential diagnosis associated with the presentation includes as per [facility] Lab Data [facility] Lab Attestation statement: I reviewed the patient's lab results. as per [facility] 04/26/24 12:29 04/26/24 12:29 Labs: Lab Results 04/26/24 Range/Units 12:29 WBC 5.9 (4.8-10.8) X10*3/uL RBC 3.88 L (4.20-5.50) X10*6/uL Hgb 11.0 L (12.0-16.0) g/dl Hct 33.4 L (37.0-47.0) % MCV 86.1 (80.0-98.0) fL MCH 28.4 (27.0-33.0) pg MCHC 32.9 (31.0-35.0) g/dl RDW 13.7 (11.0-16.0) % Plt Count 272 (160-400) X10*3/uL MPV 9.8 (9.4-12.3) fL Immature Gran % (Auto) 0.3 (0.0-0.4) % Neut % (Auto) 57.0 (45-73) % Lymph % (Auto) 27.2 (20-40) % Sequoyah % (Auto) 12.8 H (2-11) % Eos % (Auto) 2.2 (0-4) % Baso % (Auto) 0.5 (0-2) % Lymph # (Auto) 1.6 (1.2-4.9) X10*3/uL Sequoyah # (Auto) 0.8 (0.1-1.2) X10*3/uL Eos # (Auto) 0.1 (0.0-0.4) X10*3/uL Baso # (Auto) 0.0 (0.0-0.2) X10*3/uL Abs Immat Gran (auto) 0.02 (0.00-0.03) X10*3/uL Absolute Neuts (auto) 3.4 (2.0-8.3) x10*3/uL Absolute Nucleated RBC 0.000 (0.0-0.012) X10*3/uL Nucleated RBC % (auto) 0.0 (0.0-0.2) /100WBC Sodium 136 (135-145) mmol/L Potassium 3.1 L D (3.3-5.1) mmol/L Chloride 98 (96-108) mmol/L Carbon Dioxide 30 H (22-29) mmol/L Anion Gap 11 L (12-20) BUN 29 H (9-16) mg/dL Creatinine 1.42 H (0.5-1.4) mg/dL Estim Creat Clear Calc 23.5 Estimated GFR 35 Random Glucose 126 H (60-115) mg/dL Calcium 8.9 (8.4-10.2) mg/dL Total Bilirubin 0.7 (0.0-1.0) mg/dL AST 29 (5-31) U/L ALT 10 (0-31) U/L Alkaline Phosphatase 70 (39-117) U/L Total Protein 7.2 (6.5-8.0) g/dL Albumin 3.4 L (3.5-5.0) g/dL Independent Interpretation I performed an independent interpretation of an: Plain X-Ray and Ultrasound Interpretation: X-ray ankle notable for no evidence of fracture. U/S is without evidence of DVT. Radiology Impression Discussion of test interpretation with radiology: I have reviewed the radiologist's reading. Radiologist Impression: MPRESSION: 1. Negative for right lower extremity deep vein thrombosis. IMPRESSION: 1. No acute findings. External Record Review External record reviewed: Inpatient record, Office record and Outpatient record Prescription Management I considered prescription management with: Antibiotic Discharge Plan Discharge Clinical Impression: Cellulitis of leg, right Patient Disposition: Home, Self-Care Instructions: Doxycycline (By mouth), Cellulitis (DC) Additional Instructions: You were evaluated in the emergency department today for left ankle pain. Your x-ray did not show evidence of an fracture. Your right leg was noted to be red, hot, and swollen. There was no evidence of a blood clot in your right leg on ultrasound. You are currently being treated with antibiotics for cellulitis of your left leg. We are adding an additional antibiotic to treat the cellulitis of your right leg. We recommend that you continue to wear keep your legs elevated while at rest. Follow up with your primary care provider this week. Return to the emergency department if you develop worsening redness, swelling, pain to your legs, fever or any other new or concerning symptoms. Prescriptions: New doxycycline hyclate 100 mg capsule 100 mg PO BID Qty: 20 0RF No Action calcium carbonate-vitamin D3 [Calcium 500 + D] 500 mg-10 mcg (400 unit) Tablet 2 tab PO DAILY furosemide 20 mg tablet 20 mg PO DAILY levothyroxine 75 mcg tablet 75 mcg PO DAILY atenolol 25 mg tablet 25 mg PO DAILY simvastatin 20 mg tablet 20 mg PO BEDTIME alendronate 70 mg tablet 70 mg PO PIÑA@0600 cephalexin 250 mg capsule 250 mg PO BID Qty: 30 0RF Referrals: Wes Navas MD [Primary Care Provider] - Print Language: Bulgarian
[2024-04-26 12:37] LABS: MANUAL DIFF FLAG NO
[2024-04-26 12:40] LABS: Basophils Percent Auto 0.5 % (0-2); Eosinophils Absolute Auto 0.1 X10*3/uL (0.0-0.4); Eosinophils Percent Auto 2.2 % (0-4); Hematocrit 33.4 % (37.0-47.0); Imm Gran Abs Auto 0.02 X10*3/uL (0.00-0.03); Imm Gran Pct Auto 0.3 % (0.0-0.4); Lymphocytes Absolute Auto 1.6 X10*3/uL (1.2-4.9); Lymphocytes Percent Auto 27.2 % (20-40); Mean Corpuscular HGB Conc 32.9 g/dl (31.0-35.0); Mean Corpuscular Hemoglobin 28.4 pg (27.0-33.0); Mean Corpuscular Volume 86.1 fL (80.0-98.0); Mean Platelet Volume 9.8 fL (9.4-12.3); Monocytes Absolute Auto 0.8 X10*3/uL (0.1-1.2); Monocytes Percent Auto 12.8 % (2-11); Neutrophils Absolute Auto 3.4 x10*3/uL (2.0-8.3); Platelet Count 272 X10*3/uL (160-400); Red Blood Count 3.88 X10*6/uL (4.20-5.50); Red Cell Distribution Width 13.7 % (11.0-16.0); White Blood Count 5.9 X10*3/uL (4.8-10.8)
[2024-04-26 12:57] LABS: Alanine Aminotransferase 10 U/L (0-31); Albumin Level 3.4 g/dL (3.5-5.0); Alkaline Phosphatase 70 U/L (39-117); Anion Gap 11 (12-20); Aspartate Amino Transferase 29 U/L (5-31); Bilirubin Total 0.7 mg/dL (0.0-1.0); Blood Urea Nitrogen 29 mg/dL (9-16); Calcium 8.9 mg/dL (8.4-10.2); Carbon Dioxide 30 mmol/L (22-29); Chloride 98 mmol/L (96-108); Creatinine Clr Calc Pharmacy 23.5; Estimated Glomerular Filt Rate 35; Glucose Random 126 mg/dL (60-115); Potassium 3.1 mmol/L (3.3-5.1); Sodium 136 mmol/L (135-145); Total Protein 7.2 g/dL (6.5-8.0)
[2024-04-26] MEDS: Potassium Chloride Packet 20 MEQ PACKET 40 MEQ PO (14:34)
[2024-04-26] MEDS: atenoloL 25 MG TABLET PO (14:35)
[2024-04-26 16:51] LABS: B Type Natriuretic Peptide 1042 pg/mL (<100)
[2024-04-26] MEDS: Doxycycline Monohydrate 100 MG CAPSULE PO (17:53)
[2024-04-26] MEDS: Furosemide 20 MG/2 ML VIAL IVPUSH (17:53)
[2024-04-26] MEDS: Potassium Chloride/H20 10 MEQ/100 ML PIGGYBACK 100 MEQ IV ×2 (17:55→19:41)
--- NOTE | 2024-04-26 18:12 | PM.IMHP ---
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 The patient reports that she has been having difficulty walking due to pain in the left lower leg for several days but has not fallen. Apparently, she saw her PCP who did not pulled down her compression stockings though he did prescribe Keflex for left lower leg cellulitis at that time. She denies any fevers or chills. Since arrival, patient has been hypertensive, on admission blood pressure 185/85. Intermittently tachypneic, and hypoxic to 84% on room air, placed on 2 L supplemental O2 now maintaining oximetry 92-95%. While in the ED, she was reported to develop shortness of breath though patient denies this on exam. She denies any chest pain or orthopnea. No recent weight gain. Hematology studies unremarkable. Creatinine elevated at 1.42, unclear if this is chronic related to CKD versus related to congestive heart failure. Potassium is 3.1, electrolyte levels otherwise within normal limits except for CO2 30. BNP 1042. Negative for COVID flu, RSV. X-ray of the left ankle negative for any fracture. Venous duplex of the right lower extremity negative for DVT. Chest x-ray shows cardiomegaly with pulmonary vascular congestion and small bilateral pleural effusions. She will be admitted for further management of acute hypoxemic respiratory failure secondary to CHF exacerbation. Review of Systems Review of Systems: Yes all other systems are reviewed and are negative [facility] Medical History Chronic kidney disease Essential hypertension Preop cardiovascular exam Chronic venous stasis dermatitis Closed fracture of left inferior pubic ramus Hypothyroidism Hyperlipidemia Diastolic dysfunction Non-rheumatic aortic stenosis Family History Father No problems noted. Mother No problems noted. Surgical History History of surgery on left wrist Social History Household Members: Spouse Housing: House Do you presently have visiting nurse or other home services: No Alcohol intake: never Patient Tobacco Use Status: Never used Tobacco Smoked in Last 30 Days: No e-Cigarette/Vaping Use: Never Used Use of substances other than those prescribed or required for medical reasons: No Advance Directives: Yes Advance Directives on File: Yes Advance Directives Date on File: 11/28/21 Do you have a plan to hurt others: No Plan Current occupational status: retired Current occupation: right hand dominant Cognitive needs: Yes (walker) Hearing needs: No Vision needs: Yes (reading glasses) Meds Allergies Allergy/AdvReac Type Severity Reaction Status Date / Time No Known Allergies Allergy Verified 04/26/24 11:41 Active Medications: Current Medications Potassium Chloride (Potassium Chloride/H20) 10 meq in 100 mls @ 100 mls/hr IV Q1H DELMAR Stop: 04/26/24 19:29 Last Admin: 04/26/24 17:55 Dose: 100 mls/hr Home Medications ?Medication ?Instructions ?Recorded ?Confirmed ?Last Taken ?Type alendronate 70 mg tablet 70 mg PO PIÑA@0600 01/10/21 02/26/24 Unknown History atenolol 25 mg tablet 25 mg PO DAILY 01/10/21 02/26/24 11/28/21 History levothyroxine 75 mcg tablet 75 mcg PO DAILY 01/10/21 02/26/24 11/28/21 History simvastatin 20 mg tablet 20 mg PO BEDTIME 01/10/21 02/26/24 11/27/21 History calcium 500 mg (as 2 tab PO DAILY 11/28/21 02/26/24 Unknown History carbonate)-vitamin D3 10 mcg (400 unit) tablet (Calcium 500 + D) furosemide 20 mg tablet 20 mg PO DAILY 06/13/22 02/26/24 Unknown History Physical Exam Vital Signs and Narrative: Vital Signs: Last Vital Signs Temp 97.6 F 04/26/24 13:29 Pulse 76 04/26/24 16:16 Resp 24 H 04/26/24 16:16 BP 185/85 H 04/26/24 17:53 Pulse Ox 84 L 04/26/24 16:16 O2 Del Method Room Air 04/26/24 16:16 O2 Flow Rate 4 04/26/24 14:08 BMI result Body Mass Index 23.2 Constitutional - Awake and Alert, No apparent distress Eyes - PERRLA, EOMI Cardiovascular - S1S2, RRR, IV/ systolic murmur. 1+ ble edema. +JVD Respiratory - Normal lung expansion, Normal respiratory effort, No respiratory distress, crackles thoughout bilateral lungs L>R Gastrointestinal - NT / ND; +BS; No rebound or guarding Extremities - no calf tenderness bilaterally, no swelling Skin - Warm/Dry. Erythema and warmth of the RLE without any skin breaks noted with associated swlling. Dusky erythema with dried scales of the LLE without any warmth Neurological - Alert & oriented x3 Psychological - Appropriate affect Results Labs 04/26/24 12:29 04/26/24 12:29 Labs: Laboratory Results - last 24 hr 04/26/24 12:29 MCV 86.1 MCH 28.4 MCHC 32.9 RDW 13.7 Plt Count 272 MPV 9.8 Immature Gran % (Auto) 0.3 Neut % (Auto) 57.0 Lymph % (Auto) 27.2 Gray % (Auto) 12.8 H Eos % (Auto) 2.2 Baso % (Auto) 0.5 Lymph # (Auto) 1.6 Gray # (Auto) 0.8 Eos # (Auto) 0.1 Baso # (Auto) 0.0 Abs Immat Gran (auto) 0.02 Absolute Neuts (auto) 3.4 Absolute Nucleated RBC 0.000 Nucleated RBC % (auto) 0.0 Anion Gap 11 L Estim Creat Clear Calc 23.5 Estimated GFR 35 Random Glucose 126 H Calcium 8.9 Total Bilirubin 0.7 AST 29 ALT 10 Alkaline Phosphatase 70 B-Natriuretic Peptide 1042 H Total Protein 7.2 Albumin 3.4 L Assessment and Plan (1) CHF (congestive heart failure): Status: Acute (2) Cellulitis of leg, right: Status: Acute (3) Acute hypoxemic respiratory failure: Status: Acute Plan 84-year-old female with history with history htn, hld, hypothyroidism, severe aortic stenosis, CKD, chronic venous stasis dermatitis, osteoporosis, and grade II diastolic dysfunction on echo 03/07 admitted 84-year-old female with history with history htn, hld, hypothyroidism, severe aortic stenosis, CKD, chronic venous stasis dermatitis, osteoporosis, and grade II diastolic dysfunction on echo 03/07 for acute hypoxemic respiratory failure secondary to CHF exacerbation. # acute hypoxemic respiratory failure secondary to CHF exacerbation -echocardiogram 03/07 shows grade 2 diastolic dysfunction, preserved ejection fraction. CXR shows bilateral interstitial edema -IV Lasix -strict I&O, daily weights -cardiac diet -continue supplemental O2 to maintain oximetry greater than 90% -follow renal function, lytes # acute cellulitis of the right lower leg -no leukocytosis or fevers. No sepsis -p.o. doxycycline 100 mg and Keflex 250 mg twice daily # acute kidney injury r/t CHD (cardiorenal) versus worsening CKD stage 3 -creatinine 1.42. Last measured at 1.8 but unclear if this is baseline given prior levels -diuresis above -avoid nephrotoxins -follow renal function/lytes # acute hypokalemia -repleted in the ED, follow lytes # hypertension -continue atenolol, Lasix -uncontrolled in setting of CHF exacerbation. Give hydralazine x1 # hypothyroidism -continue levothyroxine # hyperlipidemia -statin # severe aortic stenosis -outpatient follow-up with Cardiology # chronic normocytic anemia -likely related to chronic disease DVT prophylaxis-Lovenox Full code Patient requires inpatient stay at least 2 midnights for management of acute hypoxemic respiratory failure secondary to CHF exacerbation which will require IV diuresis and close monitoring of vital signs as well as monitoring of renal function electrolyte levels Quality Stroke Does the patient have a stroke diagnosis?: No VTE Prior VTE?: No VTE Risk Level:: Medical - moderate - high VTE Device Contraindication: Treatment Not Indicated VTE Drug Contraindication: N/A - Med Ordered
[2024-04-26 18:28] LABS: Influenza A PCR NEGATIVE (Negative); Influenza B PCR NEGATIVE (Negative); Resp Syncy Virus RNA Qual PCR NEGATIVE (Negative); SARS COV2 PCR INHOUSE NEGATIVE (Negative)
[2024-04-26] MEDS: hydrALAZINE HCl 20 MG/ML VIAL 5 MG IVPUSH (19:43)
[2024-04-26] MEDS: cephALEXin 250 MG CAPSULE PO (19:45)
[2024-04-26] MEDS: Enoxaparin Sodium 30 MG/0.3 ML SYRINGE SUBCUT (19:45)
[2024-04-26] MEDS: Melatonin 3 MG TABLET 6 MG PO (20:59)
[2024-04-26] MEDS: Atorvastatin Calcium 10 MG TABLET PO (20:59)
[2024-04-27] VITALS (7 sets, daily range): BP systolic 124–168; BP diastolic 60–89; PULSE 64–71; RESP 14–18; TEMP 36.3–36.9; O2SAT 91–95; BMI 21.0
[2024-04-27 04:46] LABS: MANUAL DIFF FLAG NO
[2024-04-27 04:49] LABS: Basophils Percent Auto 0.5 % (0-2); Eosinophils Absolute Auto 0.2 X10*3/uL (0.0-0.4); Eosinophils Percent Auto 3.9 % (0-4); Hemoglobin 11.2 g/dl (12.0-16.0); Imm Gran Abs Auto 0.02 X10*3/uL (0.00-0.03); Imm Gran Pct Auto 0.3 % (0.0-0.4); Lymphocytes Absolute Auto 1.7 X10*3/uL (1.2-4.9); Lymphocytes Percent Auto 27.3 % (20-40); Mean Corpuscular HGB Conc 32.9 g/dl (31.0-35.0); Mean Corpuscular Hemoglobin 28.1 pg (27.0-33.0); Mean Corpuscular Volume 85.4 fL (80.0-98.0); Monocytes Absolute Auto 0.8 X10*3/uL (0.1-1.2); Monocytes Percent Auto 12.7 % (2-11); Neutrophils Absolute Auto 3.4 x10*3/uL (2.0-8.3); Neutrophils Percent Auto 55.3 % (45-73); Platelet Count 279 X10*3/uL (160-400); Red Blood Count 3.98 X10*6/uL (4.20-5.50); Red Cell Distribution Width 13.6 % (11.0-16.0); White Blood Count 6.2 X10*3/uL (4.8-10.8)
[2024-04-27 05:06] LABS: Anion Gap 15 (12-20); Blood Urea Nitrogen 27 mg/dL (9-16); Calcium 8.9 mg/dL (8.4-10.2); Carbon Dioxide 29 mmol/L (22-29); Chloride 99 mmol/L (96-108); Creatinine Clr Calc Pharmacy 25.2; Estimated Glomerular Filt Rate 38; Glucose Random 84 mg/dL (60-115); Potassium 3.6 mmol/L (3.3-5.1); Sodium 139 mmol/L (135-145)
[2024-04-27] MEDS: Levothyroxine Sodium 75 MCG TABLET PO (06:18)
[2024-04-27] MEDS: 0.9 % Sodium Chloride Flush 3 ML SYRINGE IVFLUSH ×4 (06:19→19:21)
[2024-04-27] MEDS: Doxycycline Monohydrate 100 MG CAPSULE PO ×2 (06:19→18:15)
--- NOTE | 2024-04-27 07:06 | P.PNIM_ITS ---
Subjective Subjective Date of Service: 04/28/24 Interval History: f/u on chf and chf and cellulitis interval history: less sob Physical Exam 2 Vital Signs: Vital Signs: Last Vital Signs Temp 7.8 F L 04/26/24 22:14 Pulse 66 04/26/24 22:14 Resp 17 04/26/24 22:14 BP 161/88 H 04/26/24 22:14 Pulse Ox 95 04/26/24 22:14 O2 Del Method Nasal Cannula 04/26/24 22:14 O2 Flow Rate 2 04/26/24 22:14 BMI result Body Mass Index 23.2 Constitutional - Awake and Alert, No apparent distress Eyes - PERRLA, EOMI Cardiovascular - S1S2, RRR, IV/ systolic murmur. 1+ ble edema. +JVD Respiratory - Normal lung expansion, Normal respiratory effort, No respiratory distress, crackles thoughout bilateral lungs L>R Gastrointestinal - NT / ND; +BS; No rebound or guarding Extremities - no calf tenderness bilaterally, no swelling Skin - Warm/Dry. Erythema and warmth of the RLE without any skin breaks noted with associated swlling. Dusky erythema with dried scales of the LLE without any warmth Neurological - Alert & oriented x3 Psychological - Appropriate affect Const: Other: Constitutional - Awake and Alert, No apparent distress Eyes - PERRLA, EOMI Cardiovascular - S1S2, RRR, IV/ systolic murmur. 1+ ble edema. +JVD Respiratory - Normal lung expansion, Normal respiratory effort, No respiratory distress, crackles thoughout bilateral lungs L>R Gastrointestinal - NT / ND; +BS; No rebound or guarding Extremities - no calf tenderness bilaterally, no swelling Skin - Warm/Dry. Erythema and warmth of the RLE without any skin breaks noted with associated swlling. Dusky erythema with dried scales of the LLE without any warmth Neurological - Alert & oriented x3 Psychological - Appropriate affect Objective Data Active Medications Acetaminophen (Acetaminophen 325 Mg Tablet) 650 mg PO Q6H PRN PRN Reason: Pain, Mild 1-3,fever,headache Amlodipine Besylate (Amlodipine Besylate 2.5 Mg Tablet) 2.5 mg PO DAILY [facility]; Protocol Atenolol (Atenolol 25 Mg Tablet) 25 mg PO DAILY [facility]; Protocol Atorvastatin Calcium (Atorvastatin Calcium 10 Mg Tablet) 10 mg PO BEDTIME [facility] Last Admin: 04/26/24 20:59 Dose: 10 mg Documented By: FLACA Calcium Carbonate (Calcium Carbonate 750 Mg Tab.Chew) 750 mg PO Q4H PRN PRN Reason: Heartburn Calcium Carbonate/Cholecalciferol (Calcium + Vitamin D 250 Mg Tablet) 2 mg PO DAILY [facility] Cephalexin HCl (Cephalexin 250 Mg Capsule) 250 mg PO Q12H [facility] Last Admin: 04/26/24 19:45 Dose: 250 mg Documented By: FLACA Doxycycline Monohydrate (Doxycycline Monohydrate 100 Mg Capsule) 100 mg PO Q12H [facility] Last Admin: 04/27/24 06:19 Dose: 100 mg Documented By: FLACA Enoxaparin Sodium (Enoxaparin Sodium 30 Mg/0.3 Ml Syringe) 30 mg SUBCUT Q24H [facility] Last Admin: 04/26/24 19:45 Dose: 30 mg Documented By: FLACA Furosemide (Furosemide 20 Mg/2 Ml Vial) 20 mg IVPUSH DAILY [facility]; Protocol Levothyroxine Sodium (Levothyroxine Sodium 75 Mcg Tablet) 75 mcg PO DAILY@0630 [facility] Last Admin: 04/27/24 06:18 Dose: 75 mcg Documented By: FLACA Magnesium Hydroxide (Milk Of Magnesia 30 Ml Oral.Susp) 30 ml PO DAILY PRN PRN Reason: Constipation Melatonin (Melatonin 3 Mg Tablet) 6 mg PO BEDTIME PRN PRN Reason: Insomnia Last Admin: 04/26/24 20:59 Dose: 6 mg Documented By: FLACA Sodium Chloride (0.9 % Sodium Chloride Flush 3 Ml Syringe) 3 ml IVFLUSH QSHIFT [facility] Last Admin: 04/27/24 06:19 Dose: 3 ml Documented By: FLACA Labs 04/28/24 06:16 04/28/24 06:16 Labs: Laboratory Results - last 24 hr 04/26/24 04/26/24 04/27/24 12:29 17:33 04:12 MCV 86.1 85.4 MCH 28.4 28.1 MCHC 32.9 32.9 RDW 13.7 13.6 Plt Count 272 279 MPV 9.8 10.0 Immature Gran % (Auto) 0.3 0.3 Neut % (Auto) 57.0 55.3 Lymph % (Auto) 27.2 27.3 Ferry % (Auto) 12.8 H 12.7 H Eos % (Auto) 2.2 3.9 Baso % (Auto) 0.5 0.5 Lymph # (Auto) 1.6 1.7 Ferry # (Auto) 0.8 0.8 Eos # (Auto) 0.1 0.2 Baso # (Auto) 0.0 0.0 Abs Immat Gran (auto) 0.02 0.02 Absolute Neuts (auto) 3.4 3.4 Absolute Nucleated RBC 0.000 0.000 Nucleated RBC % (auto) 0.0 0.0 Anion Gap 11 L 15 Estim Creat Clear Calc 23.5 25.2 Estimated GFR 35 38 Random Glucose 126 H 84 Calcium 8.9 8.9 Total Bilirubin 0.7 AST 29 ALT 10 Alkaline Phosphatase 70 B-Natriuretic Peptide 1042 H Total Protein 7.2 Albumin 3.4 L Influenza Type A (PCR) NEGATIVE Influenza Type B (PCR) NEGATIVE RSV RNA Qual (PCR) NEGATIVE SARS-CoV-2 RNA (RT-PCR) NEGATIVE Assessment and Plan (1) CHF (congestive heart failure): Status: Acute (2) Cellulitis of left leg: Status: Acute Plan 84-year-old female with history with history htn, hld, hypothyroidism, severe aortic stenosis, CKD, chronic venous stasis dermatitis, osteoporosis, and grade II diastolic dysfunction on echo 03/07 for acute hypoxemic respiratory failure secondary to CHF exacerbation. acute hypoxemic respiratory failure secondary to CHF exacerbation echocardiogram 03/07 shows grade 2 diastolic dysfunction, preserved ejection fraction. CXR shows bilateral interstitial edema IV Lasix strict I&O, daily weights cardiac diet continue supplemental O2 to maintain oximetry greater than 90% follow renal function, lytes acute cellulitis of the right lower leg no leukocytosis or fevers. No sepsis p.o. doxycycline 100 mg bid acute kidney injury r/t CHD (cardiorenal) versus worsening CKD stage 3, better 1.42 to 1.32 diuresis as above avoid nephrotoxins follow renal function/lytes acute hypokalemia repleted in the ED, follow lytes hypertension continue atenolol, Lasix uncontrolled in setting of CHF exacerbation. Give hydralazine x1 hypothyroidism continue levothyroxine hyperlipidemia statin severe aortic stenosis outpatient follow-up with Cardiology chronic normocytic anemia likely related to chronic disease DVT prophylaxis-Lovenox Full code Patient requires inpatient stay at least 2 midnights for management of acute hypoxemic respiratory failure secondary to CHF exacerbation which will require IV diuresis and close monitoring of vital signs as well as monitoring of renal function electrolyte levels Quality Stroke Does the patient have a stroke diagnosis?: No VTE Prior VTE?: No VTE Risk Level:: Medical - moderate - high VTE Device Contraindication: Treatment Not Indicated VTE Drug Contraindication: N/A - Med Ordered
--- NOTE | 2024-04-27 08:15 | PHA.MEDREC ---
Pharmacy Consult ? Medication Reconciliation Pharmacy has completed the medication reconciliation Completed on 04/26/24 but forget to enter note. Spoke with Patient in ED who was able to list off all medications.
[2024-04-27] MEDS: Furosemide 20 MG/2 ML VIAL IVPUSH (10:28)
[2024-04-27] MEDS: amLODIPine Besylate 2.5 MG TABLET PO (10:29)
[2024-04-27] MEDS: Flu Vacc TS2024-25(6mos up)/PF 0.5 ML SYRINGE IM (10:30)
[2024-04-27] MEDS: atenoloL 25 MG TABLET PO (10:30)
[2024-04-27] MEDS: Calcium + Vitamin D 250 MG TABLET PO (10:40)
--- NOTE | 2024-04-27 10:48 | MHC.CM.PN ---
PT LIVES ALONE HAS SERVICES THRU [facility] MAY NEED A RIDE HOME WHEN DCD PT ALSO STATS SHE IS LOOKING FOR A NEW HOMEMAKER AWAIT PHYSICAL EVAL DC PLAN TBD
[2024-04-27] MEDS: cephALEXin 250 MG CAPSULE PO ×2 (11:55→19:14)
--- NOTE | 2024-04-27 14:11 | MHC.CM.PN ---
PT active w/dequan
[2024-04-27] MEDS: Enoxaparin Sodium 30 MG/0.3 ML SYRINGE SUBCUT (18:15)
[2024-04-27] MEDS: Melatonin 3 MG TABLET 6 MG PO (19:15)
[2024-04-27] MEDS: Atorvastatin Calcium 10 MG TABLET PO (19:15)
[2024-04-27] MEDS: Acetaminophen 325 MG TABLET 650 MG PO (19:17)
[2024-04-28] VITALS (7 sets, daily range): BP systolic 132–164; BP diastolic 56–82; PULSE 58–64; RESP 16–18; TEMP 36–36.9; O2SAT 91–98
--- NOTE | 2024-04-28 03:25 | PC.NURSE ---
pt satting around 85% this morning, encouraged to take some deep breaths. Pt placed on 2L NC, O2 returned to 91%. Pt denies SOB/CP/increased WOB. Pt resting comfortable, no reports of pain at this time, respirations even and nonlabored with no apparent distress at this time.
[2024-04-28] MEDS: Levothyroxine Sodium 75 MCG TABLET PO (06:02)
[2024-04-28] MEDS: Doxycycline Monohydrate 100 MG CAPSULE PO ×2 (06:06→18:18)
[2024-04-28 06:27] LABS: Hematocrit 35.7 % (37.0-47.0); Hemoglobin 11.6 g/dl (12.0-16.0); Mean Corpuscular HGB Conc 32.5 g/dl (31.0-35.0); Mean Corpuscular Hemoglobin 28.1 pg (27.0-33.0); Mean Corpuscular Volume 86.4 fL (80.0-98.0); Mean Platelet Volume 9.5 fL (9.4-12.3); Platelet Count 285 X10*3/uL (160-400); Red Blood Count 4.13 X10*6/uL (4.20-5.50); Red Cell Distribution Width 13.9 % (11.0-16.0)
[2024-04-28 06:46] LABS: Anion Gap 12 (12-20); Blood Urea Nitrogen 33 mg/dL (9-16); Calcium 9.2 mg/dL (8.4-10.2); Carbon Dioxide 31 mmol/L (22-29); Chloride 97 mmol/L (96-108); Creatinine Clr Calc Pharmacy 22.4; Estimated Glomerular Filt Rate 33; Glucose Random 91 mg/dL (60-115); Sodium 136 mmol/L (135-145)
[2024-04-28] MEDS: cephALEXin 250 MG CAPSULE PO ×2 (08:28→20:04)
[2024-04-28] MEDS: amLODIPine Besylate 2.5 MG TABLET PO (08:28)
[2024-04-28] MEDS: Calcium + Vitamin D 250 MG TABLET PO (08:28)
[2024-04-28] MEDS: atenoloL 25 MG TABLET PO (08:29)
[2024-04-28] MEDS: 0.9 % Sodium Chloride Flush 3 ML SYRINGE IVFLUSH ×3 (08:29→20:04)
[2024-04-28] MEDS: Furosemide 20 MG/2 ML VIAL IVPUSH (08:29)
--- NOTE | 2024-04-28 08:29 | P.PNIM_ITS ---
Subjective Subjective Date of Service: 04/28/24 Interval History: f/u on chf and chf and cellulitis interval history: reporting no sob, but O2 sat reportedly dropped into 80s while sleeping and 91 on 2 L Physical Exam 2 Vital Signs: Vital Signs: Last Vital Signs Temp 97.9 F 04/28/24 07:31 Pulse 62 04/28/24 07:31 Resp 16 04/28/24 07:31 BP 164/76 H 04/28/24 07:31 Pulse Ox 91 L 04/28/24 07:31 O2 Del Method Nasal Cannula 04/28/24 07:31 O2 Flow Rate 2 04/28/24 07:31 BMI result Body Mass Index 21.0 Constitutional - Awake and Alert, No apparent distress Eyes - PERRLA, EOMI Cardiovascular - S1S2, RRR, IV/ systolic murmur. 1+ ble edema. +JVD Respiratory - Normal lung expansion, Normal respiratory effort, No respiratory distress, crackles thoughout bilateral lungs L>R Gastrointestinal - NT / ND; +BS; No rebound or guarding Extremities - no calf tenderness bilaterally, no swelling Skin - Warm/Dry. Erythema and warmth of the RLE without any skin breaks noted with associated swlling. Dusky erythema with dried scales of the LLE without any warmth Neurological - Alert & oriented x3 Psychological - Appropriate affect Const: Other: Constitutional - Awake and Alert, No apparent distress Cardiovascular - S1S2, RRR, IV/ systolic murmur. trace+ ble edema. +JVD Respiratory - Normal lung expansion, Normal respiratory effort, No respiratory distress, crackles thoughout bilateral lungs L>R Gastrointestinal - NT / ND; +BS; No rebound or guarding Extremities - no calf tenderness bilaterally, no swelling Skin - Warm/Dry. Erythema and warmth of the RLE without any skin breaks noted with associated swlling. Dusky erythema with dried scales of the LLE without any warmth Neurological - Alert & oriented x3 Psychological - Appropriate affect Objective Data Active Medications Acetaminophen (Acetaminophen 325 Mg Tablet) 650 mg PO Q6H PRN PRN Reason: Pain, Mild 1-3,fever,headache Last Admin: 04/27/24 19:17 Dose: 650 mg Documented By: LUCILA Amlodipine Besylate (Amlodipine Besylate 2.5 Mg Tablet) 2.5 mg PO DAILY [facility]; Protocol Last Admin: 04/27/24 10:29 Dose: 2.5 mg Documented By: WEN Atenolol (Atenolol 25 Mg Tablet) 25 mg PO DAILY [facility]; Protocol Last Admin: 04/27/24 10:30 Dose: 25 mg Documented By: WEN Atorvastatin Calcium (Atorvastatin Calcium 10 Mg Tablet) 10 mg PO BEDTIME [facility] Last Admin: 04/27/24 19:15 Dose: 10 mg Documented By: LUCILA Calcium Carbonate (Calcium Carbonate 750 Mg Tab.Chew) 750 mg PO Q4H PRN PRN Reason: Heartburn Calcium Carbonate/Cholecalciferol (Calcium + Vitamin D 250 Mg Tablet) 250 mg PO DAILY [facility] Last Admin: 04/27/24 10:40 Dose: 250 mg Documented By: WEN Cephalexin HCl (Cephalexin 250 Mg Capsule) 250 mg PO Q12H [facility] Last Admin: 04/27/24 19:14 Dose: 250 mg Documented By: LUCILA Doxycycline Monohydrate (Doxycycline Monohydrate 100 Mg Capsule) 100 mg PO Q12H [facility] Last Admin: 04/28/24 06:06 Dose: 100 mg Documented By: LUCILA Enoxaparin Sodium (Enoxaparin Sodium 30 Mg/0.3 Ml Syringe) 30 mg SUBCUT Q24H [facility] Last Admin: 04/27/24 18:15 Dose: 30 mg Documented By: WEN Furosemide (Furosemide 20 Mg/2 Ml Vial) 20 mg IVPUSH DAILY [facility]; Protocol Last Admin: 04/27/24 10:28 Dose: 20 mg Documented By: WEN Levothyroxine Sodium (Levothyroxine Sodium 75 Mcg Tablet) 75 mcg PO DAILY@0630 [facility] Last Admin: 04/28/24 06:02 Dose: 75 mcg Documented By: LUCILA Magnesium Hydroxide (Milk Of Magnesia 30 Ml Oral.Susp) 30 ml PO DAILY PRN PRN Reason: Constipation Melatonin (Melatonin 3 Mg Tablet) 6 mg PO BEDTIME PRN PRN Reason: Insomnia Last Admin: 04/27/24 19:15 Dose: 6 mg Documented By: LUCILA Sodium Chloride (0.9 % Sodium Chloride Flush 3 Ml Syringe) 3 ml IVFLUSH QSHIFT [facility] Last Admin: 04/27/24 19:21 Dose: 3 ml Documented By: LUCILA Labs 04/28/24 06:16 04/28/24 06:16 Labs: Laboratory Results - last 24 hr 04/28/24 06:16 MCV 86.4 MCH 28.1 MCHC 32.5 RDW 13.9 Plt Count 285 MPV 9.5 Absolute Nucleated RBC 0.000 Nucleated RBC % (auto) 0.0 Anion Gap 12 Estim Creat Clear Calc 22.4 Estimated GFR 33 Random Glucose 91 Calcium 9.2 Assessment and Plan (1) CHF (congestive heart failure): Status: Acute (2) Cellulitis of left leg: Status: Acute Plan 84-year-old female with history with history htn, hld, hypothyroidism, severe aortic stenosis, CKD, chronic venous stasis dermatitis, osteoporosis, and grade II diastolic dysfunction on echo 03/07 for acute hypoxemic respiratory failure secondary to CHF exacerbation. acute hypoxemic respiratory failure secondary to CHF exacerbation echocardiogram 03/07 shows grade 2 diastolic dysfunction, preserved ejection fraction. CXR shows bilateral interstitial edema Change to PO lasix today strict I&O, daily weights cardiac diet continue supplemental O2 to maintain oximetry greater than 90% follow renal function, lytes acute cellulitis of the right lower leg no leukocytosis or fevers. No sepsis p.o. doxycycline 100 mg bid x 7 days acute kidney injury r/t CHD (cardiorenal) versus worsening CKD stage 3, better 1.42 to 1.32 to 1.49 today Monitor while on diuretics follow renal function/lytes acute hypOkalemia repleted in the ED, follow lytes hypertension continue atenolol, Lasix uncontrolled in setting of CHF exacerbation. hypothyroidism continue levothyroxine hyperlipidemia statin severe aortic stenosis outpatient follow-up with Cardiology chronic normocytic anemia likely related to chronic disease DVT prophylaxis-Lovenox Full code Patient requires inpatient stay at least 2 midnights for management of acute hypoxemic respiratory failure secondary to CHF exacerbation which will require IV diuresis and close monitoring of vital signs as well as monitoring of renal function electrolyte levels Quality Stroke Does the patient have a stroke diagnosis?: No VTE Prior VTE?: No VTE Risk Level:: Medical - moderate - high VTE Device Contraindication: Treatment Not Indicated VTE Drug Contraindication: N/A - Med Ordered
--- NOTE | 2024-04-28 17:06 | HO.WOUND ---
Wound Consult: Initial 84yr old female? admitted to [facility] on 04/26/24 - See progress notes and H&P for detailed history.? Wound consult placed for redness to bilateral lower legs.? Patient agreeable to assessment and photo documentation.? There are no skin injuries noted at this this time. Both heels assessed for intact dry skin. Bilateral lower legs are noted for redness without swelling noted. The left medial leg is noted for scar tissue from old injury that remains closed and resurfaced at this time. There are areas of thickened dry flaking tissue but no skin concerns noted. No topical recommendations / interventions needed at this time. Re-consult wound care Nurse for wound deterioration or wound changes.
[2024-04-28] MEDS: Enoxaparin Sodium 30 MG/0.3 ML SYRINGE SUBCUT (18:18)
[2024-04-28] MEDS: Nystatin Powder 15 GM BOTTLE 1 APPL TOPICAL (20:04)
[2024-04-28] MEDS: Atorvastatin Calcium 10 MG TABLET PO (20:04)
[2024-04-29 06:00] VITALS: BP 145/69; PULSE 68; RESP 16; TEMP 37.1; O2SAT 95
[2024-04-29] MEDS: Doxycycline Monohydrate 100 MG CAPSULE PO (06:14)
[2024-04-29] MEDS: Levothyroxine Sodium 75 MCG TABLET PO (06:14)
[2024-04-29 07:12] LABS: Anion Gap 12 (12-20); Blood Urea Nitrogen 40 mg/dL (9-16); Carbon Dioxide 32 mmol/L (22-29); Chloride 96 mmol/L (96-108); Estimated Glomerular Filt Rate 34; Glucose Random 73 mg/dL (60-115); Potassium 3.5 mmol/L (3.3-5.1); Sodium 136 mmol/L (135-145)
[2024-04-29 07:22] VITALS: BP 141/82; PULSE 72; RESP 16; TEMP 36.6; O2SAT 95
--- NOTE | 2024-04-29 07:24 | PM.DS ---
DS: Providers Provider Date of Service: 04/29/24 Date of admission: 04/26/24 18:39 Date of discharge: 04/29/24 Primary care physician: Wes Navas MD Consults: 04/28/24 00:18 Consult to Wound Care Routine Reason for consultation: BLE redness/dry scaly skin to left foot DS: Diagnosis Discharge Diagnosis (1) CHF (congestive heart failure): Status: Acute (2) Cellulitis of left leg: Status: Acute DS: Summary Hospital Course Hospital Course: admission hpi Chief Complaint: sob, ?cellulitis 84-year-old female with history with history htn, hld, hypothyroidism, severe aortic stenosis, CKD, chronic venous stasis dermatitis, osteoporosis, and grade II diastolic dysfunction on echo 03/07 presented to the ED earlier today at 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 The patient reports that she has been having difficulty walking due to pain in the left lower leg for several days but has not fallen. Apparently, she saw her PCP who did not pulled down her compression stockings though he did prescribe Keflex for left lower leg cellulitis at that time. She denies any fevers or chills. Since arrival, patient has been hypertensive, on admission blood pressure 185/85. Intermittently tachypneic, and hypoxic to 84% on room air, placed on 2 L supplemental O2 now maintaining oximetry 92-95%. While in the ED, she was reported to develop shortness of breath though patient denies this on exam. She denies any chest pain or orthopnea. No recent weight gain. Hematology studies unremarkable. Creatinine elevated at 1.42, unclear if this is chronic related to CKD versus related to congestive heart failure. Potassium is 3.1, electrolyte levels otherwise within normal limits except for CO2 30. BNP 1042. Negative for COVID flu, RSV. X-ray of the left ankle negative for any fracture. Venous duplex of the right lower extremity negative for DVT. Chest x-ray shows cardiomegaly with pulmonary vascular congestion and small bilateral pleural effusions. She will be admitted for further management of acute hypoxemic respiratory failure secondary to CHF exacerbation. hospital course: 84-year-old female with a history of hypertension, hyperlipidemia, hypothyroidism, severe aortic stenosis, chronic kidney disease (CKD), chronic venous stasis dermatitis, osteoporosis, and grade II diastolic dysfunction on echocardiogram 03/07 for acute hypoxemic respiratory failure secondary to congestive heart failure (CHF) exacerbation. Acute heart failure was treated with intravenous Lasix and later changed to oral Lasix. B-type natriuretic peptide (BNP) is stable. Initially requiring oxygen, she has been weaned off oxygen and is breathing comfortably at 95% on room air. An echocardiogram shows an ejection fraction (EF) of 59% and diastolic dysfunction. Acute cellulitis of the right lower leg, treated with doxycycline and resolved, will complete 7 days of treatment with doxycycline. Acute kidney injury related to cardiorenal syndrome (CRS) versus worsening CKD stage 3, improved from 1.42 to 1.32 to 1.49, and today 1.45, which is within her baseline. Monitor while on diuretics. Follow renal function/electrolytes. Acute hypokalemia, repleted once and resolved. Hypertension, optimal control. Continue atenolol and Lasix. Hypothyroidism, continue levothyroxine. Hyperlipidemia, statin. Severe aortic stenosis, outpatient follow-up with cardiology. Chronic normocytic anemia, likely related to chronic disease. Disposition: to short-term rehabilitation for less than 30 days. Time Attestation Discharge Coordination Time (in mins): 40 Quality: Safe Use of Opioids Does Pt have an Active Cancer Diagnosis on the Problem List?: No Quality: Stroke Does the patient have a stroke diagnosis?: No Physical Exam Vital Signs: Vital Signs: Selected Entries 04/29/24 07:22 Temperature 97.9 F Pulse Rate 72 Respiratory Rate 16 Blood Pressure 141/82 H Pulse Oximetry 95 Oxygen Delivery Me thod Room Air Constitutional - Awake and Alert, No apparent distress Eyes - PERRLA, EOMI Cardiovascular - S1S2, RRR, IV/ systolic murmur. 1+ ble edema. +JVD Respiratory - Normal lung expansion, Normal respiratory effort, No respiratory distress, crackles thoughout bilateral lungs L>R Gastrointestinal - NT / ND; +BS; No rebound or guarding Extremities - no calf tenderness bilaterally, no swelling Skin - Warm/Dry. Erythema and warmth of the RLE without any skin breaks noted with associated swlling. Dusky erythema with dried scales of the LLE without any warmth Neurological - Alert & oriented x3 Psychological - Appropriate affect Const: Other: Constitutional - Awake and Alert, No apparent distress Cardiovascular - S1S2, RRR, IV/ systolic murmur. trace+ ble edema. +JVD Respiratory - Normal lung expansion, Normal respiratory effort, No respiratory distress, crackles thoughout bilateral lungs L>R Gastrointestinal - NT / ND; +BS; No rebound or guarding Extremities - no calf tenderness bilaterally, no swelling Skin - Warm/Dry. Erythema and warmth of the RLE without any skin breaks noted with associated swlling. Dusky erythema with dried scales of the LLE without any warmth Neurological - Alert & oriented x3 Psychological - Appropriate affect DS: Data Data Completed and Pending Completed studies during hospitalization [Text1]: Procedures Reposition Left Radius with Internal Fixation Device, Open Approach (11/29/21) Labs on day of discharge: Laboratory Results - last 24 hr 04/28/24 06:16 WBC 6.0 RBC 4.13 L Hgb 11.6 L Hct 35.7 L MCV 86.4 MCH 28.1 MCHC 32.5 RDW 13.9 Plt Count 285 MPV 9.5 Absolute Nucleated RBC 0.000 Nucleated RBC % (auto) 0.0 Sodium 136 Potassium 4.0 Chloride 97 Carbon Dioxide 31 H Anion Gap 12 BUN 33 H Creatinine 1.49 H Estim Creat Clear Calc 22.4 Estimated GFR 33 Random Glucose 91 Calcium 9.2 Discharge Plan Discharge Anticipated Discharge Date/Time: 04/29/24 10:00 Patient Disposition: [facility] Discharge Diagnosis: CHF, cellulitis of the leg Referrals: [facility] [Other] - 1 Week Wes Navas MD [Primary Care Provider] - Discharge Medications: New doxycycline monohydrate 100 mg Capsule 100 mg PO Q12H Qty: 9 0RF Continued calcium carbonate-vitamin D3 [Calcium 500 + D] 500 mg-10 mcg (400 unit) Tablet 2 tab PO DAILY amlodipine 2.5 mg tablet 2.5 mg PO DAILY furosemide 20 mg tablet 20 mg PO DAILY levothyroxine 75 mcg tablet 75 mcg PO DAILY@0630 atenolol 25 mg tablet 25 mg PO DAILY simvastatin 20 mg tablet 20 mg PO BEDTIME alendronate 70 mg tablet 70 mg PO PIÑA@0600 Discontinued cephalexin 250 mg capsule 250 mg PO BID Qty: 30 0RF Discharge Orders: Discharge Order (Routine); Ordered 04/29/24 Ordered By: Hardeep jasbir Diet: Advance to usual diet Activity on Discharge: As tolerated Stand Alone Forms: Patient Portal Discharge page Print Language: Slovenian Care Plan Goals: heart failure and cellulitis of the leg Health Concerns: chf cellulitis of the leg Plan of Treatment: take doxycyline for cellulitis take lasix for heart failure follow up with your doctor luz week To short term rehab for less than 30 days Assessment: see above Patient Instructions: Doxycycline (By mouth), Cellulitis (DC)
[2024-04-29] MEDS: atenoloL 25 MG TABLET PO (07:49)
[2024-04-29] MEDS: amLODIPine Besylate 2.5 MG TABLET PO (07:49)
[2024-04-29] MEDS: cephALEXin 250 MG CAPSULE PO (07:49)
[2024-04-29] MEDS: Furosemide 20 MG/2 ML VIAL IVPUSH (07:50)
[2024-04-29] MEDS: 0.9 % Sodium Chloride Flush 3 ML SYRINGE IVFLUSH (07:50)
[2024-04-29] MEDS: Calcium + Vitamin D 250 MG TABLET PO (07:50)
[2024-04-29] MEDS: Nystatin Powder 15 GM BOTTLE 1 APPL TOPICAL (08:08)
--- NOTE | 2024-04-29 09:04 | MHC.CM.PN ---
pt leaving at 11 to [facility]
--- NOTE | 2024-04-29 09:12 | MHC.CM.PN ---
pts son left t/m re same violet [phone]
[2024-04-29 09:26] VITALS: O2SAT 94
[2024-04-29 10:18] VITALS: BP 128/61; PULSE 71; RESP 16; TEMP 37.2; O2SAT 93
[2024-04-29 11:15] VITALS: BP 130/68; PULSE 68; RESP 16; TEMP 37.1; O2SAT 93
== END 2024-04-29 11:51 | disposition skilled nursing facility (03) | DRG 291 ==
LOC: HO.ED 17:33 → HO.EDOVER 18:56 → HO.S3 04-27 07:23
PROVIDERS: Registered Nurse Emergency; Admitting Provider Physician Assistant; Emergency Provider Emergency Medicine; PCP Internal Medicine; Visit Provider Internal Medicine
DX: I13.0 Hypertensive heart and chronic kidney disease with heart failure and stage 1 through stage 4 chronic kidney disease, or unspecified chronic kidney disease (principal); J96.01 Acute respiratory failure with hypoxia; L03.115 Cellulitis of right lower limb; N17.9 Acute kidney failure, unspecified; E03.9 Hypothyroidism, unspecified; I35.0 Nonrheumatic aortic (valve) stenosis; Z23 Encounter for immunization; N18.30 Chronic kidney disease, stage 3 unspecified; E87.6 Hypokalemia; E78.5 Hyperlipidemia, unspecified; D63.1 Anemia in chronic kidney disease; Z20.822 Contact with and (suspected) exposure to COVID-19; Z79.890 Hormone replacement therapy; Z79.899 Other long term (current) drug therapy
CPT/HCPCS: 0241U; 36415; 71046; 73600; 80048; 80053; 83880; 85025; 85027; 90656; 93971; 97161; 97530; 99285; J0360; J1650; J1940; J3480

== ENCOUNTER → 2024-04-26 12:00 | Outpatient (BNV) | payer MEDICARE, SELFPAY | PROVIDERS: Emergency Provider Emergency Medicine; PCP Internal Medicine; Visit Provider Physician Assistant | DX: I50.9 Heart failure, unspecified (principal); L03.116 Cellulitis of left lower limb | CPT/HCPCS: 99223; 99232; 99239 ==

== ENCOUNTER → 2024-04-26 13:21 | Outpatient (BNV) | payer MEDICARE, SELFPAY | PROVIDERS: Emergency Provider Emergency Medicine; PCP Internal Medicine; Visit Provider Nuclear Medicine | DX: I51.7 Cardiomegaly (principal); J90 Pleural effusion, not elsewhere classified; R22.41 Localized swelling, mass and lump, right lower limb | CPT/HCPCS: 71046; 93971 ==

== ENCOUNTER 2024-05-28 09:27 | Outpatient (AMB) | payer MEDICARE, SELFPAY ==
--- NOTE | 2024-05-28 09:34 | A.OFFPC_ITS ---
Vital Signs 05/28/24 09:35 Height 5 ft 3 in BP 130/80 Blood Pressure Location Rt brachial Position Sitting Pulse 92 Pulse Source Pulse Oximeter Temp 97.3 F Temp Source Axillary Pulse Oximetry (%) 99 Oxygen Delivery Method Room Air Intake Visit Reasons: Rehab Discharge F/U Watchguard Required: No Accompanied by: Son Allergies No Known Allergies Allergy (Verified 05/28/24 09:35) Tobacco use date assessed: 05/28/24 Fall risk assessment: No Falls in past year Last assessed Fall Risk: 05/28/24 Dental Screening Dental Screen Date: 05/28/24 Did you have a dental visit in the last 12 months?: Yes Did you have a dental problem in the last 6 months where you did not have access to dental care?: No HPI HPI Comments History of Present Illness Details The patient is an 84 year old female with a past medical history of hypertension, hyperlipidemia, TUNDE, dCHF, prediabetes, hypothyroid, CKD presenting for follow up. Last seen by pcp Feb 2024 Recent hospitalization 04/26-04/2919. grade II diastolic dysfunction on echocar diogram 03/07 for acute hypoxemic respiratory failure secondary to congestive heart failure (CHF) exacerbation. Acute heart failure was treated with intravenous Lasix and later changed to oral Lasix. B-type natriuretic peptide (BNP) is stable. Initially requiring oxygen, she has been weaned off oxygen and is breathing comfortably at 95% on room air. An echocardiogram shows an ejection fraction (EF) of 59% and diastolic dysfunction. Acute cellulitis of the right lower leg, treated with doxycycline and resolved, will complete 7 days of treatment with doxycycline. CV: on atenolol, simvastatin, lisinopril. Follows with cardiology at [facility] [place]-Dr Osullivan. severe aortic stenosis. Hypothyroid: on levothyroxine 75mcg daily. TSH was elevated. Dose was adjusted Osteoporosis: on fosamax. ROS CONSTITUTIONAL: Denies weight loss, fever and chills. HEENT: Denies changes in vision and hearing. RESPIRATORY: Denies SOB and cough. CV: Denies palpitations and CP GI: Denies abdominal pain, nausea, vomiting and diarrhea. : Denies dysuria and urinary frequency. MSK: Denies new myalgia and joint pain. SKIN: Denies rash and pruritus. NEUROLOGICAL: Denies headache PSYCHIATRIC: Denies recent changes in mood. PHYSICAL EXAM: GENERAL: Alert and oriented x 3. NAD EYES: EOMI. Anicteric. HENT: Moist mucous membranes. No scleral icterus. No cervical lymphadenopathy. LUNGS: Clear to auscultation bilaterally. CARDIOVASCULAR: Regular rate and rhythm. No murmur. No JVD. ABDOMEN: Soft, non-tender +bs EXTREMITIES: No edema. Non-tender. SKIN: No rashes or lesions. Warm. NEUROLOGIC: No focal neurological deficits. CN II-XII grossly intact PSYCHIATRIC: Cooperative. Appropriate mood and affect . [facility] Medical History (Updated 05/28/24 @ 13:01 by Anju Woods MD) Diastolic dysfunction Chronic kidney disease Essential hypertension Preop cardiovascular exam Chronic venous stasis dermatitis Closed fracture of left inferior pubic ramus Hypothyroidism Hyperlipidemia Non-rheumatic aortic stenosis Surgical History History of surgery on left wrist Family History Father No problems noted. Mother No problems noted. Social History Household Members: None Housing: House Do you presently have visiting nurse or other home services: Yes Alcohol intake: never Patient Tobacco Use Status: Never used Tobacco e-Cigarette/Vaping Use: Never Used Advance Directives Date on File: 11/28/21 service: No Current occupational status: retired Current occupation: right hand dominant Cognitive needs: Yes (walker) Hearing needs: No Vision needs: Yes (reading glasses) Questionnaire PHQ-9 Over the last 2 weeks, how often have you been bothered by any of the following problems? 1. Little interest or pleasure in doing things: not at all 2. Feeling down, depressed, or hopeless: not at all 3. Trouble falling or staying asleep, or sleeping too much: not at all 4. Feeling tired or having little energy: not at all 5. Poor appetite or overeating: not at all 6. Feeling bad about yourself - or that you are a failure or have let yourself or your family down: not at all 7. Trouble concentrating on things, such as reading the newspaper or watching television: not at all 8. Moving or speaking so slowly that other people could have noticed. Or the opposite - being so fidgety or restless that you have been moving around a lot more than usual: not at all 9. Thoughts that you would be better off or of hurting yourself in some way: not at all Total score: 0 Source: Developed by Drs. Irving Shipman, Ping Tay, Christoph Peters and colleagues, with an educational tobi from [employer]. Thrive Questionnaire Date Thrive assessed: 04/27/24 I am a: Patient Within the past 12 months, did the food you bought not last and you didn't have the money to get more?: Never true Within the past 12 months, did you worry whether your food would run out before you got money to buy more?: Never true Do you have trouble paying for medicines?: No Do you have trouble getting transportation to medical appointments?: No Do you have trouble paying your heating and electricity bill?: No Do you have trouble taking care of your child, family member or friend?: No Do you have trouble with day-to-day activities such as bathing, preparing meals, shopping, managing finances, etc.?: No Are you currently unemployed and looking for a job?: No Are you interested in more education?: No THRIVE Score: 0 AUDIT C Alcohol Use Questionnaire (AUDIT-C) 1. How often do you have a drink containing alcohol?: Never 3. How often do you have six or more drinks on one occasion?: Never Total Score: 0 ROSE-7 AMB Questionnaire ROSE-7 Date ROSE - 7 assessed: 05/28/24 Feeling nervous, anxious, or on edge: 0 = Not at all Not being able to stop or control worryin = Not at all Worrying too much about different things: 0 = Not at all Trouble relaxin = Not at all Being so restless that it is hard to sit still: 0 = Not at all Becoming easily annoyed or irritable: 0 = Not at all Feeling afraid as if something awful might happen: 0 = Not at all Total ROSE-7 score (0-4 normal; 5-9 mild; 10-14 moderate; 15-21 severe): 0 Source: Developed by Ping Loya, Christoph Peters and colleagues, with an educational tobi from [employer]. Physical exam (Primary Care) Vital Signs: Last Vital Signs Temp 97.3 F 05/28/24 09:35 Pulse 92 05/28/24 09:35 BP 130/80 05/28/24 09:35 Pulse Ox 99 05/28/24 09:35 Oxygen Delivery Method Room Air 05/28/24 09:35 Tobacco/Smoking Status: Tobacco use Status Tobacco use date assessed 05/28/24 05/28/24 09:36 Patient Tobacco Use Status Never used Tobacco 05/28/24 09:36 e-Cigarette/Vaping Use Never Used 05/28/24 09:36 PHQ-9: PHQ-9 Score PHQ-9: Total score 0 05/28/24 09:52 Thrive Assessment: Date of Thrive Assessment Date Thrive assessed 04/27/24 05/28/24 09:36 Coding Level of Care Code New Pt Level 4 (13490) Complex EM visit Add On G2211 Diagnoses Hospital discharge follow-up Z09 Acute hypoxemic respiratory failure J96.01 Essential hypertension I10 Stage 3 chronic kidney disease, unspecified whether stage 3a or 3b CKD N18.30 Chronic kidney disease stage: stage 3 (moderate) Chronic kidney disease stage 3 subtype: unspecified whether 3a or 3b Assessment & Plan Assessment & Plan (1) Hospital discharge follow-up: Code(s): Z09 - Encounter for follow-up examination after completed treatment for conditions other than malignant neoplasm (2) Acute hypoxemic respiratory failure: Code(s): J96.01 - Acute respiratory failure with hypoxia Category: Medical (3) Essential hypertension: Code(s): I10 - Essential (primary) hypertension Category: Medical (4) Chronic kidney disease: Code(s): N18.9 - Chronic kidney disease, unspecified Category: Medical Qualifiers: Chronic kidney disease stage: stage 3 (moderate) Chronic kidney disease stage 3 subtype: unspecified whether 3a or 3b Qualified Code(s): N18.30 - Chronic kidney disease, stage 3 unspecified Plan hospital dc follow up reviewed hospitalization, medications reconciled Back to baseline state of health Labs ordered 3 months CHF is stable Orders: Orders Complete Blood Count Auto Diff 3 Months E03.9 - Hypothyroidism, unspecified, I10 - Essential (primary) hypertension, N18.9 - Chronic kidney disease, unspecified TSH reflex Free T4 3 Months E03.9 - Hypothyroidism, unspecified, I10 - Essential (primary) hypertension, N18.9 - Chronic kidney disease, unspecified Comprehensive Met. Panel 3 Months E03.9 - Hypothyroidism, unspecified, I10 - Essential (primary) hypertension, N18.9 - Chronic kidney disease, unspecified Lipid Panel 3 Months E03.9 - Hypothyroidism, unspecified, I10 - Essential (primary) hypertension, N18.9 - Chronic kidney disease, unspecified
[2024-05-28 09:35] VITALS: BP 130/80; PULSE 92; TEMP 36.3; O2SAT 99
--- OUTSIDE RECORDS SUMMARY | 2024-05-28 10:46 | XMS_ITS | Clinical Summary ---
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, [employer] Unavailable Unavailable Payers Payer Name Policy Type Policy Number Effective Date Expira tion Date MEDICARE.NGS.PD [id number] Problems Condition Name Condition Details Condition Category Status Onset Date Resolution Date Last Treatment Date Treating Clinician Comments HYP HRT AND CHR KDNY DIS W HRT FAIL AND STG 1-4/UNSP CHR KDNY Active 05-25 00:00: 00 ACUTE ON CHRONIC SYSTOLIC (CONGESTIVE) HEART FAILURE Active 05-25 00:00: 00 CHRONIC KIDNEY DISEASE, STAGE 3 UNSPECIFIED Active 05-25 00:00: 00 ANEMIA IN CHRONIC KIDNEY DISEASE Active 05-25 00:00: 00 CELLULITIS OF RIGHT LOWER LIMB Active 05-25 00:00: 00 ACUTE RESPIRATORY FAILURE WITH HYPOXIA Active 05-25 00:00: 00 ACUTE KIDNEY FAILURE, UNSPECIFIED Active 05-25 00:00: 00 VENOUS INSUFFICIENC Y (CHRONIC) (PERIPHERAL) Active 05-25 00:00: 00 NONRHEUMATIC AORTIC (VALVE) STENOSIS Active 05-25 00:00: 00 AGE-RELATED OSTEOPOROSIS W/O CURRENT PATHOLOGICAL FRACTURE Active 05-25 00:00: 00 DYSPHAGIA, UNSPECIFIED Active 05-25 00:00: 00 INSOMNIA, UNSPECIFIED Active 05-25 00:00: 00 HYPOTHYROIDI SM, UNSPECIFIED Active 05-25 00:00: 00 HYPERLIPIDEM IA, UNSPECIFIED Active 05-25 00:00: 00 PERSONAL HISTORY OF (HEALED) TRAUMATIC FRACTURE Active 05-25 00:00: 00 Allergies, Adverse Reactions, Alerts Allergy Name Allergy Type Status Severity Reaction(s) Onset Date Inactive Date Treating Clinician Comments NO KNOWN ALLERGIES Propensity to adverse reactions Active 05-23 21:56: 22 Medications Ordered Medication Name Filled Medication Name Start Date Stop Date Current Medication? Ordering Clinician Indication Dosage Frequency Signature (SIG) Comments Components doxycycline hyclate 100 mg capsule 06-23 00:00: 00 07-03 23:59 :00 No [id number] CELLULITIS LEFT LOWER LEG 1 capsule 2 TIMES DAILY 1 capsule 2 TIMES DAILY (route: oral) Med Classific ation: Anti-Infe ctive Agents simvastatin 20 mg tablet 06-21 00:00: 00 Yes [id number] HIGH CHOLESTEROL 1 tablet BEDTIME 1 tablet BEDTIME (route: oral) Med Classific ation: Cardiovas cular Therapy Agents meloxicam 7.5 mg tablet 05-28 00:00: 00 06-25 00:00 :00 No [id number] Per instruc tions EVERY DAY Per instructio ns EVERY DAY (route: oral) Med Classific ation: Analgesic , Anti-infl ammatory or Antipyret ic alendronate 70 mg tablet 06-25 00:00: 00 Yes [id number] OSTEOPOROSI S 1 tablet WEEKLY 1 tablet WEEKLY (route: oral) Med Classific ation: Endocrine atenolol 25 mg tablet 06-25 00:00: 00 05-25 11:52 :30.4 03 No [id number] HIGH BLOOD PRESSURE 1 tablet DAILY 1 tablet DAILY (route: oral) Med Classific ation: Cardiovas cular Therapy Agents cefuroxime axetil 250 mg tablet 06-25 00:00: 00 08-20 23:59 :00 No [id number] INFECTION 1 tablet 2 TIMES DAILY 1 tablet 2 TIMES DAILY (route: oral) Med Classific ation: Anti-Infe ctive Agents furosemide 20 mg tablet 06-25 00:00: 00 Yes [id number] EDEMA/LEG SWELLING 1 tablet DAILY 1 tablet DAILY (route: oral) Med Classific ation: Cardiovas cular Therapy Agents levothyroxi ne 75 mcg tablet 2024-0 5-15 00:00: 00 05-23 00:00 :00 No [id number] LOW THYROID 1 tablet DAILY 1 tablet DAILY (route: oral) Med Classific ation: Endocrine doxycycline hyclate 100 mg capsule 7-14 00:00: 00 08-30 23:59 :00 No [id number] RIGHT LOWER LEG CELLULITUS 1 capsule 2 TIMES DAILY 1 capsule 2 TIMES DAILY (route: oral) Med Classific ation: Anti-Infe ctive Agents cefuroxime axetil 250 mg tablet 7-25 00:00: 00 09-14 23:59 :00 No [id number] wound infection 1 tablet 2 TIMES DAILY 1 tablet 2 TIMES DAILY (route: oral) Med Classific ation: Anti-Infe ctive Agents ammonium lactate 12 % lotion 2023-02 1-11 00:00: 00 05-23 00:00 :00 No [id number] WEEPING SKIN Per instruc tions 2 TIMES DAILY Per instructio ns 2 TIMES DAILY (route: topical) Med Classific ation: Dermatolo gical doxycycline hyclate 100 mg capsule 2023-02 2-27 00:00: 00 02-16 23:59 :00 No [id number] CELLULITIS 100 mg 2 TIMES DAILY 100 mg 2 TIMES DAILY (route: oral) Med Classific ation: Anti-Infe ctive Agents doxycycline hyclate 100 mg capsule 2-03 00:00: 00 03-26 23:59 :00 No [id number] WOUND INFECTION 100 mg 2 TIMES DAILY 100 mg 2 TIMES DAILY (route: oral) Med Classific ation: Anti-Infe ctive Agents amlodipine 5 mg tablet 3-11 00:00: 00 05-23 00:00 :00 No [id number] HIGH BLOOD PRESSURE 1 tablet DAILY 1 tablet DAILY (route: oral) Med Classific ation: Cardiovas cular Therapy Agents Immunizations Ordered Immunization Name Filled Immunization Name Date Status Comments Refusal Reason INFLUENZA, TIV (INACTIVATED) 2024-05-12 00:00:00 DOSE #2, COVID-19 VACCINE 2020-06-02 00:00:00 DOSE #1, COVID-19 VACCINE 2020-05-13 00:00:00 Vital Signs Vital Name Observation Time Observation Value Commen ts Temperature 2024-05-26 08:42:00.000 97.5 [degF] Temperature 2024-05-25 09:30:00.000 97.3 [degF] Temperature 2024-05-23 13:07:00.000 97.7 [degF] BMI (%) 2024-05-23 13:07:00.000 17 kg/m2 Height 2024-05-23 13:07:00.000 75 [in_us] Pulse 2024-05-26 08:42:00.000 76 /min Pulse 2024-05-25 09:30:00.000 66 /min Pulse 2024-05-23 13:07:00.000 68 /min O2 Saturation (%) 2024-05-26 08:42:00.000 98 % O2 Saturation (%) 2024-05-25 09:30:00.000 95 % O2 Saturation (%) 2024-05-23 13:07:00.000 96 % Respirations 2024-05-26 08:42:00.000 18 /min Respirations 2024-05-25 09:30:00.000 18 /min Respirations 2024-05-23 13:08:00.000 18 /min Weight (lbs) 2024-05-26 08:48:00.000 112 [lb_av] Weight (lbs) 2024-05-25 09:31:00.000 115 [lb_av] Weight (lbs) 2024-05-23 13:07:00.000 138 [lb_av] Systolic Blood Pressure 2024-05-26 08:42:00.000 138 mm [Hg] Systolic Blood Pressure 2024-05-25 09:30:00.000 108 mm [Hg] Systolic Blood Pressure 2024-05-23 13:07:00.000 136 mm [Hg] Diastolic Blood Pressure 2024-05-26 08:42:00.000 70 mm [Hg] Diastolic Blood Pressure 2024-05-25 09:30:00.000 56 mm [Hg] Diastolic Blood Pressure 2024-05-23 13:07:00.000 62 mm [Hg] Plan of Treatment Planned Activity Planned Date Details Comments Future Scheduled Test MEDICATION MANAGEMENT; RN/DATA ENTRY CLERK/SIGN ERECTOR TO REVIEW MEDICATIONS FOR INTERACTIONS, EFFECTIVENESS OF DRUG THERAPY, AND SIGNS/SYMPTOMS OF ADVERSE REACTIONS. MAY INSTRUCT AND REINFORCE MEDICATION TEACHING RELATED TO THE USE OF MEDICATIONS, DOSAGE, FREQUENCY, PURPOSE, SIDE EFFECTS, AND TO REPORT COMPLICATIONS. [code = MEDICATION MANAGEMENT; RN/DATA ENTRY CLERK/SIGN ERECTOR TO REVIEW MEDICATIONS FOR INTERACTIONS, EFFECTIVENESS OF DRUG THERAPY, AND SIGNS/SYMPTOMS OF ADVERSE REACTIONS. MAY INSTRUCT AND REINFORCE MEDICATION TEACHING RELATED TO THE USE OF MEDICATIONS, DOSAGE, FREQUENCY, PURPOSE, SIDE EFFECTS, AND TO REPORT COMPLICATIONS.] Future Scheduled Test RESPIRATOR Y SYSTEM MANAGEMENT; RN TO ASSESS AND TEACH, DATA ENTRY CLERK/SIGN ERECTOR TO OBSERVE AND TEACH RELATED TO ALTERED RESPIRATORY STATUS TO MINIMIZE COMPLICATIONS AND REDUCE HOSPITALIZATION. [code = RESPIRATORY SYSTEM MANAGEMENT; RN TO ASSESS AND TEACH, DATA ENTRY CLERK/SIGN ERECTOR TO OBSERVE AND TEACH RELATED TO ALTERED RESPIRATORY STATUS TO MINIMIZE COMPLICATIONS AND REDUCE HOSPITALIZATION. ] Future Scheduled Test FALL REDUC TION MANAGEMENT; RN TO ASSESS AND OBSERVE, DATA ENTRY CLERK/SIGN ERECTOR TO OBSERVE FALL RISK FACTORS AND EDUCATE PATIENT/CAREGIVER ON STRATEGIES TO MINIMIZE THE RISK OF FALLING. [code = FALL REDUCTION MANAGEMENT; RN TO ASSESS AND OBSERVE, DATA ENTRY CLERK/SIGN ERECTOR TO OBSERVE FALL RISK FACTORS AND EDUCATE PATIENT/CAREGIVER ON STRATEGIES TO MINIMIZE THE RISK OF FALLING.] Future Scheduled Test GENITOURIN VICTOR M MANAGEMENT; RN TO ASSESS AND TEACH, DATA ENTRY CLERK/SIGN ERECTOR TO OBSERVE AND TEACH RELATED TO ALTERED GENITOURINARY STATUS TO MINIMIZE COMPLICATIONS AND REDUCE HOSPITALIZATION. [code = GENITOURINARY MANAGEMENT; RN TO ASSESS AND TEACH, DATA ENTRY CLERK/SIGN ERECTOR TO OBSERVE AND TEACH RELATED TO ALTERED GENITOURINARY STATUS TO MINIMIZE COMPLICATIONS AND REDUCE HOSPITALIZATION.] Future Scheduled Test URINARY IN CONTINENCE MANAGEMENT; RN TO ASSESS AND TEACH, DATA ENTRY CLERK/LVNTO OBSERVE AND TEACH MANAGEMENT OF URINARY INCONTINENCE. TEACH/INSTRUCT ON PREVENTING INFECTION AND SKIN BREAKDOWN. RN/DATA ENTRY CLERK/SIGN ERECTOR MAY INSTRUCT IN BLADDER TRAINING PROGRAM INDICATED. [code = URINARY INCONTINENCE MANAGEMENT; RN TO ASSESS AND TEACH, DATA ENTRY CLERK/LVNTO OBSERVE AND TEACH MANAGEMENT OF URINARY INCONTINENCE. TEACH/INSTRUCT ON PREVENTING INFECTION AND SKIN BREAKDOWN. RN/DATA ENTRY CLERK/SIGN ERECTOR MAY INSTRUCT IN BLADDER TRAINING PROGRAM INDICATED.] Future Scheduled Test RN TO OBSE RVE, ASSESS, EVALUATE, AND DEVELOP AN INDIVIDUALIZED PLAN OF CARE. AGENCY MAY ACCEPT ORDERS FROM CONSULTING PHYSICIANS RN TO OBSERVE AND ASSESS, DATA ENTRY CLERK/SIGN ERECTOR TO OBSERVE FOR RISK FOR FALLS AND INSTRUCT IN FALL PREVENTION, HOME SAFETY, MEDICATION MANAGEMENT, INFECTION PREVENTION, AND NUTRITION MANAGEMENT. RN/DATA ENTRY CLERK/SIGN ERECTOR NURSE MAY PERFORM O2 SATURATION LEVEL ON ADMISSION AND PRN FOR FOR RN TO ASSESS/DATA ENTRY CLERK TO OBSERVE PATIENT, WITH NOTIFICATION TO THE PHYSICIAN IF SATURATION IS 90% IN THE ABSENCE OF MORE SPECIFIC PARAMETERS FROM THE PHYSICIAN. AGENCY MAY PERFORM A RESUMPTION OF CARE VISIT FOLLOWING ANY HOSPITAL ADMISSION. RN/DATA ENTRY CLERK/SIGN ERECTOR TO MONITOR CO-MORBID CONDITIONS LISTED ON THE PLAN OF CARE AND ANY NEW CONDITIONS THAT PRESENT THEMSELVES DURING THIS EPISODE TO IDENTIFY CHANGES AND INTERVENE TO MINIMIZE COMPLICATIONS. [code = RN TO OBSERVE, ASSESS, EVALUATE, AND DEVELOP AN INDIVIDUALIZED PLAN OF CARE. AGENCY MAY ACCEPT ORDERS FROM CONSULTING PHYSICIANS RN TO OBSERVE AND ASSESS, DATA ENTRY CLERK/SIGN ERECTOR TO OBSERVE FOR RISK FOR FALLS AND INSTRUCT IN FALL PREVENTION, HOME SAFETY, MEDICATION MANAGEMENT, INFECTION PREVENTION, AND NUTRITION MANAGEMENT. RN/DATA ENTRY CLERK/SIGN ERECTOR NURSE MAY PERFORM O2 SATURATION LEVEL ON ADMISSION AND PRN FOR FOR RN TO ASSESS/DATA ENTRY CLERK TO OBSERVE PATIENT, WITH NOTIFICATION TO THE PHYSICIAN IF SATURATION IS 90% IN THE ABSENCE OF MORE SPECIFIC PARAMETERS FROM THE PHYSICIAN. AGENCY MAY PERFORM A RESUMPTION OF CARE VISIT FOLLOWING ANY HOSPITAL ADMISSION. RN/DATA ENTRY CLERK/SIGN ERECTOR TO MONITOR CO-MORBID CONDITIONS LISTED ON THE PLAN OF CARE AND ANY NEW CONDITIONS THAT PRESENT THEMSELVES DURING THIS EPISODE TO IDENTIFY CHANGES AND INTERVENE TO MINIMIZE COMPLICATIONS.] Future Scheduled Test PAIN MANAG EMENT; RN TO ASSESS AND TEACH, SIGN ERECTOR/DATA ENTRY CLERK TO OBSERVE AND TEACH AND PROVIDE EDUCATION ON PAIN MANAGEMENT TECHNIQUES. [code = PAIN MANAGEMENT; RN TO ASSESS AND TEACH, SIGN ERECTOR/DATA ENTRY CLERK TO OBSERVE AND TEACH AND PROVIDE EDUCATION ON PAIN MANAGEMENT TECHNIQUES.] Future Scheduled Test RISK FOR H OSPITALIZATION; RN TO ASSESS/TEACH, SIGN ERECTOR/DATA ENTRY CLERK TO OBSERVE/TEACH PATIENT/CAREGIVER ON RISK FOR HOSPITALIZATION/EMERGENCY ROOM VISITS, TEACH SIGNS AND SYMPTOMS THAT PUT PATIENT AT RISK, WHEN TO NOTIFY NURSE/PHYSICIAN OF COMPLICATIONS/DECLINE, AND WHEN TO CALL 911. [code = RISK FOR HOSPITALIZATION; RN TO ASSESS/TEACH, SIGN ERECTOR/DATA ENTRY CLERK TO OBSERVE/TEACH PATIENT/CAREGIVER ON RISK FOR HOSPITALIZATION/EMERGENCY ROOM VISITS, TEACH SIGNS AND SYMPTOMS THAT PUT PATIENT AT RISK, WHEN TO NOTIFY NURSE/PHYSICIAN OF COMPLICATIONS/DECLINE, AND WHEN TO CALL 911.] Future Scheduled Test CARDIOVASC ULAR SYSTEM; RN TO ASSESS/TEACH, DATA ENTRY CLERK/SIGN ERECTOR TO OBSERVE/TEACH RELATED TO ALTERED CARDIOVASCULAR STATUS TO MINIMIZE COMPLICATIONS AND REDUCE HOSPITALIZATION. [code = CARDIOVASCULAR SYSTEM; RN TO ASSESS/TEACH, DATA ENTRY CLERK/SIGN ERECTOR TO OBSERVE/TEACH RELATED TO ALTERED CARDIOVASCULAR STATUS TO MINIMIZE COMPLICATIONS AND REDUCE HOSPITALIZATION.] Future Scheduled Test HEART FAIL URE; RN TO ASSESS/TEACH, DATA ENTRY CLERK/SIGN ERECTOR TO OBSERVE/TEACH CARDIOPULMONARY SYSTEM TO IDENTIFY SIGNS OF DECOMPENSATION AND INTERVENE TO MINIMIZE THE SEVERITY OF FLUID OVERLOAD. OBSERVE PATIENT ABILITY TO MONITOR AND RECORD DAILY WEIGHTS AND VITAL SIGNS, INCLUDING PULSE AND BLOOD PRESSURE; RECORD PATIENT REPORTED WEIGHT, OR WEIGH PATIENT NEEDED. REPORT INCREASED EDEMA OR WEIGHT GAIN OF >2 LBS IN 1 DAY OR >5 LBS IN 1 WEEK OR 5LBS OR MORE OVER TARGET WEIGHT. MAY MEASURE ABDOMINAL GIRTH IF UNABLE TO WEIGH. SCALES AND BP MONITOR TO BE PROVIDED IF NEEDED. [code = HEART FAILURE; RN TO ASSESS/TEACH, DATA ENTRY CLERK/SIGN ERECTOR TO OBSERVE/TEACH CARDIOPULMONARY SYSTEM TO IDENTIFY SIGNS OF DECOMPENSATION AND INTERVENE TO MINIMIZE THE SEVERITY OF FLUID OVERLOAD. OBSERVE PATIENT ABILITY TO MONITOR AND RECORD DAILY WEIGHTS AND VITAL SIGNS, INCLUDING PULSE AND BLOOD PRESSURE; RECORD PATIENT REPORTED WEIGHT, OR WEIGH PATIENT NEEDED. REPORT INCREASED EDEMA OR WEIGHT GAIN OF >2 LBS IN 1 DAY OR >5 LBS IN 1 WEEK OR 5LBS OR MORE OVER TARGET WEIGHT. MAY MEASURE ABDOMINAL GIRTH IF UNABLE TO WEIGH. SCALES AND BP MONITOR TO BE PROVIDED IF NEEDED.] Future Scheduled Test HYPERTENSI ON MANAGEMENT; RN TO ASSESS AND TEACH, DATA ENTRY CLERK/SIGN ERECTOR TO OBSERVE AND TEACH WARNING SIGNS AND SYMPTOMS TO AVOID HOSPITALIZATION. [code = HYPERTENSION MANAGEMENT; RN TO ASSESS AND TEACH, DATA ENTRY CLERK/SIGN ERECTOR TO OBSERVE AND TEACH WARNING SIGNS AND SYMPTOMS TO AVOID HOSPITALIZATION.] Future Scheduled Test SKIN INTEG RITY RN TO ASSESS AND TEACH, DATA ENTRY CLERK/SIGN ERECTOR TO OBSERVE AND TEACH INTEGUMENTARY STATUS TO IDENTIFY CHANGES AND INTERVENE TO MINIMIZE COMPLICATIONS. PROVIDE SKILLED TEACHING OF GENERAL WOUND AND SKIN CARE AND PREVENTION RELATED TO POTENTIAL FOR OR ACTUAL ALTERED SKIN INTEGRITY [code = SKIN INTEGRITY RN TO ASSESS AND TEACH, DATA ENTRY CLERK/SIGN ERECTOR TO OBSERVE AND TEACH INTEGUMENTARY STATUS TO IDENTIFY CHANGES AND INTERVENE TO MINIMIZE COMPLICATIONS. PROVIDE SKILLED TEACHING OF GENERAL WOUND AND SKIN CARE AND PREVENTION RELATED TO POTENTIAL FOR OR ACTUAL ALTERED SKIN INTEGRITY ] Future Scheduled Test AGENCY MAY PERFORM A RESUMPTION OF CARE VISIT FOLLOWING ANY HOSPITAL ADMISSION. PT TO EVALUATE, OBSERVE / ASSESS, AND MONITOR, AUTO ELECTRICAL TECHNICIAN TO OBSERVE AND MONITOR, PROVIDE SKILLED THERAPEUTIC INTERVENTION, ACTIVITY, EDUCATION, AND TRAINING TO ADDRESS; PT/AUTO ELECTRICAL TECHNICIAN TO PROVIDE GAIT TRAINING FOR IMPROVED MOBILITY AND /OR TO NORMALIZE GAIT PATTERN NEUROMUSCULAR RE-EDUCATION / BALANCE / POSTURAL CONTROL (PT) THERAPEUTIC EXERCISES AND ESTABLISHING A HOME EXERCISE PROGRAM (PT/AUTO ELECTRICAL TECHNICIAN) PT/AUTO ELECTRICAL TECHNICIAN TO PROVIDE STAIR TRAINING SIT TO/FROM STAND TRANSFERS (PT/AUTO ELECTRICAL TECHNICIAN) PT / AUTO ELECTRICAL TECHNICIAN TO MONITOR AND EDUCATE ON OXYGEN SATURATION DURING ADLS/IADLS, NOTIFY PHYSICIAN AND/OR THE RN CLINICAL TOP COLLAR MAKER FOR PHYSICIAN NOTIFICATION AND IF O2 SATS BELOW PHYSICIAN ORDERED PARAMETERS AFTER 10 MIN OF REST PT TO ASSESS / AUTO ELECTRICAL TECHNICIAN TO MONITOR FOR HEART FAILURE EXACERBATION AND RECORD PATIENT REPORTED WEIGHT, AND NOTIFY THE PHYSICIAN AND/OR THE RN CLINICAL TOP COLLAR MAKER FOR PHYSICIAN NOTIFICATION OF HF EXACERBATION (2LB WEIGHT GAIN IN 1 DAY, 5LBS IN A WEEK OR 5 LBS OVER BASELINE; INCREASED SOB, EDEMA, NEEDING MORE PILLOWS AT NIGHT, CRACKLES IN BASIS OF THE LUNGS OR PMI SHIFT) PT TO ASSESS / AUTO ELECTRICAL TECHNICIAN TO MONITOR CARDIO/RESPIRATORY SYSTEM; AND NOTIFY THE PHYSICIAN AND/OR THE RN CLINICAL TOP COLLAR MAKER FOR PHYSICIAN NOTIFICATION FOR EARLY SIGNS AND SYMPTOMS OF EXACERBATION OR DETERIORATION. PT/AUTO ELECTRICAL TECHNICIAN TO IDENTIFY FALL RISK FACTORS; EDUCATE THE PATIENT/CAREGIVER ON WAYS TO REDUCE FALL RISK FACTORS AND ESTABLISH HOME EXERCISE PROGRAM TO MINIMIZE FALL RISK. MAY TEACH THE PATIENT FLOOR RECOVERY WHEN CLINICALLY APPROPRIATE PT / AUTO ELECTRICAL TECHNICIAN MAY EDUCATE ON PAIN MANAGEMENT CLINICALLY INDICATED, INCLUDING NON-PHARMACOLOGICAL PAIN REDUCTION TECHNIQUES [code = AGENCY MAY PERFORM A RESUMPTION OF CARE VISIT FOLLOWING ANY HOSPITAL ADMISSION. PT TO EVALUATE, OBSERVE / ASSESS, AND MONITOR, AUTO ELECTRICAL TECHNICIAN TO OBSERVE AND MONITOR, PROVIDE SKILLED THERAPEUTIC INTERVENTION, ACTIVITY, EDUCATION, AND TRAINING TO ADDRESS; PT/AUTO ELECTRICAL TECHNICIAN TO PROVIDE GAIT TRAINING FOR IMPROVED MOBILITY AND /OR TO NORMALIZE GAIT PATTERN NEUROMUSCULAR RE-EDUCATION / BALANCE / POSTURAL CONTROL (PT) THERAPEUTIC EXERCISES AND ESTABLISHING A HOME EXERCISE PROGRAM (PT/AUTO ELECTRICAL TECHNICIAN) PT/AUTO ELECTRICAL TECHNICIAN TO PROVIDE STAIR TRAINING SIT TO/FROM STAND TRANSFERS (PT/AUTO ELECTRICAL TECHNICIAN) PT / AUTO ELECTRICAL TECHNICIAN TO MONITOR AND EDUCATE ON OXYGEN SATURATION DURING ADLS/IADLS, NOTIFY PHYSICIAN AND/OR THE RN CLINICAL TOP COLLAR MAKER FOR PHYSICIAN NOTIFICATION AND IF O2 SATS BELOW PHYSICIAN ORDERED PARAMETERS AFTER 10 MIN OF REST PT TO ASSESS / AUTO ELECTRICAL TECHNICIAN TO MONITOR FOR HEART FAILURE EXACERBATION AND RECORD PATIENT REPORTED WEIGHT, AND NOTIFY THE PHYSICIAN AND/OR THE RN CLINICAL TOP COLLAR MAKER FOR PHYSICIAN NOTIFICATION OF HF EXACERBATION (2LB WEIGHT GAIN IN 1 DAY, 5LBS IN A WEEK OR 5 LBS OVER BASELINE; INCREASED SOB, EDEMA, NEEDING MORE PILLOWS AT NIGHT, CRACKLES IN BASIS OF THE LUNGS OR PMI SHIFT) PT TO ASSESS / AUTO ELECTRICAL TECHNICIAN TO MONITOR CARDIO/RESPIRATORY SYSTEM; AND NOTIFY THE PHYSICIAN AND/OR THE RN CLINICAL TOP COLLAR MAKER FOR PHYSICIAN NOTIFICATION FOR EARLY SIGNS AND SYMPTOMS OF EXACERBATION OR DETERIORATION. PT/AUTO ELECTRICAL TECHNICIAN TO IDENTIFY FALL RISK FACTORS; EDUCATE THE PATIENT/CAREGIVER ON WAYS TO REDUCE FALL RISK FACTORS AND ESTABLISH HOME EXERCISE PROGRAM TO MINIMIZE FALL RISK. MAY TEACH THE PATIENT FLOOR RECOVERY WHEN CLINICALLY APPROPRIATE PT / AUTO ELECTRICAL TECHNICIAN MAY EDUCATE ON PAIN MANAGEMENT CLINICALLY INDICATED, INCLUDING NON-PHARMACOLOGICAL PAIN REDUCTION TECHNIQUES ] Goal Patient Goal - NO ANSWER Goal Provider Goal - PATIENT/ TO VERBALIZE, AND CONSISTENTLY DEMONSTRATE EFFECTIVE, SAFE MANAGEMENT OF MEDICATION INCLUDING KNOWLEDGE OF EFFECTIVENESS, POTENTIAL SIDE EFFECTS AND DRUG REACTIONS AND WHEN TO CONTACT THE APPROPRIATE CARE PROVIDER. PATIENT/ WILL BE ABLE TO VERBALIZE UNDERSTANDING OF MEDICATION REGIMEN AND ACCURATELY TAKE MEDICATIONS PRESCRIBED WITHOUT ADVERSE EFFECTS BY END OF EPISODE Goal Provider Goal - PATIENT / CAREGIVER WILL VERBALIZE/DEMONSTRATE UNDERSTANDING OF MEASURES TO MANAGE ALTERED RESPIRATORY STATUS BY END OF EPISODE. Goal Provider Goal - PATIENT/ WILL VERBALIZE/DEMONSTRATE UNDERSTANDING OF FALL RISK FACTORS AND IMPLEMENT STRATEGIES TO MINIMIZE FALL RISK. PATIENT/CAREGIVER WILL VERBALIZE/DEMONSTRATE AN ABILITY TO ADHERE TO FALL REDUCTION SELF-MANAGEMENT AND LIFE-STYLE CHANGES BY END OF EPISODE Goal Provider Goal - PATIENT / WILL VERBALIZE/DEMONSTRATE UNDERSTANDING OF MEASURES TO MANAGE ALTERED GENITOURINARY STATUS BY END OF EPISODE. Goal Provider Goal - PATIENT/ WILL VERBALIZE/DEMONSTRATE UNDERSTANDING OF CARE AND MANAGEMENT OF URINARY INCONTINENCE BY END OF EPISODE Goal Provider Goal - A PLAN OF CARE WILL BE ESTABLISHED THAT MEETS THE PATIENTS NEEDS. PATIENT WILL DEMONSTRATE OXYGEN SATURATION WITHIN NORMAL LIMITS OR PATIENTS OPTIMAL LEVEL ESTABLISHED BY THE PHYSICIAN THROUGHOUT CARE. CHANGES TO CO-MORBID CONDITIONS AND ANY NEW CONDITIONS WILL BE IDENTIFIED AND REPORTED TO THE PHYSICIAN. Goal Provider Goal - PATIENT / WILL VERBALIZE / DEMONSTRATE UNDERSTANDING OF PAIN CONTROL MEASURES BY END OF EPISODE Goal Provider Goal - Goal Provider Goal - PATIENT/CAREGIVER WILL VERBALIZE UNDERSTANDING OF SIGNS AND SYMPTOMS THAT PUT THE PATIENT AT RISK FOR HOSPITALIZATION /EMERGENCY ROOM VISITS, WHEN TO NOTIFY NURSE/PHYSICIAN OF COMPLICATIONS/DECLINE AND WHEN TO CALL 911. Goal Provider Goal - PATIENT / CAREGIVER WILL VERBALIZE/DEMONSTRATE UNDERSTANDING OF MEASURES TO MANAGE ALTERED CARDIOVASCULAR STATUS BY END OF EPISODE Goal Provider Goal - PATIENT / WILL VERBALIZE/DEMONSTRATE AN ABILITY TO ADHERE TO SELF-MANAGEMENT OF HF TO MINIMIZE COMPLICATIONS AND AVOID HOSPITALIZATION BY END OF EPISODE. Goal Provider Goal - PATIENT / WILL VERBALIZE/DEMONSTRATE AN ABILITY TO ADHERE TO SELF-MANAGEMENT OF HTN TO MINIMIZE COMPLICATIONS AND AVOID HOSPITALIZATION BY END OF EPISODE. Goal Provider Goal - CHANGES IN SKIN INTEGRITY STATUS WILL BE IDENTIFIED AND REPORTED TO THE PHYSICIAN FOR PROMPT INTERVENTION. PATIENT / WILL VERBALIZE/DEMONSTRATE ADEQUATE KNOWLEDGE OF INTEGUMENTARY STATUS AND APPROPRIATE MEASURES TO PROMOTE SKIN INTEGRITY AND PREVENT INJURY. Goal Provider Goal - PT LTG: PATIENT WILL DEMONSTRATE REDUCED GAIT DEVIATIONS TO REDUCE THE RISK FOR FALLING AND MINIMIZE STRAIN ON KNEES/HIPS AND BACK EVIDENCED BY IMPROVED HEEL STRIKE, ADEQUATE STEP LENGTH AND CONSISTENT FOOT CLEARANCE BILATERALLY USING WALKER TO WALK INDEPENDENTLY IN ORDER TO ACCESS ALL AREAS OF THE HOME AND TRANSPORTATION WITHIN 9 WEEKS PT LTG: PATIENT WILL DEMONSTRATE REDUCED FALL RISK EVIDENCED BY IMPROVED SELF- SELECTED WALKING SPEED (SSWS CUT SCORE 0.6 TO 0.9 INDICATES MODERATE FALL RISK, 0.6 M/S INDICATES HIGH FALL RISK) FROM 0.5M/SEC TO 0.9M/SEC WITHIN 9 WEEKS PT LTG: PATIENT WILL DEMONSTRATE REDUCED FALL RISK EVIDENCED BY TUG TEST (CUT SCORE >11 SECONDS INDICATES INCREASED FALL RISK) IMPROVING FROM UNABLE TO 20 SECONDS WITHIN 9 WEEKS PT LTG: PATIENT WILL DEMONSTRATE IMPROVED FUNCTIONAL STRENGTH EVIDENCED BY FIVE TIMES SIT TO STAND TEST (CUT SCORE >12 SECONDS INDICATES AN INCREASED FALL RISK) IMPROVING FROM UNABLE TO 20 SECONDS WITHIN 9 WEEKS PT LTG: PATIENT WILL DEMONSTRATE INCREASED STRENGTH OF BILATERAL LES FROM 3/5 TO 4/5 WITHIN 9 WEEKS IN ORDER TO IMPROVE SAFETY AND STABILITY WITH GAIT AND STAIRS PT LTG: PATIENT WILL DEMONSTRATE IMPROVED ABILITY TO SAFELY NEGOTIATE STAIRS FROM NT TO SBA WITH GRAB HANDLES IN ORDER TO IMPROVE SAFETY WITH ENTERING AND EXITING HOME WITHIN 9 WEEKS PT STG: PATIENT WILL DEMONSTRATE IMPROVED ABILITY TO PERFORM SIT TO/FROM STAND TRANSFERS TO REDUCE THE RISK OF SKIN BREAKDOWN AND REDUCE FALL RISK FROM CGA TO INDEPENDENT WITHIN 4 WEEKS PT LTG: PATIENT WILL MAINTAIN OXYGEN SATURATION WITHIN PHYSICIAN ORDERED PARAMETERS THROUGHOUT EPISODE OF CARE. PT GOAL: PATIENTS HEART FAILURE WILL REMAIN WELL CONTROLLED THROUGHOUT EPISODE OF CARE. PT LTG: PATIENT WILL NOT EXPERIENCE CARDIAC OR RESPIRATORY COMPLICATIONS THROUGHOUT THE EPISODE OF CARE. PT LTG: PATIENT/CAREGIVER WILL DEMONSTRATE ADHERENCE TO FALL REDUCTION SELF-MANAGEMENT AND REDUCING FALL RISK FACTORS TO MINIMIZE FALL RISK BY END OF EPISODE. PT LTG: PATIENT WILL BE INDEPENDENT WITH IMPLEMENTATION OF HEP WITHIN 4 WEEKS PT GOAL: PATIENT WILL DEMONSTRATE UNDERSTANDING OF PAIN MANAGEMENT TECHNIQUES EVIDENCED BY REDUCED PAIN Encounters Start Date/Time End Date/Time Encounter Type Admission Type Attending [facility] Care Department Encounter ID Discharge Date Discharge Status Discharge Condition Discharge Reason Percent Goals Met 2024-05-23 00:00:00 2024-07-21 00:00:00 Outpatient NORBERTO HASTINGS [facility] [id number] 35.00
--- OUTSIDE RECORDS SUMMARY | 2024-05-28 10:46 | XMS_ITS | Encounter Summary ---
Author Organization [facility] Address [address] [place] [address] Care Team Providers Care Postdoctoral Scholar Name Role Phone Azra Pierce MD Primary Care Provider + Encounter Details Date Type Department Care Team (Late st Contact Info) Description 04/30/2024 Lab Requisition [facility] - Main Lab [address] [place] [address] Azra Pierce MD [address] [id number] Hypothyroidism, unspecified; Heart failure, unspecified (CMS/HCC V24, CMS/HCC V28); Cellulitis, unspecified; Chronic kidney disease, unspecified Social History Tobacco Use Types Packs/Day Years Used Date Smoking Tobacco: Never Assessed Comments Unknown Sex and Gender Information Value Date Recorded Sex Assigned at Not on file Legal Sex Female 11:12 PM EST Gender Identity Not on file Sexual Orientation Not on file documented as of this encounter Plan of Treatment Not on file documented as of this encounter Procedures Procedure Name Priority Date/Time Associated Diagnosis Comments COMPLETE BLOOD COUNT Routine 04/30/2024 6:52 AM EDT Hypothyroidism, unspecified Heart failure, unspecified (CMS/HCC) Cellulitis, unspecified Chronic kidney disease, unspecified THYROID STIMULATING HORMONE Routine 04/30/2024 6:52 AM EDT Hypothyroidism, unspecified Heart failure, unspecified (CMS/HCC) Cellulitis, unspecified Chronic kidney disease, unspecified COMPREHENSIVE METABOLIC PANEL Routine 04/30/2024 6:52 AM EDT Hypothyroidism, unspecified Heart failure, unspecified (CMS/HCC) Cellulitis, unspecified Chronic kidney disease, unspecified documented in this encounter Results * (ABNORMAL) Thyroid stimulating hormone (04/30/2024 6:52 AM EDT) [facility] TSH 13.35(H) 0.40 - 4.00 mcIU/mL LAB CHEMISTRY METHOD 04/30/2024 11:07 AM [facility] Blood Venous blood specimen / Unknown Venipuncture / Unknown 04/30/2024 6:52 AM EDT 04/30/2024 9:50 AM EDT us Azra Pierce MD LAB BLOOD ORDERABLES Fin al Result [facility] [address] [place] [address], * (ABNORMAL) Comprehensive metabolic panel (04/30/2024 6:52 AM EDT) [facility] Sodium 137 133 - 145 mmol/L LAB CHEMISTRY METHOD 04/30/2024 11:03 AM [facility] Potassium 3.8 3.5 - 5.5 mmol/L LAB CHEMISTRY METHOD 04/30/2024 11:03 AM [facility] Chloride 98 96 - 110 mmol/L LAB CHEMISTRY METHOD 04/30/2024 11:03 AM [facility] CO2 32 21 - 32 mmol/L LAB CHEMISTRY METHOD 04/30/2024 11:03 AM [facility] Anion Gap 7 3 - 11 LAB CHEMISTRY METHOD 04/30/2024 11:03 AM [facility] Glucose 89 70 - 100 mg/dL LAB CHEMISTRY METHOD 04/30/2024 11:03 AM [facility] BUN 43(H) 5 - 25 mg/dL LAB CHEMISTRY METHOD 04/30/2024 11:03 AM [facility] Creatinine 1.78(H) 0.50 - 1.10 mg/dL LAB CHEMISTRY METHOD 04/30/2024 11:03 AM [facility] eGFR 28(L) >=60 mL/min/1. 73m2 LAB CHEMISTRY METHOD 04/30/2024 11:03 AM [facility] Comment:Calculation based on the??Chronic Kidney Disease Epidemiology Collaboration (CKD-EPI) equation refit??without adjustment for race. BUN/Creatinine Ratio 24.2 LAB CHEMISTRY METHOD 04/30/2024 11:03 AM [facility] Calcium 9.1 8.5 - 10.5 mg/dL LAB CHEMISTRY METHOD 04/30/2024 11:03 AM [facility] AST (SGOT) 24 10 - 42 unit/L LAB CHEMISTRY METHOD 04/30/2024 11:03 AM [facility] ALT (SGPT) 17 10 - 60 unit/L LAB CHEMISTRY METHOD 04/30/2024 11:03 AM [facility] Alkaline Phosphatase 71 42 - 121 unit/L LAB CHEMISTRY METHOD 04/30/2024 11:03 AM [facility] Total Protein 6.6 6.0 - 8.0 g/dL LAB CHEMISTRY METHOD 04/30/2024 11:03 AM [facility] Albumin 2.9(L) 3.2 - 5.0 g/dL LAB CHEMISTRY METHOD 04/30/2024 11:03 AM [facility] Total Bilirubin 0.5 0.0 - 1.4 mg/dL LAB CHEMISTRY METHOD 04/30/2024 11:03 AM [facility] Blood Venous blood specimen / Unknown Venipuncture / Unknown 04/30/2024 6:52 AM EDT 04/30/2024 9:50 AM EDT us Azra Pierce MD LAB BLOOD ORDERABLES Fin al Result [facility] [address] [place] [address], [place] [phone] * (ABNORMAL) Complete blood count (04/30/2024 6:52 AM EDT) [facility] WBC 7.2 4.8 - 10.8 K/mcL LAB HEMETOLOGY METHOD [facility] RBC 4.00 3.80 - 4.80 M/mcL LAB HEMETOLOGY METHOD 04/30/2024 10:51 AM EDT [facility] Hemoglobin 11.0(L) 11.5 - 16.0 g/dL LAB HEMETOLOGY METHOD 04/30/2024 10:51 AM [facility] Hematocrit 34.8(L) 35.0 - 47.0 % LAB HEMETOLOGY METHOD 04/30/2024 10:51 AM [facility] MCV 87.9 79.0 - 98.0 FL LAB HEMETOLOGY METHOD 04/30/2024 10:51 AM [facility] MCH 27.8 27.0 - 32.0 pcg LAB HEMETOLOGY METHOD 04/30/2024 10:51 AM [facility] MCHC 31.6(L) 32.0 - 37.0 g/dL LAB HEMETOLOGY METHOD 04/30/2024 10:51 AM [facility] RDW 14.1 11.0 - 15.0 % LAB HEMETOLOGY METHOD 04/30/2024 10:51 AM [facility] Platelets 295 130 - 400 K/mcL LAB HEMETOLOGY METHOD 04/30/2024 10:51 AM T [facility] MPV 10.5 7.0 - 11.0 FL LAB HEMETOLOGY METHOD 04/30/2024 10:51 AM [facility] NRBC 0.0 <1.0 % LAB HEMETOLOGY METHOD 04/30/2024 10:51 AM EDT [facility] NRBC Absolute 0.00 <0.10 K/mcL LAB HEMETOLOGY METHOD 04/30/2024 10:51 AM EDT [facility] Blood Venous blood specimen / Unknown Venipuncture / Unknown 04/30/2024 6:52 AM EDT 04/30/2024 9:50 AM EDT us Azra Pierce MD LAB BLOOD ORDERABLES Fin al Result [facility] [address] [place] [address], documented in this encounter Visit Diagnoses Diagnosis Hypothyroidism, unspecified Heart failure, unspecified (CMS/HCC V24, CMS/HCC V28) Heart failure, unspecified Cellulitis, unspecified Chronic kidney disease, unspecified documented in this encounter Care Teams Postdoctoral Scholar Relationship Specialty Start Date End Date Azra Pierce MD [address] [place] [address] PCP - General Family Medicine 04/30/24 documented as of this encounter
--- OUTSIDE RECORDS SUMMARY | 2024-05-28 10:46 | XMS_ITS | Encounter Summary ---
Author Organization [facility] Address [address] [place] [address] Care Team Providers Care Billet Recorder Name Role Phone Azra Pierce MD Primary Care Provider + Encounter Details Date Type Department Care Team (Late st Contact Info) Description 05/02/2024 Lab Requisition [facility] - Main Lab [address] [place] [address] Azra Pierce MD [address] [address] Heart failure, unspecified (CMS/HCC V24, CMS/HCC V28); Cellulitis, unspecified Social History Tobacco Use Types Packs/Day [...] Associated Diagnosis Comments COMPLETE BLOOD COUNT Routine 05/04/2024 9:21 AM EDT Heart failure, unspecified (CMS/HCC) Cellulitis, unspecified COMPREHENSIVE METABOLIC PANEL Routine 05/04/2024 9:21 AM EDT Heart failure, unspecified (CMS/HCC) Cellulitis, unspecified documented in this encounter Results * (ABNORMAL) Comprehensive metabolic panel (05/04/2024 9:21 AM EDT) Sodium 130(L) 133 - 145 mmol/L LAB CHEMISTRY METHOD 05/04/2024 12:51 PM EDT [facility] Potassium 3.6 3.5 - 5.5 mmol/L LAB CHEMISTRY METHOD 05/04/2024 12:[address] [facility] Chloride 93(L) 96 - 110 mmol/L LAB CHEMISTRY METHOD 05/04/2024 12:[address] [facility] CO2 29 21 - 32 mmol/L LAB CHEMISTRY METHOD 05/04/2024 12:[address] [facility] Anion Gap 8 3 - 11 LAB CHEMISTRY METHOD 05/04/2024 12:[address] [facility] Glucose 150(H) 70 - 100 mg/dL LAB CHEMISTRY METHOD 05/04/2024 12:[address] [facility] BUN 44(H) 5 - 25 mg/dL LAB CHEMISTRY METHOD 05/04/2024 12:[address] [facility] Creatinine 1.75(H) 0.50 - 1.10 mg/dL LAB CHEMISTRY METHOD 05/04/2024 12:[address] [facility] eGFR 28(L) >=60 mL/min/1. 73m2 LAB CHEMISTRY METHOD 05/04/2024 12:[address] [facility] Comment:Calculation based on the??Chronic Kidney Disease Epidemiology Collaboration (CKD-EPI) equation refit??without adjustment for race. BUN/Creatinine Ratio 25.1 LAB CHEMISTRY METHOD 05/04/2024 12:[address] [facility] Calcium 8.7 8.5 - 10.5 mg/dL LAB CHEMISTRY METHOD 05/04/2024 12:[address] [facility] AST (SGOT) 24 10 - 42 unit/L LAB CHEMISTRY METHOD 05/04/2024 12:[address] [facility] ALT (SGPT) 14 10 - 60 unit/L LAB CHEMISTRY METHOD 05/04/2024 12:[address] [facility] Alkaline Phosphatase 84 42 - 121 unit/L LAB CHEMISTRY METHOD 05/04/2024 12:[address] [facility] Total Protein 6.3 6.0 - 8.0 g/dL LAB CHEMISTRY METHOD 05/04/2024 12:51 PM EDT [facility] Albumin 2.7(L) 3.2 - 5.0 g/dL LAB CHEMISTRY METHOD 05/04/2024 12:51 PM EDT [facility] Total Bilirubin 0.5 0.0 - 1.4 mg/dL LAB CHEMISTRY METHOD 05/04/2024 12:51 PM EDT [facility] Blood Venous blood specimen / Unknown Venipuncture / Unknown 05/04/2024 9:21 AM EDT 05/04/2024 11:08 AM EDT us Azra Pierce MD LAB BLOOD ORDERABLES Fin al Result [facility] [address] [place] [address], * (ABNORMAL) Complete blood count (05/04/2024 9:21 AM EDT) WBC 6.3 4.8 - 10.8 K/mcL LAB HEMETOLOGY METHOD 05/04/2024 12:[address] [facility] RBC 3.80 3.80 - 4.80 M/mcL LAB HEMETOLOGY METHOD 05/04/2024 12:16 PM T [facility] Hemoglobin 10.7(L) 11.5 - 16.0 g/dL LAB HEMETOLOGY METHOD 05/04/2024 12:16 PM T [facility] Hematocrit 32.7(L) 35.0 - 47.0 % LAB HEMETOLOGY METHOD 05/04/2024 12:[address] [facility] MCV 86.3 79.0 - 98.0 FL LAB HEMETOLOGY METHOD 05/04/2024 12:[address] [facility] MCH 28.2 27.0 - 32.0 pcg LAB HEMETOLOGY METHOD 05/04/2024 12:16 PM EDT [facility] MCHC 32.7 32.0 - 37.0 g/dL LAB HEMETOLOGY METHOD 05/04/2024 12:16 PM EDT [facility] RDW 13.8 11.0 - 15.0 % LAB HEMETOLOGY METHOD 05/04/2024 12:16 PM EDT [facility] Platelets 262 130 - 400 K/mcL LAB HEMETOLOGY METHOD 05/04/2024 12:16 PM EDT [facility] MPV 10.3 7.0 - 11.0 FL LAB HEMETOLOGY METHOD 05/04/2024 12:16 PM EDT [facility] NRBC 0.0 <1.0 % LAB HEMETOLOGY METHOD 05/04/2024 12:16 PM EDT [facility] NRBC Absolute 0.00 <0.10 K/mcL LAB HEMETOLOGY METHOD 05/04/2024 12:16 PM EDT [facility] Blood Venous blood specimen / Unknown Venipuncture / Unknown 05/04/2024 9:21 AM EDT 05/04/2024 11:08 AM EDT us Azra Pierce MD LAB BLOOD ORDERABLES Fin al Result [facility] [address] [place] [address], documented in this encounter Visit Diagnoses Diagnosis Heart failure, unspecified (CMS/HCC V24, CMS/HCC V28) Heart failure, unspecified Cellulitis, unspecified documented in this encounter Care Teams Billet Recorder Relationship Specialty Start Date End Date Azra Pierce MD [address] [place] [address] PCP - General Family Medicine 04/30/24 documented as of this encounter
--- OUTSIDE RECORDS SUMMARY | 2024-05-28 10:47 | XMS_ITS | Clinical Summary ---
Author Organization Unknown Care Team Providers Care Dumping Machine Operator Name Role Phone MADDY DUTTON, TYLER Unavailable Unavailab ana ESCOBAR RN, NORBERTO Unavailable Unavailab ana TOLENTINO PT, ORI Unavailable Unavailable [employer]MENT RECR[employer], [employer] Unavailable Unavailable Payers Payer Name Policy Type Policy Number Effective Date Expira tion Date MEDICARE.NGS.PD [id number] Problems Condition Name Condition Details Condition Category [...] 06-23 00:00: 00 07-03 23:59 :00 No [id number] CELLULITIS LEFT LOWER LEG 1 capsule 2 TIMES DAILY 1 capsule 2 TIMES DAILY (route: oral) Med Classific ation: Anti-Infe ctive Agents simvastatin 20 mg tablet 06-21 00:00: 00 Yes [id number] HIGH CHOLESTEROL 1 tablet BEDTIME 1 tablet BEDTIME (route: oral) Med Classific ation: Cardiovas cular Therapy Agents meloxicam 7.5 mg tablet 05-28 00:00: 00 06-25 00:00 :00 No [id number] Per instruc tions EVERY DAY Per instructio ns EVERY DAY (route: oral) Med Classific ation: Analgesic , Anti-infl ammatory or Antipyret ic alendronate 70 mg tablet 06-25 00:00: 00 Yes [id number] OSTEOPOROSI S 1 tablet WEEKLY 1 tablet WEEKLY (route: oral) Med Classific ation: Endocrine atenolol 25 mg tablet 06-25 00:00: 00 05-25 11:52 :30.4 03 No [id number] HIGH BLOOD PRESSURE 1 tablet DAILY 1 tablet DAILY (route: oral) Med Classific ation: Cardiovas cular Therapy Agents cefuroxime axetil 250 mg tablet 06-25 00:00: 00 08-20 23:59 :00 No [id number] INFECTION 1 tablet 2 TIMES DAILY 1 tablet 2 TIMES DAILY (route: oral) Med Classific ation: Anti-Infe ctive Agents furosemide 20 mg tablet 06-25 00:00: 00 Yes [id number] EDEMA/LEG SWELLING 1 tablet DAILY 1 tablet DAILY (route: oral) Med Classific ation: Cardiovas cular Therapy Agents levothyroxi ne 75 mcg tablet 2024-0 5-15 00:00: 00 05-23 00:00 :00 No [id number] LOW THYROID 1 tablet DAILY 1 tablet DAILY (route: oral) Med Classific ation: Endocrine doxycycline hyclate 100 mg capsule 7-14 00:00: 00 08-30 23:59 :00 No [id number] RIGHT LOWER LEG CELLULITUS 1 capsule 2 TIMES DAILY 1 capsule 2 TIMES DAILY (route: oral) Med Classific ation: Anti-Infe ctive Agents cefuroxime axetil 250 mg tablet 7-25 00:00: 00 09-14 23:59 :00 No [id number] wound infection 1 tablet 2 TIMES DAILY 1 tablet 2 TIMES DAILY (route: oral) Med Classific ation: Anti-Infe ctive Agents ammonium lactate 12 % lotion 2023-02 1-11 00:00: 00 05-23 00:00 :00 No [id number] WEEPING SKIN Per instruc tions 2 TIMES DAILY Per instructio ns 2 TIMES DAILY (route: topical) Med Classific ation: Dermatolo gical doxycycline hyclate 100 mg capsule 2023-02 2-27 00:00: 00 02-16 23:59 :00 No [id number] CELLULITIS 100 mg 2 TIMES DAILY 100 mg 2 TIMES DAILY (route: oral) Med Classific ation: Anti-Infe ctive Agents doxycycline hyclate 100 mg capsule 2-03 00:00: 00 03-26 23:59 :00 No [id number] WOUND INFECTION 100 mg 2 TIMES DAILY 100 mg 2 TIMES DAILY (route: oral) Med Classific ation: Anti-Infe ctive Agents amlodipine 5 mg tablet 3-11 00:00: 00 05-23 00:00 :00 No [id number] HIGH BLOOD PRESSURE 1 tablet DAILY 1 [...] Details Comments Future Scheduled Test MEDICATION MANAGEMENT; RN/HR ADMINISTRATOR/SLD TEACHER TO REVIEW MEDICATIONS FOR INTERACTIONS, EFFECTIVENESS OF DRUG THERAPY, AND SIGNS/SYMPTOMS OF ADVERSE REACTIONS. MAY INSTRUCT AND REINFORCE MEDICATION TEACHING RELATED TO THE USE OF MEDICATIONS, DOSAGE, FREQUENCY, PURPOSE, SIDE EFFECTS, AND TO REPORT COMPLICATIONS. [code = MEDICATION MANAGEMENT; RN/HR ADMINISTRATOR/SLD TEACHER TO REVIEW MEDICATIONS FOR INTERACTIONS, EFFECTIVENESS OF DRUG THERAPY, AND SIGNS/SYMPTOMS OF ADVERSE REACTIONS. MAY INSTRUCT AND REINFORCE MEDICATION TEACHING RELATED TO THE USE OF MEDICATIONS, DOSAGE, FREQUENCY, PURPOSE, SIDE EFFECTS, AND TO REPORT COMPLICATIONS.] Future Scheduled Test RESPIRATOR Y SYSTEM MANAGEMENT; RN TO ASSESS AND TEACH, HR ADMINISTRATOR/SLD TEACHER TO OBSERVE AND TEACH RELATED TO ALTERED RESPIRATORY STATUS TO MINIMIZE COMPLICATIONS AND REDUCE HOSPITALIZATION. [code = RESPIRATORY SYSTEM MANAGEMENT; RN TO ASSESS AND TEACH, HR ADMINISTRATOR/SLD TEACHER TO OBSERVE AND TEACH RELATED TO ALTERED RESPIRATORY STATUS TO MINIMIZE COMPLICATIONS AND REDUCE HOSPITALIZATION. ] Future Scheduled Test FALL REDUC TION MANAGEMENT; RN TO ASSESS AND OBSERVE, HR ADMINISTRATOR/SLD TEACHER TO OBSERVE FALL RISK FACTORS AND EDUCATE PATIENT/CAREGIVER ON STRATEGIES TO MINIMIZE THE RISK OF FALLING. [code = FALL REDUCTION MANAGEMENT; RN TO ASSESS AND OBSERVE, HR ADMINISTRATOR/SLD TEACHER TO OBSERVE FALL RISK FACTORS AND EDUCATE PATIENT/CAREGIVER ON STRATEGIES TO MINIMIZE THE RISK OF FALLING.] Future Scheduled Test GENITOURIN VICTOR M MANAGEMENT; RN TO ASSESS AND TEACH, HR ADMINISTRATOR/SLD TEACHER TO OBSERVE AND TEACH RELATED TO ALTERED GENITOURINARY STATUS TO MINIMIZE COMPLICATIONS AND REDUCE HOSPITALIZATION. [code = GENITOURINARY MANAGEMENT; RN TO ASSESS AND TEACH, HR ADMINISTRATOR/SLD TEACHER TO OBSERVE AND TEACH RELATED TO ALTERED GENITOURINARY STATUS TO MINIMIZE COMPLICATIONS AND REDUCE HOSPITALIZATION.] Future Scheduled Test URINARY IN CONTINENCE MANAGEMENT; RN TO ASSESS AND TEACH, HR ADMINISTRATOR/LVNTO OBSERVE AND TEACH MANAGEMENT OF URINARY INCONTINENCE. TEACH/INSTRUCT ON PREVENTING INFECTION AND SKIN BREAKDOWN. RN/HR ADMINISTRATOR/SLD TEACHER MAY INSTRUCT IN BLADDER TRAINING PROGRAM INDICATED. [code = URINARY INCONTINENCE MANAGEMENT; RN TO ASSESS AND TEACH, HR ADMINISTRATOR/LVNTO OBSERVE AND TEACH MANAGEMENT OF URINARY INCONTINENCE. TEACH/INSTRUCT ON PREVENTING INFECTION AND SKIN BREAKDOWN. RN/HR ADMINISTRATOR/SLD TEACHER MAY INSTRUCT IN BLADDER TRAINING PROGRAM INDICATED.] Future Scheduled Test RN TO OBSE RVE, ASSESS, EVALUATE, AND DEVELOP AN INDIVIDUALIZED PLAN OF CARE. AGENCY MAY ACCEPT ORDERS FROM CONSULTING PHYSICIANS RN TO OBSERVE AND ASSESS, HR ADMINISTRATOR/SLD TEACHER TO OBSERVE FOR RISK FOR FALLS AND INSTRUCT IN FALL PREVENTION, HOME SAFETY, MEDICATION MANAGEMENT, INFECTION PREVENTION, AND NUTRITION MANAGEMENT. RN/HR ADMINISTRATOR/SLD TEACHER NURSE MAY PERFORM O2 SATURATION LEVEL ON ADMISSION AND PRN FOR FOR RN TO ASSESS/HR ADMINISTRATOR TO OBSERVE PATIENT, WITH NOTIFICATION TO THE PHYSICIAN IF SATURATION IS 90% IN THE ABSENCE OF MORE SPECIFIC PARAMETERS FROM THE PHYSICIAN. AGENCY MAY PERFORM A RESUMPTION OF CARE VISIT FOLLOWING ANY HOSPITAL ADMISSION. RN/HR ADMINISTRATOR/SLD TEACHER TO MONITOR CO-MORBID CONDITIONS LISTED ON THE PLAN OF CARE AND ANY NEW CONDITIONS THAT PRESENT THEMSELVES DURING THIS EPISODE TO IDENTIFY CHANGES AND INTERVENE TO MINIMIZE COMPLICATIONS. [code = RN TO OBSERVE, ASSESS, EVALUATE, AND DEVELOP AN INDIVIDUALIZED PLAN OF CARE. AGENCY MAY ACCEPT ORDERS FROM CONSULTING PHYSICIANS RN TO OBSERVE AND ASSESS, HR ADMINISTRATOR/SLD TEACHER TO OBSERVE FOR RISK FOR FALLS AND INSTRUCT IN FALL PREVENTION, HOME SAFETY, MEDICATION MANAGEMENT, INFECTION PREVENTION, AND NUTRITION MANAGEMENT. RN/HR ADMINISTRATOR/SLD TEACHER NURSE MAY PERFORM O2 SATURATION LEVEL ON ADMISSION AND PRN FOR FOR RN TO ASSESS/HR ADMINISTRATOR TO OBSERVE PATIENT, WITH NOTIFICATION TO THE PHYSICIAN IF SATURATION IS 90% IN THE ABSENCE OF MORE SPECIFIC PARAMETERS FROM THE PHYSICIAN. AGENCY MAY PERFORM A RESUMPTION OF CARE VISIT FOLLOWING ANY HOSPITAL ADMISSION. RN/HR ADMINISTRATOR/SLD TEACHER TO MONITOR CO-MORBID CONDITIONS LISTED ON THE PLAN OF CARE AND ANY NEW CONDITIONS THAT PRESENT THEMSELVES DURING THIS EPISODE TO IDENTIFY CHANGES AND INTERVENE TO MINIMIZE COMPLICATIONS.] Future Scheduled Test PAIN MANAG EMENT; RN TO ASSESS AND TEACH, SLD TEACHER/HR ADMINISTRATOR TO OBSERVE AND TEACH AND PROVIDE EDUCATION ON PAIN MANAGEMENT TECHNIQUES. [code = PAIN MANAGEMENT; RN TO ASSESS AND TEACH, SLD TEACHER/HR ADMINISTRATOR TO OBSERVE AND TEACH AND PROVIDE EDUCATION ON PAIN MANAGEMENT TECHNIQUES.] Future Scheduled Test RISK FOR H OSPITALIZATION; RN TO ASSESS/TEACH, SLD TEACHER/HR ADMINISTRATOR TO OBSERVE/TEACH PATIENT/CAREGIVER ON RISK FOR HOSPITALIZATION/EMERGENCY ROOM VISITS, TEACH SIGNS AND SYMPTOMS THAT PUT PATIENT AT RISK, WHEN TO NOTIFY NURSE/PHYSICIAN OF COMPLICATIONS/DECLINE, AND WHEN TO CALL 911. [code = RISK FOR HOSPITALIZATION; RN TO ASSESS/TEACH, SLD TEACHER/HR ADMINISTRATOR TO OBSERVE/TEACH PATIENT/CAREGIVER ON RISK FOR HOSPITALIZATION/EMERGENCY ROOM VISITS, TEACH SIGNS AND SYMPTOMS THAT PUT PATIENT AT RISK, WHEN TO NOTIFY NURSE/PHYSICIAN OF COMPLICATIONS/DECLINE, AND WHEN TO CALL 911.] Future Scheduled Test CARDIOVASC ULAR SYSTEM; RN TO ASSESS/TEACH, HR ADMINISTRATOR/SLD TEACHER TO OBSERVE/TEACH RELATED TO ALTERED CARDIOVASCULAR STATUS TO MINIMIZE COMPLICATIONS AND REDUCE HOSPITALIZATION. [code = CARDIOVASCULAR SYSTEM; RN TO ASSESS/TEACH, HR ADMINISTRATOR/SLD TEACHER TO OBSERVE/TEACH RELATED TO ALTERED CARDIOVASCULAR STATUS TO MINIMIZE COMPLICATIONS AND REDUCE HOSPITALIZATION.] Future Scheduled Test HEART FAIL URE; RN TO ASSESS/TEACH, HR ADMINISTRATOR/SLD TEACHER TO OBSERVE/TEACH CARDIOPULMONARY SYSTEM TO IDENTIFY SIGNS [...] [code = HEART FAILURE; RN TO ASSESS/TEACH, HR ADMINISTRATOR/SLD TEACHER TO OBSERVE/TEACH CARDIOPULMONARY SYSTEM TO IDENTIFY SIGNS [...] ON MANAGEMENT; RN TO ASSESS AND TEACH, HR ADMINISTRATOR/SLD TEACHER TO OBSERVE AND TEACH WARNING SIGNS AND SYMPTOMS TO AVOID HOSPITALIZATION. [code = HYPERTENSION MANAGEMENT; RN TO ASSESS AND TEACH, HR ADMINISTRATOR/SLD TEACHER TO OBSERVE AND TEACH WARNING SIGNS AND SYMPTOMS TO AVOID HOSPITALIZATION.] Future Scheduled Test SKIN INTEG RITY RN TO ASSESS AND TEACH, HR ADMINISTRATOR/SLD TEACHER TO OBSERVE AND TEACH INTEGUMENTARY STATUS TO IDENTIFY CHANGES AND INTERVENE TO MINIMIZE COMPLICATIONS. PROVIDE SKILLED TEACHING OF GENERAL WOUND AND SKIN CARE AND PREVENTION RELATED TO POTENTIAL FOR OR ACTUAL ALTERED SKIN INTEGRITY [code = SKIN INTEGRITY RN TO ASSESS AND TEACH, HR ADMINISTRATOR/SLD TEACHER TO OBSERVE AND TEACH INTEGUMENTARY STATUS TO IDENTIFY CHANGES AND INTERVENE TO MINIMIZE COMPLICATIONS. PROVIDE SKILLED TEACHING OF GENERAL WOUND AND SKIN CARE AND PREVENTION RELATED TO POTENTIAL FOR OR ACTUAL ALTERED SKIN INTEGRITY ] Future Scheduled Test AGENCY MAY PERFORM A RESUMPTION OF CARE VISIT FOLLOWING ANY HOSPITAL ADMISSION. PT TO EVALUATE, OBSERVE / ASSESS, AND MONITOR, EMPLOYMENT RECRUITER TO OBSERVE AND MONITOR, PROVIDE SKILLED THERAPEUTIC INTERVENTION, ACTIVITY, EDUCATION, AND TRAINING TO ADDRESS; PT/EMPLOYMENT RECRUITER TO PROVIDE GAIT TRAINING FOR IMPROVED MOBILITY AND /OR TO NORMALIZE GAIT PATTERN NEUROMUSCULAR RE-EDUCATION / BALANCE / POSTURAL CONTROL (PT) THERAPEUTIC EXERCISES AND ESTABLISHING A HOME EXERCISE PROGRAM (PT/EMPLOYMENT RECRUITER) PT/EMPLOYMENT RECRUITER TO PROVIDE STAIR TRAINING SIT TO/FROM STAND TRANSFERS (PT/EMPLOYMENT RECRUITER) PT / EMPLOYMENT RECRUITER TO MONITOR AND EDUCATE ON OXYGEN SATURATION DURING ADLS/IADLS, NOTIFY PHYSICIAN AND/OR THE RN CLINICAL RESOURCE CENTER TEACHER FOR PHYSICIAN NOTIFICATION AND IF O2 SATS BELOW PHYSICIAN ORDERED PARAMETERS AFTER 10 MIN OF REST PT TO ASSESS / EMPLOYMENT RECRUITER TO MONITOR FOR HEART FAILURE EXACERBATION AND RECORD PATIENT REPORTED WEIGHT, AND NOTIFY THE PHYSICIAN AND/OR THE RN CLINICAL RESOURCE CENTER TEACHER FOR PHYSICIAN NOTIFICATION OF HF EXACERBATION (2LB WEIGHT GAIN IN 1 DAY, 5LBS IN A WEEK OR 5 LBS OVER BASELINE; INCREASED SOB, EDEMA, NEEDING MORE PILLOWS AT NIGHT, CRACKLES IN BASIS OF THE LUNGS OR PMI SHIFT) PT TO ASSESS / EMPLOYMENT RECRUITER TO MONITOR CARDIO/RESPIRATORY SYSTEM; AND NOTIFY THE PHYSICIAN AND/OR THE RN CLINICAL RESOURCE CENTER TEACHER FOR PHYSICIAN NOTIFICATION FOR EARLY SIGNS AND SYMPTOMS OF EXACERBATION OR DETERIORATION. PT/EMPLOYMENT RECRUITER TO IDENTIFY FALL RISK FACTORS; EDUCATE THE PATIENT/CAREGIVER ON WAYS TO REDUCE FALL RISK FACTORS AND ESTABLISH HOME EXERCISE PROGRAM TO MINIMIZE FALL RISK. MAY TEACH THE PATIENT FLOOR RECOVERY WHEN CLINICALLY APPROPRIATE PT / EMPLOYMENT RECRUITER MAY EDUCATE ON PAIN MANAGEMENT CLINICALLY INDICATED, INCLUDING NON-PHARMACOLOGICAL PAIN REDUCTION TECHNIQUES [code = AGENCY MAY PERFORM A RESUMPTION OF CARE VISIT FOLLOWING ANY HOSPITAL ADMISSION. PT TO EVALUATE, OBSERVE / ASSESS, AND MONITOR, EMPLOYMENT RECRUITER TO OBSERVE AND MONITOR, PROVIDE SKILLED THERAPEUTIC INTERVENTION, ACTIVITY, EDUCATION, AND TRAINING TO ADDRESS; PT/EMPLOYMENT RECRUITER TO PROVIDE GAIT TRAINING FOR IMPROVED MOBILITY AND /OR TO NORMALIZE GAIT PATTERN NEUROMUSCULAR RE-EDUCATION / BALANCE / POSTURAL CONTROL (PT) THERAPEUTIC EXERCISES AND ESTABLISHING A HOME EXERCISE PROGRAM (PT/EMPLOYMENT RECRUITER) PT/EMPLOYMENT RECRUITER TO PROVIDE STAIR TRAINING SIT TO/FROM STAND TRANSFERS (PT/EMPLOYMENT RECRUITER) PT / EMPLOYMENT RECRUITER TO MONITOR AND EDUCATE ON OXYGEN SATURATION DURING ADLS/IADLS, NOTIFY PHYSICIAN AND/OR THE RN CLINICAL RESOURCE CENTER TEACHER FOR PHYSICIAN NOTIFICATION AND IF O2 SATS BELOW PHYSICIAN ORDERED PARAMETERS AFTER 10 MIN OF REST PT TO ASSESS / EMPLOYMENT RECRUITER TO MONITOR FOR HEART FAILURE EXACERBATION AND RECORD PATIENT REPORTED WEIGHT, AND NOTIFY THE PHYSICIAN AND/OR THE RN CLINICAL RESOURCE CENTER TEACHER FOR PHYSICIAN NOTIFICATION OF HF EXACERBATION (2LB WEIGHT GAIN IN 1 DAY, 5LBS IN A WEEK OR 5 LBS OVER BASELINE; INCREASED SOB, EDEMA, NEEDING MORE PILLOWS AT NIGHT, CRACKLES IN BASIS OF THE LUNGS OR PMI SHIFT) PT TO ASSESS / EMPLOYMENT RECRUITER TO MONITOR CARDIO/RESPIRATORY SYSTEM; AND NOTIFY THE PHYSICIAN AND/OR THE RN CLINICAL RESOURCE CENTER TEACHER FOR PHYSICIAN NOTIFICATION FOR EARLY SIGNS AND SYMPTOMS OF EXACERBATION OR DETERIORATION. PT/EMPLOYMENT RECRUITER TO IDENTIFY FALL RISK FACTORS; EDUCATE THE PATIENT/CAREGIVER ON WAYS TO REDUCE FALL RISK FACTORS AND ESTABLISH HOME EXERCISE PROGRAM TO MINIMIZE FALL RISK. MAY TEACH THE PATIENT FLOOR RECOVERY WHEN CLINICALLY APPROPRIATE PT / EMPLOYMENT RECRUITER MAY EDUCATE ON PAIN MANAGEMENT CLINICALLY INDICATED, [...] End Date/Time Encounter Type Admission Type Attending [facility] Care Department Encounter ID Discharge Date Discharge Status Discharge Condition Discharge Reason Percent Goals Met 2024-05-23 00:00:00 2024-07-21 00:00:00 Outpatient NORBERTO HASTINGS [facility] [id number] 35.00
--- OUTSIDE RECORDS SUMMARY | 2024-05-28 10:48 | XMS_ITS | Clinical Summary ---
Author Organization [address] [facility] Address [address] [place] [address] Phone Care Team Providers Care Account Executive Healthcare Name Role Phone Azra Pierce MD Primary Care Provider + Encounters Date Type Department Care Team Description 05/19/2024 Lab Requisition [facility] [address] [place] [phone] Azra Pierce MD Heart failure, unspecified (CMS/HCC V24, CMS/HCC V28); Cellulitis, unspecified 05/02/2024 Lab Requisition [facility] [address] [place] [phone] Azra Pierce MD Heart failure, unspecified (CMS/HCC V24, CMS/HCC V28); Cellulitis, unspecified 04/30/2024 Lab Requisition [facility] [address] [place] [phone] Azra Pierce MD Hypothyroidism, unspecified; Heart failure, unspecified (CMS/HCC V24, CMS/HCC V28); Cellulitis, unspecified; Chronic kidney disease, unspecified from Last 3 Months Social History Tobacco Use Types Packs/Day Years Used Date Smoking Tobacco: Never Assessed Comments Unknown Sex and Gender Information Value Date Recorded Sex Assigned at Not on file Legal Sex Female 11:12 PM EST Gender Identity Not on file Sexual Orientation Not on file Plan of Treatment Health Maintenance Due Date Last Done Comments DTaP,Tdap,and Td Vaccines (1 - Tdap) 1959 Pneumococcal Vaccine: 50+ Ye ars (1 of 1 - PCV) 02/17/1988 Zoster Vaccines (1 of 2) 02/17/1988 RSV Immunization Adult Patie nts (1 - 1-dose 75+ series) 2013 Depression Screening 01/14/2022 Falls Risk Assessment 01/14/2022 Medicare Annual Wellness Visit 01/14/2022 Osteoporosis Screening (Bone Density Screening) 01/14/2022 Social Influencers of Health Screening 01/14/2022 COVID-19 Vaccine (2023-2 5 season) 2023 Influenza Vaccine (Season Ended) 2024 HIB Vaccines Aged Out No longer eligi ble based on patient's age to complete this topic HPV Vaccines Aged Out No longer eligi ble based on patient's age to complete this topic Hepatitis A Vaccines Aged Out No long er eligible based on patient's age to complete this topic Hepatitis B Vaccines Aged Out No long er eligible based on patient's age to complete this topic IPV Vaccines Aged Out No longer eligi ble based on patient's age to complete this topic MMR Vaccines Aged Out No longer eligi ble based on patient's age to complete this topic Meningococcal ACWY Vaccine Aged Out N o longer eligible based on patient's age to complete this topic Meningococcal B Vaccine Aged Out No l onger eligible based on patient's age to complete this topic RSV Immunization Patients Un venessa 20 months Aged Out No longer eligible b ased on patient's age to complete this topic Varicella Vaccines Aged Out No longer eligible based on patient's age to complete this topic Procedures Procedure Name Priority Date/Time Associated Diagnosis Comments BASIC METABOLIC PANEL Routine 05/19/2024 5:25 AM EDT Heart failure, unspecified (CMS/HCC) Cellulitis, unspecified COMPLETE BLOOD COUNT Routine 05/19/2024 5:25 AM EDT Heart failure, unspecified (CMS/HCC) Cellulitis, unspecified COMPREHENSIVE METABOLIC PANEL Routine 05/04/2024 9:21 AM EDT Heart failure, unspecified (CMS/HCC) Cellulitis, unspecified COMPLETE BLOOD COUNT Routine 05/04/2024 9:21 AM EDT Heart failure, unspecified (CMS/HCC) Cellulitis, unspecified THYROID STIMULATING HORMONE Routine 04/30/2024 6:52 AM EDT Hypothyroidism, unspecified Heart failure, unspecified (CMS/HCC) Cellulitis, unspecified Chronic kidney disease, unspecified COMPREHENSIVE METABOLIC PANEL Routine 04/30/2024 6:52 AM EDT Hypothyroidism, unspecified Heart failure, unspecified (CMS/HCC) Cellulitis, unspecified Chronic kidney disease, unspecified COMPLETE BLOOD COUNT Routine 04/30/2024 6:52 AM EDT Hypothyroidism, unspecified Heart failure, unspecified (CMS/HCC) Cellulitis, unspecified Chronic kidney disease, unspecified from Last 3 Months Results * (ABNORMAL) Complete blood count (05/19/2024 5:25 AM EDT) Only the most recent of3 resultswithin the time period is included. WBC 7.3 4.8 - 10.8 K/mcL LAB HEMETOLOGY METHOD 05/19/2024 8:[address] [facility] RBC 3.90 3.80 - 4.80 /[facility] LAB HEMETOLOGY METHOD 05/19/2024 8:[address] [facility] Hemoglobin 11.1(L) 11.5 - 16.0 g/dL LAB HEMETOLOGY METHOD 05/19/2024 8:[address] [facility] Hematocrit 34.0(L) 35.0 - 47.0 % LAB HEMETOLOGY METHOD 05/19/2024 8:[address] [facility] MCV 86.3 79.0 - 98.0 [place] LAB HEMETOLOGY METHOD 05/19/2024 8:[address] [facility] MCH 28.2 27.0 - 32.0 pcg LAB HEMETOLOGY METHOD 05/19/2024 8:[address] [facility] MCHC 32.6 32.0 - 37.0 g/dL LAB HEMETOLOGY METHOD 05/19/2024 8:[address] [facility] RDW 13.6 11.0 - 15.0 % LAB HEMETOLOGY METHOD 05/19/2024 8:47 AM EDT [facility] Platelets 260 130 - 400 K/mcL LAB HEMETOLOGY METHOD 05/19/2024 8:47 AM EDT [facility] MPV 10.5 7.0 - 11.0 FL LAB HEMETOLOGY METHOD 05/19/2024 8:47 AM EDT [facility] NRBC 0.0 <1.0 % LAB HEMETOLOGY METHOD 05/19/2024 8:47 AM EDT [facility] NRBC Absolute 0.00 <0.10 K/mcL [facility] 8:[address] [facility] Blood Venous blood specimen / Unknown Venipuncture / Unknown 05/19/2024 5:25 AM EDT 05/19/2024 8:11 AM EDT Azra Pierce MD LAB BLOOD ORDERABLES Fin al Result [facility] [address] [place] [address], * (ABNORMAL) Basic metabolic panel (05/19/2024 5:25 AM EDT) Sodium 133 133 - 145 mmol/L LAB CHEMISTRY METHOD 05/19/2024 9:[address] [facility] Potassium 3.6 3.5 - 5.5 mmol/L LAB CHEMISTRY METHOD 05/19/2024 9:[address] [facility] Chloride 97 96 - 110 mmol/L LAB CHEMISTRY METHOD 05/19/2024 9:[address] [facility] CO2 32 21 - 32 mmol/L LAB CHEMISTRY METHOD 05/19/2024 9:[address] [facility] Anion Gap 4 3 - 11 LAB CHEMISTRY METHOD 05/19/2024 9:11 AM EDT [facility] Glucose 83 70 - 100 mg/dL LAB CHEMISTRY METHOD 05/19/2024 9:[address] [facility] BUN 27(H) 5 - 25 mg/dL LAB CHEMISTRY METHOD 05/19/2024 9:[address] [facility] Creatinine 1.44(H) 0.50 - 1.10 mg/dL LAB CHEMISTRY METHOD 05/19/2024 9:[address] [facility] eGFR 35(L) >=60 mL/min/1. 73m2 LAB CHEMISTRY METHOD 05/19/2024 9:[address] [facility] Comment:Calculation based on the??Chronic Kidney Disease Epidemiology Collaboration (CKD-EPI) equation refit??without adjustment for race. BUN/Creatinine Ratio 18.8 LAB CHEMISTRY METHOD 05/19/2024 9:[address] [facility] Calcium 8.8 8.5 - 10.5 mg/dL LAB CHEMISTRY METHOD 05/19/2024 9:[address] [facility] Blood Venous blood specimen / Unknown Venipuncture / Unknown 05/19/2024 5:25 AM EDT 05/19/2024 8:11 AM EDT us Azra Pierce MD LAB BLOOD ORDERABLES Fin al Result [facility] [address] [place] [address], * (ABNORMAL) Comprehensive metabolic panel (05/04/2024 9:21 AM EDT) Only the most recent of2 resultswithin the time period is included. Sodium 130(L) 133 - 145 mmol/L LAB CHEMISTRY METHOD 05/04/2024 12:[address] [facility] Potassium 3.6 3.5 - 5.5 mmol/L LAB CHEMISTRY METHOD 05/04/2024 12:[address] [facility] Chloride 93(L) 96 - 110 mmol/L LAB CHEMISTRY METHOD 05/04/2024 12:[address] [facility] CO2 29 21 - 32 mmol/L LAB CHEMISTRY METHOD 05/04/2024 12:[address] [facility] Anion Gap 8 3 - 11 LAB CHEMISTRY METHOD 05/04/2024 12:[address] [facility] Glucose 150(H) 70 - 100 mg/dL LAB CHEMISTRY METHOD 05/04/2024 12:[address] [facility] BUN 44(H) 5 - 25 mg/dL LAB CHEMISTRY METHOD 05/04/2024 12:[address] [facility] Creatinine 1.75(H) 0.50 - 1.10 mg/dL LAB CHEMISTRY METHOD 05/04/2024 12:[address] [facility] eGFR 28(L) >=60 mL/min/1. 73m2 LAB CHEMISTRY METHOD 05/04/2024 12:[address] [facility] Comment:Calculation based on the??Chronic Kidney Disease Epidemiology Collaboration (CKD-EPI) equation refit??without adjustment for race. BUN/Creatinine Ratio 25.1 LAB CHEMISTRY METHOD 05/04/2024 12:[address] [facility] Calcium 8.7 8.5 - 10.5 mg/dL LAB CHEMISTRY METHOD 05/04/2024 12:[address] [facility] AST (SGOT) 24 10 - 42 unit/L LAB CHEMISTRY METHOD 05/04/2024 12:[address] [facility] ALT (SGPT) 14 10 - 60 unit/L LAB CHEMISTRY METHOD 05/04/2024 12:[address] [facility] Alkaline Phosphatase 84 42 - 121 unit/L LAB CHEMISTRY METHOD 05/04/2024 12:[address] [facility] Total Protein 6.3 6.0 - 8.0 g/dL LAB CHEMISTRY METHOD 05/04/2024 12:51 PM EDT [facility] Albumin 2.7(L) 3.2 - 5.0 g/dL LAB CHEMISTRY METHOD 05/04/2024 12:51 PM EDT [facility] Total Bilirubin 0.5 0.0 - 1.4 mg/dL LAB CHEMISTRY METHOD 05/04/2024 12:51 PM EDT [facility] Blood Venous blood specimen / Unknown Venipuncture / Unknown 05/04/2024 9:21 AM EDT 05/04/2024 11:08 AM EDT Azra Pierce MD LAB BLOOD ORDERABLES Fin al Result Performing Organization Address [facility]/ZIP Co de Phone Number [facility] [address] [place] [address], [place] [phone] * (ABNORMAL) Thyroid stimulating hormone (04/30/2024 6:52 AM EDT) TSH 13.35(H) 0.40 - 4.00 mcIU/mL LAB CHEMISTRY METHOD 04/30/2024 11:07 AM EDT [facility] Blood Venous blood specimen / Unknown Venipuncture / Unknown 04/30/2024 6:52 AM EDT 04/30/2024 9:50 AM EDT Azra Pierce MD LAB BLOOD ORDERABLES Fin al Result Performing Organization Address City/[facility]/ZIP Co de Phone Number [facility] [address] [place] [address], [place] [phone] from Last 3 Months Insurance MEDICARE [facility] Care Teams Account Executive Healthcare Relationship Specialty Start Date End Date Azra Pierce MD [address] [place] [address] PCP - General Family Medicine 04/30/24
--- OUTSIDE RECORDS SUMMARY | 2024-05-28 10:48 | XMS_ITS | Patient Health Record ---
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 Vital Signs Blood pressure diastolic 70 mm Hg 09/25/2023 Height 5 ft 3 in in 09/25/2023 Blood pressure systolic 136 mm Hg 09/25/2023 Weight 129 lbs 09/25/2023 BMI 22.85 kg/m2 09/25/2023 Procedures Procedure Date Ordered Date Performed Result Body Sit e 44542-DZUK SKIN LESIONS, 2 TO 4 09/25/2023 N/A Encounters Encounter Location Date Provider Diagnosis [facility] [address] 09/25/2023 Pj Chowdary Tinea unguium B35.1 ; Pain in right toe(s) M79.674 ; Pain in left toe(s) M79.675 ; Ingrown nail L60.0 and 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[place] arteries of extremities, bilateral legs I70.[address] [facility] [address] 06/05/2023 Shannan Morales [facility] [address] 09/24/2023 Shannan Morales [facility] [address] 05/04/2024 Shannan Morales Assessments Encounter Date Diagnosis (ICD Code) Assessment Notes Treatment Notes Treatment Clinical Notes Section Notes 09/25/2023 Tinea unguium (ICD-10 - B35.1) 09/25/2023 Pain in right toe(s) (ICD-10 - M79.674) 09/25/2023 Pain in left toe(s) (ICD-10 - M79.675) 09/25/2023 Ingrown nail (ICD-10 - L60.0) 09/25/2023 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[place] arteries of extremities, bilateral legs (ICD-10 - I70.203) Plan Of Treatment Pending Test Test Name Order Date 54258-ADQO SKIN LESIONS, 2 TO 4 09/25/19 Insurance Providers Payer Name Payer Address Payer Phone Subscriber Number Group Number Insured Name Patient Relationship to Insured Coverage Start Date Coverage End Date Medicare [facility] [address] [place] [address] [id number] Celsa Rios Self - patient is the insured [employer] [facility] [address] [place] [address] [id number] Celsa Rios Self - patient is the insured Medical (General) History Medical History History ICD Code Arthritis Back,Hip,and Knee pain Broken bones Cataracts Heart disease High blood pressure Osteoporosis thyroid Joint implants/screws Surgical History Surgery Date(Month/Year) broken wrist left hand 11/2021
--- OUTSIDE RECORDS SUMMARY | 2024-05-28 10:48 | XMS_ITS ---
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 Vital Signs Blood pressure systolic 136 mm Hg 09/25/19 24 Blood pressure diastolic 70 mm Hg 024 Height 5 ft 3 in in 09/25/2023 Weight 129 lbs 09/25/2023 BMI 22.85 kg/m2 09/25/2023 Procedures Procedure Date Ordered Date Performed Result Body Sit e 12506-JHXK SKIN LESIONS, 2 TO 4 09/25/2023 N/A Encounters Encounter Location Date Provider Diagnosis [facility] [address] [place] [address] 09/25/2023 Pj Chowdary Tinea unguium B35.1 ; Pain in right toe(s) M79.674 ; Pain in left toe(s) M79.675 ; Ingrown nail L60.0 and 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 Patient chooses, no pharmaceutical tx (15738) Keratoma Treatment Parring or Cutting o f Benign Hyperkeratotic Lesion(s) 92630 ( 2-4 Lesions ) - The Benign hyperkeratotic lesions, as described above were pared, and/or cut utilizing a sterile 15 blade, tissue nippers, and/or dremel, Q8 Progress Notes * Aram GUO:1940 (83 yo F)Acc No.[id number]:09/25/2023 Progress Note Patient:?Celsa Guo Provider:?Pj Chowdary DPM :1940???Age:83 Y???Sex:Female D ate:09/25/2023 Address:[address] [place], [place] [id number] Pcp:Shiva Fierro MD Subjective: * Chief Complaints: * ???Pcp-08/04 Painful nail(s) aggrevated by shoes and causing difficulty standing/walking. 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 [...] as necessary. Patient chooses, no pharmaceutical tx (60950).?Keratoma Treatment:?Parring or Cutting of Benign Hyperkeratotic Lesion(s)?10523 ( 2-4 Lesions ) - The Benign hyperkeratotic lesions, as described above were pared, and/or cut utilizing a sterile 15 blade, tissue nippers, and/or dremel, Q8.? * Procedure Codes:?70763 DEBRI DE NAIL, 6 OR MORE, Modifiers: XS 37837 TRIM SKIN LESIONS, 2 TO 4, Modifiers: [...] DPM Date:? 024 Generated for Eh jimenez/[facility] on:?05/28/2024 10:47 AM EDT History and Physical Notes * HPI (History of Present Illness) Category Sub-Category Detail Notes Category Not es Ingrown toenail Duration: worse since saturday--4 day s Location: Great toe , Right fo ot Treatments: self treatment Aggravated by: any pressure Onset/Cause: unknown Course: intermittent, worse Painful Nails Misc: pt being seen weekly at [place] [facility] ctr for left leg ulcer Pt [...]
--- OUTSIDE RECORDS SUMMARY | 2024-05-28 10:48 | XMS_ITS | Encounter Summary ---
Author Organization [employer] Address [address] [place] [address] Care Team Providers Care Handstitching Machine Armhole Feller Name Role Phone Azra Pierce MD Primary Care Provider + Encounter Details Date Type Department Care Team (Late st Contact Info) Description 05/19/2024 Lab Requisition [facility] - Main Lab [address] [place] [address] Azra Pierce MD [address] [address] Heart failure, unspecified (CMS/HCC V24, CMS/HCC V28); [...] Associated Diagnosis Comments COMPLETE BLOOD COUNT Routine 05/19/2024 5:25 AM EDT Heart failure, unspecified (CMS/HCC) Cellulitis, unspecified BASIC METABOLIC PANEL Routine 05/19/2024 5:25 AM EDT Heart failure, unspecified (CMS/HCC) Cellulitis, unspecified documented in this encounter Results * (ABNORMAL) Basic metabolic panel (05/19/2024 5:25 AM EDT) Sodium 133 133 - 145 mmol/L LAB CHEMISTRY METHOD 05/19/2024 9:[address] [facility] Potassium 3.6 3.5 - 5.5 mmol/L LAB CHEMISTRY METHOD 05/19/2024 9:11 AM [facility] Chloride 97 96 - 110 mmol/L LAB CHEMISTRY METHOD 05/19/2024 9:11 AM [facility] CO2 32 21 - 32 mmol/L LAB CHEMISTRY METHOD 05/19/2024 9:11 AM [facility] Anion Gap 4 3 - 11 LAB CHEMISTRY METHOD 05/19/2024 9:11 AM [facility] Glucose 83 70 - 100 mg/dL LAB CHEMISTRY METHOD 05/19/2024 9:11 AM [facility] BUN 27(H) 5 - 25 mg/dL LAB CHEMISTRY METHOD 05/19/2024 9:11 AM [facility] Creatinine 1.44(H) 0.50 - 1.10 mg/dL LAB CHEMISTRY METHOD 05/19/2024 9:11 AM [facility] eGFR 35(L) >=60 mL/min/1. 73m2 LAB CHEMISTRY METHOD 05/19/2024 9:11 AM [facility] Comment:Calculation based on the??Chronic Kidney Disease Epidemiology Collaboration (CKD-EPI) equation refit??without adjustment for race. BUN/Creatinine Ratio 18.8 LAB CHEMISTRY METHOD 05/19/2024 9:11 AM [facility] Calcium 8.8 8.5 - 10.5 mg/dL LAB CHEMISTRY METHOD 05/19/2024 9:11 AM [facility] Blood Venous blood specimen / Unknown Venipuncture / Unknown 05/19/2024 5:25 AM EDT 05/19/2024 8:11 AM EDT us Azra Pierce MD LAB BLOOD ORDERABLES Fin al Result [facility] [address] [place] [address], * (ABNORMAL) Complete blood count (05/19/2024 5:25 AM EDT) [facility] WBC 7.3 4.8 - 10.8 K/mcL LAB HEMETOLOGY METHOD 05/19/2024 8:47 AM [facility] RBC 3.90 3.80 - 4.80 M/mcL LAB HEMETOLOGY METHOD 05/19/2024 8:47 AM [facility] Hemoglobin 11.1(L) 11.5 - 16.0 g/dL LAB HEMETOLOGY METHOD 05/19/2024 8:47 AM [facility] Hematocrit 34.0(L) 35.0 - 47.0 % LAB HEMETOLOGY METHOD 05/19/2024 8:47 AM [facility] MCV 86.3 79.0 - 98.0 FL LAB HEMETOLOGY METHOD 05/19/2024 8:47 AM [facility] MCH 28.2 27.0 - 32.0 pcg LAB HEMETOLOGY METHOD 05/19/2024 8:47 AM [facility] MCHC 32.6 32.0 - 37.0 g/dL LAB HEMETOLOGY METHOD 05/19/2024 8:47 AM [facility] RDW 13.6 11.0 - 15.0 % LAB HEMETOLOGY METHOD 05/19/2024 8:47 AM [facility] Platelets 260 130 - 400 K/mcL LAB HEMETOLOGY METHOD 05/19/2024 8:47 AM [facility] MPV 10.5 7.0 - 11.0 FL LAB HEMETOLOGY METHOD 05/19/2024 8:47 AM [facility] NRBC 0.0 <1.0 % LAB HEMETOLOGY METHOD 05/19/2024 8:47 AM [facility] NRBC Absolute 0.00 <0.10 K/mcL LAB HEMETOLOGY METHOD 05/19/2024 8:47 AM EDT [facility] Blood Venous blood specimen / Unknown Venipuncture / Unknown 05/19/2024 5:25 AM EDT 05/19/2024 8:11 AM EDT us Azra Pierce MD LAB BLOOD ORDERABLES Fin al Result [facility] [address] [place] [address], documented in this encounter Visit Diagnoses Diagnosis Heart failure, unspecified (CMS/HCC V24, CMS/HCC V28) Heart failure, unspecified Cellulitis, unspecified documented in this encounter Care Teams Handstitching Machine Armhole Feller Relationship Specialty Start Date End Date Azra Pierce MD [address] [place] [address] PCP - General Family Medicine 04/30/24 documented as of this encounter
== END 2024-05-28 10:14 | disposition home or self-care (01) ==
LOC: HO.HMCHD 09:27
PROVIDERS: PCP Internal Medicine; Visit Provider Internal Medicine
DX: Z09 Encounter for follow-up examination after completed treatment for conditions other than malignant neoplasm (principal); J96.01 Acute respiratory failure with hypoxia; I10 Essential (primary) hypertension; N18.30 Chronic kidney disease, stage 3 unspecified

== ENCOUNTER → 2024-05-28 09:27 | Outpatient (BNVA) | payer MEDICARE, SELFPAY | PROVIDERS: PCP Internal Medicine; Visit Provider Internal Medicine | DX: I12.9 Hypertensive chronic kidney disease with stage 1 through stage 4 chronic kidney disease, or unspecified chronic kidney disease (principal); E78.5 Hyperlipidemia, unspecified; E03.9 Hypothyroidism, unspecified; J96.01 Acute respiratory failure with hypoxia; N18.30 Chronic kidney disease, stage 3 unspecified; Z09 Encounter for follow-up examination after completed treatment for conditions other than malignant neoplasm | CPT/HCPCS: 96127; 99202 ==

== ENCOUNTER → 2024-06-12 23:59 | Outpatient (BNV) | payer MEDICARE, SELFPAY | PROVIDERS: PCP Internal Medicine; Visit Provider Internal Medicine | DX: I13.0 Hypertensive heart and chronic kidney disease with heart failure and stage 1 through stage 4 chronic kidney disease, or unspecified chronic kidney disease (principal); N18.30 Chronic kidney disease, stage 3 unspecified; I50.23 Acute on chronic systolic (congestive) heart failure; D63.1 Anemia in chronic kidney disease | CPT/HCPCS: G0180 ==

== ENCOUNTER 2024-06-22 15:25 | Outpatient (AMB) | payer MEDICARE, SELFPAY ==
--- OUTSIDE RECORDS SUMMARY | 2024-06-22 15:28 | XMS_ITS ---
Author Organization 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 Vital Signs Height 5 ft 3 in in 09/25/2023 Weight 129 lbs 09/25/2023 BMI 22.85 kg/m2 09/25/2023 Blood pressure systolic 136 mm Hg 09/25/19 24 Blood pressure diastolic 70 mm Hg 024 Procedures Procedure Date Ordered Date Performed Result Body Sit e 01544-GSFT SKIN LESIONS, 2 TO 4 09/25/2023 N/A Encounters Encounter Location Date Provider Diagnosis [facility] [address] [place] [address] 09/25/2023 Pj Chowdary Tinea unguium B35.1 ; Pain in right toe(s) M79.674 ; Pain in left toe(s) M79.675 ; Ingrown nail L60.0 and 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[place] arteries of extremities, bilateral legs I70.203 Assessments Encounter Date Diagnosis (ICD Code) Assessment Notes Treatment Notes Treatment Clinical Notes Section Notes 09/25/2023 Tinea unguium (ICD-10 - B35.1) 09/25/2023 Pain in right toe(s) (ICD-10 - M79.674) 09/25/2023 Pain in left toe(s) (ICD-10 - M79.675) 09/25/2023 Ingrown nail (ICD-10 - L60.0) 09/25/2023 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[place] arteries of extremities, bilateral legs (ICD-10 - I70.203) Plan Of Treatment Pending Test Test Name Order Date 51756-EFCD SKIN LESIONS, 2 TO 4 09/25/19 24 [...] as necessary. Patient chooses, no pharmaceutical tx (89230) Keratoma Treatment Parring or Cutting o f Benign Hyperkeratotic Lesion(s) 29881 ( 2-4 Lesions ) - The Benign hyperkeratotic lesions, as described above were pared, and/or cut utilizing a sterile 15 blade, tissue nippers, and/or dremel, Q8 Progress Notes * Aram GUO:1940 (83 yo F)Acc No.[id number]:09/25/2023 Progress Note Patient:?Celsa Guo Provider:?Pj Chowdary DPM :1940???Age:83 Y???Sex:Female D ate:09/25/2023 Address:[address] [place], [place] [address]te [facility] Pcp:Shiva Fierro MD Subjective: * Chief Complaints: * ???Pcp-08/04 Painful nail(s) aggrevated by shoes and causing difficulty standing/walking. 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 [...] as necessary. Patient chooses, no pharmaceutical tx (33388).?Keratoma Treatment:?Parring or Cutting of Benign Hyperkeratotic Lesion(s)?84665 ( 2-4 Lesions ) - The Benign hyperkeratotic lesions, as described above were pared, and/or cut utilizing a sterile 15 blade, tissue nippers, and/or dremel, Q8.? * Procedure Codes:?63406 DEBRI DE NAIL, 6 OR MORE, Modifiers: XS 14975 TRIM SKIN LESIONS, 2 TO 4, Modifiers: [...] DPM Date:? 024 Generated for Eh jimenez/[facility]/eTransmitting on:?06/22/2024 03:28 PM EDT History and Physical Notes * HPI (History of Present Illness) Category Sub-Category Detail Notes Category Not es Ingrown toenail Duration: worse since saturday--4 day s Location: Great toe , Right fo ot Treatments: self treatment Aggravated by: any pressure Onset/Cause: unknown Course: intermittent, worse Painful Nails Misc: pt being seen weekly at [facility] ctr for left leg ulcer Pt States [...]
--- OUTSIDE RECORDS SUMMARY | 2024-06-22 15:28 | XMS_ITS | Clinical Summary ---
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, [employer] Unavailable Unavailable Payers Payer Name Policy Type Policy Number Effective Date Expira tion Date MEDICARE.NGS.PD [id number] Problems Condition Name Condition Details Condition Category [...] 06-23 00:00: 00 07-03 23:59 :00 No [id number] CELLULITIS LEFT LOWER LEG 1 capsule 2 TIMES DAILY 1 capsule 2 TIMES DAILY (route: oral) Med Classific ation: Anti-Infe ctive Agents simvastatin 20 mg tablet 06-21 00:00: 00 Yes [id number] HIGH CHOLESTEROL 20 mg BEDTIME 20 mg BEDTIME (route: oral) Med Classific ation: Cardiovas cular Therapy Agents meloxicam 7.5 mg tablet 05-28 00:00: 00 06-25 00:00 :00 No [id number] Per instruc tions EVERY DAY Per instructio ns EVERY DAY (route: oral) Med Classific ation: Analgesic , Anti-infl ammatory or Antipyret ic alendronate 70 mg tablet 06-25 00:00: 00 Yes [id number] OSTEOPOROSI S 1 tablet WEEKLY 1 tablet WEEKLY (route: oral) Med Classific ation: Endocrine atenolol 25 mg tablet 06-25 00:00: 00 05-25 11:52 :30.4 03 No [id number] HIGH BLOOD PRESSURE 2.5 mg DAILY 2.5 mg DAILY (route: oral) Med Classific ation: Cardiovas cular Therapy Agents cefuroxime axetil 250 mg tablet 06-25 00:00: 00 08-20 23:59 :00 No [id number] INFECTION 1 tablet 2 TIMES DAILY 1 tablet 2 TIMES DAILY (route: oral) Med Classific ation: Anti-Infe ctive Agents furosemide 20 mg tablet 06-25 00:00: 00 Yes [id number] EDEMA/LEG SWELLING 20 tablet DAILY 20 tablet DAILY (route: oral) Med Classific ation: Cardiovas cular Therapy Agents levothyroxi ne 75 mcg tablet 5-15 00:00: 00 05-23 00:00 :00 No [id number] LOW THYROID 1 tablet DAILY 1 tablet DAILY (route: oral) Med Classific ation: Endocrine doxycycline hyclate 100 mg capsule 7-14 00:00: 00 08-30 23:59 :00 No [id number] RIGHT LOWER LEG CELLULITUS 1 capsule 2 TIMES DAILY 1 capsule 2 TIMES DAILY (route: oral) Med Classific ation: Anti-Infe ctive Agents cefuroxime axetil 250 mg tablet 7-25 00:00: 00 09-14 23:59 :00 No [id number] wound infection 1 tablet 2 TIMES DAILY 1 tablet 2 TIMES DAILY (route: oral) Med Classific ation: Anti-Infe ctive Agents ammonium lactate 12 % lotion 2023-02 1-11 00:00: 00 05-23 00:00 :00 No [id number] WEEPING SKIN Per instruc tions 2 TIMES DAILY Per instructio ns 2 TIMES DAILY (route: topical) Med Classific ation: Dermatolo gical doxycycline hyclate 100 mg capsule 2023-02 2-27 00:00: 00 02-16 23:59 :00 No [id number] CELLULITIS 100 mg 2 TIMES DAILY 100 mg 2 TIMES DAILY (route: oral) Med Classific ation: Anti-Infe ctive Agents doxycycline hyclate 100 mg capsule 2-03 00:00: 00 03-26 23:59 :00 No [id number] WOUND INFECTION 100 mg 2 TIMES DAILY 100 mg 2 TIMES DAILY (route: oral) Med Classific ation: Anti-Infe ctive Agents amlodipine 5 mg tablet 3-11 00:00: 00 05-23 00:00 :00 No [id number] HIGH BLOOD PRESSURE 1 tablet DAILY 1 tablet DAILY (route: oral) Med Classific ation: Cardiovas cular Therapy Agents amlodipine 2.5 mg tablet 4-12 00:00: 00 Yes [id number] TREATS HTN 2.5 mg DAILY 2.5 mg DAILY (route: oral) Med Classific ation: Cardiovas cular Therapy Agents doxycycline hyclate 100 mg tablet 05-21 00:00: 00 05-25 23:59 :00 No [id number] ANTIBIOTIC 100 mg 2 TIMES DAILY 100 mg 2 TIMES DAILY (route: oral) Med Classific ation: Anti-Infe ctive Agents levothyroxi ne 100 mcg tablet 05-23 00:00: 00 Yes [id number] TREATS HYPOTHYROID ISM 1.5 tablet DIRECTED 1.5 tablet DIRECTED (route: oral) Med Classific ation: Endocrine levothyroxi ne 75 mcg capsule 05-23 00:00: 00 Yes [id number] TREATS HYPOTHYROID ISM 75 mcg DIRECTED 75 mcg DIRECTED (route: oral) Med Classific ation: Endocrine melatonin 3 mg tablet 05-23 00:00: 00 Yes [id number] INSOMNIA 6 mg BEDTIME 6 mg BEDTIME (route: oral) Med Classific ation: Central Nervous System Agents Tylenol 8 Hour 650 mg tablet,exte nded release 05-23 00:00: 00 Yes [id number] PAIN 650 mg EVERY 6 HOURS 650 mg EVERY 6 HOURS (route: oral) Med Classific ation: Analgesic , Anti-infl ammatory or Antipyret ic atenolol 25 mg tablet 05-25 00:00: 00 Yes [id number] bllod pressure 1 tablet DAILY 1 tablet DAILY (route: oral) Med Classific ation: Cardiovas cular Therapy Agents docusate sodium 100 mg capsule 06-05 00:00: 00 Yes [id number] CONSTIPATIO N 1 capsule DAILY 1 capsule DAILY (route: oral) Med Classific ation: Gastroint estinal Therapy Agents Enema Disposable 19 gram-7 gram/118 mL 06-05 00:00: 00 Yes [id number] CONSTIPATIO N Per instruc tions NEEDED Per instructio ns NEEDED (route: rectal) Med Classific ation: Gastroint estinal Therapy Agents Immunizations Ordered Immunization Name Filled Immunization Name Date Status Comments Refusal Reason INFLUENZA, TIV (INACTIVATED) 2024-05-12 00:00:00 DOSE #2, COVID-19 VACCINE 2020-06-02 00:00:00 DOSE #1, COVID-19 VACCINE 2020-05-13 00:00:00 Vital Signs Vital Name Observation Time Observation Value Commen ts Temperature 2024-06-16 09:33:00.000 97.2 [degF] Temperature 2024-06-15 13:59:00.000 98.6 [degF] Temperature 2024-06-10 14:24:00.000 97.1 [degF] Temperature 2024-06-08 13:55:00.000 97.5 [degF] Temperature 2024-06-05 11:39:00.000 97.5 [degF] Temperature 2024-06-03 15:50:00.000 97.1 [degF] Temperature 2024-06-01 11:15:00.000 97.2 [degF] Temperature 2024-05-29 12:16:00.000 98 [degF] Temperature 2024-05-26 08:42:00.000 97.5 [degF] Temperature 2024-05-25 09:30:00.000 97.3 [degF] Temperature 2024-05-23 13:07:00.000 97.7 [degF] BMI (%) 2024-05-23 13:07:00.000 17 kg/m2 Height 2024-05-23 13:07:00.000 75 [in_us] Pulse 2024-06-16 09:33:00.000 66 /min Pulse 2024-06-15 13:59:00.000 72 /min Pulse 2024-06-10 14:24:00.000 71 /min Pulse 2024-06-08 13:55:00.000 67 /min Pulse 2024-06-05 11:39:00.000 74 /min Pulse 2024-06-03 15:50:00.000 70 /min Pulse 2024-06-01 11:15:00.000 68 /min Pulse 2024-05-29 12:16:00.000 82 /min Pulse 2024-05-26 08:42:00.000 76 /min Pulse 2024-05-25 09:30:00.000 66 /min Pulse 2024-05-23 13:07:00.000 68 /min O2 Saturation (%) 2024-06-16 09:33:00.000 95 % O2 Saturation (%) 2024-06-10 14:24:00.000 98 % O2 Saturation (%) 2024-06-08 13:55:00.000 98 % O2 Saturation (%) 2024-06-05 11:39:00.000 99 % O2 Saturation (%) 2024-06-03 15:50:00.000 97 % O2 Saturation (%) 2024-06-01 11:15:00.000 98 % O2 Saturation (%) 2024-05-29 12:16:00.000 97 % O2 Saturation (%) 2024-05-26 08:42:00.000 98 % O2 Saturation (%) 2024-05-25 09:30:00.000 95 % O2 Saturation (%) 2024-05-23 13:07:00.000 96 % Respirations 2024-06-16 09:33:00.000 18 /min Respirations 2024-06-15 13:59:00.000 18 /min Respirations 2024-06-10 14:24:00.000 16 /min Respirations 2024-06-08 13:55:00.000 18 /min Respirations 2024-06-05 11:39:00.000 18 /min Respirations 2024-06-03 15:50:00.000 18 /min Respirations 2024-06-01 11:15:00.000 18 /min Respirations 2024-05-29 12:16:00.000 18 /min Respirations 2024-05-26 08:42:00.000 18 /min Respirations 2024-05-25 09:30:00.000 18 /min Respirations 2024-05-23 13:08:00.000 18 /min Weight (lbs) 2024-06-16 09:33:00.000 118 [lb_av] Weight (lbs) 2024-06-15 14:18:00.000 118 [lb_av] Weight (lbs) 2024-06-10 14:28:00.000 121.8 [lb_av] Weight (lbs) 2024-06-03 15:52:00.000 113 [lb_av] Weight (lbs) 2024-06-01 11:17:00.000 113 [lb_av] Weight (lbs) 2024-05-29 12:29:00.000 113 [lb_av] Weight (lbs) 2024-05-26 08:48:00.000 112 [lb_av] Weight (lbs) 2024-05-25 09:31:00.000 115 [lb_av] Weight (lbs) 2024-05-23 13:07:00.000 138 [lb_av] Systolic Blood Pressure 2024-06-16 09:33:00.000 144 mm [Hg] Systolic Blood Pressure 2024-06-15 13:59:00.000 144 mm [Hg] Systolic Blood Pressure 2024-06-10 14:24:00.000 150 mm [Hg] Systolic Blood Pressure 2024-06-08 13:55:00.000 140 mm [Hg] Systolic Blood Pressure 2024-06-05 11:39:00.000 130 mm [Hg] Systolic Blood Pressure 2024-06-03 15:50:00.000 142 mm [Hg] Systolic Blood Pressure 2024-06-01 11:15:00.000 128 mm [Hg] Systolic Blood Pressure 2024-05-29 12:16:00.000 140 mm [Hg] Systolic Blood Pressure 2024-05-26 08:42:00.000 138 mm [Hg] Systolic Blood Pressure 2024-05-25 09:30:00.000 108 mm [Hg] Systolic Blood Pressure 2024-05-23 13:07:00.000 136 mm [Hg] Diastolic Blood Pressure 2024-06-16 09:33:00.000 68 mm [Hg] Diastolic Blood Pressure 2024-06-15 13:59:00.000 78 mm [Hg] Diastolic Blood Pressure 2024-06-10 14:24:00.000 80 mm [Hg] Diastolic Blood Pressure 2024-06-08 13:55:00.000 50 mm [Hg] Diastolic Blood Pressure 2024-06-05 11:39:00.000 70 mm [Hg] Diastolic Blood Pressure 2024-06-03 15:50:00.000 80 mm [Hg] Diastolic Blood Pressure 2024-06-01 11:15:00.000 72 mm [Hg] Diastolic Blood Pressure 2024-05-29 12:16:00.000 70 mm [Hg] Diastolic Blood Pressure 2024-05-26 08:42:00.000 70 mm [Hg] Diastolic Blood Pressure 2024-05-25 09:30:00.000 56 mm [Hg] Diastolic Blood Pressure 2024-05-23 13:07:00.000 62 mm [Hg] Plan of Treatment Planned Activity Planned Date Details Comments Future Scheduled Test MEDICATION MANAGEMENT; RN/ORCHID GROWER/FRY COOK TO REVIEW MEDICATIONS FOR INTERACTIONS, EFFECTIVENESS OF DRUG THERAPY, AND SIGNS/SYMPTOMS OF ADVERSE REACTIONS. MAY INSTRUCT AND REINFORCE MEDICATION TEACHING RELATED TO THE USE OF MEDICATIONS, DOSAGE, FREQUENCY, PURPOSE, SIDE EFFECTS, AND TO REPORT COMPLICATIONS. [code = MEDICATION MANAGEMENT; RN/ORCHID GROWER/FRY COOK TO REVIEW MEDICATIONS FOR INTERACTIONS, EFFECTIVENESS OF DRUG THERAPY, AND SIGNS/SYMPTOMS OF ADVERSE REACTIONS. MAY INSTRUCT AND REINFORCE MEDICATION TEACHING RELATED TO THE USE OF MEDICATIONS, DOSAGE, FREQUENCY, PURPOSE, SIDE EFFECTS, AND TO REPORT COMPLICATIONS.] Future Scheduled Test RESPIRATOR Y SYSTEM MANAGEMENT; RN TO ASSESS AND TEACH, ORCHID GROWER/FRY COOK TO OBSERVE AND TEACH RELATED TO ALTERED RESPIRATORY STATUS TO MINIMIZE COMPLICATIONS AND REDUCE HOSPITALIZATION. [code = RESPIRATORY SYSTEM MANAGEMENT; RN TO ASSESS AND TEACH, ORCHID GROWER/FRY COOK TO OBSERVE AND TEACH RELATED TO ALTERED RESPIRATORY STATUS TO MINIMIZE COMPLICATIONS AND REDUCE HOSPITALIZATION. ] Future Scheduled Test FALL REDUC TION MANAGEMENT; RN TO ASSESS AND OBSERVE, ORCHID GROWER/FRY COOK TO OBSERVE FALL RISK FACTORS AND EDUCATE PATIENT/CAREGIVER ON STRATEGIES TO MINIMIZE THE RISK OF FALLING. [code = FALL REDUCTION MANAGEMENT; RN TO ASSESS AND OBSERVE, ORCHID GROWER/FRY COOK TO OBSERVE FALL RISK FACTORS AND EDUCATE PATIENT/CAREGIVER ON STRATEGIES TO MINIMIZE THE RISK OF FALLING.] Future Scheduled Test GENITOURIN VICTOR M MANAGEMENT; RN TO ASSESS AND TEACH, ORCHID GROWER/FRY COOK TO OBSERVE AND TEACH RELATED TO ALTERED GENITOURINARY STATUS TO MINIMIZE COMPLICATIONS AND REDUCE HOSPITALIZATION. [code = GENITOURINARY MANAGEMENT; RN TO ASSESS AND TEACH, ORCHID GROWER/FRY COOK TO OBSERVE AND TEACH RELATED TO ALTERED GENITOURINARY STATUS TO MINIMIZE COMPLICATIONS AND REDUCE HOSPITALIZATION.] Future Scheduled Test URINARY IN CONTINENCE MANAGEMENT; RN TO ASSESS AND TEACH, ORCHID GROWER/LVNTO OBSERVE AND TEACH MANAGEMENT OF URINARY INCONTINENCE. TEACH/INSTRUCT ON PREVENTING INFECTION AND SKIN BREAKDOWN. RN/ORCHID GROWER/FRY COOK MAY INSTRUCT IN BLADDER TRAINING PROGRAM INDICATED. [code = URINARY INCONTINENCE MANAGEMENT; RN TO ASSESS AND TEACH, ORCHID GROWER/LVNTO OBSERVE AND TEACH MANAGEMENT OF URINARY INCONTINENCE. TEACH/INSTRUCT ON PREVENTING INFECTION AND SKIN BREAKDOWN. RN/ORCHID GROWER/FRY COOK MAY INSTRUCT IN BLADDER TRAINING PROGRAM INDICATED.] Future Scheduled Test RN TO OBSE RVE, ASSESS, EVALUATE, AND DEVELOP AN INDIVIDUALIZED PLAN OF CARE. AGENCY MAY ACCEPT ORDERS FROM CONSULTING PHYSICIANS RN TO OBSERVE AND ASSESS, ORCHID GROWER/FRY COOK TO OBSERVE FOR RISK FOR FALLS AND INSTRUCT IN FALL PREVENTION, HOME SAFETY, MEDICATION MANAGEMENT, INFECTION PREVENTION, AND NUTRITION MANAGEMENT. RN/ORCHID GROWER/FRY COOK NURSE MAY PERFORM O2 SATURATION LEVEL ON ADMISSION AND PRN FOR FOR RN TO ASSESS/ORCHID GROWER TO OBSERVE PATIENT, WITH NOTIFICATION TO THE PHYSICIAN IF SATURATION IS 90% IN THE ABSENCE OF MORE SPECIFIC PARAMETERS FROM THE PHYSICIAN. AGENCY MAY PERFORM A RESUMPTION OF CARE VISIT FOLLOWING ANY HOSPITAL ADMISSION. RN/ORCHID GROWER/FRY COOK TO MONITOR CO-MORBID CONDITIONS LISTED ON THE PLAN OF CARE AND ANY NEW CONDITIONS THAT PRESENT THEMSELVES DURING THIS EPISODE TO IDENTIFY CHANGES AND INTERVENE TO MINIMIZE COMPLICATIONS. [code = RN TO OBSERVE, ASSESS, EVALUATE, AND DEVELOP AN INDIVIDUALIZED PLAN OF CARE. AGENCY MAY ACCEPT ORDERS FROM CONSULTING PHYSICIANS RN TO OBSERVE AND ASSESS, ORCHID GROWER/FRY COOK TO OBSERVE FOR RISK FOR FALLS AND INSTRUCT IN FALL PREVENTION, HOME SAFETY, MEDICATION MANAGEMENT, INFECTION PREVENTION, AND NUTRITION MANAGEMENT. RN/ORCHID GROWER/FRY COOK NURSE MAY PERFORM O2 SATURATION LEVEL ON ADMISSION AND PRN FOR FOR RN TO ASSESS/ORCHID GROWER TO OBSERVE PATIENT, WITH NOTIFICATION TO THE PHYSICIAN IF SATURATION IS 90% IN THE ABSENCE OF MORE SPECIFIC PARAMETERS FROM THE PHYSICIAN. AGENCY MAY PERFORM A RESUMPTION OF CARE VISIT FOLLOWING ANY HOSPITAL ADMISSION. RN/ORCHID GROWER/FRY COOK TO MONITOR CO-MORBID CONDITIONS LISTED ON THE PLAN OF CARE AND ANY NEW CONDITIONS THAT PRESENT THEMSELVES DURING THIS EPISODE TO IDENTIFY CHANGES AND INTERVENE TO MINIMIZE COMPLICATIONS.] Future Scheduled Test PAIN MANAG EMENT; RN TO ASSESS AND TEACH, FRY COOK/ORCHID GROWER TO OBSERVE AND TEACH AND PROVIDE EDUCATION ON PAIN MANAGEMENT TECHNIQUES. [code = PAIN MANAGEMENT; RN TO ASSESS AND TEACH, FRY COOK/ORCHID GROWER TO OBSERVE AND TEACH AND PROVIDE EDUCATION ON PAIN MANAGEMENT TECHNIQUES.] Future Scheduled Test RISK FOR H OSPITALIZATION; RN TO ASSESS/TEACH, FRY COOK/ORCHID GROWER TO OBSERVE/TEACH PATIENT/CAREGIVER ON RISK FOR HOSPITALIZATION/EMERGENCY ROOM VISITS, TEACH SIGNS AND SYMPTOMS THAT PUT PATIENT AT RISK, WHEN TO NOTIFY NURSE/PHYSICIAN OF COMPLICATIONS/DECLINE, AND WHEN TO CALL 911. [code = RISK FOR HOSPITALIZATION; RN TO ASSESS/TEACH, FRY COOK/ORCHID GROWER TO OBSERVE/TEACH PATIENT/CAREGIVER ON RISK FOR HOSPITALIZATION/EMERGENCY ROOM VISITS, TEACH SIGNS AND SYMPTOMS THAT PUT PATIENT AT RISK, WHEN TO NOTIFY NURSE/PHYSICIAN OF COMPLICATIONS/DECLINE, AND WHEN TO CALL 911.] Future Scheduled Test CARDIOVASC ULAR SYSTEM; RN TO ASSESS/TEACH, ORCHID GROWER/FRY COOK TO OBSERVE/TEACH RELATED TO ALTERED CARDIOVASCULAR STATUS TO MINIMIZE COMPLICATIONS AND REDUCE HOSPITALIZATION. [code = CARDIOVASCULAR SYSTEM; RN TO ASSESS/TEACH, ORCHID GROWER/FRY COOK TO OBSERVE/TEACH RELATED TO ALTERED CARDIOVASCULAR STATUS TO MINIMIZE COMPLICATIONS AND REDUCE HOSPITALIZATION.] Future Scheduled Test HEART FAIL URE; RN TO ASSESS/TEACH, ORCHID GROWER/FRY COOK TO OBSERVE/TEACH CARDIOPULMONARY SYSTEM TO IDENTIFY SIGNS [...] [code = HEART FAILURE; RN TO ASSESS/TEACH, ORCHID GROWER/FRY COOK TO OBSERVE/TEACH CARDIOPULMONARY SYSTEM TO IDENTIFY SIGNS [...] ON MANAGEMENT; RN TO ASSESS AND TEACH, ORCHID GROWER/FRY COOK TO OBSERVE AND TEACH WARNING SIGNS AND SYMPTOMS TO AVOID HOSPITALIZATION. [code = HYPERTENSION MANAGEMENT; RN TO ASSESS AND TEACH, ORCHID GROWER/FRY COOK TO OBSERVE AND TEACH WARNING SIGNS AND SYMPTOMS TO AVOID HOSPITALIZATION.] Future Scheduled Test SKIN INTEG RITY RN TO ASSESS AND TEACH, ORCHID GROWER/FRY COOK TO OBSERVE AND TEACH INTEGUMENTARY STATUS TO IDENTIFY CHANGES AND INTERVENE TO MINIMIZE COMPLICATIONS. PROVIDE SKILLED TEACHING OF GENERAL WOUND AND SKIN CARE AND PREVENTION RELATED TO POTENTIAL FOR OR ACTUAL ALTERED SKIN INTEGRITY [code = SKIN INTEGRITY RN TO ASSESS AND TEACH, ORCHID GROWER/FRY COOK TO OBSERVE AND TEACH INTEGUMENTARY STATUS TO IDENTIFY CHANGES AND INTERVENE TO MINIMIZE COMPLICATIONS. PROVIDE SKILLED TEACHING OF GENERAL WOUND AND SKIN CARE AND PREVENTION RELATED TO POTENTIAL FOR OR ACTUAL ALTERED SKIN INTEGRITY ] Future Scheduled Test AGENCY MAY PERFORM A RESUMPTION OF CARE VISIT FOLLOWING ANY HOSPITAL ADMISSION. PT TO EVALUATE, OBSERVE / ASSESS, AND MONITOR, PLUMBING HARDWARE ASSEMBLER TO OBSERVE AND MONITOR, PROVIDE SKILLED THERAPEUTIC INTERVENTION, ACTIVITY, EDUCATION, AND TRAINING TO ADDRESS; PT/PLUMBING HARDWARE ASSEMBLER TO PROVIDE GAIT TRAINING FOR IMPROVED MOBILITY AND /OR TO NORMALIZE GAIT PATTERN NEUROMUSCULAR RE-EDUCATION / BALANCE / POSTURAL CONTROL (PT) THERAPEUTIC EXERCISES AND ESTABLISHING A HOME EXERCISE PROGRAM (PT/PLUMBING HARDWARE ASSEMBLER) PT/PLUMBING HARDWARE ASSEMBLER TO PROVIDE STAIR TRAINING SIT TO/FROM STAND TRANSFERS (PT/PLUMBING HARDWARE ASSEMBLER) PT / PLUMBING HARDWARE ASSEMBLER TO MONITOR AND EDUCATE ON OXYGEN SATURATION DURING ADLS/IADLS, NOTIFY PHYSICIAN AND/OR THE RN CLINICAL MACHINE CLOTHING MAN FOR PHYSICIAN NOTIFICATION AND IF O2 SATS BELOW PHYSICIAN ORDERED PARAMETERS AFTER 10 MIN OF REST PT TO ASSESS / PLUMBING HARDWARE ASSEMBLER TO MONITOR FOR HEART FAILURE EXACERBATION AND RECORD PATIENT REPORTED WEIGHT, AND NOTIFY THE PHYSICIAN AND/OR THE RN CLINICAL MACHINE CLOTHING MAN FOR PHYSICIAN NOTIFICATION OF HF EXACERBATION (2LB WEIGHT GAIN IN 1 DAY, 5LBS IN A WEEK OR 5 LBS OVER BASELINE; INCREASED SOB, EDEMA, NEEDING MORE PILLOWS AT NIGHT, CRACKLES IN BASIS OF THE LUNGS OR PMI SHIFT) PT TO ASSESS / PLUMBING HARDWARE ASSEMBLER TO MONITOR CARDIO/RESPIRATORY SYSTEM; AND NOTIFY THE PHYSICIAN AND/OR THE RN CLINICAL MACHINE CLOTHING MAN FOR PHYSICIAN NOTIFICATION FOR EARLY SIGNS AND SYMPTOMS OF EXACERBATION OR DETERIORATION. PT/PLUMBING HARDWARE ASSEMBLER TO IDENTIFY FALL RISK FACTORS; EDUCATE THE PATIENT/CAREGIVER ON WAYS TO REDUCE FALL RISK FACTORS AND ESTABLISH HOME EXERCISE PROGRAM TO MINIMIZE FALL RISK. MAY TEACH THE PATIENT FLOOR RECOVERY WHEN CLINICALLY APPROPRIATE PT / PLUMBING HARDWARE ASSEMBLER MAY EDUCATE ON PAIN MANAGEMENT CLINICALLY INDICATED, INCLUDING NON-PHARMACOLOGICAL PAIN REDUCTION TECHNIQUES [code = AGENCY MAY PERFORM A RESUMPTION OF CARE VISIT FOLLOWING ANY HOSPITAL ADMISSION. PT TO EVALUATE, OBSERVE / ASSESS, AND MONITOR, PLUMBING HARDWARE ASSEMBLER TO OBSERVE AND MONITOR, PROVIDE SKILLED THERAPEUTIC INTERVENTION, ACTIVITY, EDUCATION, AND TRAINING TO ADDRESS; PT/PLUMBING HARDWARE ASSEMBLER TO PROVIDE GAIT TRAINING FOR IMPROVED MOBILITY AND /OR TO NORMALIZE GAIT PATTERN NEUROMUSCULAR RE-EDUCATION / BALANCE / POSTURAL CONTROL (PT) THERAPEUTIC EXERCISES AND ESTABLISHING A HOME EXERCISE PROGRAM (PT/PLUMBING HARDWARE ASSEMBLER) PT/PLUMBING HARDWARE ASSEMBLER TO PROVIDE STAIR TRAINING SIT TO/FROM STAND TRANSFERS (PT/PLUMBING HARDWARE ASSEMBLER) PT / PLUMBING HARDWARE ASSEMBLER TO MONITOR AND EDUCATE ON OXYGEN SATURATION DURING ADLS/IADLS, NOTIFY PHYSICIAN AND/OR THE RN CLINICAL MACHINE CLOTHING MAN FOR PHYSICIAN NOTIFICATION AND IF O2 SATS BELOW PHYSICIAN ORDERED PARAMETERS AFTER 10 MIN OF REST PT TO ASSESS / PLUMBING HARDWARE ASSEMBLER TO MONITOR FOR HEART FAILURE EXACERBATION AND RECORD PATIENT REPORTED WEIGHT, AND NOTIFY THE PHYSICIAN AND/OR THE RN CLINICAL MACHINE CLOTHING MAN FOR PHYSICIAN NOTIFICATION OF HF EXACERBATION (2LB WEIGHT GAIN IN 1 DAY, 5LBS IN A WEEK OR 5 LBS OVER BASELINE; INCREASED SOB, EDEMA, NEEDING MORE PILLOWS AT NIGHT, CRACKLES IN BASIS OF THE LUNGS OR PMI SHIFT) PT TO ASSESS / PLUMBING HARDWARE ASSEMBLER TO MONITOR CARDIO/RESPIRATORY SYSTEM; AND NOTIFY THE PHYSICIAN AND/OR THE RN CLINICAL MACHINE CLOTHING MAN FOR PHYSICIAN NOTIFICATION FOR EARLY SIGNS AND SYMPTOMS OF EXACERBATION OR DETERIORATION. PT/PLUMBING HARDWARE ASSEMBLER TO IDENTIFY FALL RISK FACTORS; EDUCATE THE PATIENT/CAREGIVER ON WAYS TO REDUCE FALL RISK FACTORS AND ESTABLISH HOME EXERCISE PROGRAM TO MINIMIZE FALL RISK. MAY TEACH THE PATIENT FLOOR RECOVERY WHEN CLINICALLY APPROPRIATE PT / PLUMBING HARDWARE ASSEMBLER MAY EDUCATE ON PAIN MANAGEMENT CLINICALLY INDICATED, [...] End Date/Time Encounter Type Admission Type Attending Rust Department Encounter ID Discharge Date Discharge Status Discharge Condition Discharge Reason Percent Goals Met 2024-05-23 00:00:00 2024-07-21 00:00:00 Outpatient NORBERTO HASTINGS [facility] [id number] 40.74
--- OUTSIDE RECORDS SUMMARY | 2024-06-22 15:28 | XMS_ITS ---
Author Organization [facility] Address [address] [place] [address] Care Team Providers Care Textile Technical Officer Name Role Phone Shiva Fierro MD Primary Care Provider Shannan Hyatt Unavailable [phone] Encounters Encounter Location Date Provider Diagnosis [facility] [address] [place] [address] 05/05/2024 Shannan Morales Plan Of Treatment No Information Progress Notes * Sixto GUOB:1940 (84 yo F)Acc No.[id number]:05/05/2024 Progress Note Patient:?Celsa GUO Provider:?Shannan Morales DPM :1940???Age:84 Y???Sex:Female D ate:05/05/2024 Address:[address] [place], [place] [id number] Pcp:Shiva Fierro MD Subjective: * Chief Complaints: [...] Morales DPM Date:? Generated for Eh jimenez/[facility]/eTransmitting on:?06/22/2024 03:28 PM EDT
--- OUTSIDE RECORDS SUMMARY | 2024-06-22 15:28 | XMS_ITS | Clinical Summary ---
Author Organization Unknown Care Team Providers Care Frit Coater Name Role Phone MADDY DUTTON, TYLER Unavailable Unavailab ana ESCOBAR RN, NORBERTO Unavailable Unavailab ana TOLENTINO PT, ORI Unavailable Unavailable KAITLYN WINDOW REPAIRER, [facility] Unavailable Unavailable Payers Payer Name Policy Type Policy Number Effective Date Expira tion Date MEDICARE.NGS.PD [id number] Problems Condition Name Condition Details Condition Category [...] 06-23 00:00: 00 07-03 23:59 :00 No [id number] CELLULITIS LEFT LOWER LEG 1 capsule 2 TIMES DAILY 1 capsule 2 TIMES DAILY (route: oral) Med Classific ation: Anti-Infe ctive Agents simvastatin 20 mg tablet 06-21 00:00: 00 Yes [id number] HIGH CHOLESTEROL 20 mg BEDTIME 20 mg BEDTIME (route: oral) Med Classific ation: Cardiovas cular Therapy Agents meloxicam 7.5 mg tablet 05-28 00:00: 00 06-25 00:00 :00 No [id number] Per instruc tions EVERY DAY Per instructio ns EVERY DAY (route: oral) Med Classific ation: Analgesic , Anti-infl ammatory or Antipyret ic alendronate 70 mg tablet 06-25 00:00: 00 Yes [id number] OSTEOPOROSI S 1 tablet WEEKLY 1 tablet WEEKLY (route: oral) Med Classific ation: Endocrine atenolol 25 mg tablet 06-25 00:00: 00 05-25 11:52 :30.4 03 No [id number] HIGH BLOOD PRESSURE 2.5 mg DAILY 2.5 mg DAILY (route: oral) Med Classific ation: Cardiovas cular Therapy Agents cefuroxime axetil 250 mg tablet 06-25 00:00: 00 08-20 23:59 :00 No [id number] INFECTION 1 tablet 2 TIMES DAILY 1 tablet 2 TIMES DAILY (route: oral) Med Classific ation: Anti-Infe ctive Agents furosemide 20 mg tablet 06-25 00:00: 00 Yes [id number] EDEMA/LEG SWELLING 20 tablet DAILY 20 tablet DAILY (route: oral) Med Classific ation: Cardiovas cular Therapy Agents levothyroxi ne 75 mcg tablet 5-15 00:00: 00 05-23 00:00 :00 No [id number] LOW THYROID 1 tablet DAILY 1 tablet DAILY (route: oral) Med Classific ation: Endocrine doxycycline hyclate 100 mg capsule 7-14 00:00: 00 08-30 23:59 :00 No [id number] RIGHT LOWER LEG CELLULITUS 1 capsule 2 TIMES DAILY 1 capsule 2 TIMES DAILY (route: oral) Med Classific ation: Anti-Infe ctive Agents cefuroxime axetil 250 mg tablet 7-25 00:00: 00 09-14 23:59 :00 No [id number] wound infection 1 tablet 2 TIMES DAILY 1 tablet 2 TIMES DAILY (route: oral) Med Classific ation: Anti-Infe ctive Agents ammonium lactate 12 % lotion 2023-02 1-11 00:00: 00 05-23 00:00 :00 No [id number] WEEPING SKIN Per instruc tions 2 TIMES DAILY Per instructio ns 2 TIMES DAILY (route: topical) Med Classific ation: Dermatolo gical doxycycline hyclate 100 mg capsule 2023-02 2-27 00:00: 00 02-16 23:59 :00 No [id number] CELLULITIS 100 mg 2 TIMES DAILY 100 mg 2 TIMES DAILY (route: oral) Med Classific ation: Anti-Infe ctive Agents doxycycline hyclate 100 mg capsule 2-03 00:00: 00 03-26 23:59 :00 No [id number] WOUND INFECTION 100 mg 2 TIMES DAILY 100 mg 2 TIMES DAILY (route: oral) Med Classific ation: Anti-Infe ctive Agents amlodipine 5 mg tablet 3-11 00:00: 00 05-23 00:00 :00 No [id number] HIGH BLOOD PRESSURE 1 tablet DAILY 1 tablet DAILY (route: oral) Med Classific ation: Cardiovas cular Therapy Agents amlodipine 2.5 mg tablet 4-12 00:00: 00 Yes [id number] TREATS HTN 2.5 mg DAILY 2.5 mg DAILY (route: oral) Med Classific ation: Cardiovas cular Therapy Agents doxycycline hyclate 100 mg tablet 05-21 00:00: 00 05-25 23:59 :00 No [id number] ANTIBIOTIC 100 mg 2 TIMES DAILY 100 mg 2 TIMES DAILY (route: oral) Med Classific ation: Anti-Infe ctive Agents levothyroxi ne 100 mcg tablet 05-23 00:00: 00 Yes [id number] TREATS HYPOTHYROID ISM 1.5 tablet DIRECTED 1.5 tablet DIRECTED (route: oral) Med Classific ation: Endocrine levothyroxi ne 75 mcg capsule 05-23 00:00: 00 Yes [id number] TREATS HYPOTHYROID ISM 75 mcg DIRECTED 75 mcg DIRECTED (route: oral) Med Classific ation: Endocrine melatonin 3 mg tablet 05-23 00:00: 00 Yes [id number] INSOMNIA 6 mg BEDTIME 6 mg BEDTIME (route: oral) Med Classific ation: Central Nervous System Agents Tylenol 8 Hour 650 mg tablet,exte nded release 05-23 00:00: 00 Yes [id number] PAIN 650 mg EVERY 6 HOURS 650 mg EVERY 6 HOURS (route: oral) Med Classific ation: Analgesic , Anti-infl ammatory or Antipyret ic atenolol 25 mg tablet 05-25 00:00: 00 Yes [id number] bllod pressure 1 tablet DAILY 1 tablet DAILY (route: oral) Med Classific ation: Cardiovas cular Therapy Agents docusate sodium 100 mg capsule 06-05 00:00: 00 Yes [id number] CONSTIPATIO N 1 capsule DAILY 1 capsule DAILY (route: oral) Med Classific ation: Gastroint estinal Therapy Agents Enema Disposable 19 gram-7 gram/118 mL 06-05 00:00: 00 Yes [id number] CONSTIPATIO N Per instruc tions NEEDED Per [...] Details Comments Future Scheduled Test MEDICATION MANAGEMENT; RN/MOTOR COACH SUPERVISOR/GRIEVANCE AND APPEALS SPECIALIST TO REVIEW MEDICATIONS FOR INTERACTIONS, EFFECTIVENESS OF DRUG THERAPY, AND SIGNS/SYMPTOMS OF ADVERSE REACTIONS. MAY INSTRUCT AND REINFORCE MEDICATION TEACHING RELATED TO THE USE OF MEDICATIONS, DOSAGE, FREQUENCY, PURPOSE, SIDE EFFECTS, AND TO REPORT COMPLICATIONS. [code = MEDICATION MANAGEMENT; RN/MOTOR COACH SUPERVISOR/GRIEVANCE AND APPEALS SPECIALIST TO REVIEW MEDICATIONS FOR INTERACTIONS, EFFECTIVENESS OF DRUG THERAPY, AND SIGNS/SYMPTOMS OF ADVERSE REACTIONS. MAY INSTRUCT AND REINFORCE MEDICATION TEACHING RELATED TO THE USE OF MEDICATIONS, DOSAGE, FREQUENCY, PURPOSE, SIDE EFFECTS, AND TO REPORT COMPLICATIONS.] Future Scheduled Test RESPIRATOR Y SYSTEM MANAGEMENT; RN TO ASSESS AND TEACH, MOTOR COACH SUPERVISOR/GRIEVANCE AND APPEALS SPECIALIST TO OBSERVE AND TEACH RELATED TO ALTERED RESPIRATORY STATUS TO MINIMIZE COMPLICATIONS AND REDUCE HOSPITALIZATION. [code = RESPIRATORY SYSTEM MANAGEMENT; RN TO ASSESS AND TEACH, MOTOR COACH SUPERVISOR/GRIEVANCE AND APPEALS SPECIALIST TO OBSERVE AND TEACH RELATED TO ALTERED RESPIRATORY STATUS TO MINIMIZE COMPLICATIONS AND REDUCE HOSPITALIZATION. ] Future Scheduled Test FALL REDUC TION MANAGEMENT; RN TO ASSESS AND OBSERVE, MOTOR COACH SUPERVISOR/GRIEVANCE AND APPEALS SPECIALIST TO OBSERVE FALL RISK FACTORS AND EDUCATE PATIENT/CAREGIVER ON STRATEGIES TO MINIMIZE THE RISK OF FALLING. [code = FALL REDUCTION MANAGEMENT; RN TO ASSESS AND OBSERVE, MOTOR COACH SUPERVISOR/GRIEVANCE AND APPEALS SPECIALIST TO OBSERVE FALL RISK FACTORS AND EDUCATE PATIENT/CAREGIVER ON STRATEGIES TO MINIMIZE THE RISK OF FALLING.] Future Scheduled Test GENITOURIN VICTOR M MANAGEMENT; RN TO ASSESS AND TEACH, MOTOR COACH SUPERVISOR/GRIEVANCE AND APPEALS SPECIALIST TO OBSERVE AND TEACH RELATED TO ALTERED GENITOURINARY STATUS TO MINIMIZE COMPLICATIONS AND REDUCE HOSPITALIZATION. [code = GENITOURINARY MANAGEMENT; RN TO ASSESS AND TEACH, MOTOR COACH SUPERVISOR/GRIEVANCE AND APPEALS SPECIALIST TO OBSERVE AND TEACH RELATED TO ALTERED GENITOURINARY STATUS TO MINIMIZE COMPLICATIONS AND REDUCE HOSPITALIZATION.] Future Scheduled Test URINARY IN CONTINENCE MANAGEMENT; RN TO ASSESS AND TEACH, MOTOR COACH SUPERVISOR/LVNTO OBSERVE AND TEACH MANAGEMENT OF URINARY INCONTINENCE. TEACH/INSTRUCT ON PREVENTING INFECTION AND SKIN BREAKDOWN. RN/MOTOR COACH SUPERVISOR/GRIEVANCE AND APPEALS SPECIALIST MAY INSTRUCT IN BLADDER TRAINING PROGRAM INDICATED. [code = URINARY INCONTINENCE MANAGEMENT; RN TO ASSESS AND TEACH, MOTOR COACH SUPERVISOR/LVNTO OBSERVE AND TEACH MANAGEMENT OF URINARY INCONTINENCE. TEACH/INSTRUCT ON PREVENTING INFECTION AND SKIN BREAKDOWN. RN/MOTOR COACH SUPERVISOR/GRIEVANCE AND APPEALS SPECIALIST MAY INSTRUCT IN BLADDER TRAINING PROGRAM INDICATED.] Future Scheduled Test RN TO OBSE RVE, ASSESS, EVALUATE, AND DEVELOP AN INDIVIDUALIZED PLAN OF CARE. AGENCY MAY ACCEPT ORDERS FROM CONSULTING PHYSICIANS RN TO OBSERVE AND ASSESS, MOTOR COACH SUPERVISOR/GRIEVANCE AND APPEALS SPECIALIST TO OBSERVE FOR RISK FOR FALLS AND INSTRUCT IN FALL PREVENTION, HOME SAFETY, MEDICATION MANAGEMENT, INFECTION PREVENTION, AND NUTRITION MANAGEMENT. RN/MOTOR COACH SUPERVISOR/GRIEVANCE AND APPEALS SPECIALIST NURSE MAY PERFORM O2 SATURATION LEVEL ON ADMISSION AND PRN FOR FOR RN TO ASSESS/MOTOR COACH SUPERVISOR TO OBSERVE PATIENT, WITH NOTIFICATION TO THE PHYSICIAN IF SATURATION IS 90% IN THE ABSENCE OF MORE SPECIFIC PARAMETERS FROM THE PHYSICIAN. AGENCY MAY PERFORM A RESUMPTION OF CARE VISIT FOLLOWING ANY HOSPITAL ADMISSION. RN/MOTOR COACH SUPERVISOR/GRIEVANCE AND APPEALS SPECIALIST TO MONITOR CO-MORBID CONDITIONS LISTED ON THE PLAN OF CARE AND ANY NEW CONDITIONS THAT PRESENT THEMSELVES DURING THIS EPISODE TO IDENTIFY CHANGES AND INTERVENE TO MINIMIZE COMPLICATIONS. [code = RN TO OBSERVE, ASSESS, EVALUATE, AND DEVELOP AN INDIVIDUALIZED PLAN OF CARE. AGENCY MAY ACCEPT ORDERS FROM CONSULTING PHYSICIANS RN TO OBSERVE AND ASSESS, MOTOR COACH SUPERVISOR/GRIEVANCE AND APPEALS SPECIALIST TO OBSERVE FOR RISK FOR FALLS AND INSTRUCT IN FALL PREVENTION, HOME SAFETY, MEDICATION MANAGEMENT, INFECTION PREVENTION, AND NUTRITION MANAGEMENT. RN/MOTOR COACH SUPERVISOR/GRIEVANCE AND APPEALS SPECIALIST NURSE MAY PERFORM O2 SATURATION LEVEL ON ADMISSION AND PRN FOR FOR RN TO ASSESS/MOTOR COACH SUPERVISOR TO OBSERVE PATIENT, WITH NOTIFICATION TO THE PHYSICIAN IF SATURATION IS 90% IN THE ABSENCE OF MORE SPECIFIC PARAMETERS FROM THE PHYSICIAN. AGENCY MAY PERFORM A RESUMPTION OF CARE VISIT FOLLOWING ANY HOSPITAL ADMISSION. RN/MOTOR COACH SUPERVISOR/GRIEVANCE AND APPEALS SPECIALIST TO MONITOR CO-MORBID CONDITIONS LISTED ON THE PLAN OF CARE AND ANY NEW CONDITIONS THAT PRESENT THEMSELVES DURING THIS EPISODE TO IDENTIFY CHANGES AND INTERVENE TO MINIMIZE COMPLICATIONS.] Future Scheduled Test PAIN MANAG EMENT; RN TO ASSESS AND TEACH, GRIEVANCE AND APPEALS SPECIALIST/MOTOR COACH SUPERVISOR TO OBSERVE AND TEACH AND PROVIDE EDUCATION ON PAIN MANAGEMENT TECHNIQUES. [code = PAIN MANAGEMENT; RN TO ASSESS AND TEACH, GRIEVANCE AND APPEALS SPECIALIST/MOTOR COACH SUPERVISOR TO OBSERVE AND TEACH AND PROVIDE EDUCATION ON PAIN MANAGEMENT TECHNIQUES.] Future Scheduled Test RISK FOR H OSPITALIZATION; RN TO ASSESS/TEACH, GRIEVANCE AND APPEALS SPECIALIST/MOTOR COACH SUPERVISOR TO OBSERVE/TEACH PATIENT/CAREGIVER ON RISK FOR HOSPITALIZATION/EMERGENCY ROOM VISITS, TEACH SIGNS AND SYMPTOMS THAT PUT PATIENT AT RISK, WHEN TO NOTIFY NURSE/PHYSICIAN OF COMPLICATIONS/DECLINE, AND WHEN TO CALL 911. [code = RISK FOR HOSPITALIZATION; RN TO ASSESS/TEACH, GRIEVANCE AND APPEALS SPECIALIST/MOTOR COACH SUPERVISOR TO OBSERVE/TEACH PATIENT/CAREGIVER ON RISK FOR HOSPITALIZATION/EMERGENCY ROOM VISITS, TEACH SIGNS AND SYMPTOMS THAT PUT PATIENT AT RISK, WHEN TO NOTIFY NURSE/PHYSICIAN OF COMPLICATIONS/DECLINE, AND WHEN TO CALL 911.] Future Scheduled Test CARDIOVASC ULAR SYSTEM; RN TO ASSESS/TEACH, MOTOR COACH SUPERVISOR/GRIEVANCE AND APPEALS SPECIALIST TO OBSERVE/TEACH RELATED TO ALTERED CARDIOVASCULAR STATUS TO MINIMIZE COMPLICATIONS AND REDUCE HOSPITALIZATION. [code = CARDIOVASCULAR SYSTEM; RN TO ASSESS/TEACH, MOTOR COACH SUPERVISOR/GRIEVANCE AND APPEALS SPECIALIST TO OBSERVE/TEACH RELATED TO ALTERED CARDIOVASCULAR STATUS TO MINIMIZE COMPLICATIONS AND REDUCE HOSPITALIZATION.] Future Scheduled Test HEART FAIL URE; RN TO ASSESS/TEACH, MOTOR COACH SUPERVISOR/GRIEVANCE AND APPEALS SPECIALIST TO OBSERVE/TEACH CARDIOPULMONARY SYSTEM TO IDENTIFY SIGNS [...] [code = HEART FAILURE; RN TO ASSESS/TEACH, MOTOR COACH SUPERVISOR/GRIEVANCE AND APPEALS SPECIALIST TO OBSERVE/TEACH CARDIOPULMONARY SYSTEM TO IDENTIFY SIGNS [...] ON MANAGEMENT; RN TO ASSESS AND TEACH, MOTOR COACH SUPERVISOR/GRIEVANCE AND APPEALS SPECIALIST TO OBSERVE AND TEACH WARNING SIGNS AND SYMPTOMS TO AVOID HOSPITALIZATION. [code = HYPERTENSION MANAGEMENT; RN TO ASSESS AND TEACH, MOTOR COACH SUPERVISOR/GRIEVANCE AND APPEALS SPECIALIST TO OBSERVE AND TEACH WARNING SIGNS AND SYMPTOMS TO AVOID HOSPITALIZATION.] Future Scheduled Test SKIN INTEG RITY RN TO ASSESS AND TEACH, MOTOR COACH SUPERVISOR/GRIEVANCE AND APPEALS SPECIALIST TO OBSERVE AND TEACH INTEGUMENTARY STATUS TO IDENTIFY CHANGES AND INTERVENE TO MINIMIZE COMPLICATIONS. PROVIDE SKILLED TEACHING OF GENERAL WOUND AND SKIN CARE AND PREVENTION RELATED TO POTENTIAL FOR OR ACTUAL ALTERED SKIN INTEGRITY [code = SKIN INTEGRITY RN TO ASSESS AND TEACH, MOTOR COACH SUPERVISOR/GRIEVANCE AND APPEALS SPECIALIST TO OBSERVE AND TEACH INTEGUMENTARY STATUS TO IDENTIFY CHANGES AND INTERVENE TO MINIMIZE COMPLICATIONS. PROVIDE SKILLED TEACHING OF GENERAL WOUND AND SKIN CARE AND PREVENTION RELATED TO POTENTIAL FOR OR ACTUAL ALTERED SKIN INTEGRITY ] Future Scheduled Test AGENCY MAY PERFORM A RESUMPTION OF CARE VISIT FOLLOWING ANY HOSPITAL ADMISSION. PT TO EVALUATE, OBSERVE / ASSESS, AND MONITOR, WINDOW REPAIRER TO OBSERVE AND MONITOR, PROVIDE SKILLED THERAPEUTIC INTERVENTION, ACTIVITY, EDUCATION, AND TRAINING TO ADDRESS; PT/WINDOW REPAIRER TO PROVIDE GAIT TRAINING FOR IMPROVED MOBILITY AND /OR TO NORMALIZE GAIT PATTERN NEUROMUSCULAR RE-EDUCATION / BALANCE / POSTURAL CONTROL (PT) THERAPEUTIC EXERCISES AND ESTABLISHING A HOME EXERCISE PROGRAM (PT/WINDOW REPAIRER) PT/WINDOW REPAIRER TO PROVIDE STAIR TRAINING SIT TO/FROM STAND TRANSFERS (PT/WINDOW REPAIRER) PT / WINDOW REPAIRER TO MONITOR AND EDUCATE ON OXYGEN SATURATION DURING ADLS/IADLS, NOTIFY PHYSICIAN AND/OR THE RN CLINICAL MARINE TECHNICIAN FOR PHYSICIAN NOTIFICATION AND IF O2 SATS BELOW PHYSICIAN ORDERED PARAMETERS AFTER 10 MIN OF REST PT TO ASSESS / WINDOW REPAIRER TO MONITOR FOR HEART FAILURE EXACERBATION AND RECORD PATIENT REPORTED WEIGHT, AND NOTIFY THE PHYSICIAN AND/OR THE RN CLINICAL MARINE TECHNICIAN FOR PHYSICIAN NOTIFICATION OF HF EXACERBATION (2LB WEIGHT GAIN IN 1 DAY, 5LBS IN A WEEK OR 5 LBS OVER BASELINE; INCREASED SOB, EDEMA, NEEDING MORE PILLOWS AT NIGHT, CRACKLES IN BASIS OF THE LUNGS OR PMI SHIFT) PT TO ASSESS / WINDOW REPAIRER TO MONITOR CARDIO/RESPIRATORY SYSTEM; AND NOTIFY THE PHYSICIAN AND/OR THE RN CLINICAL MARINE TECHNICIAN FOR PHYSICIAN NOTIFICATION FOR EARLY SIGNS AND SYMPTOMS OF EXACERBATION OR DETERIORATION. PT/WINDOW REPAIRER TO IDENTIFY FALL RISK FACTORS; EDUCATE THE PATIENT/CAREGIVER ON WAYS TO REDUCE FALL RISK FACTORS AND ESTABLISH HOME EXERCISE PROGRAM TO MINIMIZE FALL RISK. MAY TEACH THE PATIENT FLOOR RECOVERY WHEN CLINICALLY APPROPRIATE PT / WINDOW REPAIRER MAY EDUCATE ON PAIN MANAGEMENT CLINICALLY INDICATED, INCLUDING NON-PHARMACOLOGICAL PAIN REDUCTION TECHNIQUES [code = AGENCY MAY PERFORM A RESUMPTION OF CARE VISIT FOLLOWING ANY HOSPITAL ADMISSION. PT TO EVALUATE, OBSERVE / ASSESS, AND MONITOR, WINDOW REPAIRER TO OBSERVE AND MONITOR, PROVIDE SKILLED THERAPEUTIC INTERVENTION, ACTIVITY, EDUCATION, AND TRAINING TO ADDRESS; PT/WINDOW REPAIRER TO PROVIDE GAIT TRAINING FOR IMPROVED MOBILITY AND /OR TO NORMALIZE GAIT PATTERN NEUROMUSCULAR RE-EDUCATION / BALANCE / POSTURAL CONTROL (PT) THERAPEUTIC EXERCISES AND ESTABLISHING A HOME EXERCISE PROGRAM (PT/WINDOW REPAIRER) PT/WINDOW REPAIRER TO PROVIDE STAIR TRAINING SIT TO/FROM STAND TRANSFERS (PT/WINDOW REPAIRER) PT / WINDOW REPAIRER TO MONITOR AND EDUCATE ON OXYGEN SATURATION DURING ADLS/IADLS, NOTIFY PHYSICIAN AND/OR THE RN CLINICAL MARINE TECHNICIAN FOR PHYSICIAN NOTIFICATION AND IF O2 SATS BELOW PHYSICIAN ORDERED PARAMETERS AFTER 10 MIN OF REST PT TO ASSESS / WINDOW REPAIRER TO MONITOR FOR HEART FAILURE EXACERBATION AND RECORD PATIENT REPORTED WEIGHT, AND NOTIFY THE PHYSICIAN AND/OR THE RN CLINICAL MARINE TECHNICIAN FOR PHYSICIAN NOTIFICATION OF HF EXACERBATION (2LB WEIGHT GAIN IN 1 DAY, 5LBS IN A WEEK OR 5 LBS OVER BASELINE; INCREASED SOB, EDEMA, NEEDING MORE PILLOWS AT NIGHT, CRACKLES IN BASIS OF THE LUNGS OR PMI SHIFT) PT TO ASSESS / WINDOW REPAIRER TO MONITOR CARDIO/RESPIRATORY SYSTEM; AND NOTIFY THE PHYSICIAN AND/OR THE RN CLINICAL MARINE TECHNICIAN FOR PHYSICIAN NOTIFICATION FOR EARLY SIGNS AND SYMPTOMS OF EXACERBATION OR DETERIORATION. PT/WINDOW REPAIRER TO IDENTIFY FALL RISK FACTORS; EDUCATE THE PATIENT/CAREGIVER ON WAYS TO REDUCE FALL RISK FACTORS AND ESTABLISH HOME EXERCISE PROGRAM TO MINIMIZE FALL RISK. MAY TEACH THE PATIENT FLOOR RECOVERY WHEN CLINICALLY APPROPRIATE PT / WINDOW REPAIRER MAY EDUCATE ON PAIN MANAGEMENT CLINICALLY INDICATED, [...] End Date/Time Encounter Type Admission Type Attending [facility] Department Encounter ID Discharge Date Discharge Status Discharge Condition Discharge Reason Percent Goals Met 2024-05-23 00:00:00 2024-07-21 00:00:00 Outpatient NORBERTO HASTINGS [facility] [id number] 40.74
--- OUTSIDE RECORDS SUMMARY | 2024-06-22 15:28 | XMS_ITS | Encounter Summary ---
Author Organization [facility] Address [address] [place] [address] Care Team Providers Care Patcher Bowling Ball Name Role Phone Azar Pierce MD Primary Care Provider + Encounter Details Date Type Department Care Team (Late st Contact Info) Description 05/19/2024 Lab Requisition [facility] [address] [place] [address] Azra Pierce MD [address] [address] Heart failure, unspecified (CMS/HCC V24, CMS/HCC V28); [...] LAB CHEMISTRY METHOD 05/19/2024 9:11 AM EDT [facility] Potassium 3.6 3.5 - 5.5 mmol/L LAB CHEMISTRY METHOD 05/19/2024 9:11 AM [facility] Chloride 97 96 - 110 mmol/L LAB CHEMISTRY METHOD 05/19/2024 9:11 AM [facility] CO2 32 21 - 32 mmol/L LAB CHEMISTRY METHOD 05/19/2024 9:11 AM [facility] Anion Gap 4 3 - 11 LAB CHEMISTRY METHOD 05/19/2024 9:11 AM [facility] Glucose 83 70 - 100 mg/dL LAB CHEMISTRY METHOD 05/19/2024 9:11 AM [facility] BUN 27(H) 5 - 25 mg/dL LAB CHEMISTRY METHOD 05/19/2024 9:11 AM [facility] Creatinine 1.44(H) 0.50 - 1.10 mg/dL LAB CHEMISTRY METHOD 05/19/2024 9:11 AM [facility] eGFR 35(L) >=60 mL/min/1. 73m2 LAB CHEMISTRY METHOD 05/19/2024 9:11 AM [facility] Comment:Calculation based on the??Chronic Kidney Disease Epidemiology Collaboration (CKD-EPI) equation refit??without adjustment for race. BUN/Creatinine Ratio 18.8 LAB CHEMISTRY METHOD 05/19/2024 9:11 AM [facility] Calcium 8.8 8.5 - 10.5 mg/dL LAB CHEMISTRY METHOD 05/19/2024 9:11 AM [facility] Blood Venous blood specimen / Unknown Venipuncture / Unknown 05/19/2024 5:25 AM EDT 05/19/2024 8:11 AM EDT us Azra Pierce MD LAB BLOOD ORDERABLES Fin al Result [facility] [address] [place] [address], * (ABNORMAL) Complete blood count (05/19/2024 5:25 AM EDT) [facility] WBC 7.3 4.8 - 10.8 K/mcL LAB HEMETOLOGY METHOD 05/19/2024 8:47 AM [facility] RBC 3.90 3.80 - 4.80 M/mcL LAB HEMETOLOGY METHOD 05/19/2024 8:47 AM [facility] Hemoglobin 11.1(L) 11.5 - 16.0 g/dL LAB HEMETOLOGY METHOD 05/19/2024 8:47 AM [facility] Hematocrit 34.0(L) 35.0 - 47.0 % LAB HEMETOLOGY METHOD 05/19/2024 8:47 AM [facility] MCV 86.3 79.0 - 98.0 FL LAB HEMETOLOGY METHOD 05/19/2024 8:47 AM [facility] MCH 28.2 27.0 - 32.0 pcg LAB HEMETOLOGY METHOD 05/19/2024 8:47 AM [facility] MCHC 32.6 32.0 - 37.0 g/dL LAB HEMETOLOGY METHOD 05/19/2024 8:47 AM [facility] RDW 13.6 11.0 - 15.0 % LAB HEMETOLOGY METHOD 05/19/2024 8:47 AM [facility] Platelets 260 130 - 400 K/mcL LAB HEMETOLOGY METHOD 05/19/2024 8:47 AM [facility] MPV 10.5 7.0 - 11.0 FL LAB HEMETOLOGY METHOD 05/19/2024 8:47 AM [facility] NRBC 0.0 <1.0 % LAB HEMETOLOGY METHOD 05/19/2024 8:47 AM [facility] NRBC Absolute 0.00 <0.10 K/mcL LAB HEMETOLOGY METHOD 05/19/2024 8:47 AM EDT [facility] Blood Venous blood specimen / Unknown Venipuncture / Unknown 05/19/2024 5:25 AM EDT 05/19/2024 8:11 AM EDT us Azra Pierce MD LAB BLOOD ORDERABLES Fin al Result [facility] [address] [place] [address], documented in this encounter Visit Diagnoses Diagnosis Heart failure, unspecified (CMS/HCC V24, CMS/HCC V28) Heart failure, unspecified Cellulitis, unspecified documented in this encounter Care Teams Patcher Bowling Ball Relationship Specialty Start Date End Date Azra Pierce MD [address] [place] [address] PCP - General Family Medicine 04/30/24 documented as of this encounter
--- OUTSIDE RECORDS SUMMARY | 2024-06-22 15:28 | XMS_ITS ---
Author Organization [facility] Address [address] [place] [address] Care Team Providers Care Canvas Goods Supervisor Name Role Phone Shiva Fierro MD Primary Care Provider Shannan Hyatt Unavailable [phone] REASON FOR VISIT cx appt 05/05/24 Encounters Encounter Location Date Provider Diagnosis [facility] [address] [place] [address] 05/04/2024 Shannan Morales Plan Of Treatment No Information Progress Notes * Azra GUOaDOB:1940 (84 yo F)Acc No.[id number]:05/04/2024 Patient:?Celsa GUO :1940???Age:84 Y???Sex:Female Address:[address] [place] [address] * true * Date:? Generated for Eh jimenez/Sinai/eTransmitting on:?06/22/2024 03:28 PM EDT
--- OUTSIDE RECORDS SUMMARY | 2024-06-22 15:28 | XMS_ITS | Clinical Summary ---
Author Organization [address] [facility] Address [address] [place] [address] Phone Care Team Providers Care Payroll Benefits Clerk Name Role Phone Azra Pierce MD Primary Care Provider + Encounters Date Type Department Care Team Description 05/19/2024 Lab Requisition [facility] Lab [address] [place] [phone] Azra Pierce MD Heart failure, unspecified (CMS/HCC V24, CMS/HCC V28); Cellulitis, unspecified 05/02/2024 Lab Requisition [facility] Lab [address] [place] [phone] Azra Pierce MD Heart failure, unspecified (CMS/HCC V24, CMS/HCC V28); Cellulitis, unspecified 04/30/2024 Lab Requisition [facility] Lab [address] [place] [phone] Azra Pierce MD Hypothyroidism, unspecified; Heart failure, [...] K/mcL LAB HEMETOLOGY METHOD 05/19/2024 8:47 AM [facility] LAB RBC 3.90 3.80 - 4.80 /[facility] LAB HEMETOLOGY METHOD 05/19/2024 8:47 AM [facility] LAB Hemoglobin 11.1(L) 11.5 - 16.0 g/dL LAB HEMETOLOGY METHOD 05/19/2024 8:47 AM [facility] LAB Hematocrit 34.0(L) 35.0 - 47.0 % LAB HEMETOLOGY METHOD 05/19/2024 8:47 AM [facility] LAB MCV 86.3 79.0 - 98.0 FL LAB HEMETOLOGY METHOD 05/19/2024 8:47 AM [facility] LAB MCH 28.2 27.0 - 32.0 pcg LAB HEMETOLOGY METHOD 05/19/2024 8:47 AM [facility] LAB MCHC 32.6 32.0 - 37.0 g/dL LAB HEMETOLOGY METHOD 05/19/2024 8:47 AM [facility] LAB RDW 13.6 11.0 - 15.0 % LAB HEMETOLOGY METHOD 05/19/2024 8:47 AM EDT [facility] LAB Platelets 260 130 - 400 K/mcL LAB HEMETOLOGY METHOD 05/19/2024 8:47 AM EDT [facility] LAB MPV 10.5 7.0 - 11.0 FL LAB HEMETOLOGY METHOD 05/19/2024 8:47 AM EDT [facility] LAB NRBC 0.0 <1.0 % LAB HEMETOLOGY METHOD 05/19/2024 8:47 AM EDT [facility] LAB NRBC Absolute 0.00 <0.10 K/mcL [facility] 05/19/2024 8:47 AM [facility] LAB Blood Venous blood specimen / Unknown Venipuncture / Unknown 05/19/2024 5:25 AM EDT 05/19/2024 8:11 AM EDT Azra Pierce MD LAB BLOOD ORDERABLES Fin al Result [facility] LAB [address] [place] [address], * (ABNORMAL) Basic metabolic panel (05/19/2024 5:25 AM EDT) Sodium 133 133 - 145 mmol/L LAB CHEMISTRY METHOD 05/19/2024 9:11 AM [facility] LAB Potassium 3.6 3.5 - 5.5 mmol/L LAB CHEMISTRY METHOD 05/19/2024 9:11 AM [facility] LAB Chloride 97 96 - 110 mmol/L LAB CHEMISTRY METHOD 05/19/2024 9:11 AM [facility] LAB CO2 32 21 - 32 mmol/L LAB CHEMISTRY METHOD 05/19/2024 9:11 AM [facility] LAB Anion Gap 4 3 - 11 LAB CHEMISTRY METHOD 05/19/2024 9:11 AM EDT [facility] LAB Glucose 83 70 - 100 mg/dL LAB CHEMISTRY METHOD 05/19/2024 9:11 AM [facility] LAB BUN 27(H) 5 - 25 mg/dL LAB CHEMISTRY METHOD 05/19/2024 9:11 AM [facility] LAB Creatinine 1.44(H) 0.50 - 1.10 mg/dL LAB CHEMISTRY METHOD 05/19/2024 9:11 AM [facility] LAB eGFR 35(L) >=60 mL/min/1. 73m2 LAB CHEMISTRY METHOD 05/19/2024 9:11 AM [facility] LAB Comment:Calculation based on the??Chronic Kidney Disease Epidemiology Collaboration (CKD-EPI) equation refit??without adjustment for race. BUN/Creatinine Ratio 18.8 LAB CHEMISTRY METHOD 05/19/2024 9:11 AM [facility] LAB Calcium 8.8 8.5 - 10.5 mg/dL LAB CHEMISTRY METHOD 05/19/2024 9:11 AM [facility] LAB Blood Venous blood specimen / Unknown Venipuncture / Unknown 05/19/2024 5:25 AM EDT 05/19/2024 8:11 AM EDT us Azra Pierce MD LAB BLOOD ORDERABLES Fin al Result [facility] LAB [address] [place] [address], * (ABNORMAL) Comprehensive metabolic panel (05/04/2024 9:21 AM EDT) Only the most recent of2 resultswithin the time period is included. Sodium 130(L) 133 - 145 mmol/L LAB CHEMISTRY METHOD 05/04/2024 12:51 PM [facility] LAB Potassium 3.6 3.5 - 5.5 mmol/L LAB CHEMISTRY METHOD 05/04/2024 12:51 PM [facility] LAB Chloride 93(L) 96 - 110 mmol/L LAB CHEMISTRY METHOD 05/04/2024 12:51 PM [facility] LAB CO2 29 21 - 32 mmol/L LAB CHEMISTRY METHOD 05/04/2024 12:51 PM [facility] LAB Anion Gap 8 3 - 11 LAB CHEMISTRY METHOD 05/04/2024 12:51 PM [facility] LAB Glucose 150(H) 70 - 100 mg/dL LAB CHEMISTRY METHOD 05/04/2024 12:51 PM [facility] LAB BUN 44(H) 5 - 25 mg/dL LAB CHEMISTRY METHOD 05/04/2024 12:51 PM [facility] LAB Creatinine 1.75(H) 0.50 - 1.10 mg/dL LAB CHEMISTRY METHOD 05/04/2024 12:51 PM [facility] LAB eGFR 28(L) >=60 mL/min/1. 73m2 LAB CHEMISTRY METHOD 05/04/2024 12:51 PM [facility] LAB Comment:Calculation based on the??Chronic Kidney Disease Epidemiology Collaboration (CKD-EPI) equation refit??without adjustment for race. BUN/Creatinine Ratio 25.1 LAB CHEMISTRY METHOD 05/04/2024 12:51 PM [facility] LAB Calcium 8.7 8.5 - 10.5 mg/dL LAB CHEMISTRY METHOD 05/04/2024 12:51 PM [facility] LAB AST (SGOT) 24 10 - 42 unit/L LAB CHEMISTRY METHOD 05/04/2024 12:51 PM [facility] LAB ALT (SGPT) 14 10 - 60 unit/L LAB CHEMISTRY METHOD 05/04/2024 12:51 PM [facility] LAB Alkaline Phosphatase 84 42 - 121 unit/L LAB CHEMISTRY METHOD 05/04/2024 12:51 PM [facility] LAB Total Protein 6.3 6.0 - 8.0 g/dL LAB CHEMISTRY METHOD 05/04/2024 12:51 PM EDT [facility] LAB Albumin 2.7(L) 3.2 - 5.0 g/dL LAB CHEMISTRY METHOD 05/04/2024 12:51 PM EDT [facility] LAB Total Bilirubin 0.5 0.0 - 1.4 mg/dL LAB CHEMISTRY METHOD 05/04/2024 12:51 PM EDT [facility] LAB Blood Venous blood specimen / Unknown Venipuncture / Unknown 05/04/2024 9:21 AM EDT 05/04/2024 11:08 AM EDT Azra Pierce MD LAB BLOOD ORDERABLES Fin al Result Performing Organization Address [facility]/ZIP Co de Phone Number [facility] LAB [address] [place] [address], [place] [phone] * (ABNORMAL) Thyroid stimulating hormone (04/30/2024 6:52 AM EDT) TSH 13.35(H) 0.40 - 4.00 mcIU/mL LAB CHEMISTRY METHOD 04/30/2024 11:07 AM EDT [facility] LAB Blood Venous blood specimen / Unknown Venipuncture / Unknown 04/30/2024 6:52 AM EDT 04/30/2024 9:50 AM EDT Azra Pierce MD LAB BLOOD ORDERABLES Fin al Result Performing Organization Address City/[facility]/ZIP Co de Phone Number [facility] LAB [address] [place] [address], [place] [phone] from Last 3 Months Insurance MEDICARE [facility] Care Teams Payroll Benefits Clerk Relationship Specialty Start Date End Date Azra Peirce MD [address] [place] [address] PCP - General Family Medicine 04/30/24
--- OUTSIDE RECORDS SUMMARY | 2024-06-22 15:28 | XMS_ITS | Encounter Summary ---
Author Organization [employer] Address [address] [place] [address] Care Team Providers Care Systems Testing Laboratory Technician Name Role Phone Azra Pierce MD Primary Care Provider + Encounter Details Date Type Department Care Team (Late st Contact Info) Description 05/02/2024 Lab Requisition [facility] Lab [address] [place] [address] Azra Pierce MD [address] [address] Heart failure, unspecified (CMS/HCC V24, CMS/HCC V28); [...] LAB CHEMISTRY METHOD 05/04/2024 12:51 PM EDT [facility] Potassium 3.6 3.5 - 5.5 mmol/L LAB CHEMISTRY METHOD 05/04/2024 12:51 PM [facility] LAB Chloride 93(L) 96 - 110 mmol/L LAB CHEMISTRY METHOD 05/04/2024 12:51 PM [facility] LAB CO2 29 21 - 32 mmol/L LAB CHEMISTRY METHOD 05/04/2024 12:51 PM [facility] LAB Anion Gap 8 3 - 11 LAB CHEMISTRY METHOD 05/04/2024 12:51 PM [facility] LAB Glucose 150(H) 70 - 100 mg/dL LAB CHEMISTRY METHOD 05/04/2024 12:51 PM [facility] LAB BUN 44(H) 5 - 25 mg/dL LAB CHEMISTRY METHOD 05/04/2024 12:51 PM [facility] LAB Creatinine 1.75(H) 0.50 - 1.10 mg/dL LAB CHEMISTRY METHOD 05/04/2024 12:51 PM [facility] LAB eGFR 28(L) >=60 mL/min/1. 73m2 LAB CHEMISTRY METHOD 05/04/2024 12:51 PM [facility] LAB Comment:Calculation based on the??Chronic Kidney Disease Epidemiology Collaboration (CKD-EPI) equation refit??without adjustment for race. BUN/Creatinine Ratio 25.1 LAB CHEMISTRY METHOD 05/04/2024 12:51 PM [facility] LAB Calcium 8.7 8.5 - 10.5 mg/dL LAB CHEMISTRY METHOD 05/04/2024 12:51 PM [facility] LAB AST (SGOT) 24 10 - 42 unit/L LAB CHEMISTRY METHOD 05/04/2024 12:51 PM [facility] LAB ALT (SGPT) 14 10 - 60 unit/L LAB CHEMISTRY METHOD 05/04/2024 12:51 PM [facility] LAB Alkaline Phosphatase 84 42 - 121 unit/L LAB CHEMISTRY METHOD 05/04/2024 12:51 PM [facility] LAB Total Protein 6.3 6.0 - 8.0 g/dL LAB CHEMISTRY METHOD 05/04/2024 12:51 PM EDT [facility] LAB Albumin 2.7(L) 3.2 - 5.0 g/dL LAB CHEMISTRY METHOD 05/04/2024 12:51 PM EDT [facility] LAB Total Bilirubin 0.5 0.0 - 1.4 mg/dL LAB CHEMISTRY METHOD 05/04/2024 12:51 PM EDT [facility] LAB Blood Venous blood specimen / Unknown Venipuncture / Unknown 05/04/2024 9:21 AM EDT 05/04/2024 11:08 AM EDT us Azra Pierce MD LAB BLOOD ORDERABLES Fin al Result [facility] LAB [address] [place] [address], * (ABNORMAL) Complete blood count (05/04/2024 9:21 AM EDT) WBC 6.3 4.8 - 10.8 K/mcL LAB HEMETOLOGY METHOD 05/04/2024 12:16 PM [facility] LAB RBC 3.80 3.80 - 4.80 M/mcL LAB HEMETOLOGY METHOD 05/04/2024 12:16 PM T [facility] LAB Hemoglobin 10.7(L) 11.5 - 16.0 g/dL LAB HEMETOLOGY METHOD 05/04/2024 12:16 PM T [facility] LAB Hematocrit 32.7(L) 35.0 - 47.0 % LAB HEMETOLOGY METHOD 05/04/2024 12:16 PM [facility] LAB MCV 86.3 79.0 - 98.0 FL LAB HEMETOLOGY METHOD 05/04/2024 12:16 PM [facility] LAB MCH 28.2 27.0 - 32.0 pcg LAB HEMETOLOGY METHOD 05/04/2024 12:16 PM EDT [facility] LAB MCHC 32.7 32.0 - 37.0 g/dL LAB HEMETOLOGY METHOD 05/04/2024 12:16 PM EDT [facility] LAB RDW 13.8 11.0 - 15.0 % LAB HEMETOLOGY METHOD 05/04/2024 12:16 PM EDT [facility] LAB Platelets 262 130 - 400 K/mcL LAB HEMETOLOGY METHOD 05/04/2024 12:16 PM EDT [facility] LAB MPV 10.3 7.0 - 11.0 FL LAB HEMETOLOGY METHOD 05/04/2024 12:16 PM EDT [facility] LAB NRBC 0.0 <1.0 % LAB HEMETOLOGY METHOD 05/04/2024 12:16 PM EDT [facility] LAB NRBC Absolute 0.00 <0.10 K/mcL LAB HEMETOLOGY METHOD 05/04/2024 12:16 PM EDT [facility] LAB Blood Venous blood specimen / Unknown Venipuncture / Unknown 05/04/2024 9:21 AM EDT 05/04/2024 11:08 AM EDT us Azra Pierce MD LAB BLOOD ORDERABLES Fin al Result [facility] LAB [address] [place] [address], documented in this encounter Visit Diagnoses Diagnosis Heart failure, unspecified (CMS/HCC V24, CMS/HCC V28) Heart failure, unspecified Cellulitis, unspecified documented in this encounter Care Teams Systems Testing Laboratory Technician Relationship Specialty Start Date End Date Azra Pierce MD [address] [place] [address] PCP - General Family Medicine 04/30/24 documented as of this encounter
--- OUTSIDE RECORDS SUMMARY | 2024-06-22 15:28 | XMS_ITS | Encounter Summary ---
Author Organization [employer] Address [address] [place] [address] Care Team Providers Care Finisher Accordion Name Role Phone Azra Pierce MD Primary Care Provider + Encounter Details Date Type Department Care Team (Late st Contact Info) Description 04/30/2024 Lab Requisition [facility] - [facility] Lab [address] [place] [address] Azra Pierce MD [address] [id number] Hypothyroidism, unspecified; Heart failure, unspecified (CMS/HCC V24, [...] Thyroid stimulating hormone (04/30/2024 6:52 AM EDT) [facility] TSH 13.35(H) 0.40 - 4.00 mcIU/mL LAB CHEMISTRY METHOD 04/30/2024 11:07 AM [facility] LAB Blood Venous blood specimen / Unknown Venipuncture / Unknown 04/30/2024 6:52 AM EDT 04/30/2024 9:50 AM EDT us Azra Pierce MD LAB BLOOD ORDERABLES Fin al Result [facility] LAB [address] [place] [address], * (ABNORMAL) Comprehensive metabolic panel (04/30/2024 6:52 AM EDT) [facility] Sodium 137 133 - 145 mmol/L LAB CHEMISTRY METHOD 04/30/2024 11:03 AM [facility] LAB Potassium 3.8 3.5 - 5.5 mmol/L LAB CHEMISTRY METHOD 04/30/2024 11:03 AM [facility] LAB Chloride 98 96 - 110 mmol/L LAB CHEMISTRY METHOD 04/30/2024 11:03 AM [facility] LAB CO2 32 21 - 32 mmol/L LAB CHEMISTRY METHOD 04/30/2024 11:03 AM [facility] LAB Anion Gap 7 3 - 11 LAB CHEMISTRY METHOD 04/30/2024 11:03 AM [facility] LAB Glucose 89 70 - 100 mg/dL LAB CHEMISTRY METHOD 04/30/2024 11:03 AM [facility] LAB BUN 43(H) 5 - 25 mg/dL LAB CHEMISTRY METHOD 04/30/2024 11:03 AM [facility] LAB Creatinine 1.78(H) 0.50 - 1.10 mg/dL LAB CHEMISTRY METHOD 04/30/2024 11:03 AM [facility] LAB eGFR 28(L) >=60 mL/min/1. 73m2 LAB CHEMISTRY METHOD 04/30/2024 11:03 AM [facility] LAB Comment:Calculation based on the??Chronic Kidney Disease Epidemiology Collaboration (CKD-EPI) equation refit??without adjustment for race. BUN/Creatinine Ratio 24.2 LAB CHEMISTRY METHOD 04/30/2024 11:03 AM [facility] LAB Calcium 9.1 8.5 - 10.5 mg/dL LAB CHEMISTRY METHOD 04/30/2024 11:03 AM [facility] LAB AST (SGOT) 24 10 - 42 unit/L LAB CHEMISTRY METHOD 04/30/2024 11:03 AM [facility] LAB ALT (SGPT) 17 10 - 60 unit/L LAB CHEMISTRY METHOD 04/30/2024 11:03 AM [facility] LAB Alkaline Phosphatase 71 42 - 121 unit/L LAB CHEMISTRY METHOD 04/30/2024 11:03 AM [facility] LAB Total Protein 6.6 6.0 - 8.0 g/dL LAB CHEMISTRY METHOD 04/30/2024 11:03 AM [facility] LAB Albumin 2.9(L) 3.2 - 5.0 g/dL LAB CHEMISTRY METHOD 04/30/2024 11:03 AM [facility] LAB Total Bilirubin 0.5 0.0 - 1.4 mg/dL LAB CHEMISTRY METHOD 04/30/2024 11:03 AM [facility] LAB Blood Venous blood specimen / Unknown Venipuncture / Unknown 04/30/2024 6:52 AM EDT 04/30/2024 9:50 AM EDT us Azra Pierce MD LAB BLOOD ORDERABLES Fin al Result [facility] [address] [place] [address], [place] [phone] * (ABNORMAL) Complete blood count (04/30/2024 6:52 AM EDT) [facility] WBC 7.2 4.8 - 10.8 K/mcL LAB HEM[facility]OLOGY [facility] RBC 4.00 3.80 - 4.80 M/mcL LAB HEMETOLOGY METHOD 04/30/2024 10:51 AM EDT [facility] Hemoglobin 11.0(L) 11.5 - 16.0 g/dL LAB HEMETOLOGY METHOD 04/30/2024 10:51 AM [facility] LAB Hematocrit 34.8(L) 35.0 - 47.0 % LAB HEMETOLOGY METHOD 04/30/2024 10:51 AM [facility] LAB MCV 87.9 79.0 - 98.0 FL LAB HEMETOLOGY METHOD 04/30/2024 10:51 AM [facility] LAB MCH 27.8 27.0 - 32.0 pcg LAB HEMETOLOGY METHOD 04/30/2024 10:51 AM [facility] LAB MCHC 31.6(L) 32.0 - 37.0 g/dL LAB HEMETOLOGY METHOD 04/30/2024 10:51 AM [facility] LAB RDW 14.1 11.0 - 15.0 % LAB HEMETOLOGY METHOD 04/30/2024 10:51 AM [facility] LAB Platelets 295 130 - 400 K/mcL LAB HEMETOLOGY METHOD 04/30/2024 10:51 AM T [facility] MPV 10.5 7.0 - 11.0 FL LAB HEMETOLOGY METHOD 04/30/2024 10:51 AM [facility] LAB NRBC 0.0 <1.0 % LAB HEMETOLOGY METHOD 04/30/2024 10:51 AM EDT [facility] NRBC Absolute 0.00 <0.10 K/mcL LAB HEMETOLOGY METHOD 04/30/2024 10:51 AM EDT [facility] Blood Venous blood specimen / Unknown Venipuncture / Unknown 04/30/2024 6:52 AM EDT 04/30/2024 9:50 AM EDT us Azra Pierce MD LAB BLOOD ORDERABLES Fin al Result [facility] [address] [place] [address], documented in this encounter Visit Diagnoses Diagnosis Hypothyroidism, unspecified Heart failure, unspecified (CMS/HCC V24, CMS/HCC V28) Heart failure, unspecified Cellulitis, unspecified Chronic kidney disease, unspecified documented in this encounter Care Teams Finisher Accordion Relationship Specialty Start Date End Date Azra Pierce MD [address] [place] [address] PCP - General Family Medicine 04/30/24 documented as of this encounter
--- OUTSIDE RECORDS SUMMARY | 2024-06-22 15:29 | XMS_ITS | Patient Health Record ---
Author 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 Vital Signs Blood pressure diastolic 70 mm Hg 09/25/2023 Height 5 ft 3 in in 09/25/2023 Blood pressure systolic 136 mm Hg 09/25/2023 Weight 129 lbs 09/25/2023 BMI 22.85 kg/m2 09/25/2023 Procedures Procedure Date Ordered Date Performed Result Body Sit e 05773-SOAZ SKIN LESIONS, 2 TO 4 09/25/2023 N/A Encounters Encounter Location Date Provider Diagnosis [facility] [address] [address] 09/25/2023 Pj Chowdary Tinea unguium B35.1 ; Pain in right toe(s) M79.674 ; Pain in left toe(s) M79.675 ; Ingrown nail L60.0 and 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, bilateral legs I70.[address] [facility] [address] 09/24/2023 Shannan Morales [facility] [address] 05/04/2024 Shannan Morales Assessments Encounter Date Diagnosis (ICD Code) Assessment Notes Treatment Notes Treatment Clinical Notes Section Notes 09/25/2023 Tinea unguium (ICD-10 - B35.1) 09/25/2023 Pain in right toe(s) (ICD-10 - M79.674) 09/25/2023 Pain in left toe(s) (ICD-10 - M79.675) 09/25/2023 Ingrown nail (ICD-10 - L60.0) 09/25/2023 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, bilateral legs (ICD-10 - I70.203) Plan Of Treatment Pending Test Test Name Order Date 69390-YQZO SKIN LESIONS, 2 TO 4 09/25/19 Insurance Providers Payer Name Payer Address Payer Phone Subscriber Number Group Number Insured Name Patient Relationship to Insured Coverage Start Date Coverage End Date Medicare [employer] [address] [place] [address] [id number] Celsa Rios Self - patient is the insured [facility] [address] [place] [address] [phone] [id number] Celsa Rios Self - patient is the insured Medical (General) History Medical History History ICD Code Arthritis Back,Hip,and Knee pain Broken bones Cataracts Heart disease High blood pressure Osteoporosis thyroid Joint implants/screws Surgical History Surgery Date(Month/Year) broken wrist left hand 11/2021
--- NOTE | 2024-06-22 15:36 | MHC.PC.OV ---
Vital Signs 06/22/24 15:44 Height 5 ft 3 in Respiration 16 Pulse 71 Pulse Source Pulse Oximeter Temp 98.4 F Temp Source Temporal Artery Scan Pulse Oximetry (%) 97 Oxygen Delivery Method Room Air Intake Visit Reasons: Cellulitis Housing Management Officer Required: No Accompanied by: Son Allergies No Known Allergies Allergy (Verified 06/22/24 15:40) Medication List - Last Reconciled 06/22/24 by HUONG Cordero acetaminophen 325 mg PO QID PRN alendronate 70 mg PO PIÑA@0600 amlodipine 2.5 mg PO DAILY atenolol 25 mg PO DAILY bisacodyl 10 mg ME DAILY PRN calcium carbonate-vitamin D3 500 mg-10 mcg (400 unit) (Calcium 500 + D) 2 tabs PO DAILY cephalexin 500 mg PO QID furosemide 20 mg PO DAILY levothyroxine 150 mcg PO DAILY magnesium hydroxide (Milk of Magnesia) 5 mL PO DAILY PRN simvastatin 20 mg PO BEDTIME Tobacco use date assessed: 06/22/24 Fall risk assessment: 2 + Falls in past year Last assessed Fall Risk: 06/22/24 Dental Screening Dental Screen Date: 06/22/24 Did you have a dental visit in the last 12 months?: Yes Did you have a dental problem in the last 6 months where you did not have access to dental care?: No Was dental information given to patient?: Patient has dentist HPI HPI Comments History of Present Illness Details 84 year old female with pertinent past medical history of chronic venous stasis dermatitis presents to the office today for evaluation of redness and swelling of the RLE. Per the patient's son who is in the room, she has a history of recurrent cellulitis and has been hospitalized for such. At the recommendation of her A nurse, presents to the office for evaluation. No fevers, chills, or purulent drainage. Has been wearing compression stockings. [facility] Medical History (Updated 06/22/24 @ 17:28 by HUONG Cordero) Chronic venous stasis dermatitis Diastolic dysfunction Chronic kidney disease Essential hypertension Preop cardiovascular exam Closed fracture of left inferior pubic ramus Hypothyroidism Hyperlipidemia Non-rheumatic aortic stenosis Surgical History History of surgery on left wrist Family History Father No problems noted. Mother No problems noted. Social History Household Members: None Housing: House Do you presently have visiting nurse or other home services: Yes Alcohol intake: never Patient Tobacco Use Status: Never used Tobacco e-Cigarette/Vaping Use: Never Used Advance Directives Date on File: 11/28/21 service: No Current occupational status: retired Current occupation: right hand dominant Cognitive needs: Yes (walker) Hearing needs: No Vision needs: Yes (reading glasses) Questionnaire PHQ-9 Over the last 2 weeks, how often have you been bothered by any of the following problems? 1. Little interest or pleasure in doing things: not at all 2. Feeling down, depressed, or hopeless: not at all 3. Trouble falling or staying asleep, or sleeping too much: not at all 4. Feeling tired or having little energy: not at all 5. Poor appetite or overeating: not at all 6. Feeling bad about yourself - or that you are a failure or have let yourself or your family down: not at all 7. Trouble concentrating on things, such as reading the newspaper or watching television: not at all 8. Moving or speaking so slowly that other people could have noticed. Or the opposite - being so fidgety or restless that you have been moving around a lot more than usual: not at all 9. Thoughts that you would be better off or of hurting yourself in some way: not at all Total score: 0 Source: Developed by Drs. Irving Shipman, Ping Tay, Christoph Peters and colleagues, with an educational tobi from [employer]. Thrive Questionnaire Date Thrive assessed: 06/22/24 I am a: Patient What is your living situation today?: I have a steady place to live Within the past 12 months, did the food you bought not last and you didn't have the money to get more?: Never true Within the past 12 months, did you worry whether your food would run out before you got money to buy more?: Never true Do you have trouble paying for medicines?: No Do you have trouble getting transportation to medical appointments?: No Do you have trouble paying your heating and electricity bill?: No Do you have trouble taking care of your child, family member or friend?: No Do you have trouble with day-to-day activities such as bathing, preparing meals, shopping, managing finances, etc.?: No Are you currently unemployed and looking for a job?: No Are you interested in more education?: No Please select the resources that you would like help with: None THRIVE Score: 0 AUDIT C Alcohol Use Questionnaire (AUDIT-C) 1. How often do you have a drink containing alcohol?: Never Total Score: 0 ROSE-7 AMB Questionnaire ROSE-7 Date ROSE - 7 assessed: 06/22/24 Feeling nervous, anxious, or on edge: 0 = Not at all Not being able to stop or control worryin = Not at all Worrying too much about different things: 0 = Not at all Trouble relaxin = Not at all Being so restless that it is hard to sit still: 0 = Not at all Becoming easily annoyed or irritable: 0 = Not at all Feeling afraid as if something awful might happen: 0 = Not at all Total ROSE-7 score (0-4 normal; 5-9 mild; 10-14 moderate; 15-21 severe): 0 Source: Developed by Drs. Irving Shipman, Ping Tay, Christoph Peters and colleagues, with an educational tobi from [employer]. Review of Systems Const All systems reviewed & are unremarkable except as noted in HPI and below Physical exam (Primary Care) Vital Signs: Last Vital Signs Temp 98.4 F 06/22/24 15:44 Pulse 71 06/22/24 15:44 Resp 16 06/22/24 15:44 Pulse Ox 97 06/22/24 15:44 Oxygen Delivery Method Room Air 06/22/24 15:44 Tobacco/Smoking Status: Tobacco use Status Tobacco use date assessed 06/22/24 06/22/24 15:39 Patient Tobacco Use Status Never used Tobacco 06/22/24 15:39 e-Cigarette/Vaping Use Never Used 06/22/24 15:39 PHQ-9: PHQ-9 Score PHQ-9: Total score 0 06/22/24 16:39 Thrive Assessment: Date of Thrive Assessment Date Thrive assessed 06/22/24 06/22/24 15:39 Const Other: Constitutional - Awake and Alert, No apparent distress Eyes - PERRL Skin - Warm/Dry, 3+ edema BLE. R lower leg warm and erythematous with excoriations and absions of the lateral aspect of the RLE Coding Level of Care Code Est Pt Level 3 (69657) Diagnoses Cellulitis of right lower leg L03.115 Chronic venous stasis dermatitis I87.2 Assessment & Plan Assessment & Plan (1) Cellulitis of right lower leg: Code(s): L03.115 - Cellulitis of right lower limb Category: Medical Plan: Probably a complication from vernous stasis. Counseled pt and son. Keflex 500mg QID prescribed x 7 days. Continue wearing compression stockings, elevating legs, and lasix use. (2) Chronic venous stasis dermatitis: Code(s): I87.2 - Venous insufficiency (chronic) (peripheral) Category: Medical Plan: Continue compression stockings. Continue lasix daily. Leg elevation, low sodium diet. Plan Follow up in the office as scheduled. Contact office sooner for any worsening symptoms including fever Medications: New cephalexin 500 mg PO QID 28 caps 0RF
[2024-06-22 15:44] VITALS: PULSE 71; RESP 16; TEMP 36.9; O2SAT 97
== END 2024-06-22 16:04 | disposition home or self-care (01) ==
LOC: HO.HMCHD 15:26
PROVIDERS: PCP Internal Medicine; Visit Provider Physician Assistant
DX: L03.115 Cellulitis of right lower limb (principal); I87.2 Venous insufficiency (chronic) (peripheral)

== ENCOUNTER → 2024-06-22 15:25 | Outpatient (BNVA) | payer MEDICARE, SELFPAY | PROVIDERS: PCP Internal Medicine; Visit Provider Physician Assistant | DX: L03.115 Cellulitis of right lower limb (principal); I87.2 Venous insufficiency (chronic) (peripheral) | CPT/HCPCS: 99212 ==

== ENCOUNTER 2024-08-12 10:12 | Outpatient (AMB) | payer MEDICARE, SELFPAY ==
--- OUTSIDE RECORDS SUMMARY | 2024-05-05 11:30 | XMS_ITS ---
Author Organization [facility] Address [address] [place] [address] Care Team Providers Care Swimming Instructor Name Role Phone Shiva Fierro MD Primary Care Provider Shannan Hyatt Unavailable [phone] Encounters Encounter Location Date Provider Diagnosis [facility] [address] [place] [address] 05/05/2024 Shannan Morales Plan Of Treatment No Information Progress Notes * Sixto GUOB:1940 (84 yo F)Acc No.[id number]:05/05/2024 Progress Note Patient: Cristiano HANEYNOLAN Celsa Provider: Jey Morales DPM :1940 A ge:84 Y S ex:Female Date:05/05/2024 Address:[address] [place], [place] [id number] Pcp:Shiva Fierro MD Subjective: * Chief Complaints: [...] Morales DPM Date: 05/05/2024 Generated for Eh jimenez/[place]/eTransmitting on: 0 08/12/2024 10:43 AM EDT
--- NOTE | 2024-08-12 10:35 | MHC.OFFWIV ---
Intake Vital Signs 08/12/24 10:36 Height 5 ft 3 in BMI Reason not done Patient refused/unable BP 208/80 H Blood Pressure Location Rt brachial Position Sitting Pulse 81 Pulse Source Pulse Oximeter Temp 97.6 F Pulse Oximetry (%) 96 Oxygen Delivery Method Room Air Intake Visit Reasons: EP-lt foot celullitis Intake Note: presents with recurrent left foot infection, swollen, red, foul odor Patient Tobacco Use Status: Never used Tobacco Allergies No Known Allergies Allergy (Verified 08/12/24 10:39) Do you need a note to return to daycare/school/sports/work: No HPI HPI Comments History of Present Illness Details Patient is an 84-year-old female here with her son complaining of a recurrent left foot infection which is swollen, red and has a foul odor for the last few days. Not a diabetic. Has had a chronic infection for the last year, on and off. Denies fevers, ambulating normally. Has some tenderness but no pain. Last Keflex was prescribed June 22, with resolution of the infection. BP is incidentally elevated, she says she is nerved up and had to get ready to come here today. Her son tells me her blood pressure systolic is usually in the 160s to 170's. She denies any dizziness or headaches or vision changes. Her son tells me her heart is only working at 16% and that she does see Dr. Osullivan at the hospital and he did add amlodipine to help lower her blood pressure which she has been taking. She did take all of her medications this morning. He also tells me she has a echocardiogram scheduled for tomorrow and an appointment with Dr. Osullivan in 2 weeks. [facility] Medical History (Updated 08/12/24 @ 11:10 by Aggie Ayala PA-C) Chronic venous stasis dermatitis Diastolic dysfunction Chronic kidney disease Essential hypertension Preop cardiovascular exam Closed fracture of left inferior pubic ramus Hypothyroidism Hyperlipidemia Non-rheumatic aortic stenosis Surgical History History of surgery on left wrist Family History Father No problems noted. Mother No problems noted. Social History (Reviewed 06/22/24 @ 15:36 by MOLLY Palacios Household Members: None Housing: House Do you presently have visiting nurse or other home services: Yes Alcohol intake: never Patient Tobacco Use Status: Never used Tobacco e-Cigarette/Vaping Use: Never Used Advance Directives Date on File: 11/28/21 service: No Current occupational status: retired Current occupation: right hand dominant Cognitive needs: Yes (walker) Hearing needs: No Vision needs: Yes (reading glasses) Review of Systems Const All systems reviewed & are unremarkable except as noted in HPI and below Physical Exam Vital Signs: Last Vital Signs Temp 97.6 F 08/12/24 10:36 Pulse 81 08/12/24 10:36 BP 208/80 H 08/12/24 10:36 Pulse Ox 96 08/12/24 10:36 Oxygen Delivery Method Room Air 08/12/24 10:36 Const General: cooperative, healthy appearing, comfortable, no acute distress and well developed Orientation/consciousness: patient oriented x3 Limitations: no limitations HEENT Head: Yes normal to inspection Eyes General: appearance normal, both eyes and all related structures Neck Neck: Yes normal visual inspection and Yes full ROM Resp Effort & Inspection: normal respiratory effort and able to speak in complete sentences Skin Other: large area of erythema, warmth on dorsal left foot, no ecchymosis, no lesions, no lacerations or abrasions noted Neuro General: patient oriented x3 Extrem General: Yes normal to inspection Assessment & Plan Assessment & Plan (1) Elevated blood pressure reading in office with diagnosis of hypertension: Code(s): I10 - Essential (primary) hypertension Plan: Messaged an urgent message to Dr. Osullivan to report that the patient's blood pressure is elevated after he added amlodipine so he can make a adjustment to the medication if he feels necessary. Patient is completely asymptomatic with a 208/89 BP. (2) Cellulitis: Code(s): L03.90 - Cellulitis, unspecified Qualifiers: Site of cellulitis: extremity Site of cellulitis of extremity: lower extremity Laterality: left Qualified Code(s): L03.116 - Cellulitis of left lower limb Plan: Sent Keflex to pharmacy, did review with patient that if she develops a fever, it becomes more painful or she is unable to walk on the foot that she should go to the emergency room. The exam today just look like cellulitis, VSS, low/no concern for osteomyelitis. Medications: New cephalexin 500 mg PO Q6H 28 caps 0RF Coding Level of Care Code Est Pt Level 4 (68067) Diagnoses Elevated blood pressure reading in office with diagnosis of hypertension I10 Cellulitis of left lower extremity L03.116 Site of cellulitis: extremity Site of cellulitis of extremity: lower extremity Laterality: left
[2024-08-12 10:36] VITALS: BP 208/80; PULSE 81; TEMP 36.4; O2SAT 96
--- OUTSIDE RECORDS SUMMARY | 2024-08-12 10:44 | XMS_ITS | Encounter Summary ---
Author Organization [employer] Address [address] [place] [address] Care Team Providers Care Planning Intern Name Role Phone Azra Pierce MD Primary Care Provider + Encounter Details Date Type Department Care Team (Late st Contact Info) Description 05/02/2024 Lab Requisition [facility] - Main Lab [address] [place] [address] Azra Pierce MD [address] [address] Heart failure, unspecified (CMS/HCC V24, CMS/HCC V28); [...] LAB CHEMISTRY METHOD 05/04/2024 12:51 PM EDT [facility] ([facility] Potassium 3.6 3.5 - 5.5 [...] [facility] Comment:Calculation based on the Chronic Kidney Disease Epidemiology Collaboration (CKD-EPI) equation refit without adjustment for race. BUN/Creatinine Ratio 25.1 LAB [...] CHEMISTRY METHOD 05/04/2024 12:51 PM EDT [facility] Albumin 2.7(L) 3.2 - 5.0 g/dL LAB CHEMISTRY METHOD 05/04/2024 12:51 PM EDT [facility] Total Bilirubin 0.5 0.0 - 1.4 mg/dL LAB CHEMISTRY METHOD 05/04/2024 12:51 PM EDT [facility] Blood Venous blood specimen / Unknown Venipuncture / Unknown 05/04/2024 9:21 AM EDT 05/04/2024 11:08 AM EDT us Azra Pierce MD LAB BLOOD ORDERABLES Fin al Result [facility] [address] [place] [address], * (ABNORMAL) Complete blood count (05/04/2024 9:21 AM EDT) WBC 6.3 4.8 - 10.8 K/mcL LAB HEMETOLOGY METHOD 05/04/2024 12:16 PM [facility] RBC 3.80 3.80 - 4.80 M/mcL LAB HEMETOLOGY METHOD 05/04/2024 12:16 PM [facility] Hemoglobin 10.7(L) 11.5 - 16.0 g/dL LAB HEMETOLOGY METHOD 05/04/2024 12:16 PM EDT [facility] Hematocrit 32.7(L) 35.0 - 47.0 % LAB HEMETOLOGY METHOD 05/04/2024 12:16 PM EDT [facility] MCV 86.3 79.0 - 98.0 FL LAB HEMETOLOGY METHOD 05/04/2024 12:16 PM [facility] MCH 28.2 27.0 - 32.0 pcg LAB HEMETOLOGY METHOD 05/04/2024 12:16 PM EDT [facility] MCHC 32.7 32.0 - 37.0 g/dL LAB HEMETOLOGY METHOD 05/04/2024 12:16 PM EDT [facility] RDW 13.8 11.0 - 15.0 % LAB HEMETOLOGY METHOD 05/04/2024 12:16 PM EDT [facility] Platelets 262 130 - 400 K/mcL LAB HEMETOLOGY METHOD 05/04/2024 12:16 PM EDT [facility] MPV 10.3 7.0 - 11.0 FL LAB HEMETOLOGY METHOD 05/04/2024 12:16 PM EDT [facility] NRBC 0.0 <1.0 % LAB HEMETOLOGY METHOD 05/04/2024 12:16 PM EDT [facility] NRBC Absolute 0.00 <0.10 K/mcL LAB HEMETOLOGY METHOD 05/04/2024 12:16 PM EDT [facility] Blood Venous blood specimen / Unknown Venipuncture / Unknown 05/04/2024 9:21 AM EDT 05/04/2024 11:08 AM EDT us Azra Pierce MD LAB BLOOD ORDERABLES Fin al Result [facility] [address] [place] [address], documented in this encounter Visit Diagnoses Diagnosis Heart failure, unspecified (CMS/HCC V24, CMS/HCC V28) Heart failure, unspecified Cellulitis, unspecified documented in this encounter Care Teams Planning Intern Relationship Specialty Start Date End Date Azra Pierce MD [address] [place] [address] PCP - General Family Medicine 04/30/24 documented as of this encounter
== END 2024-08-12 11:15 | disposition home or self-care (01) ==
PROVIDERS: PCP Internal Medicine; Visit Provider Physician Assistant
DX: I10 Essential (primary) hypertension (principal); L03.116 Cellulitis of left lower limb

== ENCOUNTER → 2024-08-12 10:12 | Outpatient (BNVA) | payer MEDICARE, SELFPAY | PROVIDERS: PCP Internal Medicine; Visit Provider Physician Assistant | DX: I10 Essential (primary) hypertension (principal); L03.116 Cellulitis of left lower limb | CPT/HCPCS: 99212 ==

== ENCOUNTER → 2024-08-13 14:26 | Outpatient (REF) | payer MEDICARE, SELFPAY ==
--- OUTSIDE RECORDS SUMMARY | 2024-05-05 11:30 | XMS_ITS ---
Author Organization [facility] Address [address] [place] [address] Care Team Providers Care Managing Member Name Role Phone Shiva Fierro MD Primary Care Provider Shannan Hyatt Unavailable [phone] Encounters Encounter Location Date Provider Diagnosis [facility] [address] [place] [address] 05/05/2024 Shannan Morales Plan Of Treatment No Information Progress Notes * Sixto GUOB:1940 (84 yo F)Acc No.[id number]:05/05/2024 Progress Note Patient: Cristiano HANEYNOLAN Celsa Provider: Jey Morales DPM :1940 A ge:84 Y S ex:Female Date:05/05/2024 Address:[address] [place], [place] [id number] Pcp:Shiva Fierro MD Subjective: * Chief Complaints: * * Medical History: Objective: * Vitals: Assessment: Plan: * Treatment: * Images: * The named appointment provid er may or may not be the originator of this progress note, and it is not deemed complete until electronically signed by the appointment provider. Sign off status: Pending * Provider: Jey Morales DPM Date: 05/05/2024 Generated for Eh ng/Fajamieg/eTransmitting on: 08/13/2024 02:30 PM EDT
--- OUTSIDE RECORDS SUMMARY | 2024-08-13 14:30 | XMS_ITS | Encounter Summary ---
Author Organization [employer] Address [address] [place] [address] Care Team Providers Care Salon Shampoo Assistant Name Role Phone Azra Pierce MD Primary Care Provider + Encounter Details Date Type Department Care Team (Late st Contact Info) Description 05/02/2024 Lab Requisition [facility] - Main Lab [address] [place] [address] Azra Pierce MD [address] [address] Heart failure, unspecified (CMS/HCC V24, CMS/HCC V28); [...] LAB CHEMISTRY METHOD 05/04/2024 12:51 PM EDT [facility] ([facility] Potassium 3.6 3.5 - 5.5 mmol/L LAB CHEMISTRY METHOD 05/04/2024 12:51 PM [facility] Chloride 93(L) 96 - 110 mmol/L LAB CHEMISTRY METHOD 05/04/2024 12:51 PM [facility] CO2 29 21 - 32 mmol/L LAB CHEMISTRY METHOD 05/04/2024 12:51 PM [facility] Anion Gap 8 3 - 11 LAB CHEMISTRY METHOD 05/04/2024 12:51 PM [facility] Glucose 150(H) 70 - 100 mg/dL LAB CHEMISTRY METHOD 05/04/2024 12:51 PM [facility] BUN 44(H) 5 - 25 mg/dL LAB CHEMISTRY METHOD 05/04/2024 12:51 PM [facility] Creatinine 1.75(H) 0.50 - 1.10 mg/dL LAB CHEMISTRY METHOD 05/04/2024 12:51 PM [facility] eGFR 28(L) >=60 mL/min/1. 73m2 LAB CHEMISTRY METHOD 05/04/2024 12:51 PM [facility] Comment:Calculation based on the Chronic Kidney Disease Epidemiology Collaboration (CKD-EPI) equation refit without adjustment for race. BUN/Creatinine Ratio 25.1 LAB CHEMISTRY METHOD 05/04/2024 12:51 PM [facility] Calcium 8.7 8.5 - 10.5 mg/dL LAB CHEMISTRY METHOD 05/04/2024 12:51 PM [facility] AST (SGOT) 24 10 - 42 unit/L LAB CHEMISTRY METHOD 05/04/2024 12:51 PM [facility] ALT (SGPT) 14 10 - 60 unit/L LAB CHEMISTRY METHOD 05/04/2024 12:51 PM [facility] Alkaline Phosphatase 84 42 - 121 unit/L LAB CHEMISTRY METHOD 05/04/2024 12:51 PM [facility] Total Protein 6.3 6.0 - 8.0 g/dL LAB CHEMISTRY METHOD 05/04/2024 12:[address] [facility] Albumin 2.7(L) 3.2 - 5.0 g/dL LAB CHEMISTRY METHOD 05/04/2024 12:[address] [facility] Total Bilirubin 0.5 0.0 - 1.4 mg/dL LAB CHEMISTRY METHOD 05/04/2024 12:[address] [facility] Blood Venous blood specimen / Unknown Venipuncture / Unknown 05/04/2024 9:21 AM EDT 05/04/2024 11:08 AM EDT us Azra Pierce MD LAB BLOOD ORDERABLES Fin al Result [facility] [address] [place] [address], * (ABNORMAL) Complete blood count (05/04/2024 9:21 AM EDT) WBC 6.3 4.8 - 10.8 K/mcL LAB HEMETOLOGY METHOD 05/04/2024 12:16 PM [facility] RBC 3.80 3.80 - 4.80 M/mcL LAB HEMETOLOGY METHOD 05/04/2024 12:16 PM [facility] Hemoglobin 10.7(L) 11.5 - 16.0 g/dL LAB HEMETOLOGY METHOD 05/04/2024 12:[address] [facility] Hematocrit 32.7(L) 35.0 - 47.0 % LAB HEMETOLOGY METHOD 05/04/2024 12:[address] [facility] MCV 86.3 79.0 - 98.0 FL LAB HEMETOLOGY METHOD 05/04/2024 12:16 PM [facility] MCH 28.2 27.0 - 32.0 pcg LAB HEMETOLOGY METHOD 05/04/2024 12:[address] [facility] MCHC 32.7 32.0 - 37.0 g/dL LAB HEMETOLOGY METHOD 05/04/2024 12:[address] [facility] RDW 13.8 11.0 - 15.0 % LAB HEMETOLOGY METHOD 05/04/2024 12:[address] [facility] Platelets 262 130 - 400 K/mcL LAB HEMETOLOGY METHOD 05/04/2024 12:[address] [facility] MPV 10.3 7.0 - 11.0 FL LAB HEMETOLOGY METHOD 05/04/2024 12:[address] [facility] NRBC 0.0 <1.0 % LAB HEMETOLOGY METHOD 05/04/2024 12:[address] [facility] NRBC Absolute 0.00 <0.10 K/mcL LAB HEMETOLOGY METHOD 05/04/2024 12:[address] [facility] Blood Venous blood specimen / Unknown Venipuncture / Unknown 05/04/2024 9:21 AM EDT 05/04/2024 11:08 AM EDT us Azra Pierce MD LAB BLOOD ORDERABLES Fin al Result [facility] [address] [place] [address], documented in this encounter Visit Diagnoses Diagnosis Heart failure, unspecified (CMS/HCC V24, CMS/HCC V28) Heart failure, unspecified Cellulitis, unspecified documented in this encounter Care Teams Salon Shampoo Assistant Relationship Specialty Start Date End Date Azra Pierce MD [address] [place] [address] PCP - General Family Medicine 04/30/24 documented as of this encounter
--- NOTE | 2024-08-13 14:39 | CA_ITS ---
Transthoracic Echocardiogram Patient (Last, First, Middle): Celsa Rios, Gender: Female Date of : 1940 Age: 84 Procedure Date: 08/13/2024 Procedure Type: Transthoracic Echocardiogram Location: OP Height: 157.48 cm Weight: 50.8 kg BSA: 1.49 m2 Heart Rate: bpm BP: 166 / 70 mmHg Director Of Product Management: TO Referring MD: Fabian Osullivan MD [employer] Machine Operator Helper: Guille Pereira MD Symptoms: I35.0 - Nonrheumatic aortic (valve) stenosis Study Quality: Fair ECG Rhythm: Sinus Conclusions: - 1. Low normal LV ejection fraction 50-55% with grade 3 diastolic dysfunction 2. At least moderately dilated left atrium 3. Early severe to severe aortic stenosis, paradoxical low-flow 4. Moderate mitral annular calcification with mild mitral regurgitation 5. Moderate to severe elevation right ventricular systolic pressure is significantly elevated right atrial pressures 6. No gross pericardial effusion Findings Procedure Information The study quality is limited by the patients inability to tolerate the test. Left Ventricle Normal left ventricular cavity size. There is normal left ventricular wall thickness. The left ventricular systolic function is low normal. The visually estimated ejection fraction is between 50-55%. Spectral Doppler is indicative of a restrictive filling pattern. E/E prime ratio is >15, consistent with elevated filling pressures. Evidence suggests grade III (severe) diastolic dysfunction. Right Ventricle Normal right ventricular cavity size and systolic function. Atria The left atrium is moderately dilated. There is no evidence of interatrial shunt. The right atrium is mildly dilated. Aortic Valve There is moderate calcification of the aortic valve. There is severe aortic valve stenosis. The peak aortic gradient is 36 mmHg.The mean gradient is 23 mmHg. The aortic valve area is 0.78 cm2. There is mild aortic valve regurgitation. findings overall suggestive of paradoxical low-flow severe aortic stenosis with dimensionless index of 0.24 Mitral Valve There is mild anterior and moderate posterior mitral leaflet thickening. There is moderate mitral annular calcification. There is mild mitral valve regurgitation. There is no mitral valve stenosis. Pulmonic Valve The pulmonic valve was not well visualized. Tricuspid Valve Normal tricuspid valve structure. There is mild tricuspid valve regurgitation. Significantly elevated right atrial pressure. Moderate to severe pulmonary hypertension is present. Great Vessels All visible segments of the aorta are normal in size. The pulmonary artery was not well visualized. There is no dilatation of the ascending aorta measuring 3.30 cm. Small plaque is seen in the sino tubular ridge. Venous The inferior vena cava is moderately dilated and does not collapse with inspiration. Pericardium/Pleural There is no evidence of pericardial effusion. Prior Study Comparison Changes noted compared to prior study dated: 02/25/2024. Worsening diastolic function noted with marginally reduced LV systolic function Measurements 2D Linear Measurements IVSd: 1.17 0.6-0.9/0.6-1.0 cm LVIDd: 4.65 3.9-5.3/4.2-5.9 cm LVIDd Index: 3.12 2.4-3.2/2.2-3.1 cm/m2 LVIDs: 2.87 2.0-3.6 cm LVPWd: 0.90 0.7-1.1 cm LA Diam: 3.70 2.7-3.8/3.0-4.0 cm LAIDs Index: 2.48 1.5-2.3 cm/m2 LV Mass: 210.90 67-162/88-224 g LV Mass Index: 141.54 43-95/49-115 g/m2 LVOT Diam: 2.00 3.0+(-)1.3 cm 2D Systolic Function EF 4C: 52.90 >55% EF 2C: 51.30 >55% EF BiP: 53.10 >55% Mitral Valve MV VTI: 0.34 MV Pk Luis: 1.43 MV Mn Luis: 0.81 MV Pk Grad: 8.00 MV Mn Grad: 3.00 MV Pk E: 1.25 MV PK A: 0.80 MV Decel Time: 178.00 E/A: 1.60 E'Lateral: 5.87 E'Medial: 4.13 E/E' Med: 30.30 E/E' Lat: 21.30 PHT: 52.00 MVA PHT: 4.23 MVA Continuity: 1.73 Decel Gove: 7.05 Aortic Valve AoV Pk Luis: 3.00 AoV Mn Luis: 2.33 AoV VTI: 0.75 AoV Pk Grad: 36.00 Aov Mn Grad: 23.00 RITO Cont.VTI: 0.78 AI Pk Luis: 4.68 AI Gove: 3.59 LVOT LVOT Pk Luis: 0.76 LVOT Mn Luis: 0.55 LVOT VTI: 0.19 LVOT Pk Grad: 2.00 LVOT Mn Grad: 1.00 LVOT Diam: 2.00 LVOT Area: 3.14 Diastolic Function MV Pk E: 1.25 MV Pk A: 0.80 E/A: 1.60 E'Medial: 4.13 E/E' Med: 30.30 E' Laterial: 5.87 E/E' Lat: 21.30 Right Ventricle TAPSE (mm): 20.30 TVS' Luis: 11.60 Tricuspid Valve TR Pk Luis: 3.46 TR Pk Grad: 48.00 RA Press: 15.00 RVSP: 63.00 Great Vessels Aorta Sinus of Valsalva: 3.54 2.0-3.5 cm Ao Asc: 3.30 2.1-3.4 cm Updated in Other Vendor System with Status of Final Guille Pereira MD electronically signed on 08/13/2024 4:27:48 PM with status of Final
[2024-08-13 14:40] LABS: MANUAL DIFF FLAG NO
[2024-08-13 15:20] LABS: Hematocrit 34.1 % (37.0-47.0); Hemoglobin 11.2 g/dl (12.0-16.0); Imm Gran Abs Auto 0.01 X10*3/uL (0.00-0.03); Imm Gran Pct Auto 0.2 % (0.0-0.4); Lymphocytes Absolute Auto 2.7 X10*3/uL (1.2-4.9); Mean Corpuscular HGB Conc 32.8 g/dl (31.0-35.0); Mean Corpuscular Hemoglobin 28.0 pg (27.0-33.0); Mean Corpuscular Volume 85.3 fL (80.0-98.0); NRBC Abs Auto 0.000 X10*3/uL (0.0-0.012); NRBC Pct Auto 0.0 /100WBC (0.0-0.2); Platelet Count 191 X10*3/uL (160-400); Red Blood Count 4.00 X10*6/uL (4.20-5.50); White Blood Count 6.4 X10*3/uL (4.8-10.8)
[2024-08-13 16:25] LABS: Alanine Aminotransferase 7 U/L (0-31); Albumin Level 3.8 g/dL (3.5-5.0); Alkaline Phosphatase 63 U/L (39-117); Anion Gap 12 (12-20); Aspartate Amino Transferase 22 U/L (5-31); Blood Urea Nitrogen 23 mg/dL (9-16); Calcium 9.0 mg/dL (8.4-10.2); Carbon Dioxide 34 mmol/L (22-29); Chloride 93 mmol/L (96-108); Estimated Glomerular Filt Rate 32; Potassium 3.8 mmol/L (3.3-5.1); Sodium 135 mmol/L (135-145); Total Protein 7.4 g/dL (6.5-8.0)
[2024-08-13 16:34] LABS: Thyroid Stimulating Hormone 0.03 uIU/mL (0.32-4.0)
[2024-08-13 17:52] LABS: Free T4 (Free Thyroxine) 1.80 ng/dL (0.71-1.85)
== END ==
LOC: HO.CARD 14:26
PROVIDERS: Absent Provider Internal Medicine; PCP Internal Medicine; Visit Provider Internal Medicine
DX: I35.0 Nonrheumatic aortic (valve) stenosis (principal); I12.9 Hypertensive chronic kidney disease with stage 1 through stage 4 chronic kidney disease, or unspecified chronic kidney disease; N18.9 Chronic kidney disease, unspecified; E03.9 Hypothyroidism, unspecified
CPT/HCPCS: 36415; 80053; 82248; 83721; 84439; 84443; 85025; 85027; 93306

== ENCOUNTER → 2024-08-13 14:39 | Outpatient (BNV) | payer MEDICARE, SELFPAY | PROVIDERS: Absent Provider Internal Medicine; PCP Internal Medicine; Visit Provider Internal Medicine Cardiovascular Disease | DX: I50.30 Unspecified diastolic (congestive) heart failure (principal); I35.0 Nonrheumatic aortic (valve) stenosis; I34.81 Nonrheumatic mitral (valve) annulus calcification; I36.1 Nonrheumatic tricuspid (valve) insufficiency | CPT/HCPCS: 93306 ==

== ENCOUNTER → 2024-08-13 15:00 | Outpatient (BNV) | payer MEDICARE, SELFPAY | PROVIDERS: PCP Internal Medicine; Visit Provider Internal Medicine | DX: I87.2 Venous insufficiency (chronic) (peripheral) (principal); L97.822 Non-pressure chronic ulcer of other part of left lower leg with fat layer exposed; I12.9 Hypertensive chronic kidney disease with stage 1 through stage 4 chronic kidney disease, or unspecified chronic kidney disease; N18.31 Chronic kidney disease, stage 3a | CPT/HCPCS: G0179 ==

== ENCOUNTER 2024-08-22 19:00 | Observation (INO) | payer MEDICARE, SELFPAY ==
--- NOTE | ~2024-08-22 | US_ITS ---
CLINICAL HISTORY: pain, swelling, r o dvt Left lower extremity venous duplex ultrasound Comparison: US/UT/SR - US VENOUS DUPLEX LE LT - 04/22/23 15:05 EDT Findings: The visualized deep veins are fully compressible with normal flow. There is a popliteal cyst measuring 3.5 x 0.8 1.3 cm. There is a lymph node in the groin with normal morphology which measures 1.7 x 0.7 x 0.9 cm. Impression: No deep vein thrombosis. This document has been electronically signed by: Dina Landry MD on 08/22/2024 20:47:37
--- NOTE | ~2024-08-22 | CT_ITS ---
EXAMINATION: CT HEAD WITHOUT CONTRAST CLINICAL INFORMATION: Dizziness when standing up COMPARISON: November 28, 2021 TECHNIQUE: Contiguous axial imaging was performed from the skull base to vertex without intravenous administration of contrast. This CT examination was performed using dose optimization techniques as appropriate, variously including the following: *Automated exposure control *Adjustment of mA and/or kV according to patient size (this includes techniques or standardized protocols for targeted exams where dose is matched to indication/reason for exam; i.e. extremities or head) *Use of iterative reconstruction technique DLP: 1457 mGY*cm FINDINGS: There is mild motion artifact. There is no acute ischemic change. Again noted is periventricular white matter hypodensity that has increased since the prior examination. There is no intracranial hemorrhage. There is no mass-effect or midline shift. There is mild generalized atrophy. Basal cisterns and ventricles are within normal limits for age/cerebral volume. Orbits are symmetrical and unremarkable. Paranasal sinuses and mastoid air cells are pneumatized. There are no bony abnormalities. CT/CT head/brain wo IV con IMPRESSION: No acute intracranial abnormality. Increasing chronic small vessel ischemic changes. Electronically signed by: Sina Purcell MD 08/24/2024 02:17 PM EDT
--- NOTE | ~2024-08-22 | CT_ITS ---
EXAMINATION: CT CERVICAL SPINE WITHOUT CONTRAST CLINICAL INFORMATION: Neck pain. Dizziness. COMPARISON: November 28, 2021. TECHNIQUE: Contiguous axial images through the cervical spine using 2 mm collimation with bone and soft tissue algorithm. Sagittal and coronal reformatted images acquired. DLP: [address] examination was performed using dose optimization techniques as appropriate, variously including the following: *Automated exposure control *Adjustment of mA and/or kV according to patient size (this includes techniques or standardized protocols for targeted exams where dose is matched to indication/reason for exam; i.e. extremities or head) *Use of iterative reconstruction technique FINDINGS: Limited by patient's motion artifact. Craniocervical junction demonstrates degenerative changes in the periodontal C1 region with partially calcified pannus formation. No gross malalignment between the occipital condyles and the lateral masses of C1. Multilevel marginal osteophyte formation and endplate sclerosis subchondral cyst formation and decreased disc height at C5-6 and C6-7 and C7-T1 levels. Grade 1 anterolisthesis C4-5 likely degenerative in nature. Facet joint hypertrophy on the left side of C3-4 C4-5 and C5-6 levels. C1: Motion artifact. C2: Motion artifact. C3: Motion artifact. C4: Motion artifact. C5: Motion artifact. C6: Motion artifact. C7: Motion artifact. No gross prevertebral compartment hematoma. Calcified plaques in the carotic arteries. Bilateral apical lung scarring. Calcified plaques in the thoracic aortic arch its main branches. CT/CT cervical spine wo IV con IMPRESSION: Limited examination due to patient's motion artifact demonstrating multilevel cervical spondylosis. No overt acute fracture or trauma-related listhesis. Fleischner guidelines were followed. Electronically signed by: Matt Faust MD 08/24/2024 02:21 PM EDT
[2024-08-22 19:12] VITALS: BP 204/90; BP 228/86; PULSE 78; PULSE 79; RESP 20; TEMP 36.9; O2SAT 93; O2SAT 95; BMI 28.3
[2024-08-22 19:31] LABS: MANUAL DIFF FLAG NO
[2024-08-22 19:33] LABS: Hematocrit 33.1 % (37.0-47.0); Hemoglobin 11.1 g/dl (12.0-16.0); Imm Gran Abs Auto 0.01 X10*3/uL (0.00-0.03); Imm Gran Pct Auto 0.2 % (0.0-0.4); Lymphocytes Absolute Auto 2.8 X10*3/uL (1.2-4.9); Mean Corpuscular HGB Conc 33.5 g/dl (31.0-35.0); Mean Corpuscular Hemoglobin 27.9 pg (27.0-33.0); Mean Corpuscular Volume 83.2 fL (80.0-98.0); NRBC Abs Auto 0.000 X10*3/uL (0.0-0.012); NRBC Pct Auto 0.0 /100WBC (0.0-0.2); Platelet Count 180 X10*3/uL (160-400); Red Blood Count 3.98 X10*6/uL (4.20-5.50); White Blood Count 5.8 X10*3/uL (4.8-10.8)
--- NOTE | 2024-08-22 19:45 | ED_ITS ---
HPI - General Adult General Chief complaint: Extremity Injury, Lower Stated complaint: L leg tight /swelling Time Seen by Provider: 08/22/24 19:12 Source: patient Limitations: other (Some degree of cognitive impairment) History of Present Illness ED Provider: Devora Young PA-C HPI narrative: 84-year-old female with a history of diastolic heart failure, hypertension, hyperlipidemia, chronic kidney disease, hypothyroidism, venous insufficiency with venous stasis dermatitis who presents with left lower extremity pain and swelling of unclear duration. Per EMS, the patient is supposed to be being treated for cellulitis as an outpatient. When they arrived to the home, it is unclear whether the patient has been taking her medication, there are some medications missing from her pillbox, she is supposed to be having [facility]NA services to the home. It is VNA who called for assistance to the home, they felt her left lower extremity was more swollen and red from her baseline. The patient is also noted to be hypertensive, unclear if she is taking her medication. The patient has no physical concerns or complaints for herself at this time, she denies chest pain, shortness of breath, fever. Related Data Home Medications ?Medication ?Instructions ?Recorded ?Confirmed furosemide 20 mg tablet 20 mg PO DAILY 06/13/2208/11 alendronate 70 mg tablet 70 mg PO PIÑA 08/23/24 5 amlodipine 10 mg tablet 10 mg PO DAILY 08/23/2408/11 atenolol 25 mg tablet 25 mg PO DAILY 08/23/2408/11 levothyroxine 150 mcg tablet 300 mcg PO SUSA 08/23/24 08/23/24 simvastatin 20 mg tablet 20 mg PO BEDTIME 08/23/24 Previous Rx's ?Medication ?Instructions ?Recorded levothyroxine 75 mcg capsule 75 mcg PO DAILY #30 caps 08/26/24 Allergies Allergy/AdvReac Type Severity Reaction Status Date / Time No Known Allergies Allergy Verified 08/22/24 19:13 [facility] Past Medical History Medical History (Updated 08/25/24 @ 09:50 by Yanet Mueller NP) Chronic venous stasis dermatitis Diastolic dysfunction Chronic kidney disease Essential hypertension Preop cardiovascular exam Closed fracture of left inferior pubic ramus Hypothyroidism Hyperlipidemia Non-rheumatic aortic stenosis Surgical History History of surgery on left wrist Family History Family History Father No problems noted. Mother No problems noted. Social History Social History Household Members: Other Household Members Other:: patient unable to answer Housing: House Do you presently have visiting nurse or other home services: Yes Alcohol intake: never Patient Tobacco Use Status: Never used Tobacco e-Cigarette/Vaping Use: Never Used Advance Directives Date on File: 11/28/21 service: No Current occupational status: retired Current occupation: right hand dominant Cognitive needs: Yes (walker) Hearing needs: No Vision needs: Yes (reading glasses) Physical Exam ED Vital Signs: Vital Signs - 24 hr 08/25/24 09:35 08/25/24 09:39 08/25/24 09:39 Temperature Pulse Rate 76 77 82 Respiratory Rate Blood Pressure 155/60 H 145/55 H 99/45 L Pulse Oximetry Oxygen Delivery Method 08/25/24 09:44 08/25/24 10:14 Temperature 97.2 F Pulse Rate 82 82 Respiratory Rate 16 Blood Pressure 99/45 L 146/56 H Pulse Oximetry 96 Oxygen Delivery Method Room Air BMI result Body Mass Index 28.3 Course Reevaluation(s) Reevaluation #1: Time: 22:04 Date: 08/22/24 Provider: HUONG Pineda Patient in physician observation for case management needs. No acute events reported overnight.? No current issues or complaints. VS stable. Patient is pending placement at facility/pending PT/CM eval. Will continue to monitor. Time: 22:04 Reevaluation #2: Time: 15:30 Date: 08/23/24 Provider: HUONG Khan Patient in physician observation for case management needs. No acute events reported overnight.? No current issues or complaints. VS stable. Patient awaiting PT eval which will be performed in the morning. We will continue to monitor pending PT Case Management. Time: 08:16 Reevaluation #3: 08/24/24 08:16 CONNOR Mueller: Patient remains on physician observation awaiting PT evaluation. Med rec complete. CM following for dispo. Time: 13:00 Additional Reevaluation(s): 08/24/24 13:00 CONNOR Mueller: Notified by Sonya from that physical therapy was unable to complete their evaluation as patient became dizzy/lightheaded upon standing. Upon reassessment, patient denies current dizziness or lightheadedness, headache, vision changes, chest pain or palpitations, dyspnea. No focal neurological deficits, no nystagmus. Suspect her symptoms are likely due to physical deconditioning or dehydration. Will repeat labs, UA, will obtain EKG and CT head. Sonya aware of plan. 08/24/24 15:26 CONNOR Mueller: Repeat labs unremarkable. UA notable for 1+ leukocytes, negative nitrites, 6-10 WBCs, no bacteria. Will wait for culture prior to treatment with abx. Viral panel negative this am. CT head and neck are without acute abnormalities. Nursing unable to obtain orthostatic VS as patient becomes dizzy upon standing. Case discussed with hospitalist, Dr. Sam, who recommends IV fluids and meclizine and reassessment. Will re-attempt PT eval in the AM. 08/25/24 09:49 CONNOR Mueller: PT attempted re-evaluation this am, patient continues to be too weak to participate in evaluation. LAURITA Johns reporting orthostatic intolerance of BP 146/55 sitting and 99/45 standing. Case discussed with Dr. Wallis who accepts admisison to medicine. Medications Administered Discontinued Medications Generic Name Dose Route Start Last Admin Trade Name Freq PRN Reason Stop Dose Admin Amlodipine Besylate 10 mg 08/22/24 19:18 08/22/24 19:51 Amlodipine Besylate 10 Mg Tablet PO 08/22/24 19:19 10 mg ONCE ONE Administration Protocol Amlodipine Besylate 10 mg 08/24/24 09:00 08/26/24 08:17 Amlodipine Besylate 10 Mg Tablet PO 10 mg DAILY [facility] Administration Protocol Atenolol 25 mg 08/22/24 19:18 08/22/24 19:51 Atenolol 25 Mg Tablet PO 08/22/24 19:19 25 mg ONCE ONE Administration Protocol Atenolol 25 mg 08/24/24 09:00 08/26/24 08:18 Atenolol 25 Mg Tablet PO 25 mg DAILY [facility] Administration Protocol Atorvastatin Calcium 10 mg 08/23/24 21:00 08/25/24 20:09 Atorvastatin Calcium 10 Mg Tablet PO 10 mg BEDTIME [facility] Administration Doxycycline Monohydrate 100 mg 08/22/24 21:24 08/22/24 22:21 Doxycycline Monohydrate 100 Mg Capsule PO 08/22/24 21:25 100 mg ONCE ONE Administration Doxycycline Monohydrate 100 mg 08/23/24 21:00 08/26/24 08:17 Doxycycline Monohydrate 100 Mg Capsule PO 08/29/24 23:59 100 mg BID DELMAR Administration Furosemide 20 mg 08/22/24 19:18 08/22/24 19:49 Furosemide 20 Mg Tablet PO 08/22/24 19:19 20 mg ONCE ONE Administration Protocol Furosemide 20 mg 08/24/24 09:00 08/26/24 08:17 Furosemide 20 Mg Tablet PO 20 mg DAILY [facility] Administration Protocol Sodium Chloride 500 mls @ 999 mls/hr 08/24/24 15:30 08/24/24 18:01 Ns IV 08/24/24 16:00 Infused .Q31M [facility] Infusion Levothyroxine Sodium 150 mcg 08/24/24 06:00 08/26/24 05:27 Levothyroxine Sodium 150 Mcg Tablet PO 150 mcg [id number] [facility] Administration Meclizine HCl 12.5 mg 08/24/24 15:30 08/24/24 18:31 Meclizine Hcl 12.5 Mg Tablet PO 08/24/24 15:31 12.5 mg ONCE ONE Administration Non-Formulary Medication 70 mg 08/23/24 17:45 08/23/24 17:50 Alendronate PO Not Given PIÑA [facility] Sodium Chloride 3 ml 08/25/24 16:00 08/26/24 17:06 0.9 % Sodium Chloride Flush 3 Ml Syringe IVFLUSH Not Given QSHIFT [facility] Medical Decision Making Medical Decision Making MDM Narrative: 84-year-old female with a history of diastolic heart failure, hypertension, hyperlipidemia, chronic kidney disease, hypothyroidism, venous insufficiency with venous stasis dermatitis who presents with left lower extremity pain and swelling of unclear duration. Per EMS, the patient is supposed to be being treated for cellulitis as an outpatient. When they arrived to the home, it is unclear whether the patient has been taking her medication, there are some medications missing from her pillbox, she is supposed to be having VNA services to the home. It is VNA who called for assistance to the home, they felt her left lower extremity was more swollen and red from her baseline. The patient is also noted to be hypertensive, unclear if she is taking her medication. The patient has no physical concerns or complaints for herself at this time, she denies chest pain, shortness of breath, fever. Problem: Age, heart failure, chronic kidney disease History: Per patient I have considered the following differential diagnoses: Cellulitis, purulent cellulitis, osteomyelitis, DVT, venous insufficiency Plan: The patient here with evidence of cellulitis, the left lower extremity is objectively more swollen than the right, I am concerned for DVT. We will be screening basic labs inflammatory markers, and obtaining a Doppler study. The patient is hypertensive, she is over 200 systolic BP, giving her her oral meds. It is unclear if she has been care for at home appropriately, I foresee her being held over for PT and case management. I have independently reviewed the following tests: Labs: No leukocytosis, not anemic, ESR not elevated, no electrolyte abnormality from her baseline, creatinine 1.56, CRP 0.88 Ultrasound left lower extremity:Findings: The visualized deep veins are fully compressible with normal flow. There is a popliteal cyst measuring 3.5 x 0.8 1.3 cm. There is a lymph node in the groin with normal morphology which measures 1.7 x 0.7 x 0.9 cm. Impression: No deep vein thrombosis. Lab Data 08/26/24 10:12 08/26/24 10:12 Labs: Lab Results 08/22/24 08/24/24 08/24/24 Range/Units 19:26 09:53 13:55 WBC 5.8 7.9 (4.8-10.8) X10*3/uL RBC 3.98 L 4.78 D (4.20-5.50) X10*6/uL Hgb 11.1 L 13.4 D (12.0-16.0) g/dl Hct 33.1 L 39.4 (37.0-47.0) % MCV 83.2 82.4 (80.0-98.0) fL MCH 27.9 28.0 (27.0-33.0) pg MCHC 33.5 34.0 (31.0-35.0) g/dl RDW 14.1 13.8 (11.0-16.0) % Plt Count 180 215 (160-400) X10*3/uL MPV 10.1 10.7 (9.4-12.3) fL Immature Gran % (Auto) 0.2 0.3 (0.0-0.4) % Neut % (Auto) 36.6 L 62.7 (45-73) % Lymph % (Auto) 47.8 H 26.7 (20-40) % [place] % (Auto) 12.1 H 9.9 (2-11) % Eos % (Auto) 2.8 0.1 (0-4) % Baso % (Auto) 0.5 0.3 (0-2) % Lymph # (Auto) 2.8 2.1 (1.2-4.9) X10*3/uL [place] # (Auto) 0.7 0.8 (0.1-1.2) X10*3/uL Eos # (Auto) 0.2 0.0 (0.0-0.4) X10*3/uL Baso # (Auto) 0.0 0.0 (0.0-0.2) X10*3/uL Abs Immat Gran (auto) 0.01 0.02 (0.00-0.03) X10*3/uL Absolute Neuts (auto) 2.1 4.9 (2.0-8.3) x10*3/uL Absolute Nucleated RBC 0.000 0.000 (0.0-0.012) X10*3/uL Nucleated RBC % (auto) 0.0 0.0 (0.0-0.2) /100WBC ESR 18 (0-20) MM/HR Sodium 136 136 (135-145) mmol/L Potassium 3.5 3.4 (3.3-5.1) mmol/L Chloride 94 L 96 (96-108) mmol/L Carbon Dioxide 32 H 31 H (22-29) mmol/L Anion Gap 14 12 (12-20) BUN 25 H 25 H (9-16) mg/dL Creatinine 1.56 H 1.59 H (0.5-1.4) mg/dL Estim Creat Clear Calc 21.8 21.4 Estimated GFR 31 31 Random Glucose 114 206 H (60-115) mg/dL Calcium 9.0 9.3 (8.4-10.2) mg/dL Magnesium 2.3 (1.6-2.6) mg/dL Total Bilirubin 0.4 0.9 (0.0-1.0) mg/dL AST 22 22 (5-31) U/L ALT < 6 < 6 (0-31) U/L Alkaline Phosphatase 59 60 (39-117) U/L Troponin I High Sens 22.8 H (<3.5-17.0) ng/L C-Reactive Protein 0.88 H (< or = 0.50) mg/dL Total Protein 7.1 7.5 (6.5-8.0) g/dL Albumin 3.7 3.6 (3.5-5.0) g/dL Urine Color Yellow Urine Appearance Turbid Urine pH >= 9.0 (5.0-9.0) Ur Specific [place] 1.010 (1.005-1.025) Urine Protein 30 (1+) H (Neg-Trace) mg/dL Urine Glucose (UA) Negative (Negative) mg/dL Urine Ketones Negative (Negative) mg/dL Urine Blood Trace H (Negative) Urine Nitrite Negative (Negative) Ur Leukocyte Esterase Small (1+) H (Negative) Urine RBC 0-2 (0-2) /HPF Urine WBC 6-10 H (0-5) /HPF Ur Squamous Epith Cells 0-2 (0-2) /HPF Urine Bacteria None Seen (None Seen) Hyaline Casts 0-2 (0-2) /LPF Influenza Type A (PCR) NEGATIVE (Negative) Influenza Type B (PCR) NEGATIVE (Negative) RSV RNA Qual (PCR) NEGATIVE (Negative) SARS-CoV-2 RNA (RT-PCR) NEGATIVE (Negative) 08/24/24 Range/Units 20:16 WBC (4.8-10.8) X10*3/uL RBC (4.20-5.50) X10*6/uL Hgb (12.0-16.0) g/dl Hct (37.0-47.0) % MCV (80.0-98.0) fL MCH (27.0-33.0) pg MCHC (31.0-35.0) g/dl RDW (11.0-16.0) % Plt Count (160-400) X10*3/uL MPV (9.4-12.3) fL Immature Gran % (Auto) (0.0-0.4) % Neut % (Auto) (45-73) % Lymph % (Auto) (20-40) % Norton % (Auto) (2-11) % Eos % (Auto) (0-4) % Baso % (Auto) (0-2) % Lymph # (Auto) (1.2-4.9) X10*3/uL Norton # (Auto) (0.1-1.2) X10*3/uL Eos # (Auto) (0.0-0.4) X10*3/uL Baso # (Auto) (0.0-0.2) X10*3/uL Abs Immat Gran (auto) (0.00-0.03) X10*3/uL Absolute Neuts (auto) (2.0-8.3) x10*3/uL Absolute Nucleated RBC (0.0-0.012) X10*3/uL Nucleated RBC % (auto) (0.0-0.2) /100WBC ESR (0-20) MM/HR Sodium (135-145) mmol/L Potassium (3.3-5.1) mmol/L Chloride (96-108) mmol/L Carbon Dioxide (22-29) mmol/L Anion Gap (12-20) BUN (9-16) mg/dL Creatinine (0.5-1.4) mg/dL Estim Creat Clear Calc Estimated GFR Random Glucose (60-115) mg/dL Calcium (8.4-10.2) mg/dL Magnesium (1.6-2.6) mg/dL Total Bilirubin (0.0-1.0) mg/dL AST (5-31) U/L ALT (0-31) U/L Alkaline Phosphatase (39-117) U/L Troponin I High Sens 18.0 H (<3.5-17.0) ng/L C-Reactive Protein (< or = 0.50) mg/dL Total Protein (6.5-8.0) g/dL Albumin (3.5-5.0) g/dL Urine Color Urine Appearance Urine pH (5.0-9.0) Ur Specific [place] (1.005-1.025) Urine Protein (Neg-Trace) mg/dL Urine Glucose (UA) (Negative) mg/dL Urine Ketones (Negative) mg/dL Urine Blood (Negative) Urine Nitrite (Negative) Ur Leukocyte Esterase (Negative) Urine RBC (0-2) /HPF Urine WBC (0-5) /HPF Ur Squamous Epith Cells (0-2) /HPF Urine Bacteria (None Seen) Hyaline Casts (0-2) /LPF Influenza Type A (PCR) (Negative) Influenza Type B (PCR) (Negative) RSV RNA Qual (PCR) (Negative) SARS-CoV-2 RNA (RT-PCR) (Negative) Critical Care Time Critical Care Time Critical Care Time: Yes Total Critical Care Time: 35 Attestation: I have personally provided critical care time exclusive of time spent on separately billable procedures. Time includes review of lab data, radiology results, discussion with consultants, and monitoring for potential decompensation. Intervention performed as documented. Discharge Plan Discharge Clinical Impression: Cellulitis of left leg, Orthostatic intolerance Patient Disposition: Admitted As Inpatient Interventions: Admission Worksheet (ED) Last Done: 08/25/24 10:17 Discharge Date/Time: 08/25/24 15:21
[2024-08-22 19:47] LABS: Magnesium 2.3 mg/dL (1.6-2.6)
[2024-08-22 19:49] VITALS: BP 206/71
[2024-08-22 19:51] VITALS: BP 206/71; PULSE 78
[2024-08-22 20:21] VITALS: BP 204/80; PULSE 78; RESP 14; TEMP 36.6; O2SAT 94
[2024-08-22 21:50] LABS: Alanine Aminotransferase < 6 U/L (0-31); Albumin Level 3.7 g/dL (3.5-5.0); Alkaline Phosphatase 59 U/L (39-117); Anion Gap 14 (12-20); Aspartate Amino Transferase 22 U/L (5-31); Blood Urea Nitrogen 25 mg/dL (9-16); Calcium 9.0 mg/dL (8.4-10.2); Carbon Dioxide 32 mmol/L (22-29); Chloride 94 mmol/L (96-108); Creatinine Clr Calc Pharmacy 21.8; Estimated Glomerular Filt Rate 31; Potassium 3.5 mmol/L (3.3-5.1); Sodium 136 mmol/L (135-145); Total Protein 7.1 g/dL (6.5-8.0)
[2024-08-22 22:21] VITALS: BP 178/57; PULSE 74; RESP 14; TEMP 36.6; O2SAT 98
--- NOTE | 2024-08-23 02:27 | MHC.EDTECH ---
@0215 the patient used her call schaffer. The patient stated she was wet, this tech went and grabbed supplies. The patient was washed up and changed, the bedding was changed, Pure wick replaced and in place. New bed pads placed, New Kenn. Warm blankets given to the patient, call bed place in arms reach. The patient is all set at this time.
[2024-08-23 05:24] VITALS: BP 159/66; PULSE 75; RESP 16; TEMP 36.6; O2SAT 94
[2024-08-23 08:23] VITALS: BP 156/60; PULSE 80; RESP 10; TEMP 36.4; O2SAT 93
--- NOTE | 2024-08-23 10:47 | PC.NURSE ---
pts legs are slightly red, not warm, no significant edema. no pain. one area with scab on left lower leg. not open or draining
--- NOTE | 2024-08-23 11:41 | MHC.CM.PN ---
CM RECEIVED ED CM CONSULT AND MET WITH PT AT BEDSIDE IN ED. PT LIVES ALONE AND USES A WALKER FOR MOBILITY. PT IS CURRENTLY ACTIVE WITH [facility] . + HCP ON FILE AND VERIFIED. PCP WAS DR. KIMBROUGH (RETIRED) NOW WILL SEE A [facility] PROVIDER. DP: PT IS WILLING TO BE EVALUATED BY P.T. IN THE AM. PT HAS NOT HAD A QHS SO MCR WILL NOT PAY FOR A SNF IF RECOMMENDED. PT GIVES THIS CM PERMISSION TO SPEAK WITH SON/HCP YOBANI AND HE IS AWARE. PT WILL NEED BLS TRANSPORT VS SON. RETURN REFERRAL SENT TO [facility]. CM WILL CONTINUE TO FOLLOW.
--- NOTE | 2024-08-23 12:52 | PHA.MEDREC ---
Addendum entered by Azra Villatoro RPh 08/23/24 13:07: Reviewed by [facility]. Was able to confirm amlodipine was recently increased due to elevated blood pressure earlier in August. Original Note: Pharmacy Consult ? Medication Reconciliation Pharmacy has completed the medication reconciliation. Spoke with patient to confirm medications. She takes 1 tab of levothyroxine Saturday-Saturday, and 2 tabs Sat and Sun. She took alendronate last Saturday. She was unsure about amlodipine, did not recognize the name, last fill per [facility] / for 10 mg which she did picker / packer (has not picked up 2.5 mg since May 2024 x90DS). Patient reports she finished the antibiotic (cephalexin). She does not remember when she last took her medications.
[2024-08-23 13:22] VITALS: BP 164/63; PULSE 80; RESP 20; TEMP 36.6; O2SAT 89
[2024-08-23 14:36] VITALS: BP 150/56; PULSE 75; RESP 16; TEMP 36.4; O2SAT 92
--- NOTE | 2024-08-23 19:09 | PC.NURSE ---
assumed care for pt at this time. pt awake in stretcher resting well, requesting water at this time. pt given water and updated on plan of care. call schaffer within reach, plan of care ongoing
[2024-08-23 20:13] VITALS: BP 165/67; PULSE 73; RESP 16; TEMP 36.6; O2SAT 93
[2024-08-24 06:12] VITALS: BP 161/64; PULSE 77; RESP 14; TEMP 36.8; O2SAT 91
--- NOTE | 2024-08-24 07:07 | PC.NURSE ---
Addendum entered by Samra Shah RN 08/24/24 07:42: Patient is a 84-year-old female with a history of diastolic heart failure, hypertension, hyperlipidemia, chronic kidney disease, hypothyroidism, venous insufficiency with venous stasis dermatitis who presents with left lower extremity pain and swelling of unclear duration. Per EMS, the patient is supposed to be being treated for cellulitis as an outpatient. When they arrived to the home, it is unclear whether the patient has been taking her medication, there are some medications missing from her pillbox, she is supposed to be having VNA services to the home. Patient alert and cooperative. Respirations even and non-labored. Abdomen flat, soft, non-tender with positive bowel sounds. Some redness noted to her gluteal folds. Purewick applied. LE reddened with thick skin. No significant swelling noted. Original Note: Medical History Chronic venous stasis dermatitis Diastolic dysfunction Chronic kidney disease Essential hypertension Preop cardiovascular exam Closed fracture of left inferior pubic ramus Hypothyroidism Hyperlipidemia Non-rheumatic aortic stenosis
[2024-08-24 07:27] VITALS: BP 194/75; PULSE 71; RESP 18; TEMP 36.7; O2SAT 94
[2024-08-24 11:01] LABS: Resp Syncy Virus RNA Qual PCR NEGATIVE (Negative); SARS COV2 PCR INHOUSE NEGATIVE (Negative)
[2024-08-24 11:41] VITALS: BP 148/63; PULSE 68
--- NOTE | 2024-08-24 11:57 | PC.NURSE ---
PT at the bedside to perform eval. Patient note to have leaked around her purewick. Incontinence care provided.
--- NOTE | 2024-08-24 13:02 | ECG_ITS ---
Test Reason : DIZZINESS Blood Pressure : */* mmHG Vent. Rate : 102 BPM Atrial Rate : 71 BPM P-R Int : 158 ms QRS Dur : 78 ms QT Int : 372 ms P-R-T Axes : 71 -32 9 degrees QTcB Int : 484 ms Sinus rhythm with Premature supraventricular complexes and with occasional Premature ventricular complexes and Fusion complexes Left axis deviation Abnormal ECG When compared with ECG of 02-Dec-2021 10:13, Premature ventricular complexes are now Present Premature supraventricular complexes are now Present Referred By: Yanet Mueller Electronically Signed By: JANIS LOU
--- NOTE | 2024-08-24 13:02 | MHC.CM.ED ---
Patient remains in ER. Physical therapy eval completed. Patient was not able to ambulate d/t dizziness. Patient has not bee inpatient in any facility in the past 30 days. Referral sent to all 3 acute rehab facilities. [facility] not able to offer a bed. [facility] will not be able to review until patient can fully participate in PT eval without dizziness. Yanet SOIL CHEMIST aware and will assess patient. Continue to monitor for d/c needs.
[2024-08-24 14:00] VITALS: BP 135/55; PULSE 67; RESP 16; TEMP 36.1; O2SAT 94
--- NOTE | 2024-08-24 14:01 | PC.NURSE ---
Unable to complete ortho's as patient unable to tolerate standing at this time.
[2024-08-24 14:03] LABS: MANUAL DIFF FLAG NO
[2024-08-24 14:04] LABS: Hematocrit 39.4 % (37.0-47.0); Hemoglobin 13.4 g/dl (12.0-16.0); Imm Gran Abs Auto 0.02 X10*3/uL (0.00-0.03); Imm Gran Pct Auto 0.3 % (0.0-0.4); Lymphocytes Absolute Auto 2.1 X10*3/uL (1.2-4.9); Mean Corpuscular HGB Conc 34.0 g/dl (31.0-35.0); Mean Corpuscular Hemoglobin 28.0 pg (27.0-33.0); Mean Corpuscular Volume 82.4 fL (80.0-98.0); NRBC Abs Auto 0.000 X10*3/uL (0.0-0.012); NRBC Pct Auto 0.0 /100WBC (0.0-0.2); Platelet Count 215 X10*3/uL (160-400); Red Blood Count 4.78 X10*6/uL (4.20-5.50); White Blood Count 7.9 X10*3/uL (4.8-10.8)
[2024-08-24 14:05] LABS: Appearance Urine Turbid; Glucose Urine UA Negative (Negative); PH >= 9.0 (5.0-9.0); Specific Gravity - Urine 1.010 (1.005-1.025); UMIC TRIGGER UACC YES
[2024-08-24 14:15] LABS: UACC Culture Trigger YES
[2024-08-24 14:25] LABS: Alanine Aminotransferase < 6 U/L (0-31); Albumin Level 3.6 g/dL (3.5-5.0); Alkaline Phosphatase 60 U/L (39-117); Anion Gap 12 (12-20); Aspartate Amino Transferase 22 U/L (5-31); Blood Urea Nitrogen 25 mg/dL (9-16); Calcium 9.3 mg/dL (8.4-10.2); Carbon Dioxide 31 mmol/L (22-29); Chloride 96 mmol/L (96-108); Creatinine Clr Calc Pharmacy 21.4; Estimated Glomerular Filt Rate 31; Potassium 3.4 mmol/L (3.3-5.1); Sodium 136 mmol/L (135-145); Total Protein 7.5 g/dL (6.5-8.0)
--- NOTE | 2024-08-24 17:16 | PC.NURSE ---
Patient presents from home with VNA services, sent initially for L leg swelling and pain. Underlying history of, diastolic heart failure, hypertension, hyperlipidemia, chronic kidney disease, hypothyroidism, venous insufficiency with venous stasis dermatitis Patient is A+Ox3 (except time) and vague understanding of situation, alerts to name,regular pulses, no edema, breathing unlabored, hard of hearing, abdomen flat, non-tender, legs appear symmetrical in size, however firm skin on L posterior leg noted on palpation, strength mild weakness generally, purewick for voiding, unable to provide last BM, set up only with food tray. Patient waiting on placement at rehab see case mgr note.
--- NOTE | 2024-08-24 17:31 | MHC.CM.ED ---
Per CONNOR Holt, will re-evaluate dizziness and PT consult in am 7/15. Pt to remain overnight.
[2024-08-24 18:23] LABS: Troponin-I High Sensitivity 22.8 ng/L (<3.5-17.0)
[2024-08-24 20:07] VITALS: BP 156/62; PULSE 73; RESP 20; TEMP 36.3; O2SAT 94
[2024-08-24 20:51] LABS: Troponin-I High Sensitivity 18.0 ng/L (<3.5-17.0)
--- NOTE | 2024-08-24 21:03 | MHC.EDTECH ---
pt voided 200 ml with purwick
[2024-08-24 21:09] VITALS: BP 134/61; PULSE 73
--- NOTE | 2024-08-24 22:33 | PC.NURSE ---
Assumed care of this patient at 19:00. Pt seen in ED overflow. Pt is A&Ox2 to self and place, vague and intermittently dismissive to some of this curriculum writer's assessment questions tonight, otherwise calm and pleasantly confused. Reorientation provided. Appears to be hard of hearing. No hearing aids noted and patient denies hearing aid use for this curriculum writer. No complaints of dizziness, pain, or other acute issues tonight. Mild edema to LLE compared to RLE. Prior U/S done to rule out DVT. +radial and dp pulses, +cms. Patient generally weak and hunched (imaging showed multi-level spondylosis), unable to stand for previously ordered orthostatics; sitting and supine obtained and provider Callie Pinon made aware of them. Repeat trops obtained per provider, down-trending ompared to previous. LSCTA on room air. Breathing is even and unlabored without distress. +BSx4. Abdomen is soft, round, non-tender to palpation. Pt is unable to state LBM. Tolerated meds whole without issue. Purewick replaced, functioning with cyu noted in canister. Foams applied to spine for protection. Q2h turning/repositioning applied. Bed alarm on and safety measures in place. Call schaffer within reach and educated on use.
[2024-08-25] VITALS (13 sets, daily range): BP systolic 99–176; BP diastolic 45–82; PULSE 71–82; RESP 16–20; TEMP 36.2–37.7; O2SAT 92–97
--- NOTE | 2024-08-25 09:52 | PC.NURSE ---
Ortho vs measured to patient's PT eval; from sitting to standing, pt's bp went from 140's systolic to 99; pt wasn't dizzy, but she was extremely weak and unable to ambulate; tammie schwartz. and ER provider made aware
--- NOTE | 2024-08-25 10:06 | MHC.CM.ED ---
Received notification patient will be admitted due to continued orthostatic hypotension. Continue to monitor for d/c needs.
--- NOTE | 2024-08-25 10:17 | PM.IMHP ---
History of Present Illness Date of Service: 08/25/24 Chief Complaint: Dizziness 84-year-old female with a history of diastolic heart failure, hypertension, hyperlipidemia, chronic kidney disease, hypothyroidism, venous insufficiency with venous stasis dermatitis who presented with left lower extremity pain and swelling of unclear duration. Per EMS, the patient is supposed to be being treated for cellulitis as an outpatient. When they arrived to the home, it is unclear whether the patient has been taking her medication, there were some medications missing from her pillbox, she is supposed to be having VNA services to the home. VNA called for assistance to the home, they felt her left lower extremity was more swollen and red from her baseline. The patient is also noted to be hypertensive, unclear if she is taking her medication. The patient has no physical concerns or complaints for herself at this time, she denies chest pain, shortness of breath, fever. In the ER, head CT was negative for any acute abnormality, cervical showed no acute fracture or dislocation. Initially was going to stay in the ER for placement purposes but she developed orthostatic hypotension. Her labs are within acceptable limits, she does have chronic kidney disease, UA negative. Plan will be to place patient on observation for treatment of orthostatic hypotension. Review of Systems Review of Systems: Denies any recent fever chills or decrease in appetite respiratory denies any shortness of breath or cough cardiovascular denied chest pain gastrointestinal denies any dysphagia abdominal pain nausea vomiting or diarrhea genitourinary denies any dysuria frequency or hematuria musculoskeletal denies any joint pain or swelling neuropsych denies any weakness or seizures all other systems reviewed are negative [facility] Medical History (Updated 08/25/24 @ 09:50 by Yanet Mueller NP) Chronic venous stasis dermatitis Diastolic dysfunction Chronic kidney disease Essential hypertension Preop cardiovascular exam Closed fracture of left inferior pubic ramus Hypothyroidism Hyperlipidemia Non-rheumatic aortic stenosis Family History Father No problems noted. Mother No problems noted. Surgical History History of surgery on left wrist Social History Household Members: None Housing: House Do you presently have visiting nurse or other home services: Yes Alcohol intake: never Patient Tobacco Use Status: Never used Tobacco Smoked in Last 30 Days: No e-Cigarette/Vaping Use: Never Used Use of substances other than those prescribed or required for medical reasons: No Advance Directives: Yes Advance Directives on File: Yes Advance Directives Date on File: 11/28/21 service: No Current occupational status: retired Current occupation: right hand dominant Cognitive needs: Yes (walker) Hearing needs: No Vision needs: Yes (reading glasses) Meds Allergies Allergy/AdvReac Type Severity Reaction Status Date / Time No Known Allergies Allergy Verified 08/22/24 19:13 Active Medications: Current Medications Amlodipine Besylate (Amlodipine Besylate 10 Mg Tablet) 10 mg PO DAILY [facility]; Protocol Last Admin: 08/25/24 08:01 Dose: 10 mg Atenolol (Atenolol 25 Mg Tablet) 25 mg PO DAILY [facility]; Protocol Last Admin: 08/25/24 09:29 Dose: 25 mg Atorvastatin Calcium (Atorvastatin Calcium 10 Mg Tablet) 10 mg PO BEDTIME [facility] Last Admin: 08/24/24 21:00 Dose: 10 mg Doxycycline Monohydrate (Doxycycline Monohydrate 100 Mg Capsule) 100 mg PO BID [facility] Stop: 08/29/24 23:59 Last Admin: 08/25/24 08:01 Dose: 100 mg Furosemide (Furosemide 20 Mg Tablet) 20 mg PO DAILY [facility]; Protocol Last Admin: 08/25/24 08:03 Dose: 20 mg Levothyroxine Sodium (Levothyroxine Sodium 150 Mcg Tablet) 150 mcg PO [id number]@0600 [facility] Last Admin: 08/25/24 06:10 Dose: 150 mcg Levothyroxine Sodium (Levothyroxine Sodium 150 Mcg Tablet) 300 mcg PO SuSa@0600 [facility] Home Medications ?Medication ?Instructions ?Recorded ?Confirmed ?Last Taken ?Type furosemide 20 mg tablet 20 mg PO DAILY 06/13/22 08/23/24 Unknown History alendronate 70 mg tablet 70 mg PO PIÑA 08/23/24 08/23/24 08/16/24 History amlodipine 10 mg tablet 10 mg PO DAILY 08/23/24 08/23/24 Unknown History atenolol 25 mg tablet 25 mg PO DAILY 08/23/24 08/23/24 Unknown History levothyroxine 150 mcg tablet 150 mcg PO MOTUWETHFR 08/23/24 08/23/24 Unknown History levothyroxine 150 mcg tablet 300 mcg PO SUSA 08/23/24 08/23/24 Unknown History simvastatin 20 mg tablet 20 mg PO BEDTIME 08/23/24 08/23/24 Unknown History Physical Exam Vital Signs and Narrative: Vital Signs: Last Vital Signs Temp 97.2 F 08/25/24 10:14 Pulse 82 08/25/24 10:14 Resp 16 08/25/24 10:14 BP 146/56 H 08/25/24 10:14 Pulse Ox 96 08/25/24 10:14 O2 Del Method Room Air 08/25/24 10:14 O2 Flow Rate 2 08/22/24 20:21 BMI result Body Mass Index 28.3 Appearing in no acute distress head is normocephalic atraumatic eyes pupils are PERRLA sclera is anicteric mouth throat mucous membranes are intact and moist neck is supple no lymphadenopathy, no JVD noted lung sounds are clear to auscultation heart regular rate rhythm, clear S1, S2 positive bowel sounds, abdomen is soft, nontender neuro patient is alert x3, no focal deficits Results Labs 08/24/24 13:55 08/24/24 13:55 Labs: Laboratory Results - last 24 hr 08/24/24 08/24/24 09:53 13:55 MCV 82.4 MCH 28.0 MCHC 34.0 RDW 13.8 Plt Count 215 MPV 10.7 Immature Gran % (Auto) 0.3 Neut % (Auto) 62.7 Lymph % (Auto) 26.7 [place] % (Auto) 9.9 Eos % (Auto) 0.1 Baso % (Auto) 0.3 Lymph # (Auto) 2.1 [place] # (Auto) 0.8 Eos # (Auto) 0.0 Baso # (Auto) 0.0 Abs Immat Gran (auto) 0.02 Absolute Neuts (auto) 4.9 Absolute Nucleated RBC 0.000 Nucleated RBC % (auto) 0.0 Anion Gap 12 Estim Creat Clear Calc 21.4 Estimated GFR 31 Random Glucose 206 H Calcium 9.3 Total Bilirubin 0.9 AST 22 ALT < 6 Alkaline Phosphatase 60 Total Protein 7.5 Albumin 3.6 Urine Color Yellow Urine Appearance Turbid Urine pH >= 9.0 Ur Specific Stanford 1.010 Urine Protein 30 (1+) H Urine Glucose (UA) Negative Urine Ketones Negative Urine Blood Trace H Urine Nitrite Negative Ur Leukocyte Esterase Small (1+) H Urine RBC 0-2 Urine WBC 6-10 H Ur Squamous Epith Cells 0-2 Urine Bacteria None Seen Hyaline Casts 0-2 Influenza Type A (PCR) NEGATIVE Influenza Type B (PCR) NEGATIVE RSV RNA Qual (PCR) NEGATIVE SARS-CoV-2 RNA (RT-PCR) NEGATIVE Imaging Radiologist's Impressions: Impressions Head CT 08/24/24 12:17 IMPRESSION: No acute intracranial abnormality. Increasing chronic small vessel ischemic changes. Electronically signed by: Sina Purcell MD 08/24/2024 02:17 PM EDT RP Cervical Spine CT 08/24/24 12:37 IMPRESSION: Limited examination due to patient's motion artifact demonstrating multilevel cervical spondylosis. No overt acute fracture or trauma-related listhesis. Fleischner guidelines were followed. Electronically signed by: Matt Faust MD 08/24/2024 02:21 PM EDT RP Assessment and Plan (1) Essential hypertension: Status: Acute Plan 84 year old women admitted with weakness, orthostasis. Patient was initially boarding in the ED with plans for rehab placement. She developed orthostasis and it was decided that she would be placed on observation. Orthostatic hypotension monitor closely check orthostatics Q shift IV fluids Failure to thrive support care nutrition support PT consultation Hypertension Hold antihypertensives at this time Hypothyroidism. TSH 0.03 Hold levothyroxine Hyperlipidemia. Continue statin DVT prophylaxis with Heparin Full code Quality Stroke Does the patient have a stroke diagnosis?: No VTE Prior VTE?: No VTE Risk Level:: Medical - moderate - high VTE Device Contraindication: Treatment Not Indicated VTE Drug Contraindication: N/A - Med Ordered
[2024-08-25] MEDS: 0.9 % Sodium Chloride Flush 3 ML SYRINGE IVFLUSH ×2 (15:40→20:11)
[2024-08-26 03:30] VITALS: BP 139/67; PULSE 73; RESP 18; TEMP 36.7; O2SAT 95
[2024-08-26 07:49] VITALS: BP 163/72; PULSE 74; RESP 16; TEMP 36.9; O2SAT 94
[2024-08-26] MEDS: 0.9 % Sodium Chloride Flush 3 ML SYRINGE IVFLUSH (08:18)
--- NOTE | 2024-08-26 09:04 | MHC.CM.PN ---
Addendum entered by Yanet Russo RN 08/26/24 13:54: Son presented to [facility] [place] to provide transport home. However, patient remains weak, as previously discussed w/ son. He does not feel he can provide enough assistance for patient to safely dc home. Reviewed [facility] requirements for STR/QHS. Verbalized understanding and agrees to pay privately for STR. [facility], as [facility] has stayed there previously. Son to drop off check to business office by 3pm. Patient will dc via BLS at 5pm. Eduardo, RN, [employer] aware. Addendum entered by Yanet Russo RN 08/26/24 10:19: [facility] and all other local acute rehabs have declined. DP: Home w/ [facility] for SN/PT. Reviewed w/ son/HCP who is in agreement w/ plan and understands patient is not at her baseline. He reports she has [employer] services: [employer] 3 hrs/wk and daily MOW. The MOW retail delivery driver calls son directly if patient does not open the door. She also has 8am & 8pm phone call check ins w/ a friend, who will call son if needed. Son also intends to check in/assist as much as possible and will continue grocery shopping for patient. Referral sent to [facility] regarding increase in services. Son will also reach out directly to [facility], Jamila Amador. Son will provide transport home at noon. Original Note: Patient moved to unit under observation. [employer] delivered. Lives at home alone. Ambulates w/ walker. Independent w/ ADL's. Active w/ [facility] for SN. HCP on file and verified. Primary [facility] listed is late . Alternate, now primary, is [facility]. PCP Anju Woods MD DP: Per [employer], patient medically cleared for dc. PT rec STR. No inpatient stay, so not covered by [facility]. [facility] is reviewing. Awaiting response. AR vs. home w/ [facility] for PT/SN. Son updated. Will continue to follow.
[2024-08-26 10:04] VITALS: BP 156/70; PULSE 72
[2024-08-26 10:06] VITALS: BP 108/58; BP 153/71; PULSE 73; PULSE 76
--- NOTE | 2024-08-26 10:17 | PC.NURSE ---
Bp 153/71 sitting , down to 108/58 standing
[2024-08-26 10:39] LABS: Hematocrit 36.2 % (37.0-47.0); Hemoglobin 12.1 g/dl (12.0-16.0); Mean Corpuscular HGB Conc 33.4 g/dl (31.0-35.0); Mean Corpuscular Hemoglobin 28.0 pg (27.0-33.0); Mean Corpuscular Volume 83.8 fL (80.0-98.0); NRBC Abs Auto 0.000 X10*3/uL (0.0-0.012); NRBC Pct Auto 0.0 /100WBC (0.0-0.2); Platelet Count 218 X10*3/uL (160-400); Red Blood Count 4.32 X10*6/uL (4.20-5.50); White Blood Count 6.5 X10*3/uL (4.8-10.8)
[2024-08-26 10:50] LABS: Anion Gap 13 (12-20); Blood Urea Nitrogen 31 mg/dL (9-16); Calcium 8.8 mg/dL (8.4-10.2); Carbon Dioxide 29 mmol/L (22-29); Chloride 96 mmol/L (96-108); Creatinine Clr Calc Pharmacy 22.9; Estimated Glomerular Filt Rate 33; Potassium 3.4 mmol/L (3.3-5.1); Sodium 135 mmol/L (135-145)
--- NOTE | 2024-08-26 12:24 | P.DS_ITS ---
DS: Providers Provider Date of Service: 08/26/24 Date of admission: 08/25/24 10:15 Date of discharge: 08/26/24 Primary care physician: Anju Woods MD DS: Diagnosis Discharge Diagnosis (1) Essential hypertension: Status: Acute DS: Summary Hospital Course Hospital Course: 84-year-old female with a history of diastolic heart failure, hypertension, hyperlipidemia, chronic kidney disease, hypothyroidism, venous insufficiency with venous stasis dermatitis who presented with left lower extremity pain and swelling of unclear duration. Per EMS, the patient is supposed to be being treated for cellulitis as an outpatient. When they arrived to the home, it is unclear whether the patient has been taking her medication, there were some medications missing from her pillbox, she is supposed to be having VNA services to the home. VNA called for assistance to the home, they felt her left lower extremity was more swollen and red from her baseline. The patient is also noted to be hypertensive, unclear if she is taking her medication. The patient has no physical concerns or complaints for herself at this time, she denies chest pain, shortness of breath, fever. In the ER, head CT was negative for any acute abnormality, cervical showed no acute fracture or dislocation. Initially was going to stay in the ER for placement purposes but she developed orthostatic hypotension. Her labs are within acceptable limits, she does have chronic k idney disease, UA negative. Plan will be to place patient on observation for treatment of orthostatic hypotension. 84-year-old woman treated for orthostatic hypotension and failure to thrive. Orthostatics have been negative and patient has not had any complaints of any dizziness or weakness. She has been eating and drinking without any problems. Discussed with patient's son. PLAN IS TO TRANSFER TO SHORT-TERM REHAB FOR PHYSICAL THERAPY Hypertension. Continue home medications Hypothyroidism. TSH 0.03. Recently had levothyroxine increased. We will decrease back to 75. Recheck TSH in 4 weeks Hyperlipidemia. Continue statin Time Attestation Discharge Coordination Time (in mins): 42 Quality: Safe Use of Opioids Does Pt have an Active Cancer Diagnosis on the Problem List?: No Quality: Stroke Does the patient have a stroke diagnosis?: No Physical Exam Vital Signs: Vital Signs: Last Vital Signs Temp 98.4 F 08/26/24 07:49 Pulse 76 08/26/24 10:06 Resp 16 08/26/24 07:49 BP 108/58 L 08/26/24 10:06 Pulse Ox 94 08/26/24 07:49 O2 Del Method Room Air 08/26/24 07:49 O2 Flow Rate 2 08/22/24 20:21 BMI result Body Mass Index 28.3 Appearing in no acute distress head is normocephalic atraumatic eyes pupils are PERRLA sclera is anicteric mouth throat mucous membranes are intact and moist neck is supple no lymphadenopathy, no JVD noted lung sounds are clear to auscultation heart regular rate rhythm, clear S1, S2 positive bowel sounds, abdomen is soft, nontender neuro patient is alert x3, no focal deficits DS: Data Data Completed and Pending Completed studies during hospitalization [Text1]: Procedures Reposition Left Radius with Internal Fixation Device, Open Approach (11/29/21) Labs on day of discharge: Laboratory Results - last 24 hr 08/26/24 10:12 WBC 6.5 RBC 4.32 Hgb 12.1 Hct 36.2 L MCV 83.8 MCH 28.0 MCHC 33.4 RDW 14.0 Plt Count 218 MPV 10.5 Absolute Nucleated RBC 0.000 Nucleated RBC % (auto) 0.0 Sodium 135 Potassium 3.4 Chloride 96 Carbon Dioxide 29 Anion Gap 13 BUN 31 H Creatinine 1.49 H Estim Creat Clear Calc 22.9 Estimated GFR 33 Random Glucose 204 H Calcium 8.8 Discharge Plan Discharge Anticipated Discharge Date/Time: 08/26/24 12:13 Patient Disposition: Xfer SNF Discharge Diagnosis: Orthostatic hypotension Referrals: Anju Woods MD [Primary Care Provider, Endocrinology] Discharge Medications: New levothyroxine 75 mcg capsule 75 mcg PO DAILY Qty: 30 0RF Continued alendronate 70 mg tablet 70 mg PO PIÑA atenolol 25 mg tablet 25 mg PO DAILY amlodipine 10 mg tablet 10 mg PO DAILY simvastatin 20 mg tablet 20 mg PO BEDTIME levothyroxine 150 mcg tablet 300 mcg PO SUSA furosemide 20 mg tablet 20 mg PO DAILY Discontinued levothyroxine 150 mcg tablet 150 mcg PO MOTUWETHFR Discharge Orders: Discharge Order (Routine); Ordered 08/26/24 Ordered By: Danica Ruelas Diet: Advance to usual diet Activity on Discharge: As tolerated Stand Alone Forms: Patient Portal Discharge page Print Language: Eritrean Other Ambulatory Orders: Thyroid Stimulating Hormone (Routine) Timeframe: 4 Weeks Facility: [facility] - Location: Laboratory Ordered By: Danica Ruelas Care Plan Goals: your levothyroxine was decreased Health Concerns: Orthostatic hypotension Plan of Treatment: Follow up with primary care provider as needed Take all medications as prescribed Assessment: See discharge summary
--- NOTE | 2024-08-26 12:51 | W.MHC.F2F ---
Service Date Service Date: 08/26/24 Encounter Date of encounter: 08/26/24 Reasons for Services Signs and symptoms assessed: Orthostatic hypotension Failure to thrive Reason for nursing home: CV/CP assess and/or care Reason for physical therapy: home safety and mobility Homebound: Leaving the home is medically contraindicated at this time without the asist of a device and/or another person due th the listed conditions above and below. Reason homebound: unsteady gait / fall risk and weakness related to hospital stay Certification: Based on the above findings, I certify that this patient is confined to the home and needs intermittent nursing home care, physical therapy and/or speech therapy, or continues to need occupational therapy. The patient is under my care, and I have initiated the establishment of the plan of care. The patient will be followed by a physician who will periodically review the plan of care. Time Spent With Patient Time: Total time managing care of this patient today ____ minutes.
[2024-08-26 14:00] VITALS: BP 126/58; PULSE 71; RESP 16; TEMP 37.1; O2SAT 95
[2024-08-26 17:39] VITALS: BP 138/66; PULSE 73; RESP 18; TEMP 36.9; O2SAT 95
--- NOTE | 2024-08-26 17:50 | PC.NURSE ---
d/c Jayla Patel RN.
== END 2024-08-26 17:50 | disposition skilled nursing facility (03) ==
LOC: HO.ED 08-25 10:16 → HO.EDOVER 08-25 10:33 → HO.S3 08-25 14:38
PROVIDERS: Nurse Practitioner Family; Physician Assistant Medical; Registered Nurse Emergency; Admitting Provider Nurse Practitioner Acute Care; Emergency Provider Emergency Medicine; PCP Internal Medicine; Visit Provider Nurse Practitioner Acute Care
DX: I95.1 Orthostatic hypotension (principal); L03.116 Cellulitis of left lower limb; I87.2 Venous insufficiency (chronic) (peripheral); R62.7 Adult failure to thrive; Z68.28 Body mass index [BMI] 28.0-28.9, adult; M79.662 Pain in left lower leg; M79.89 Other specified soft tissue disorders; I13.0 Hypertensive heart and chronic kidney disease with heart failure and stage 1 through stage 4 chronic kidney disease, or unspecified chronic kidney disease; I50.30 Unspecified diastolic (congestive) heart failure; N18.9 Chronic kidney disease, unspecified; E03.9 Hypothyroidism, unspecified; R42 Dizziness and giddiness; M54.2 Cervicalgia; E78.5 Hyperlipidemia, unspecified; Z79.899 Other long term (current) drug therapy; Z03.818 Encounter for observation for suspected exposure to other biological agents ruled out
CPT/HCPCS: 36415; 70450; 72125; 80048; 80053; 81001; 83735; 84484; 85025; 85027; 85652; 86140; 87086; 87637; 93005; 93971; 96360; 97162; 97530; 99221; 99285

== ENCOUNTER → 2024-08-22 19:17 | Outpatient (BNV) | payer MEDICARE, SELFPAY | PROVIDERS: Emergency Provider Emergency Medicine; PCP Internal Medicine; Visit Provider Radiology Diagnostic Radiology | DX: R22.42 Localized swelling, mass and lump, left lower limb (principal); M79.605 Pain in left leg | CPT/HCPCS: 93971 ==

== ENCOUNTER → 2024-08-24 13:02 | Outpatient (BNV) | payer MEDICARE, SELFPAY | PROVIDERS: Admitting Provider Nurse Practitioner Acute Care; Emergency Provider Emergency Medicine; PCP Internal Medicine; Visit Provider Internal Medicine | DX: I49.3 Ventricular premature depolarization (principal); I49.1 Atrial premature depolarization; R94.31 Abnormal electrocardiogram [ECG] [EKG] | CPT/HCPCS: 93010 ==

== ENCOUNTER → 2024-08-24 13:03 | Outpatient (BNV) | payer MEDICARE, SELFPAY | PROVIDERS: Emergency Provider Emergency Medicine; PCP Internal Medicine; Visit Provider Radiology Diagnostic Radiology | DX: M54.2 Cervicalgia (principal); R42 Dizziness and giddiness | CPT/HCPCS: 72125 ==

== ENCOUNTER → 2024-08-25 10:15 | Outpatient (BNV) | payer MEDICARE, SELFPAY | PROVIDERS: Admitting Provider Nurse Practitioner Acute Care; Emergency Provider Emergency Medicine; PCP Internal Medicine; Visit Provider Nurse Practitioner Acute Care | DX: I10 Essential (primary) hypertension (principal) | CPT/HCPCS: 99223; 99239; G0180 ==